=== PATIENT | female | born 1960 | race Caucasian/White ===

== ENCOUNTER → 2022-12-10 | Outpatient (CLI) | payer BC, SELFPAY ==
[2022-12-10 11:30] LABS: Absolute Lymphocyte Count 3.41 X10^3/uL (0.83-4.51); Absolute Neutrophil Count 4.8 X10^3/uL (2.0-7.7); Basophil# 0.13 X10^3/uL; Basophil% 1.4 % (0-1); Eosinophil# 0.08 X10^3/uL; Eosinophils% 0.9 % (0-5); Hematocrit 44.4 % (37-47); Hemoglobin 14.9 g/dL (12.0-15.0); Lymphocyte # 3.41 X10^3/ul (0.83-4.51); Lymphocyte % 37.4 % (19-41); Mean Corp Hgb Conc 33.6 g/dL (32-36); Mean Corpuscular Hgb 31.8 pg (27.0-32.0); Mean Corpuscular Volume 94.7 fL (81-99); Mean Platelet Vol. 8.7 fl (6.2-12.0); Monocyte# 0.71 X10^3/uL; Monocyte% 7.8 % (0-10); NRBC Flagged by Analyzer 0 % (0-5); Neutrophil # 4.76 X10^3/uL (2.7-7.7); Neutrophil % 52.2 % (47-70); Platelet Count 307 K/mm3 (150-450); RBC Distribution Width SD 44.9 fl (35.1-43.9); Red Blood Count 4.69 M/mm3 (4.2-5.4); White Blood Count 9.1 K/mm3 (4.4-11.0)
[2022-12-10 12:03] LABS: ALB/GLOB Ratio 0.9 RATIO (0.9-2.4); AST(SGOT) 14 U/L (15-37); Alanine Aminotransfer ALT/SGPT 24 U/L (13-56); Albumin, Serum 3.4 g/dL (3.2-5.0); Alkaline Phosphatase 86 U/L (45-117); Anion Gap 6 (5-15); BUN 16 mg/dL (7-18); BUN/Creat Ratio 21.5 RATIO (10-20); Calcium,Total 9.5 mg/dL (8.5-10.1); Chloride 110 mmol/L (98-107); Creatinine, Serum 0.74 mg/dL (0.55-1.02); EST Glomerular Filtration Rate 84 mL/min (>60); Est Glom Filt Rate - Afr Amer 102 mL/min (>60); Globulin 3.9 g/dL (2.2-4.2); Glucose 97 mg/dL (74-106); Protein, Total 7.3 g/dL (6.4-8.2); Sodium Level 140 mmol/L (136-145); Thyroid Stim Hormone (TSH) 1.82 uIU/mL (0.358-3.74)
== END | disposition home or self-care (01) ==
LOC: LAB 10:57
PROVIDERS: PCP Family Medicine Geriatric Medicine; Referring Provider Family Medicine Geriatric Medicine; Visit Provider Family Medicine Geriatric Medicine
DX: Z00.00 Encounter for general adult medical examination without abnormal findings (principal); E55.9 Vitamin D deficiency, unspecified; I10 Essential (primary) hypertension; M17.0 Bilateral primary osteoarthritis of knee
CPT/HCPCS: 36415; 80053; 82306; 84443; 85025; 86803

== ENCOUNTER → 2022-12-29 | Outpatient (CLI) | payer BC, SELFPAY | END | disposition home or self-care (01) | PROVIDERS: PCP Family Medicine Geriatric Medicine; Visit Provider Family Medicine Geriatric Medicine | DX: N39.0 Urinary tract infection, site not specified (principal) | CPT/HCPCS: 87086; 87088 ==

== ENCOUNTER → 2023-12-19 | Outpatient (CLI) | payer OTHER, SELFPAY ==
[2023-12-19 12:38] LABS: Absolute Lymphocyte Count 2.79 X10^3/uL (0.83-4.51); Absolute Neutrophil Count 4.7 X10^3/uL (2.0-7.7); Basophil# 0.16 X10^3/uL; Eosinophil# 0.07 X10^3/uL; Eosinophils% 0.9 % (0-5); Hematocrit 48.3 % (37-47); Hemoglobin 15.9 g/dL (12.0-15.0); Lymphocyte # 2.79 X10^3/ul (0.83-4.51); Lymphocyte % 34.1 % (19-41); Mean Corp Hgb Conc 32.9 g/dL (32-36); Mean Corpuscular Hgb 30.8 pg (27.0-32.0); Mean Corpuscular Volume 93.6 fL (81-99); Mean Platelet Vol. 9.1 fl (6.2-12.0); Monocyte# 0.41 X10^3/uL; NRBC Flagged by Analyzer 0 % (0-5); Neutrophil # 4.73 X10^3/uL (2.7-7.7); Neutrophil % 57.6 % (47-70); Platelet Count 376 K/mm3 (150-450); RBC Distribution Width CV 12.8 % (11.6-14.6); Red Blood Count 5.16 M/mm3 (4.2-5.4); White Blood Count 8.2 K/mm3 (4.4-11.0)
[2023-12-19 21:32] LABS: ALB/GLOB Ratio 0.9 RATIO (0.9-2.4); AST(SGOT) 14 U/L (15-37); Alanine Aminotransfer ALT/SGPT 21 U/L (13-56); Albumin, Serum 3.7 g/dL (3.2-5.0); Alkaline Phosphatase 115 U/L (45-117); Anion Gap 9 (5-15); BUN 16 mg/dL (7-18); BUN/Creat Ratio 20.6 RATIO (10-20); CPK Total, Creatine Kinase 71 U/L (26-192); Calcium,Total 9.9 mg/dL (8.5-10.1); Chloride 108 mmol/L (98-107); Cholesterol 269 mg/dL (200); Creatinine, Serum 0.78 mg/dL (0.55-1.02); EST Glomerular Filtration Rate 79 mL/min (>60); Est Glom Filt Rate - Afr Amer 96 mL/min (>60); Globulin 4.1 g/dL (2.2-4.2); Glucose 93 mg/dL (74-106); High Density Lipoprotein 48 mg/dL; Potassium 4.3 mmol/L (3.5-5.1); Protein, Total 7.8 g/dL (6.4-8.2); Sodium Level 139 mmol/L (136-145); Thyroid Stim Hormone (TSH) 1.47 uIU/mL (0.358-3.74); Triglycerides 299 mg/dL; Troponin-I HS 4 pg/mL (3.0-54.0); Very Low Density Lipoprotein 60 mg/dL (5-40)
[2023-12-20 04:07] LABS: Myoglobin, Serum 30 ng/mL (25-58)
== END | disposition home or self-care (01) ==
LOC: LAB 11:13
PROVIDERS: PCP Family Medicine Geriatric Medicine; Referring Provider Family Medicine Geriatric Medicine; Visit Provider Family Medicine Geriatric Medicine
DX: I10 Essential (primary) hypertension (principal); E78.5 Hyperlipidemia, unspecified; R07.9 Chest pain, unspecified
CPT/HCPCS: 36415; 80053; 80061; 82550; 83874; 84443; 84484; 85025

== ENCOUNTER → 2024-01-09 | Outpatient (CLI) | payer OTHER, SELFPAY ==
--- NOTE | 2024-01-09 07:46 | EKG12_ITS ---
Test Reason : COPD Blood Pressure : / mmHG Vent. Rate : 070 BPM Atrial Rate : 070 BPM P-R Int : 166 ms QRS Dur : 066 ms QT Int : 376 ms P-R-T Axes : 058 008 107 degrees QTc Int : 406 ms Normal sinus rhythm Nonspecific T wave abnormality Abnormal ECG Confirmed by Alin Phillips ([id number]), fashion editor PIOTR MARCH ([id number]) on 01/10/2024 7:18:19 AM Referred By: Flavio Andrade Confirmed By:Alin Phillips
== END | disposition home or self-care (01) ==
PROVIDERS: PCP Family Medicine Geriatric Medicine; Referring Provider Family Medicine Geriatric Medicine; Visit Provider Family Medicine Geriatric Medicine
DX: J44.9 Chronic obstructive pulmonary disease, unspecified (principal); R07.9 Chest pain, unspecified; Z12.39 Encounter for other screening for malignant neoplasm of breast; F17.210 Nicotine dependence, cigarettes, uncomplicated
CPT/HCPCS: 93005; 94060

== ENCOUNTER → 2024-01-13 | Outpatient (CLI) | payer OTHER, SELFPAY ==
--- NOTE | 2024-01-13 12:35 | CT_ITS ---
STUDY: LOW DOSE CT LUNG CANCER SCREENING REASON FOR EXAM: Female, 63 years old. NICOTINE DEPENDENCE RADIATION DOSAGE (If Supplied By Facility): CTDIvol = ( 3.02 ) mGy, DLP = ( 103.07 ) mGycm TECHNIQUE: No contrast was administered. Low dose technique was utilized (average mAS-38 and kVp 120). 1.25 mm axial source images with a slice interval of 1.25-mm were reconstructed in lung windows. 2.5 mm axial source images with a slice interval of 2.5-mm were reconstructed in lung windows. 5.0 mm axial source images with a slice interval of 5.0-mm were reconstructed in soft tissue windows. COMPARISON: None. Emphysema: Mild emphysema. No noncalcified nodule or mass. Endobronchial lesion: None Aorta: Some calcified plaque in the aortic arch but no aortic aneurysm. CORONARY ARTERIES: Coronary artery calcification is seen. Heart: No cardiomegaly. Pulmonary artery: Normal Mediastinal nodes: Normal Other chest and abdominal findings: 5 cm cyst of the left kidney. CT/Low Dose CT Lung Screening IMPRESSION: Lung-RADS category 1 - Continue annual screening with LDCT in 12 months. IMPORTANT NOTES FOR USE: ACR Lung-RADS Version 1.1 Assessment Categories Release Date: 2018 Category: Coded 0-4 bases on nodule(s) with highest degree of suspicion. Negative screen is defined as categories 1 and 2; a positive screen is defined as categories 3 and 4. Category 3 and 4A nodules that are unchanged on interval CT should be coded as category 2, and individuals returned to screening in 12 months. Category 4X: Category 3 or 4 nodules with additional imaging findings that increase the suspicion of lung cancer, such as spiculation, GGN that doubles in size in 1 year, enlarged lymph notes, etc. Category Modifiers: S (significant finding unrelated to lung cancer) Electronically Signed: Ramin Vang MD at 14:08 EDT ,
== END | disposition home or self-care (01) ==
LOC: CT 12:30
PROVIDERS: PCP Family Medicine Geriatric Medicine; Referring Provider Family Medicine Geriatric Medicine; Visit Provider Family Medicine Geriatric Medicine
DX: J44.9 Chronic obstructive pulmonary disease, unspecified (principal); R07.9 Chest pain, unspecified; Z12.39 Encounter for other screening for malignant neoplasm of breast; F17.210 Nicotine dependence, cigarettes, uncomplicated
CPT/HCPCS: 71271

== ENCOUNTER → 2024-03-26 | Outpatient (CLI) | payer OTHER, SELFPAY ==
--- NOTE | 2024-03-26 09:32 | ECHOCS_ITS ---
Reason For Study: CAD/ASHD Procedure This was a 2D Doppler, Color Flow transthoracic echocardiogram. Contrast injection was performed. Exam performed in department. Left Ventricle Normal LV size. Left ventricular systolic function is normal. The left ventricular ejection fraction is 65 %. No regional wall motion abnormalities noted. Right Ventricle Normal RV size. Normal systolic function. Atria Normal left atrium. Normal right atrium. Mitral Valve Normal mitral valve. Tricuspid Valve Normal tricuspid valve. Mild tricuspid valve insufficiency. Pulmonic Valve Normal pulmonic valve. Great Vessels Normal aortic root. The pulmonary artery is normal size. Normal inferior vena cava. Pericardium/Pleural No pericardial effusion. Medication 22 gauge I.V. with prn adaptor inserted into left arm. Diluted definity 2ml given slow IV push to enhance endocardial definition. MMode/2D Measurements & Calculations LVIDd: 4.4 cm IVSd: 1.5 cm Ao root diam: 3.4 cm LVIDs: 2.8 cm LVPWd: 1.1 cm RVDd: 3.6 cm FS: 35.9 % LAV(MOD-bp): 36.5 ml LVAd ap4: 31.3 cm2 SV(MOD-sp4): 69.7 ml LAV(MOD-bp) Indexed: 21.0 ml/m2 LVLd ap4: 8.2 cm LAV(MOD-sp2): 37.4 ml EDV(MOD-sp4): 100.9 ml LAV(MOD-sp4): 33.9 ml EDV(sp4-el): 101.4 ml LVAs ap4: 15.1 cm2 LVLs ap4: 6.1 cm ESV(MOD-sp4): 31.2 ml ESV(sp4-el): 31.7 ml EF(MOD-sp4): 69.1 % EF(sp4-el): 68.7 % SV(sp4-el): 69.7 ml Ao sinus diam: 2.[address] Junction: 2.7 cm LA dimension(2D): 3.5 cm LA A4 area: 14.4 cm2 RA A4 area: 13.6 cm2 TAPSE: 1.8 cm Time Measurements MV dec time: 0.24 sec Doppler Measurements & Calculations MV E max jonnathan: 73.3 cm/sec Lat Peak E' Jonnathan: 7.5 cm/sec Med Peak E' Jonnathan: 8.1 cm/sec MV A max jonnathan: 86.1 cm/sec E/E' lat: 9.8 E/E' med: 9.1 MV E/A: 0.85 MV V2 max: 95.6 cm/sec MV P1/2t max jonnathan: 74.6 cm/sec Ao V2 max: 171.2 cm/sec MV max P.7 mmHg MV P1/2t: 74.7 msec Ao max P.7 mmHg MV V2 mean: 49.0 cm/sec MV dec slope: 292.6 cm/sec2 Ao V2 mean: 118.7 cm/sec MV mean P.2 mmHg Ao mean P.4 mmHg MV V2 VTI: 29.7 cm MVA(P1/2t): 2.9 cm2 Ao V2 VTI: 35.7 cm AV (velocity ratio): 0.66 LV V1 max: 99.2 cm/sec PA V2 max: 83.1 cm/sec TR max jonnathan: 219.2 cm/sec LV V1 max P.0 mmHg TR max P.2 mmHg LV V1 mean P.2 mmHg LV V1 mean: 70.4 cm/sec LV V1 VTI: 23.4 cm ECHO/Echo Complete W/ Contrast Interpretation Summary Normal LV size. Left ventricular systolic function is normal. The left ventricular ejection fraction is 65 %. Normal left atrium. Normal right atrium. Contrast injection was performed. Ordering Physician: Arie Chakraborty Referring Physician: Arie Chakraborty Performed By: Viet Clay RCS
== END | disposition home or self-care (01) ==
LOC: CVS 09:31
PROVIDERS: PCP Family Medicine Geriatric Medicine; Referring Provider Internal Medicine Cardiovascular Disease; Visit Provider Internal Medicine Cardiovascular Disease
DX: I10 Essential (primary) hypertension (principal); I25.10 Atherosclerotic heart disease of native coronary artery without angina pectoris
CPT/HCPCS: 93306; Q9957; A4216; C8929

== ENCOUNTER → 2024-12-04 | Outpatient (CLI) | payer BC, SELFPAY ==
--- NOTE | 2024-12-04 14:22 | RAD_ITS ---
PROCEDURE: KNEE 3 VIEWS 12/04/2024 REASON FOR EXAM: KNEE PAIN TECHNIQUE: 3 view(s) of each knee COMPARISON: None FINDINGS: No displaced fracture or traumatic malalignment. There is severe joint space narrowing in the medial compartments bilaterally, with slight lateral subluxation of the tibia relative to the femur bilaterally. Trace bilateral knee joint effusions. Vascular calcifications in the soft tissues. RAD/Knee 3 Views IMPRESSION: Severe osteoarthritis of both knees. Reading Location: [facility]
--- NOTE | 2024-12-04 14:22 | RAD_ITS ---
PROCEDURE: KNEE 3 VIEWS 12/04/2024 REASON FOR EXAM: KNEE PAIN TECHNIQUE: 3 view(s) of each knee COMPARISON: None FINDINGS: No displaced fracture or traumatic malalignment. There is severe joint space narrowing in the medial compartments bilaterally, with slight lateral subluxation of the tibia relative to the femur bilaterally. Trace bilateral knee joint effusions. Vascular calcifications in the soft tissues. RAD/Knee 3 Views IMPRESSION: Severe osteoarthritis of both knees. Reading Location: [facility]
--- NOTE | 2024-12-04 14:22 | CT_ITS ---
PROCEDURE: CT abdomen and pelvis without IV contrast. 12/04/2024 REASON FOR EXAM: KIDNEY STONE TECHNIQUE: Abdomen and pelvis CT without intravenous contrast. Noncontrast technique limits evaluation of the abdominal and pelvic viscera. Coronal and Sagittal reconstruction series were provided. One or more dose reduction techniques were used (e.g., Automated exposure control, adjustment of the mA and/or kV according to patient size, use of iterative reconstruction technique). PATIENT PREPARATION: Per protocol ORAL CONTRAST TYPE: None. COMPARISON: None FINDINGS: Lung bases: There is a benign calcified granuloma in the middle lobe of the right lung. The lung bases are otherwise clear. There are no pleural effusions. The heart size is normal. There is no pericardial effusion. There is calcific vascular disease of the thoracic aorta and coronary arteries. Liver: There is a 1.2 cm in diameter cyst in the left hepatic lobe. Gallbladder: There is a 2.0 cm in diameter gallstone. Spleen: Normal unenhanced appearance. Pancreas: Normal unenhanced appearance. Adrenals: Normal unenhanced appearance. Kidneys: There is a 5.5 cm in diameter cortical cyst in the interpolar cortex of the left kidney. There is no nephrolithiasis, ureterolithiasis or hydronephrosis. Bladder: The urinary bladder has a normal unenhanced CT appearance. Reproductive Organs: The uterus and ovaries have a normal unenhanced CT appearance. There is no free fluid in the pelvis. There are few reactive inguinal lymph nodes bilaterally. There is no pelvic lymphadenopathy. Bowel: No significant abnormality. Appendix: Normal. Lymph nodes: There is no mesenteric or retroperitoneal lymphadenopathy. Vasculature: There is calcific vascular disease of the abdominal aorta. Peritoneum / Retroperitoneum: There are no abnormal intra or retroperitoneal masses or fluid collections. Bones: There is multilevel degenerative disc disease of the lumbar spine. Abdominal wall: There is subcutaneous air in both buttocks consistent with injection sites. CT/Abdomen/Pelvis without Cont IMPRESSION: 1. No evidence of nephrolithiasis, ureterolithiasis or hydronephrosis. 2. Cholelithiasis. 3. Hepatic and renal cysts. Reading Location: [id number]
== END | disposition home or self-care (01) ==
LOC: CT 14:20
PROVIDERS: PCP Family Medicine Geriatric Medicine; Referring Provider Family Medicine Geriatric Medicine; Visit Provider Family Medicine Geriatric Medicine
DX: N20.0 Calculus of kidney (principal); M25.561 Pain in right knee
CPT/HCPCS: 73562; 74176

== ENCOUNTER → 2024-12-19 | Outpatient (CLI) | payer BC, SELFPAY ==
[2024-12-19 15:26] LABS: Absolute Lymphocyte Count 3.79 X10^3/uL (0.83-4.51); Absolute Neutrophil Count 8.4 X10^3/uL (2.0-7.7); Basophil# 0.13 X10^3/uL; Eosinophils% 0.8 % (0-5); Lymphocyte # 3.79 X10^3/ul (0.83-4.51); Lymphocyte % 28.5 % (19-41); Mean Corp Hgb Conc 33.3 g/dL (32-36); Mean Corpuscular Hgb 31.4 pg (27.0-32.0); Mean Corpuscular Volume 94.1 fL (81-99); Mean Platelet Vol. 8.8 fl (6.2-12.0); Monocyte# 0.82 X10^3/uL; Monocyte% 6.2 % (0-10); NRBC Flagged by Analyzer 0 % (0-5); Neutrophil # 8.36 X10^3/uL (2.7-7.7); Neutrophil % 62.9 % (47-70); Platelet Count 349 K/mm3 (150-450); RBC Distribution Width CV 13.5 % (11.6-14.6); RBC Distribution Width SD 46.7 fl (35.1-43.9); Red Blood Count 4.78 M/mm3 (4.2-5.4); White Blood Count 13.3 K/mm3 (4.4-11.0)
== END | disposition home or self-care (01) ==
LOC: LAB 14:09
PROVIDERS: PCP Family Medicine Geriatric Medicine; Referring Provider Family Medicine Geriatric Medicine; Visit Provider Family Medicine Geriatric Medicine
DX: I10 Essential (primary) hypertension (principal); E78.5 Hyperlipidemia, unspecified
CPT/HCPCS: 36415; 80053; 80061; 84443; 85025

== ENCOUNTER → 2024-12-21 | Outpatient (CLI) | payer BC, SELFPAY ==
[2024-12-21 12:17] LABS: Cholesterol 202 mg/dL (<=200); High Density Lipoprotein 67 mg/dL; Low Density Lipoprotein Calc. 102 mg/dL; Triglycerides 165 mg/dL; Very Low Density Lipoprotein 33 mg/dL (5-40)
[2024-12-21 12:24] LABS: ALB/GLOB Ratio 1.3 RATIO (0.9-2.4); AST(SGOT) 24 U/L (<=31); Alanine Aminotransfer ALT/SGPT 16 U/L (<=34); Albumin, Serum 4.1 g/dL (3.4-4.8); Alkaline Phosphatase 105 U/L (35-104); Anion Gap 12 (5-15); BUN 17 mg/dL (4-19); BUN/Creat Ratio 21.5 RATIO (10-20); Calcium,Total 9.8 mg/dL (7.6-11.0); Carbon Dioxide 22.5 mmol/L (21.0-32.0); Chloride 105 mmol/L (98-108); Creatinine, Serum 0.78 mg/dL (0.70-1.20); EST Glomerular Filtration Rate 85 (>60); Globulin 3.1 g/dL (2.2-4.2); Glucose 101 mg/dL (70-99); Potassium 4.3 mmol/L (3.3-5.1); Protein, Total 7.2 g/dL (5.9-8.4); Sodium Level 139 mmol/L (133-145); Total Bilirubin 0.43 mg/dL (0.00-1.30)
--- OUTSIDE RECORDS SUMMARY | 2024-12-21 15:56 | XMS RPT_ITS | CCD ---
Author Organization [facility] Care Team Providers Care Casino Host Name Role Phone Lorri ROBERTS, Cristina Charles Primary Care Provider [phone] Unavailable Primary Care Provider Unavailbrianna Andrade MD, Dr. Flavio Jackson Primary Care Provider Raymond ROBERTS, Dr. Flavio Jackson Attending Provider Raymond ROBERTS, Dr. Flavio Jackson Referring Provider [phone] Raymond, Flavio Chi Primary Care Unavailable Mylene, Arie Attending Unavailable Raymond, Flavio Chi Referring Unavailable Jerman Hargrove Attending Unavailable Raymond, Flavio Chi Primary Care Unavailable Raymond, Flavio Chi Referring Unavailable Raymond, Flavio Chi Primary Care Unavailable Alin Phillips Attending Unavailable Raymond, Flavio Chi Referring Unavailable Raymond, Flavio Chi Primary Care Unavailable Mylene, Arie Attending Unavailable Raymond, Flavio Chi Primary Care Unavailable Mylene, Arie Referring Unavailable Mylene, Arie Attending Unavailable Raymond, Flavio Chi Primary Care Unavailable Raymond, Flavio Chi Referring Unavailable Raymond, Flavio Chi Attending Unavailable Raymond, Flavio Chi Referring Unavailable Raymond, Flavio Chi Attending Unavailable Raymond, Flavio Chi Primary Care Unavailable Raymnod, Flavio Chi Attending Unavailable Raymond, Flavio Chi Referring Unavailable Raymond, Flavio Chi Attending Unavailable Raymond, Flavio Chi Primary Care Unavailable Raymond, Flavio Chi Referring Unavailable Raymond, Flavio Chi Attending Unavailable Raymond, Flavio Chi Primary Care Unavailable Dr. Jorge Fairchild DO Attending Provider Allergies Allergy Classification Reported Allergen(s) Allergy Type Date of Onset Reaction(s) Facility (6 sources) Penicillins Propensity to adverse reactions to drug 2 Unknown [facility] (6 sources) shell fish [Other] Propensity to adverse reactions 2 GI Upset [facility] (2 sources) Penicillins Allergy to substance 4 PT UNSURE OF REACTION [facility] (3 sources) Shellfish; Translations: [shellfish derived] Allergy to substance 4 Nausea/Vom/Diar ant [facility] (1 source) Penicillins Drug allergy (disorder) 4 [facility] Repository Medications Current Medications Medication Drug Class(es) Dates Sig (Normalized) Sig (Original) atorvastatin 40 mg oral tablet (2 sources) HMG-CoA Reductase Inhibitor Start: 01-30-2024 take 1 tablet by mouth at bedtime Atorvastatin 40 mg tablet Active 40 mg PO AT BEDTIME January 30, 2024 12:00am smoking cessation 12 hr buPROPion hydrochloride 150 mg extended release oral tablet (1 source) Aminoketone Start: 12-21-2024 take 1 tablet by mouth twice daily, then take 1 tablet by mouth every twelve hours Bupropion Hcl (Smoking Deter) 150 mg tablet extended release 12 hr Active 150 mg PO TWICE A DAY December 21, 2024 12:00am losartan potassium 100 mg oral tablet (2 sources) Angiotensin 2 Receptor Rizwana Start: 03-07-2024 take 1 tablet by mouth once daily Losartan 100 mg tablet Active 100 mg PO daily March 07, 2024 12:00am meloxicam 15 mg oral tablet (1 source) Nonsteroidal Anti-inflammatory Drug Start: 04-07-2022 End: 05-07-2022 take 1 tablet by mouth once daily meloxicam (MOBIC) 15 mg tablet Indications: Primary osteoarthritis involving multiple joints TAKE 1 TABLET BY MOUTH ONCE DAILY. DUE FOR 6 MONTH FOLLOW UP IN DECEMBER. PLEASE CALL OFFICE TO MAKE APPOINTMENT. 90 tablet 0 04/07/2022 05/07/2022 Active Comment on above: TAKE 1 TABLET BY ELIZ ONCE DAILY. DUE FOR 6 MONTH FOLLOW UP IN DECEMBER. PLEASE CALL OFFICE TO MAKE APPOINTMENT. Completed/Discontinued Medications Medication Drug Class(es) Dates Sig (Normalized) Sig (Original) ascorbic acid 500 mg chewable tablet (6 sources) Vitamin C take 500 mg by mouth once daily Ascorbic Acid (VITAMIN C) 500 mg chew Take 500 mg by mouth once daily. 0 Active Comment on above: Take 500 mg by mouth once daily. Ca carb-Ca gluc-Mg ox-Mg gluco (CALCIUM MAGNESIUM) 500 mg calcium -250 mg tab (6 sources) Ca carb-Ca gluc- Mg ox-Mg gluco (CALCIUM MAGNESIUM) 500 mg calcium -250 mg tab Take by mouth. 0 Active Comment on above: Take by mouth. escitalopram 10 mg oral tablet (4 sources) Serotonin Reuptake Inhibitor Start: 1 take 1 tablet by mouth once daily escitalopram oxalate (LEXAPRO) 10 mg tablet Indications: Adjustment disorder with depressed mood Take 1 tablet by mouth once daily. 90 tablet 3 05/04/2021 Active Comment on above: Take 1 tablet by eliz th once daily. hydroCHLOROthiazide 25 mg oral tablet (6 sources) Thiazide Diuretic Start: 1 End: 2 take 1 tablet by mouth once daily hydroCHLOROthiazide (HYDRODIURIL, ESIDRIX) 25 mg tablet Indications: Essential hypertension TAKE 1 TABLET BY MOUTH EVERY DAY 90 tablet 1 01/05/2022 Active Comment on above: TAKE 1 TABLET BY ELIZ TH EVERY DAY Take 1 tablet by eliz th once daily. simvastatin 40 mg oral tablet (7 sources) HMG-CoA Reductase Inhibitor Start: 1 End: 2 take 1 tablet by mouth once daily simvastatin (ZOCOR) 40 mg tablet Indications: Pure hypercholesterolemia TAKE 1 TABLET BY MOUTH EVERY DAY 90 tablet 0 04/07/2022 Active Comment on above: Take 1 tablet by eliz th once daily. TAKE 1 TABLET BY ELIZ TH EVERY DAY vitamin b12 1 mg oral tablet (8 sources) Vitamin B12 Start: 4 End: 4 take 1 tablet by mouth once daily Cyanocobalamin (Vitamin B-12) 1,000 mcg tablet Discontinued 1000 ug PO DAILY January 30, 2024 12:00am March 07, 2024 11:34am take 1 tablet by mouth once sarah y cyanocobalamin (VITAMIN B-12) 1,000 mcg tab Take 1,000 mcg by mouth once daily. 0 Active Comment on above: Take 1,000 mcg by mo uth once daily. Problems Active Problems Problem Classification Problem Date Documented Da te Episodic/Chronic Adjustment disorders (7 sources) Adjustment disorder with depressed mood; Translations: [Adjustment disorder with depressed mood] Onset: 03-28-2013 03-28-2013 Chronic Calculus of urinary tract (3 sources) Kidney stone; Translations: [Calculus of kidney] Onset: 12-07-2024 01-30-2024 Episodic Chronic obstructive pulmonary disease and bronchiectasis (9 sources) Chronic obstructive lung disease; Translations: [Chronic obstructive pulmonary disease, unspecified] Onset: 09-29-2016 09-29-2016 Chronic Coronary atherosclerosis and other heart disease (2 sources) Calcification of coronary artery; Translations: [Atherosclerotic heart disease of [place] coronary artery without angina pectoris] 03-07-2024 Chronic Disorders of lipid metabolism (12 sources) Hyperlipidemia; Translations: [Hyperlipidemia, unspecified] Onset: 03-28-2013 03-28-2013 Chronic Essential hypertension (11 sources) Essential hypertension; Translations: [Essential (primary) hypertension] Onset: 12-22-2018 12-22-2018 Chronic Mood disorders (2 sources) Depressive disorder; Translations: [Depression] 01-30-2024 Chronic Nonspecific chest pain (3 sources) Chest pain; Translations: [Chest pain, unspecified] Onset: 03-07-2024 01-30-2024 Episodic Osteoarthritis (10 sources) Degenerative joint disease involving multiple joints; Translations: [Polyosteoarthritis, unspecified] Onset: 12-22-2018 12-22-2018 Chronic Other nutritional; endocrine; and metabolic disorders (6 sources) Body mass index 30+ - obesity; Translations: [Body mass index (BMI) 35.0-35.9, adult] Onset: 09-29-2016 12-22-2018 Chronic Peripheral and visceral atherosclerosis (3 sources) Disorder of aorta; Translations: [Atherosclerosis of aorta] Onset: 03-07-2024 01-30-2024 Chronic Past or Other Problems Problem Classification Problem Date Documented Da te Episodic/Chronic Genitourinary symptoms and ill-defined conditions (6 sources) Blood in urine; Translations: [Hematuria, unspecified] Onset: 07-24-2013 07-24-2013 Episodic Other screening for suspected conditions (not mental disorders or infectious disease) (2 sources) Patient encounter status; Translations: [Encounter for screening mammogram for malignant neoplasm of breast] Onset: 01-30-2024 Episodic Results Test Name Value Interpretation Reference Range Facility Absolute lymphocyte countOrd ered By: Flavio Andrade on 12-19-2024 Lymphocytes Auto (Unsp spec) [#/Vol] 3.79 10*3/uL 0.83-4.51 [facility] Absolute neutrophil countOrd ered By: Flavio Andrade on 12-19-2024 Neutrophils (Bld) [#/Vol] 8.4 10*3/uL High 2.0-7.7 [facility] Automated lymphocyte count a s percentage of total leukocytesOrdered By: Flavio Raymond on 12-19-2024 Lymphocytes/100 WBC Auto (Unsp spec) 28.5 % 19-41 [facility] Basophil percentageOrdered B y: Flavio Raymond on 12-19-2024 Basophils/100 WBC (Bld) 1.0 % 0-1 [facility] Eosinophil percentageOrdered By: Flavio Raymond on 12-19-2024 Eosinophils/100 WBC (Bld) 0.8 % 0-5 [facility] Erythrocyte distribution wid th ratioOrdered By: [facility] Raymond12-19-2024 Erythrocyte distribution width (RBC) [Ratio] 13.5 % 11.6-14.6 [facility] Erythrocyte distribution wid th standard deviationOrdered By: Flavio Raymond 12-19-2024 Erythrocyte distribution width (RBC) [Ratio] 46.7 fl High 35.1-43.9 [facility] Hematocrit Auto (Bld) [Volum e fraction]Ordered By: Flavio Andrade 12-19-2024 Hematocrit (Bld) [Volume fraction] 45.0 % 37-47 [facility] Hemoglobin measurementOrdere d By: Flavio Raymond 12-19-2024 Hemoglobin (Bld) [Mass/Vol] 15.0 g/dL 12.0-15.0 [facility] Immature granulocytes/100 WB C Auto (Bld)Ordered By: Flavio Andrade 12-19-2024 Immature granulocytes/100 WBC (Bld) 0.600 % 0.0-0.9 [facility] Comment on above: IG% - Immature Granu locytes (promyelocytes, myelocytes and metamyelocytes) > 1% indicates that a LEFT SHIFT is Present. MCV (mean corpuscular volume ) determinationOrdered By: Flavio Andrade 12-19-2024 MCV (RBC) [Entitic vol] 94.1 fL 81-99 [facility] Mean corpuscular hemoglobin (MCH) determinationOrdered By: Flavio Andrade 12-19-2024 MCH (RBC) [Entitic mass] 31.4 pg 27.0-32.0 [facility] Mean corpuscular hemoglobin concentration (MCHC) determinationOrdered By: Flavio Andrade on 12-19-2024 MCHC (RBC) [Mass/Vol] 33.3 g/dL 32-[address] [facility] Mean platelet volume determi nationOrdered By: Flavio Adnrade on 12-19-2024 Platelet mean volume (Bld) [Entitic vol] 8.8 fL 6.2-12.0 [facility] Monocyte percentageOrdered B y: Flavio Andrade on 12-19-2024 Monocytes/100 WBC (Bld) 6.2 % 0-10 [facility] Neutrophil percentageOrdered By: Flavio Andrade on 12-19-2024 Neutrophils/100 WBC (Bld) 62.9 % 47-70 [facility] Nucleated red blood cell per centageOrdered By: Flavio Andrade on 12-19-2024 Nucleated RBC/100 WBC (Bld) [Ratio] 0 % 0-5 [facility] Platelet countOrdered By: Lul Andrade on 12-19-2024 Platelets (Bld) [#/Vol] 349 10*3/uL 150-450 [facility] RBC Auto (Bld) [#/Vol]Ordere d By: Flavio Andrade on 12-19-2024 RBC (Bld) [#/Vol] 4.78 10*6/uL 4.2-5.4 [facility] White blood cell (WBC) count Ordered By: Flavio Andrade on 12-19-2024 WBC (Bld) [#/Vol] 13.3 10*3/uL High 4.4-11.0 [facility] Abdomen/Pelvis without Conto n 12-04-2024 Abdomen/Pelvis without Cont [facility] Imaging Services [address] [place], [place] [address] Abdomen/Pelvis without Cont MR#: [id number] Acct: [id number] Name: MYRANDA OLIVA Rep #: [id number] : 1960 F 64 From: Carlton Pleitez MD PCP: Dr. Flavio Andrade MD Status: REG CLI Study: Abdomen/Pelvis without Cont Date of Exam: 09/25 Exam# [id number] Ordering Dr: Flavio Andrade MD PROCEDURE: CT abdomen and pelvis without IV contrast. 12/04/2024 REASON FOR EXAM: KIDNEY STONE TECHNIQUE: Abdomen and pelvis CT without intravenous contrast. Noncontrast technique limits evaluation of the abdominal and pelvic viscera. Coronal and Sagittal reconstruction series were provided. One or more dose reduction techniques were used (e.g., Automated exposure control, adjustment of the mA and/or kV according to patient size, use of iterative reconstruction technique). PATIENT PREPARATION: Per protocol ORAL CONTRAST TYPE: None. COMPARISON: None FINDINGS: Lung bases: There is a benign calcified granuloma in the middle lobe of the right lung. The lung bases are otherwise clear. There are no pleural effusions. The heart size is normal. There is no pericardial effusion. There is calcific vascular disease of the thoracic aorta and coronary arteries. Liver: There is a 1.2 cm in diameter cyst in the left hepatic lobe. Gallbladder: There is a 2.0 cm in diameter gallstone. Spleen: Normal unenhanced appearance. Pancreas: Normal unenhanced appearance. Adrenals: Normal unenhanced appearance. Kidneys: There is a 5.5 cm in diameter cortical cyst in the interpolar cortex of the left kidney. There is no nephrolithiasis, ureterolithiasis or hydronephrosis. Bladder: The urinary bladder has a normal unenhanced CT appearance. Reproductive Organs: The uterus and ovaries have a normal unenhanced CT appearance. There is no free fluid in the pelvis. There are few reactive inguinal lymph nodes bilaterally. There is no pelvic lymphadenopathy. Bowel: No significant abnormality. Appendix: Normal. Lymph nodes: There is no mesenteric or retroperitoneal lymphadenopathy. Vasculature: There is calcific vascular disease of the abdominal aorta. Peritoneum / Retroperitoneum: There are no abnormal intra or retroperitoneal masses or fluid collections. Bones: There is multilevel degenerative disc disease of the lumbar spine. Abdominal wall: There is subcutaneous air in both buttocks consistent with injection sites. CT/Abdomen/Pelvis without Cont IMPRESSION: 1. No evidence of nephrolithiasis, ureterolithiasis or hydronephrosis. 2. Cholelithiasis. 3. Hepatic and renal cysts. Reading Location: [id number] CC: Dr. Flavio Andrade MD Urology Physician Assistant: Signed Normal [facility] Knee 3 Viewson 12-04-2024 Knee 3 Views [facility] Imaging Services [address] [place], [place] [address] Knee 3 Views MR#: [id number] Acct: [id number] Name: MYRANDA OLIVA Rep #: [id number] : 1960 F 64 From: Boo Escamilla MD PCP: Dr. Flavio Andrade MD Status: REG CLI Study: Knee 3 Views Date of Exam: 12/04/24 Exam# [id number] Ordering Dr: Flavio Andrade MD PROCEDURE: KNEE 3 VIEWS 12/04/2024 REASON FOR EXAM: KNEE PAIN TECHNIQUE: 3 view(s) of each knee COMPARISON: None FINDINGS: No displaced fracture or traumatic malalignment. There is severe joint space narrowing in the medial compartments bilaterally, with slight lateral subluxation of the tibia relative to the femur bilaterally. Trace bilateral knee joint effusions. Vascular calcifications in the soft tissues. RAD/Knee 3 Views IMPRESSION: Severe osteoarthritis of both knees. Reading Location: [facility] CC: Dr. Flavio Andrade MD Urology Physician Assistant: Signed Normal [facility] Knee 3 Views [facility] Imaging Services [address] [place], [place] [address] Knee 3 Views MR#: [id number] Acct: [id number] Name: MYRANDA OLIVA Rep #: [id number] : 1960 F 64 From: Boo Escamilla MD PCP: Dr. Flavio Andrade MD Status: REG CLI Study: Knee 3 Views Date of Exam: 12/04/24 Exam# [id number] Ordering Dr: Flavio Andrade MD PROCEDURE: KNEE 3 VIEWS 12/04/2024 REASON FOR EXAM: KNEE PAIN TECHNIQUE: 3 view(s) of each knee COMPARISON: None FINDINGS: No displaced fracture or traumatic malalignment. There is severe joint space narrowing in the medial compartments bilaterally, with slight lateral subluxation of the tibia relative to the femur bilaterally. Trace bilateral knee joint effusions. Vascular calcifications in the soft tissues. RAD/Knee 3 Views IMPRESSION: Severe osteoarthritis of both knees. Reading Location: [id number] CC: Dr. Flavio Andrade MD Urology Physician Assistant: Signed Normal [facility] Echo Complete W/ Contraston 03-26-2024 Echo Complete W/ Contrast [facility] Cardiovascular Services [address] [place] [address] Echo Complete W/ Contrast 03/26/24 0953 MR#: [id number] Acct: [id number] Name: MYRANDA OLIVA Rep #: [id number] : 1960 63 From: Arie Chakraborty MD Attending Dr: Dr. Arie Chakraborty MD Status: JOSÉ LUIS DALY Ordering Dr: Arie Chakraborty MD Date: 03/26/24 Location: [facility] Sex: F C Admitted: Reason For Study: CAD/ASHD Procedure This was a 2D Doppler, Color Flow transthoracic echocardiogram. Contrast injection was performed. Exam performed in department. Left Ventricle Normal LV size. Left ventricular systolic function is normal. The left ventricular ejection fraction is 65 %. No regional wall motion abnormalities noted. Right Ventricle Normal RV size. Normal systolic function. Atria Normal left atrium. Normal right atrium. Mitral Valve Normal mitral valve. Tricuspid Valve Normal tricuspid valve. Mild tricuspid valve insufficiency. Pulmonic Valve Normal pulmonic valve. Great Vessels Normal aortic root. The pulmonary artery is normal size. Normal inferior vena cava. Pericardium/Pleural No pericardial effusion. Medication 22 gauge I.V. with prn adaptor inserted into left arm. Diluted definity 2ml given slow IV push to enhance endocardial definition. MMode/2D Measurements Calculations LVIDd: 4.4 cm IVSd: 1.5 cm Ao root diam: 3.4 cm LVIDs: 2.8 cm LVPWd: 1.1 cm RVDd: 3.6 cm FS: 35.9 % LAV(MOD-bp): 36.5 ml LVAd ap4: 31.3 cm2 SV(MOD-sp4): 69.7 ml LAV(MOD-bp) Indexed: 21.0 ml/m2 LVLd ap4: 8.2 cm LAV(MOD-sp2): 37.4 ml EDV(MOD-sp4): 100.9 ml LAV(MOD-sp4): 33.9 ml EDV(sp4-el): 101.4 ml LVAs ap4: 15.1 cm2 LVLs ap4: 6.1 cm ESV(MOD-sp4): 31.2 ml ESV(sp4-el): 31.7 ml EF(MOD-sp4): 69.1 % EF(sp4-el): 68.7 % SV(sp4-el): 69.7 ml Ao sinus diam: 2.[address] Junction: 2.7 cm LA dimension(2D): 3.5 cm LA A4 area: 14.4 cm2 RA A4 area: 13.6 cm2 TAPSE: 1.8 cm Time Measurements MV dec time: 0.24 sec Doppler Measurements Calculations MV E max monie: 73.3 cm/sec Lat Peak E' Monie: 7.5 cm/sec Med Peak E' Monie: 8.1 cm/sec MV A max monie: 86.1 cm/sec E/E' lat: 9.8 E/E' med: 9.1 MV E/A: 0.85 MV V2 max: 95.6 cm/sec MV P1/2t max monie: 74.6 cm/sec Ao V2 max: 171.2 cm/sec MV max P.7 mmHg MV P1/2t: 74.7 msec Ao max P.7 mmHg MV V2 mean: 49.0 cm/sec MV dec slope: 292.6 cm/sec2 Ao V2 mean: 118.7 cm/sec MV mean P.2 mmHg Ao mean P.4 mmHg MV V2 VTI: 29.7 cm MVA(P1/2t): 2.9 cm2 Ao V2 VTI: 35.7 cm AV (velocity ratio): 0.66 LV V1 max: 99.2 cm/sec PA V2 max: 83.1 cm/sec TR max monie: 219.2 cm/sec LV V1 max P.0 mmHg TR max P.2 mmHg LV V1 mean P.2 mmHg LV V1 mean: 70.4 cm/sec LV V1 VTI: 23.4 cm ECHO/Echo Complete W/ Contrast Interpretation Summary Normal LV size. Left ventricular systolic function is normal. The left ventricular ejection fraction is 65 %. Normal left atrium. Normal right atrium. Contrast injection was performed. Ordering Physician: Arie Chakraborty Referring Physician: Arie Chakraborty Performed By: Viet Clay RCS 03/26/24 1425 Date Arie Chakraborty MD CC: Dr. Arie Chakraborty MD; Dr. Flavio Andrade MD Date Dictated: 03/26/24952 Date Transcribed: 03/26/24 142 Urology Physician Assistant: Signed Normal [facility] 12 Lead EKG performed by [facility] on 03-07-2024 12 Lead EKG performed by [address] [address] 12 Lead EKG performed by [facility] 03/07/24 1126 MR#: [id number] Acct: [id number] Name: MYRANDA OLIVA Rep #: [id number] : 1960 63 From: Arie Chakraborty MD Attending Dr: Dr. Arie Chakraborty MD Status: DEP A MB Ordering Dr: Arie Chakraborty MD Date: 03/07/24 Location: [facility] Sex: F C Admitted: [facility]/12 Lead EKG performed by [facility] ECG Report Interpretation ---Sinus Rhythm -Left atrial enlargement. - Nonspecific T-abnormality. ABNORMAL Electronically signed on 03/11/2024 at 19:23 by Arie Chakraborty [employer] Version 8610 03/11/241926 Date Arie Chakraborty MD CC: Dr. Flavio Andrade MD Date Dictated: 03/07/241125 Date Transcribed: 03/07/241125 Urology Physician Assistant: [place] Signed Normal [facility] Cardiology Visit Reporton Cardiology Visit Report [facility] [address] [place] [address] OFFICE VISIT Date of Service: 03/07/24 MR#: [id number] Acct: [id number] Name: MYRANDA OLIVA Rep #: [id number] : 1960 Provider: Dr. Arie Chakraborty MD Age/Sex: 63/F Location: [facility] Status: Signed with Addenda ADDENDUM by ZENIA Fung on 03/23/24 at 1345 Addendum Addendum Details:: Patient has severe osteoarthritis in bilateral knees, and ambulates with a cane. She is unable to walk on a treadmill due to this. Assessment and Plan Assessment and Plan (1) Essential (primary) hypertension: Status: Acute (2) Aortic calcification: Status: Acute (3) Hyperlipidemia: Status: Acute (4) Coronary artery calcification: Status: Acute Orders: Orders 12 Lead EKG performed by [facility] 03/07/24 E78.5 - Hyperlipidemia, unspecified, I70.0 - Atherosclerosis of aorta, R07.9 - Chest pain, unspecified Echo Complete 03/07/24 I10 - Essential (primary) hypertension Nuclear Stress Test - Chemical 03/07/24 I25.10 - Atherosclerotic heart disease of [place] coronary artery without angina pectoris Plan Details Follow Up: 1 Year (mmm) 03/23/24 1345 Date Alisha Fung NP [employer] cc: Dr. Flavio Andrade MD * Signed HPI HPI History of Present Illness Details: Pleasant 63-year-old lady with a history of hypertension previous tobacco abuse who has had shortness of breath on occasion and underwent a low-dose CT scan which demonstrated coronary calcification and hence she was sent here for further evaluation and management. She denies any chest pain per se she has had some palpitations and does have shortness of breath when climbing stairs. She does have a history of hyperlipidemia with a total cholesterol of 269 HDL of 48 LDL of 161. She is on statin medication. Her physical exam demonstrates clear lung go regular rate and rhythm with 2/6 systolic murmur noted left sternal border and no pedal edema. Electrocardiogram demonstrates sinus rhythm with a rate of 75 bpm and no acute changes. Intake Vital Signs 03/07/24 11:35 Height 5 ft 1 in Weight: 165 lb 5 oz BMI 31.2 BP 137/77 H Blood Pressure Location Lt brachial Position Sitting Respiration 16 Pulse 76 Pulse Source Monitor Intake Visit Reasons: CP/ Aortic Calcification (Raymond) Head Of Marketing Analytics Required: No Accompanied by: Self Is patient in pain?: No Allergies shellfish derived Allergy (Severe, Verified 03/07/24 11:34) Nausea/Vom/Diarrhea Penicillins Allergy (Intermediate, Verified 03/07/24 11:33) PT UNSURE OF REACTION Medications ???Medication ???Instructions ???Recorded ???Confirmed ???Type atorvastatin 40 mg tablet 40 mg PO QHS 01/30/24 01/30/24 History losartan 100 mg tablet 100 mg PO QDAY 03/07/24 03/07/24 History PFSH Medical History Kidney stone COPD (chronic obstructive pulmonary disease) Osteoarthritis Hyperlipidemia Essential (primary) hypertension Depression Aortic calcification Chest pain Surgical History Hx of lithotripsy Family History Father Depression Hypertension Mother Hypertension Cancer Sister Hypertension Social History Smoking Status: Current every day smoker substance use type: former substance user and marijuana ROS Const Const: Negative for fatigue, weakness, headache(s), daytime sleepiness or difficulty sleeping ENT ENT: Positive for dizziness (few months ago); Negative for headache(s) or Nosebleed/epistaxis Cardio Chest Pain: Yes (when stressed/anxiety) Frequency: other Character: tightness (feels like a pulled muscle) Onset: other (random) Location: mid sternal, left chest and other (shoulder blade) Duration: minutes Palpitations: Yes (fluttering) Edema: None Resp Respiratory: Positive for SOB with activity (climbing stairs); Negative for SOB at rest, SOB orthopnea SOB lying down or Cough GI GI: Positive for nausea (in the AMs ); Negative vomiting or heartburn Neuro Neuro: Positive for dizziness (few months ago); Negative for lightheadedness, near syncope, headache(s) or weakness Endo Endo: Negative for fatigue Cardiology Exam Const Appearance: cooperative, healthy appearing, no acute distress, well developed and well groomed Nutritional Appearance: average body habitus and well nourished Orientation: alert, awake and oriented x3 Head Head: normal to inspection, normocephalic and atraumatic Ears: hearing grossly normal bilaterally and external ears normal Nose: external nose normal, nares normal, nasal m (more content not included)... Normal [facility] Low Dose CT Lung Screeningon 01-13-[address] Lung Screening [facility] Imaging Services [address] [place] [id number] Lung Screening MR#: [id number] Acct: [id number] Name: MYRANDA OLIVA Rep #: [id number] : 1960 F 63 From: Ramin Vang MD PCP: Dr. Flavio Andrade MD Status: [facility] Study: Low Dose CT Lung Screening Date of Exam: 01/12 Exam# [id number] Ordering [place]: [place] [id number] STUDY: LOW DOSE CT LUNG CANCER SCREENING REASON FOR EXAM: Female, 63 years old. NICOTINE DEPENDENCE RADIATION DOSAGE (If Supplied By Facility): CTDIvol = ( 3.02 ) mGy, DLP = ( 103.07 ) mGycm TECHNIQUE: No contrast was administered. Low dose technique was utilized (average mAS-38 and kVp 120). 1.25 mm axial source images with a slice interval of 1.25-mm were reconstructed in lung windows. 2.5 mm axial source images with a slice interval of 2.5-mm were reconstructed in lung windows. 5.0 mm axial source images with a slice interval of 5.0-mm were reconstructed in soft tissue windows. COMPARISON: None. Emphysema: Mild emphysema. No noncalcified nodule or mass. Endobronchial lesion: None Aorta: Some calcified plaque in the aortic arch but no aortic aneurysm. CORONARY ARTERIES: Coronary artery calcification is seen. Heart: No cardiomegaly. Pulmonary artery: Normal Mediastinal nodes: Normal Other chest and abdominal findings: 5 cm cyst of the left kidney. CT/Low Dose CT Lung Screening IMPRESSION: Lung-RADS category 1 - Continue annual screening with LDCT in 12 months. IMPORTANT NOTES FOR USE: ACR Lung-RADS Version 1.1 Assessment Categories Release Date: 2018 Category: Coded 0-4 bases on nodule(s) with highest degree of suspicion. Negative screen is defined as categories 1 and 2; a positive screen is defined as categories 3 and 4. Category 3 and 4A nodules that are unchanged on interval CT should be coded as category 2, and individuals returned to screening in 12 months. Category 4X: Category 3 or 4 nodules with additional imaging findings that increase the suspicion of lung cancer, such as spiculation, GGN that doubles in size in 1 year, enlarged lymph notes, etc. Category Modifiers: S (significant finding unrelated to lung cancer) Electronically Signed: Ramin Vang MD at 14:08 EDT , CC: Dr. Flavio Andrade MD Urology Physician Assistant: Signed Normal [facility] 12 Lead EKGon 01-09-2024 12 Lead EKG [facility] Cardiovascular Services [address] [place] [address] 12 Lead EKG 01/09/24 0755 MR#: [id number] Acct: [id number] Name: MYRANDA OLIVA Rep #: [id number] : 1960 63 From: Alin Phillips MD Attending Dr: Dr. Flavio Andrade MD Status: REG CLI Ordering Dr: Flavio Andrade MD Date: 01/09/24 Location: [facility] Sex: F C Admitted: Test Reason : COPD Blood Pressure : / mmHG Vent. Rate : 070 BPM Atrial Rate : 070 BPM P-R Int : 166 ms QRS Dur : 066 ms QT Int : 376 ms P-R-T Axes : 058 008 107 degrees QTc Int : 406 ms Normal sinus rhythm Nonspecific T wave abnormality Abnormal ECG Confirmed by Alin Phillips ([id number]), continuity editor PIOTR MARCH ([id number]) on 01/10/2024 7:18:19 AM Referred By: Flavio Andrade Confirmed By:Alin Phillips 01/10/24717 Date Alin Phillips MD CC: Dr. Flavio Andrade MD Signed Normal [facility] Myoglobin, Serumon 4 Myoglobin, Ser 30 ng/mL Normal 25-58 [facility] Comment on above: Result Comment: Perf ormed at: CB - [facility] [place] [id number] Film Loader: Raymond Wilson PhD, Phone: [phone] Performed By: #### L 501.4020, L501.9520, L500.4100, L500.4050, L501.3620, L3600.5100, L100.0100 ####[facility] [address] [place], [address] CBC W/Diff, Automatedon 12-02 Absolute Lymph 2.79 X10 3/uL Normal 0.83-4.51 [facility] Comment on above: Performed By: #### L 501.4020, L501.9520, L500.4100, L500.4050, L501.3620, L3600.5100, L100.0100 #### [facility] [address] [place], [address] Absolute Neut 4.7 X10 3/uL Normal 2.0-7.7 [facility] Comment on above: Performed By: #### L 501.4020, L501.9520, L500.4100, L500.4050, L501.3620, L3600.5100, L100.0100 #### [facility] [address] [place], [address] Basophils/100 WBC (Bld) 2.0 % High 0-1 [facility] Comment on above: Performed By: #### L 501.4020, L501.9520, L500.4100, L500.4050, L501.3620, L3600.5100, L100.0100 #### [facility] [address] [place], [address] Eosinophils/100 WBC (Bld) 0.9 % Normal 0-5 [facility] Comment on above: Performed By: #### L 501.4020, L501.9520, L500.4100, L500.4050, L501.3620, L3600.5100, L100.0100 #### [facility] [address] [place], [address] Erythrocyte distribution width (RBC) [Ratio] 12.8 % Normal 11.6-14.6 [facility] Comment on above: Performed By: #### L 501.4020, L501.9520, L500.4100, L500.4050, L501.3620, L3600.5100, L100.0100 #### [facility] [address] [place], [address] Hematocrit (Bld) [Volume fraction] 48.3 % High 37-47 [facility] Comment on above: Performed By: #### L 501.4020, L501.9520, L500.4100, L500.4050, L501.3620, L3600.5100, L100.0100 #### [facility] [address] [place], [address] Hemoglobin (Bld) [Mass/Vol] 15.9 g/dL High 12.0-15.0 [facility] Comment on above: Performed By: #### L 501.4020, L501.9520, L500.4100, L500.4050, L501.3620, L3600.5100, L100.0100 #### [facility] [address] [place], [address] IG% 0.400 Normal 0.0-0.9 [facility] Comment on above: Result Comment: IG% - Immature Granulocytes (promyelocytes, myelocytes and metamyelocytes) > 1% indicates that a LEFT SHIFT is Present. Performed By: #### L 501.4020, L501.9520, L500.4100, L500.4050, L501.3620, L3600.5100, L100.0100 #### [facility] [address] [place], [address] Lymphocytes/100 WBC (Bld) 34.1 % Normal 19-41 [facility] Comment on above: Performed By: #### L 501.4020, L501.9520, L500.4100, L500.4050, L501.3620, L3600.5100, L100.0100 #### [facility] [address] [place], [address] MCH (RBC) [Entitic mass] 30.8 pg Normal 27.0-32.0 [facility] Comment on above: Performed By: #### L 501.4020, L501.9520, L500.4100, L500.4050, L501.3620, L3600.5100, L100.0100 #### [facility] [address] [place], [address] MCHC (RBC) [Mass/Vol] 32.9 g/dL Normal 32-[address] [facility] Comment on above: Performed By: #### L 501.4020, L501.9520, L500.4100, L500.4050, L501.3620, L3600.5100, L100.0100 #### [facility] [address] [place], [address] MCV (RBC) [Entitic vol] 93.6 fL Normal 81-99 [facility] Comment on above: Performed By: #### L 501.4020, L501.9520, L500.4100, L500.4050, L501.3620, L3600.5100, L100.0100 #### [facility] [address] [place], [address] Monocytes/100 WBC (Bld) 5.0 % Normal 0-10 [facility] Comment on above: Performed By: #### L 501.4020, L501.9520, L500.4100, L500.4050, L501.3620, L3600.5100, L100.0100 #### [facility] [address] [place], [address] Neutrophils/100 WBC (Bld) 57.6 % Normal 47-70 [facility] Comment on above: Performed By: #### L 501.4020, L501.9520, L500.4100, L500.4050, L501.3620, L3600.5100, L100.0100 #### [facility] [address] [place], [address] Nucleated RBC (Bld) [#/Vol] 0 10*3/uL Normal 0-5 [facility] Comment on above: Performed By: #### L 501.4020, L501.9520, L500.4100, L500.4050, L501.3620, L3600.5100, L100.0100 #### [facility] [address] [place], [address] Platelet mean volume (Bld) [Entitic vol] 9.1 fL Normal 6.2-12.0 [facility] Comment on above: Performed By: #### L 501.4020, L501.9520, L500.4100, L500.4050, L501.3620, L3600.5100, L100.0100 #### [facility] [address] [place], [address] Platelets (Bld) [#/Vol] 376 10*3/uL Normal 150-450 [facility] Comment on above: Performed By: #### L 501.4020, L501.9520, L500.4100, L500.4050, L501.3620, L3600.5100, L100.0100 #### [facility] [address] [place], [address] RBC (Bld) [#/Vol] 5.16 10*6/uL Normal 4.2-5.4 [facility] Comment on above: Performed By: #### L 501.4020, L501.9520, L500.4100, L500.4050, L501.3620, L3600.5100, L100.0100 #### [facility] [address] [place], [address] RDW SD 44.0 fl High 35.1-43.9 [facility] Comment on above: Performed By: #### L 501.4020, L501.9520, L500.4100, L500.4050, L501.3620, L3600.5100, L100.0100 #### [facility] [address] [place], [address] WBC (Bld) [#/Vol] 8.2 10*3/uL Normal 4.4-11.0 [facility] Comment on above: Performed By: #### L 501.4020, L501.9520, L500.4100, L500.4050, L501.3620, L3600.5100, L100.0100 #### [facility] [address] [place], [address] CPK Total, Creatine Kinaseon 12-19-2023 CPK TOTAL 71 U/L Normal 26-192 [facility] Comment on above: Order Comment: 1 Performed By: #### L 501.4020, L501.9520, L500.4100, L500.4050, L501.3620, L3600.5100, L100.0100 ####[facility] [address] [place], [address] Comprehensive Metabolic Prof ilon 12-19-2023 Albumin [Mass/Vol] 3.7 g/dL Normal 3.2-5.0 [facility] Comment on above: Order Comment: 1 Performed By: #### L 501.4020, L501.9520, L500.4100, L500.4050, L501.3620, L3600.5100, L100.0100 #### [facility] [address] [place], [address] Albumin/Globulin [Mass ratio] 0.9 {ratio} Normal 0.9-2.4 [facility] Comment on above: Order Comment: 1 Performed By: #### L 501.4020, L501.9520, L500.4100, L500.4050, L501.3620, L3600.5100, L100.0100 #### [facility] [address] [place], [address] ALK P 115 U/L Normal 45-117 [facility] Comment on above: Order Comment: 1 Performed By: #### L 501.4020, L501.9520, L500.4100, L500.4050, L501.3620, L3600.5100, L100.0100 #### [facility] [address] [place], [address] ALT [Catalytic activity/Vol] 21 U/L Normal 13-56 [facility] Comment on above: Order Comment: 1 Performed By: #### L 501.4020, L501.9520, L500.4100, L500.4050, L501.3620, L3600.5100, L100.0100 #### [facility] [address] [place], [address] AST [Catalytic activity/Vol] 14 U/L Low 15-37 [facility] Comment on above: Order Comment: 1 Performed By: #### L 501.4020, L501.9520, L500.4100, L500.4050, L501.3620, L3600.5100, L100.0100 #### [facility] [address] [place], [address] Bilirubin [Mass/Vol] 0.40 mg/dL Normal 0.20-1.00 [facility] Comment on above: Order Comment: 1 Result Comment: For patients on eltrombopag therapy, use of Dimension [place] TBIL is not recommended. Performed By: #### L 501.4020, L501.9520, L500.4100, L500.4050, L501.3620, L3600.5100, L100.0100 #### [facility] [address] [place], [address] BUN/CRE 20.6 RATIO High 10-20 [facility] Comment on above: Order Comment: 1 Performed By: #### L 501.4020, L501.9520, L500.4100, L500.4050, L501.3620, L3600.5100, L100.0100 #### [facility] [address] [place], [address] CA,Total 9.9 mg/dL Normal 8.5-10.1 [facility] Comment on above: Order Comment: 1 Performed By: #### L 501.4020, L501.9520, L500.4100, L500.4050, L501.3620, L3600.5100, L100.0100 #### [facility] [address] [place], [address] Chloride [Moles/Vol] 108 mmol/L High 98-107 [facility] Comment on above: Order Comment: 1 Performed By: #### L 501.4020, L501.9520, L500.4100, L500.4050, L501.3620, L3600.5100, L100.0100 #### [facility] [address] [place], [address] CO2 [Moles/Vol] 22.0 mmol/L Normal 21.0-32.0 [facility] Comment on above: Order Comment: 1 Performed By: #### L 501.4020, L501.9520, L500.4100, L500.4050, L501.3620, L3600.5100, L100.0100 #### [facility] [address] [place], [address] Creatinine [Mass/Vol] 0.78 mg/dL Normal 0.55-1.[address] [facility] Comment on above: Order Comment: 1 Result Comment: The validity of the calculated GFR GFRAA in patients over 70 years has not been determined. Clinical correlation is essential. Performed By: #### L 501.4020, L501.9520, L500.4100, L500.4050, L501.3620, L3600.5100, L100.0100 #### [facility] [address] [place], [address] EST GFR - AA 96 mL/min Normal >60 [facility] Comment on above: Order Comment: 1 Result Comment: Afri can [place] GFR Calc Performed By: #### L 501.4020, L501.9520, L500.4100, L500.4050, L501.3620, L3600.5100, L100.0100 #### [facility] [address] [place], [address] GAP 9 Normal 5-15 [facility] Comment on above: Order Comment: 1 Performed By: #### L 501.4020, L501.9520, L500.4100, L500.4050, L501.3620, L3600.5100, L100.0100 #### [facility] [address] [place], [address] GFR/1.73 sq M.predicted among non-blacks MDRD (S/P/Bld) [Vol rate/Area] 79 mL/min/{1.73_m2} Normal >60 [facility] Comment on above: Order Comment: 1 Result Comment: Non- GFR Calc Performed By: #### L 501.4020, L501.9520, L500.4100, L500.4050, L501.3620, L3600.5100, L100.0100 #### [facility] [address] [place], [address] Globulin (S) [Mass/Vol] 4.1 g/dL Normal 2.2-4.2 [facility] Comment on above: Order Comment: 1 Performed By: #### L 501.4020, L501.9520, L500.4100, L500.4050, L501.3620, L3600.5100, L100.0100 #### [facility] [address] [place], [address] Glucose [Mass/Vol] 93 mg/dL Normal 74-106 [facility] Comment on above: Order Comment: 1 Performed By: #### L 501.4020, L501.9520, L500.4100, L500.4050, L501.3620, L3600.5100, L100.0100 #### [facility] [address] [place], [address] Potassium [Moles/Vol] 4.3 mmol/L Normal 3.5-5.[address] [facility] Comment on above: Order Comment: 1 Performed By: #### L 501.4020, L501.9520, L500.4100, L500.4050, L501.3620, L3600.5100, L100.0100 #### [facility] [address] [place], [address] Sodium [Moles/Vol] 139 mmol/L Normal 136-145 [facility] Comment on above: Order Comment: 1 Performed By: #### L 501.4020, L501.9520, L500.4100, L500.4050, L501.3620, L3600.5100, L100.0100 #### [facility] [address] [place], [address] T PROT 7.8 g/dL Normal 6.4-8.2 [facility] Comment on above: Order Comment: 1 Performed By: #### L 501.4020, L501.9520, L500.4100, L500.4050, L501.3620, L3600.5100, L100.0100 #### [facility] [address] [place], [address] Urea nitrogen [Mass/Vol] 16 mg/dL Normal 7-18 [facility] Comment on above: Order Comment: 1 Performed By: #### L 501.4020, L501.9520, L500.4100, L500.4050, L501.3620, L3600.5100, L100.0100 #### [facility] [address] [place], [address] L501.4020on 12-19-2023 TROPONIN-I HS 4 pg/mL Normal 3.0-54.0 [facility] Comment on above: Order Comment: 1 Result Comment: Plea se Note: New Test Units and Gender Specific Reference Ranges. For more information see Policy Stat Procedure [place] High Sensitivity Troponin (TNIH) and attachments. Performed By: #### L 501.4020, L501.9520, L500.4100, L500.4050, L501.3620, L3600.5100, L100.0100 ####[facility] [address] [place], [address] Lipid Profileon 12-19-2023 Cholesterol [Mass/Vol] 269 mg/dL High 200 [facility] Comment on above: Order Comment: 1 Result Comment: <200 mg/dL Desirable 200-240 mg/dL Borderline >240 mg/dL High Risk Performed By: #### L 501.4020, L501.9520, L500.4100, L500.4050, L501.3620, L3600.5100, L100.0100 #### [facility] [address] [place], [address] Cholesterol in HDL [Mass/Vol] 48 mg/dL Normal [facility] Comment on above: Order Comment: 1 Result Comment: The drugs N-Acetylcysteine and Metamizole may falsely depress this assay. Reference Range HDL <40 mg/dL Low HDL Cholesterol HDL >or= 60 mg/dL High HDL Cholesterol Performed By: #### L 501.4020, L501.9520, L500.4100, L500.4050, L501.3620, L3600.5100, L100.0100 #### [facility] [address] [place], [address] Cholesterol in LDL [Mass/Vol] 161 mg/dL High 0-130 [facility] Comment on above: Order Comment: 1 Performed By: #### L 501.4020, L501.9520, L500.4100, L500.4050, L501.3620, L3600.5100, L100.0100 #### [facility] [address] [place], [place], [address] Cholesterol in VLDL [Mass/Vol] 60 mg/dL High 5-40 [facility] Comment on above: Order Comment: 1 Performed By: #### L 501.4020, L501.9520, L500.4100, L500.4050, L501.3620, L3600.5100, L100.0100 #### [facility] [address] [place], [place], [address] Triglyceride [Mass/Vol] 299 mg/dL High [facility] Comment on above: Order Comment: 1 Result Comment: The drugs N-Acetylcysteine and Metamizole may falsely depress this assay. Serum Triglycerides Reference Interval Normal <150 mg/dL Borderline high 150 - 199 mg/dL High 200 - 499 mg/dL Very High > or = 500 mg/dL Performed By: #### L 501.4020, L501.9520, L500.4100, L500.4050, L501.3620, L3600.5100, L100.0100 #### [facility] [address] [place], [place], [address] Thyroid Stim Hormone (TSH)on 12-19-2023 TSH 1.47 uIU/mL Normal 0.358-3.74 [facility] Comment on above: Order Comment: 1 Performed By: #### L 501.4020, L501.9520, L500.4100, L500.4050, L501.3620, L3600.5100, L100.0100 ####[facility] [address] [place], [place], [address] CNOVon 05-04-2021 CNOV Office Visit (FPWADS ) MYRANDA OLIVA ([id number]) 1960 F Date Time Provider Department 05/04/21 4:00 PM CRISTINA CALLAHAN During your visit today, we recorded the following information about you: Temperature Pulse Blood pressure Weight 96.9 degrees 75/minute 144/70 90.7 kg Height 1.524 m Cristina Callahan MD 05/04/2021 5:01 PM Signed CHIEF COMPLAINT Patient presents with: Follow Up: 6 month HISTORY OF PRESENT ILLNESS Myranda Oliva is a 60 year old female who presents here today for follow up management of multiple medical issues. I last saw this patient on 06/12/2020. Arthritis Continues to take meloxicam daily. Pain is primarily in the knees, hands and hips. Hypercholesterolemia Currently managed on simvastatin. adherent to current regimen without side effects from medication. No current symptoms. Mood Patient is managed on Lexapro. Patient recently retired in February. She has been feeling a lot less stress. Health Maintenance Due for spirometry. Due for TDAP. Due for routine colon cancer screening. Due for Shingrix series Due for routine pap testing. Due for HPV testing. Due for influenza Due for mammogram. Labs reviewed. Past medical history, appointments, medications, allergies reviewed. REVIEW OF SYSTEMS Pertinent positives/ negatives: General: Feels well, no fever, no chills, +obesity. HEENT: No sinus congestion, earache, sore throat. Cardiac: No chest pain, palpitations Resp: No cough, wheeze, shortness of breath GI: No reflux symptoms, food intolerance, bowel changes. : No urinary frequency, dysuria. MS: +arthritis Psych: +tobacco use PAST MEDICAL HISTORY PAST MEDICAL HISTORY Diagnosis Date - Anxiety - Chronic obstructive pulmonary disease (HCC) 09/29/2016 - COPD (chronic obstructive pulmonary disease) ([facility]) - Dyslipidemia - Kidney stone 01/21/2014 - Panic attack - Tattoo - Tobacco abuse PHYSICAL EXAMINATION BP 142/73 Pulse 75 Temp 36.1 ?C (96.9 ?F) (Temporal) Ht 152.4 cm (5') Wt 90.7 kg (200 lb) LMP 08/30/2007 BMI 39.06 kg/m? Repeat BP: 144/70 General: Alert, well developed, well nourished, no distress, pleasant and cooperative. Obese. Heart: Regular rate and rhythm. Normal S1 and S2. No murmurs, rubs, or gallops. Lungs: Clear to auscultation bilaterally. No respiratory distress. No wheezes, rales, or rhonchi. Abdomen: Soft, non-tender, no distention. Extremities: Feet/ankles without edema, posterior tibial pulses full and symmetrical. Data Reviewed 04/30/2021 BMP- glucose (109 high) Lipid- Cholesterol, Total <200 mg/dL 232High Triglyceride <150 mg/dL 219High HDL Cholesterol >39 mg/dL 50 LDL Cholesterol <100 mg/dL 138High Non HDL Cholesterol <130 mg/dL 182High Fasting Time hrs 10 VLDL Cholesterol <30 mg/dL 44High TC:HDL Ratio <5.10 4.64 LDL:HDL Ratio <2.54 2.76High A1C trends- Lab Results Component Value Date HBA1C 5.8 04/30/2021 HBA1C 5.9 06/12/2020 Assessment/Plan (I10) Essential hypertension (primary encounter diagnosis) Comment: BP elevated on arrival today at 142/73 , 144/70 on repeat. Plan: hydroCHLOROthiazide (HYDRODIURIL, ESIDRIX) 25 mg tablet (F43.21) Adjustment disorder with depressed mood Comment: Patient does not know if she should continue because she does not have the stress of work. Plan: escitalopram oxalate (LEXAPRO) 10 mg tablet (M89.49) Primary osteoarthritis involving multiple joints Comment: mainly in hands, knees and hips Plan: meloxicam (MOBIC) 15 mg tablet (E78.00) Pure hypercholesterolemia Comment: status quo Plan: simvastatin (ZOCOR) 40 mg tablet (R73.9) Hyperglycemia Comment: per labs Plan: Watch carb intake. (Z68.35) BMI 35.0-35.9,adult Comment: per physical exam Plan: discussed weight loss tips (Z72.0) Continuous tobacco abuse Comment: Patient is down to smoking 1/4 of a pack a day. She would like to quit by September Plan: continue smoking cessation efforts. Signed Prescriptions Disp Refills escitalopram oxalate (LEXAPRO) 10 mg tablet 90 tablet 3 Sig: Take 1 tablet by mouth once daily. ANUPAMA: No hydroCHLOROthiazide (HYDRODIURIL, ESIDRIX) 25 mg tablet 90 tablet 3 Sig: Take 1 tablet by mouth once daily. ANUPAMA: No meloxicam (MOBIC) 15 mg tablet 90 tablet 3 Sig: Take 1 tablet by mouth once daily. Due for 6 month follow up in December. Please call office to make appointment. ANUPAMA: No simvastatin (ZOCOR) 40 mg tablet 90 tablet 3 Sig: Take 1 tablet by mouth once daily. RTO: 6 months Scribe Attestation: By signing my name below, IKarla, attest that this documentation has been prepared under the direction and in the presence of Lazaro Callahan M.D. Electronically Signed: Yessenia Hobbs. May 04, 2021 2:34 PM Provider Attestation: ICristina MD, personally performed the services described in this documentat (more content not included)... Normal [facility] Basic Metabolic Panlon 04-30 Anion gap [Moles/Vol] 11 mmol/L Normal 9-18 [facility] Calcium [Mass/Vol] 9.8 mg/dL Normal 8.5-10.2 [facility] Chloride [Moles/Vol] 105 mmol/L Normal 97-105 [facility] CO2 [Moles/Vol] 22 mmol/L Normal 22-30 [facility] Creatinine [Mass/Vol] 0.79 mg/dL Normal 0.58-0.96 [facility] eGFR- Amer. >60 Normal [facility] eGFR-All Other Races >60 Normal [facility] Comment on above: Result Comment: eGFR (Estimated GFR) Units of measure: mL/min/1.73 meters squared eGFR is derived from the reexpressed MDRD Study equation using the following parameters: serum creatinine, age, gender and race. The creatinine assay has been calibrated to be traceable to IDMS. An eGFR <60 mL/min/1.73m2 for >3 months is consistent with chronic kidney disease. Refer to KDOQI guidelines for clinical interpretation. In patients with unstable renal function, e.g. those with acute kidney injury, the eGFR may not accurately reflect actual GFR. Glucose [Mass/Vol] 109 mg/dL High 74-99 [facility] Comment on above: Result Comment: The [place] Diabetes Association (ADA) provides guidance for cutoff values for fasting glucose and random glucose. The ADA defines fasting as no caloric intake for at least 8 hours. Fasting plasma glucose results between 100 to 125 mg/dL indicate increased risk for diabetes (prediabetes). Fasting plasma glucose results greater than or equal to 126 mg/dL meet the criteria for diagnosis of diabetes. In the absence of unequivocal hyperglycemia, results should be confirmed by repeat testing. In a patient with classic symptoms of hyperglycemia or hyperglycemic crisis, random plasma glucose results greater than or equal to 200 mg/dL meet the criteria for diagnosis of diabetes. Reference: Standards of Medical Care in Diabetes 2016, [place] Diabetes Association. Diabetes Care. 2016.39(Suppl 1). Potassium [Moles/Vol] 3.7 mmol/L Normal 3.7-5.1 [facility] Sodium [Moles/Vol] 138 mmol/L Normal 136-144 [facility] Urea nitrogen [Mass/Vol] 17 mg/dL Normal 7-21 [facility] Hemoglobin A1con 04-30-2021 Glucose [Mass/Vol] 120 mg/dL Normal [facility] Comment on above: Result Comment: eAG: (Estimated average glucose) is a calculated value from HgbA1c and is senior account representative of the average blood glucose level in the last 2-3 month period. Performed By: #### H BA1C, LIPB #### [facility] [place] [address] [place] [address] HbA1c (Bld) [Mass fraction] 5.8 % High 4.3-5.6 [facility] Comment on above: Result Comment: Amer [place] Diabetes Association guidelines indicate that patients with HgbA1c in the range 5.7-6.4% are at increased risk for development of diabetes, and intervention by lifestyle modification may be beneficial. HgbA1c greater or equal to 6.5% is considered diagnostic of diabetes. Performed By: #### H BA1C, LIPB #### [facility] [place] [address] [place], [place] [address] Lipid Panel, [place] 021 Cholesterol [Mass/Vol] 232 mg/dL High <200 [facility] Comment on above: Result Comment: <200 mg/dL, Desirable 200-239 mg/dL, Borderline high >239 mg/dL, High Performed By: #### H BA1C, LIPB #### [facility] [address] [place], [place] [address] Cholesterol in HDL [Mass/Vol] 50 mg/dL Normal >39 [facility] Comment on above: Result Comment: 40-5 9 mg/dL, Acceptable >59 mg/dL, High: Negative risk factor for coronary heart disease <40 mg/dL, Low: Positive risk factor for coronary heart disease Performed By: #### Amanda HENDERSON1C, LIPB #### [facility] [address] [place], [place] [address] Cholesterol in LDL [Mass/Vol] 138 mg/dL High <100 [facility] Comment on above: Result Comment: <100 mg/dL, Optimal 100-129 mg/dL, Near optimal/above optimal 130-159 mg/dL, Borderline high 160-189 mg/dL, High >189 mg/dL, Very high Secondary prevention optimal LDL Cholesterol levels are recommended to be < 70 mg/dL Performed By: #### Amanda BA1C, LIPB #### [facility] [address] [place], [place] [address] Fasting Time 10 hrs Normal [facility] Comment on above: Performed By: #### Amanda RILEY, LIPB #### [facility] [address] [place], [place] [address] LDL:HDL Ratio 2.76 High <2.54 [facility] Comment on above: Result Comment: Refe rence: 1. National Cholesterol Education Program ATP III Guideline At-A-Glance Quick Desk Reference: National Heart, Lung, and Blood [place]. National Institutes of Health. 2001: NIH Publication No. 01-3305. 2. An International Atherosclerosis Society position paper: global recommendations for the management of dyslipidemia: executive summary, Atherosclerosis. 2014: 232(2):410-413. Performed By: #### H BA1C, LIPB #### [facility] [address] [place], [place] [address] Non HDL Cholesterol 182 mg/dL High <130 [facility] Comment on above: Result Comment: <130 mg/dL, Optimal 130-159 mg/dL, Near optimal/above optimal 160-189 mg/dL, Borderline high 190-219 mg/dL, High >219 mg/dL, Very high Secondary prevention optimal non HDL Cholesterol levels are recommended to be < 100 mg/dL Performed By: #### H BA1C, LIPB #### [facility] [address] [place], [place] [address] TC:HDL Ratio 4.64 Normal <5.10 [facility] Comment on above: Performed By: #### H BA1C, LIPB #### [facility] [address] [place], [place] [address] Triglyceride [Mass/Vol] 219 mg/dL High <150 [facility] [place] Comment on above: Result Comment: <150 mg/dL, Normal 150-199 mg/dL, Borderline high 200-499 mg/dL, High >499 mg/dL, Very high Performed By: #### H BA1C, LIPB #### [place] [address] [place], [place] [address] VLDL Cholesterol 44 mg/dL High <30 [facility] Comment on above: Performed By: #### H BA1C, LIPB #### [facility] [address] [place], [place] [address] OBSOLETEon 04-22-2021 OBSOLETE Refill (FPWADS) MYRANDA OLIVA ([id number]) 1960 F Date Time Provider Department 04/22/21 BECKY HARRIS During your visit today, we recorded the following information about you: Cristina Callahan MD 04/24/2021 8:18 AM Signed The following approved medication requests have been transmitted electronically. Signed Prescriptions Disp Refills escitalopram oxalate (LEXAPRO) mg tablet 30 tablet 1 Sig: Take 1 tablet by mouth once daily. ANUPAMA: No Authorizing Provider: CRISTINA CALLAHAN hydroCHLOROthiazide (HYDRODIURIL, ESIDRIX) 25 mg tablet 30 tablet 1 Sig: Take 1 tablet by mouth once daily. ANUPAMA: No Authorizing Provider: CRISTINA CALLAHAN Appt by June. Cristina Callahan MD Allergies As of Date: 04/22/2021 Noted Allergy Reaction PENICILLINS 08/30/2011 16 - Unknown Comments: as child shell fish [Other] 08/30/2011 8 - GI Upset Date Reviewed: 06/12/2020 Reviewed by: Stephany Rodriguez Ma - Fully Assessed Reason for Visit: Refill Request [94] Visit Diagnoses:Essential hypertension [I10] Adjustment disorder with depressed mood [F43.21] Order(s):escitalopram oxalate (LEXAPRO) 10 mg tabletTake 1 tablet by mouth once daily.Disp: 30 tabletRfl: 1 hydroCHLOROthiazide (HYDRODIURIL, ESIDRIX) 25 mg tabletTake 1 tablet by mouth once daily.Disp: 30 tabletRfl: 1 Prescriptions as of 04/24/2021 - escitalopram oxalate (LEXAPRO) 10 mg tablet Take 1 tablet by mouth once daily. - hydroCHLOROthiazide (HYDRODIURIL, ESIDRIX) 25 mg tablet Take 1 tablet by mouth once daily. - meloxicam (MOBIC) 15 mg tablet Take 1 tablet by mouth once daily. Due for 6 month follow up in December. Please call office to make appointment. - simvastatin (ZOCOR) 20 mg tablet TAKE 1 TABLET BY MOUTH EVERYDAY AT BEDTIME - Ascorbic Acid (VITAMIN C) 500 mg chew Take 500 mg by mouth once daily. - Ca carb-Ca gluc-Mg ox-Mg gluco (CALCIUM MAGNESIUM) 500 mg calcium -250 mg tab Take by mouth. - cyanocobalamin (VITAMIN B-12) 1,000 mcg tab Take 1,000 mcg by mouth once daily. - diclofenac sodium (VOLTAREN) 1 % topical gel Apply to affected area four times daily. Problem List As Of Date 04/22/2021 Noted Resolved Viral Wart: R hand dorsal 5th finger PIP area [*07/12/2012 12/22/2018 Spider angioma [I78.1] 07/12/2012 12/22/2018 Telangiectasia [I78.1] 07/12/2012 12/22/2018 Actinic skin damage [L57.8] 07/12/2012 12/22/2018 Hyperlipidemia [E78.5] 03/28/2013 Adjustment disorder with depressed mood [F43.21]03/28/2013 UTI (lower urinary tract infection) [N39.0] 07/24/2013 12/22/2018 Hematuria [R31.9] 07/24/2013 Kidney stone [N20.0] 01/21/2014 12/22/2018 Chronic obstructive pulmonary disease (HCC) [J4*09/29/2016 BMI 35.0-35.9,adult [Z68.35] 09/29/2016 Essential hypertension [I10] 12/22/2018 Primary osteoarthritis involving multiple joint*12/22/2018 Prescriptions ordered this encounter Disp Refills Start End ESCITALOPRAM 10 MG TABLET 30 t* 1 04/24/2021 05/24/2021 Route: ORAL Sig: Take 1 tablet by mouth once daily. HYDROCHLOROTHIAZIDE 25 MG TABLET 30 t* 1 04/24/2021 05/24/2021 Route: ORAL Sig: Take 1 tablet by mouth once daily. Medications Discontinued During This Encounter Prescriptions - escitalopram oxalate (LEXAPRO) 10 mg tablet (Discontinued) Take 1 tablet by mouth once daily. - hydroCHLOROthiazide (HYDRODIURIL, ESIDRIX) 25 mg tablet (Discontinued) Take 1 tablet by mouth once daily. Encounter Status:Closed by SERGEI JURADO MA on 04/24/21 [facility] OBSOLETEon 04-21-2021 OBSOLETE Refill (RAMIREZ) DELLVALE ([id number]) 1960 F Date Time Provider Department 04/21/21 BECKY HARRIS During your visit today, we recorded the following information about you: Cristina Callahan MD 04/22/2021 8:01 AM Signed The following approved medication requests have been transmitted electronically. Signed Prescriptions Disp Refills meloxicam (MOBIC) 15 mg tablet 30 tablet 0 Sig: Take 1 tablet by mouth once daily. Due for 6 month follow up in December. Please call office to make appointment. ANUPAMA: No Authorizing Provider: CRISTINA CALLAHAN MD Allergies As of Date: 04/21/2021 Noted Allergy Reaction PENICILLINS 08/30/2011 16 - Unknown Comments: as child shell fish [Other] 08/30/2011 8 - GI Upset Date Reviewed: 06/12/2020 Reviewed by: Stephany Rodriguez Ma - Fully Assessed Reason for Visit: Refill Request [94] Visit Diagnosis:Primary osteoarthritis involving multiple joints [M89.49] Order(s):meloxicam (MOBIC) 15 mg tabletTake 1 tablet by mouth once daily. Due for 6 month follow up in December. Please call office to make appointment.Disp: 30 tabletRfl: 0 Prescriptions as of 04/23/2021 - meloxicam (MOBIC) 15 mg tablet Take 1 tablet by mouth once daily. Due for 6 month follow up in December. Please call office to make appointment. - escitalopram oxalate (LEXAPRO) 10 mg tablet Take 1 tablet by mouth once daily. - hydroCHLOROthiazide (HYDRODIURIL, ESIDRIX) 25 mg tablet Take 1 tablet by mouth once daily. - simvastatin (ZOCOR) 20 mg tablet TAKE 1 TABLET BY MOUTH EVERYDAY AT BEDTIME - Ascorbic Acid (VITAMIN C) 500 mg chew Take 500 mg by mouth once daily. - Ca carb-Ca gluc-Mg ox-Mg gluco (CALCIUM MAGNESIUM) 500 mg calcium -250 mg tab Take by mouth. - cyanocobalamin (VITAMIN B-12) 1,000 mcg tab Take 1,000 mcg by mouth once daily. - diclofenac sodium (VOLTAREN) 1 % topical gel Apply to affected area four times daily. Problem List As Of Date 04/21/2021 Noted Resolved Viral Wart: R hand dorsal 5th finger PIP area [*07/12/2012 12/22/2018 Spider angioma [I78.1] 07/12/2012 12/22/2018 Telangiectasia [I78.1] 07/12/2012 12/22/2018 Actinic skin damage [L57.8] 07/12/2012 12/22/2018 Hyperlipidemia [E78.5] 03/28/2013 Adjustment disorder with depressed mood [F43.21]03/28/2013 UTI (lower urinary tract infection) [N39.0] 07/24/2013 12/22/2018 Hematuria [R31.9] 07/24/2013 Kidney stone [N20.0] 01/21/2014 12/22/2018 Chronic obstructive pulmonary disease (HCC) [J4*09/29/2016 BMI 35.0-35.9,adult [Z68.35] 09/29/2016 Essential hypertension [I10] 12/22/2018 Primary osteoarthritis involving multiple joint*12/22/2018 Prescriptions ordered this encounter Disp Refills Start End MELOXICAM 15 MG TABLET 30 t* 0 04/22/2021 05/22/2021 Route: ORAL Sig: Take 1 tablet by mouth once daily. Due for 6 month follow up in December. Please call office to make appointment. Medications Discontinued During This Encounter Prescriptions - meloxicam (MOBIC) 15 mg tablet (Discontinued) Take 1 tablet by mouth once daily. Due for 6 month follow up in December. Please call office to make appointment. Encounter Status:Closed by STEPHANY RODRIGUEZ MA on 04/23/21 [facility] OBSOLETEon 03-24-2021 OBSOLETE Refill (FPWADS) DELLMYRANDAVALE ([id number]) 1960 F Date Time Provider Department 03/24/21 CRISTINA CALLAHAN During your visit today, we recorded the following information about you: Reina Bustamante MA 03/24/2021 7:24 AM Signed Pharmacy verified in [place]. Patient has been identified by name and date of : Yes Patient aware RX will be sent to pharmacy. No need to notify patient. Patient phones for refill(s): Pending Prescriptions Disp Refills ESCITALOPRAM 10 MG TABLET 90 tablet 1 Sig: TAKE 1 TABLET BY MOUTH EVERY DAY ANUPAMA: Yes HYDROCHLOROTHIAZIDE 25 MG TABLET 90 tablet 1 Sig: TAKE 1 TABLET BY MOUTH EVERY DAY ANUPAMA: Yes MELOXICAM 15 MG TABLET 90 tablet 1 Sig: TAKE 1 TABLET BY MOUTH EVERY DAY ANUPAMA: Yes Date of last office visit : 06/12/2020 Date of next office visit : Visit date not found Last 2 Encounter Wt Readings: Date: Wt: 06/12/2020 92.1 kg (203 lb) 07/09/2019 91.6 kg (202 lb) Blood Pressure: BUN (mg/dL) Date Value 06/10/2020 13 Creatinine (mg/dL) Date Value 06/10/2020 0.78 Sodium (mmol/L) Date Value 06/10/2020 140 Potassium (mmol/L) Date Value 06/10/2020 3.6 Last 1 Encounter BP Readings: Date: BP: 06/12/2020 135/74 Please advise. DANIEL Urban, BEHAVIORAL HEALTH AIDE.ELECTROPLATER APPRENTICE 03/24/2021 10:29 AM Signed Over due for appointment. Was to have 6 month follow up around December. Refill 30 days. Tahmina Oliva 03/24/2021 12:[address] attempt:MALI Gill Pss 03/27/2021 9:56 AM Signed Spoke to patient and scheduled appt with pcp on 05/04 Allergies As of Date: 03/24/2021 Noted Allergy Reaction PENICILLINS 08/30/2011 16 - Unknown Comments: as child shell fish [Other] 08/30/2011 8 - GI Upset Date Reviewed: 06/12/2020 Reviewed by: Stephany Rodriguez Ma - Fully Assessed Reason for Visit: Refill Request [94] Visit Diagnoses:Adjustment disorder with depressed mood [F43.21] Essential hypertension [I10] Primary osteoarthritis involving multiple joints [M89.49] Order(s):escitalopram oxalate (LEXAPRO) 10 mg tabletTake 1 tablet by mouth once daily.Disp: 30 tabletRfl: 0 hydroCHLOROthiazide (HYDRODIURIL, ESIDRIX) 25 mg tabletTake 1 tablet by mouth once daily.Disp: 30 tabletRfl: 0 meloxicam (MOBIC) 15 mg tabletTake 1 tablet by mouth once daily. Due for 6 month follow up in December. Please call office to make appointment.Disp: 30 tabletRfl: 0 Prescriptions as of 03/27/2021 - escitalopram oxalate (LEXAPRO) 10 mg tablet Take 1 tablet by mouth once daily. - hydroCHLOROthiazide (HYDRODIURIL, ESIDRIX) 25 mg tablet Take 1 tablet by mouth once daily. - meloxicam (MOBIC) 15 mg tablet Take 1 tablet by mouth once daily. Due for 6 month follow up in December. Please call office to make appointment. - simvastatin (ZOCOR) 20 mg tablet TAKE 1 TABLET BY MOUTH EVERYDAY AT BEDTIME - Ascorbic Acid (VITAMIN C) 500 mg chew Take 500 mg by mouth once daily. - Ca carb-Ca gluc-Mg ox-Mg gluco (CALCIUM MAGNESIUM) 500 mg calcium -250 mg tab Take by mouth. - cyanocobalamin (VITAMIN B-12) 1,000 mcg tab Take 1,000 mcg by mouth once daily. - diclofenac sodium (VOLTAREN) 1 % topical gel Apply to affected area four times daily. Problem List As Of Date 03/24/2021 Noted Resolved Viral Wart: R hand dorsal 5th finger PIP area [*07/12/2012 12/22/2018 Spider angioma [I78.1] 07/12/2012 12/22/2018 Telangiectasia [I78.1] 07/12/2012 12/22/2018 Actinic skin damage [L57.8] 07/12/2012 12/22/2018 Hyperlipidemia [E78.5] 03/28/2013 Adjustment disorder with depressed mood [F43.21]03/28/2013 UTI (lower urinary tract infection) [N39.0] 07/24/2013 12/22/2018 Hematuria [R31.9] 07/24/2013 Kidney stone [N20.0] 01/21/2014 12/22/2018 Chronic obstructive pulmonary disease (HCC) [J4*09/29/2016 BMI 35.0-35.9,adult [Z68.35] 09/29/2016 Essential hypertension [I10] 12/22/2018 Primary osteoarthritis involving multiple joint*12/22/2018 Prescriptions ordered this encounter Disp Refills Start End ESCITALOPRAM 10 MG TABLET 30 t* 0 03/24/2021 04/23/2021 Route: ORAL Sig: Take 1 tablet by mouth once daily. HYDROCHLOROTHIAZIDE 25 MG TABLET 30 t* 0 03/24/2021 04/23/2021 Route: ORAL Sig: Take 1 tablet by mouth once daily. MELOXICAM 15 MG TABLET 30 t* 0 03/24/2021 04/23/2021 Route: ORAL Sig: Take 1 tablet by mouth once daily. Due for 6 month follow up in December. Please call office to make appointment. Medications Discontinued During This Encounter Prescriptions - escitalopram oxalate (LEXAPRO) 10 mg tablet (Discontinued) Take 1 tablet by mouth once daily. - hydroCHLOROthiazide (HYDRODIURIL, ESIDRIX) 25 mg tablet (Discontinued) Take 1 tablet by mouth once daily. - meloxicam (MOBIC) 15 mg tablet (Discontinued) Take 1 tablet by mouth once daily. Encounter Status:Closed by DU JOHNSON on 03/27/21 [facility] PROGRESSon 03-27-2020 PROGRESS HNO ID: [id number] Author: Octavia Quintero) ARNEL Mendez Service: Radiology Author Type: Clinical Sanitation Lead Type: Progress Notes Filed: 03/27/2020 10:43 AM Note Text: Radiology Service Progress Note PATIENT NAME: Myranda Oliva DATE OF SERVICE: March 27, 2020 TIME: 10:43 AM PATIENT IDENTITY VERIFICATION COMPLETED USING TWO (2) IDENTIFIERS: Name and Date of confirmed by patient verbally. FALL SCREENING: Has the patient had 2 falls in the last year or 1 fall with injury or currently using an Ambulatory Assistive Device (Walker, Cane, Wheelchair, Crutches, etc.)? No PATIENT GENDER DATA: Female. status: : No status: NO. PATIENT RELEVANT IMPLANT DATA REVIEWED: Not Applicable RADIOLOGY DEPARTMENT: General X-ray: Exam(s) Completed: Lower Extremity X-Ray(s): Knee, AP / Lat / Merchant Right and Wt. Bearing: PERIPHERAL IV DATA: Not applicable SIGNED BY: ARNEL GANDHI March 27, 2020 10:43 AM [facility] XR KNEE 3V AP/LAT/MERCHANT R Ravinder 03-27-2020 XR KNEE 3V AP/LAT/MERCHANT RT * * *Final Report* * * DATE OF EXAM: Mar 27 2020 10:42AM MICAHEL [id number] - XR KNEE 3V AP/LAT/MERCHANT RT / PROCEDURE REASON: M17.0-Primary osteoarthritis of both knees * * * * Physician Interpretation * * * * PROCEDURE: Right knee INDICATION: Primary osteoarthritis of both knees .RIGHT KNEE PAIN TECHNIQUE: XR KNEE 3V AP/LAT/MERCHANT RT COMPARISON: 07/09/2019 FINDINGS: There is moderate to severe medial joint compartment narrowing with tricompartment spur formation, similar to the prior study. Small suprapatellar joint effusion. No fracture. Medial joint compartment narrowing in the left knee as well. IMPRESSION: Osteoarthrosis and small joint effusion Urology Physician Assistant: PSCB Transcribe Date/Time: Mar 27 2020 10:44A Dictated by : MYNOR CARBAJAL MD This examination was interpreted and the report reviewed and electronically signed by: MYNOR CARBAJAL MD on Mar 27 2020 10:51AM EST [id number] [facility] Vital Signs Date Time Vital Sign Value Performing Clinician Faci ivana 12-21-2024 10:15-0400 Body height 154.[address] Flavio Andrade MD Work Phone: [facility] 12-21-2024 10:15-0400 Body mass index (BMI) [Ratio] 31.8 kg/m2 Dr. Flavio Andrade MD Work Phone: [facility] 12-21-2024 10:15-0400 Body weight 76.[address] Flavio Andrade MD Work Phone: [facility] Encounters Encounter Date Encounter Type Care Provider Facility Start: 12-21-2024 End: 12-21-[address] Flavio Andrade MD Work Phone: [facility] Work Phone: Start: 12-21-2024 End: 12-21-[address] Jorge Fairchild DO -[facility] Work Phone: Start: 12-19-[address] Flavio Andrade MD -Laboratory Work Phone: Start: 12-04-2024 End: 12-04-[address] Flavio Andrade MD Work Phone: [facility] Work Phone: Start: 12-04-2024 End: 12-04-[address] Flavio Andrade MD -Cat Scan [facility] Work Phone: Start: 12-04-2024 End: 12-04-2024 ambulatory Flavio Chi Raymond Facility:[facility] Start: 03-26-2024 ambulatory Flavio Chi Raymond Facility:[facility] Start: 03-26-2024 End: 03-26-2024 ambulatory Flavio Chi Raymond Facility:[facility] Start: 03-07-2024 End: 03-07-2024 ambulatory Flavio Chi Raymond Facility:[facility] Start: 02-27-2024 ambulatory Flavio Chi Raymond Facility:[facility] Start: 01-13-2024 End: 01-13-2024 ambulatory Flavio Chi Raymond Facility:[facility] Start: 01-09-2024 End: 01-09-2024 ambulatory Flavio Chi Raymond Facility:[facility] Start: 01-09-2024 End: 01-09-2024 ambulatory Flavio Chi Raymond Facility:[facility] Start: 12-19-2023 End: 12-19-2023 ambulatory Flavio Chi Raymond Facility:[facility] Start: 11-08-2022 ambulatory Cristina lino MD Work Phone: [facility] Comment on above: Prescriptions Start: 07-12-2022 Refill Jessica Eisenberg APRN.CNP Work Phone: [facility] Comment on above: Refill Request Start: 05-17-2022 Refill Cristina lino MD Work Phone: [facility] Comment on above: Refill Request Start: 04-07-2022 Refill Cristina lino MD Work Phone: [facility] Comment on above: Refill Request Start: 01-05-2022 Refill Cristina lino MD Work Phone: [facility] Comment on above: Refill Request Start: 12-30-2021 ambulatory Cristina lino MD Work Phone: [facility] [place] Procedures Date Procedure Procedure Detail Performing Clinician Start: 12-04-2024 CT of abdomen and pe lvis without contrast Dr. Flavio Andrade MD Work Phone: Start: 12-04-2024 XR knee, [address] Lul Andrade MD Work Phone: Start: 06-12-2020 Adult depression scr eening assessment Cristina Callahan MD Work Phone: Start: 03-04-2017 Mammography Cristina nunes MD Work Phone: Plan of Treatment Date Care Activity Detail Author Start: 04-30-2026 LIPID SCREEN LIPID SCREEN [facility] Start: 04-30-2024 DIABETES SCREEN DIABETES SCREEN [facility] Start: 03-04-2023 [facility] Start: 07-04-2022 DEPRESSION ASSESSMENT DEPRESSION ASSESSMENT [facility] Start: 05-04-2022 ANNUAL PCP TEAM CHRONIC DISEASE VISIT ANNUAL PCP TEAM CHRONIC DISEASE VISIT [facility] Start: 03-04-2022 Influenza vaccination INFLUENZA (#1) [facility] Start: 01-05-2022 End: 03-07-2022 Comprehensive metabolic 2000 panel - Serum or Plasma COMP METABOLIC PANEL Lab Routine Essential hypertension Pure hypercholesterolemia Expected: 01/05/2022, Expires: 03/07/2022 [facility] Work Phone: Comment on above: Expected: 01/05/2022, Expires: 2 Start: 01-05-2022 End: 03-07-2022 Lipid 1996 panel - Serum or Plasma LIPID PANEL BASIC Lab Routine Pure hypercholesterolemia Expected: 01/05/2022, Expires: 03/07/2022 [facility] Work Phone: Comment on above: Expected: 01/05/2022, Expires: 2 Start: 07-04-2021 DEPRESSION ASSESSMENT DEPRESSION ASSESSMENT [facility] Start: 06-12-2021 Adult depression screening assessment DEPRESSION SCREENING [facility] Start: 03-09-2019 PNEUMOCOCCAL (2 - PCV) PNEUMOCOCCAL (2 - PCV) [facility] Start: 03-04-2018 Mammography MAMMOGRAM [facility] Start: 10-18-2016 HPV TESTING HPV TESTING [facility] Start: 10-18-2016 PAP TESTING PAP TESTING [facility] Start: 2010 SHINGRIX VACCINE (1 of 2) SHINGRIX VACCINE (1 of 2) [facility] Start: 2005 COLOGUARD (FIT-DNA) COLOGUARD (FIT-DNA) [facility] Start: 2005 Colonoscopy COLONOSCOPY [facility] Start: 2005 COLORECTAL CANCER SCREENING COLORECTAL CANCER SCREENING [facility] Start: [address] COLONOGRAPHY [facility] Start: 2005 FECAL OCCULT BLOOD FECAL OCCULT BLOOD [facility] Start: 2005 SIGMOIDOSCOPY SIGMOIDOSCOPY [facility] Start: 1990 Zoledronic acid therapy ALPHA-1 ANTITRYPSIN DEFICIENCY SCREENING [facility] Start: 09-04-1979 Urine microalbumin profile DTAP,TDAP,TD (1 - Tdap) [facility] Start: 1978 BP CONTROLLED (<130/80) BP CONTROLLED (<130/80) [facility] Start: 1978 SPIROMETRY SPIROMETRY [facility] Start: 03-06-1961 COVID-19 VACCINE (#1) COVID-19 VACCINE (#1) [facility] End: 01-29-2023 Screening mammography bi 2-view breast inc cad RIO SCREENING Radiology Routine Encounter for screening mammogram for breast cancer 1 Occurrences starting 12/30/2021 until 01/29/2023 [facility] Work Phone: Comment on above: 1 Occurrences starting 12/30/2021 until 01/29/[facility] Immunizations Immunization Date Immunization Notes Care Provider Fa nakia 03-23-2019 Influenza, injectabl e, Madin Renetta Canine Kidney, preservative free, quadrivalent Cristina Callahan MD Work Phone: [facility] 03-09-2018 influenza, injectabl e, quadrivalent, contains preservative Cristina Callahan MD Work Phone: [facility] 03-09-2018 pneumococcal polysaccharide vaccine, 23 valent Cristina Callahan MD Work Phone: [facility] Payers Date Payer Category Payer Unknown [id number] 2023 Self-pay 2023 Unknown [id number] Unknown [id number] 2.16.8 [id number] Unknown [id number] 2.16.8 [id number] Unknown [id number] 2.16.8 [id number] Unknown [id number] 2.16.8 [id number] Unknown [id number] 2.16.8 [id number] Unknown [id number] 2.16.8 [id number] Unknown [id number] 2.16.8 [id number] Unknown [id number] 2.16.8 [id number] Unknown [id number] 2.16.8 [id number] Unknown [id number] 2.16.8 [id number] Social History Date Type Detail Facility Start: 12-21-2018 End: 01-30-2024 Tobacco smoking status TXIS Smokes tobacco daily [facility] History of tobacco use Cigarette Smoker C [facility] Start: 12-21-2018 End: 05-04-2021 Cigarettes smoked current (pack per day) - Reported 0.5 [facility] Start: 12-21-2018 End: 05-04-2021 Tobacco use and exposure Smokeless tobacco non-user [facility] Start: 05-04-2021 Alcohol intake 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 (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) [facility] Start: 06-12-2020 End: 04-29-2021 History SDOH Alcohol Frequency 1 [facility] Start: 06-12-2020 History SDOH Alcohol Std Drinks 98 [facility] Start: 08-30-2011 History SDOH Alcohol Comment rare [facility] Start: 06-12-2020 End: 04-29-2021 History SDOH Social Connections Phone 2 [facility] Start: 06-12-2020 History SDOH Social Connections Meetings 3 [facility] Start: 06-12-2020 History SDOH Social Connections Living 4 [facility] Start: 06-12-2020 Education 21 [facility] Start: 05-04-2021 Tobacco Comment down to 1/4 pack. Cl [facility] Start: 1960 Sex Assigned At Female C [facility] Clinical Notes 01-21-2014 to 12-05-2024 Telephone Encounter - Reena Mendezna - 11/08/2022 3:31 PM EDTTelephone Encounter - Stephany Monson APRN.CNP - 11/08/2022 3:21 PM EDTTelephone Encounter - Daniellejohn Enriquezno - 07/14/2022 1:11 PM EST Note Date & Type Note Facility 12-05-2024 Radiology Diagnostic study note [facility] Imaging Services [address] [place], [place] [address] Knee 3 Views MR#: [id number] Acct: [id number] Name: MYRANDA OLIVA Rep #: [id number] : 1960 F 64 From: Tasha Escamilla MD PCP: Dr. Flavio Andrade MD Status: REG C ADYD Study:Knee 3 Views Date of Exam: 5 Exam# [id number] Ordering Dr: Flavio Andrade MD PROCEDURE: KNEE 3 VIEWS 12/04/2024 REASON FOR EXAM: KNEE PAIN TECHNIQUE: 3 view(s) of each knee COMPARISON: None FINDINGS: No displaced fracture or traumatic malalignment. There is severe joint space narrowing in the medial compartments bilaterally, with slight lateral subluxation of the tibia relative to the femur bilaterally. Trace bilateral knee joint effusions. Vascular calcifications in the soft tissues. RAD/Knee 3 Views IMPRESSION: Severe osteoarthritis of both knees. Reading Location: [id number] CC: Dr. Flavio Andrade MD ~ Urology Physician Assistant: Signed [facility] 12-05-2024 Radiology Diagnostic study note [facility] Imaging Services [address] [facility] [place] [id number] Knee 3 Views MR#: [id number] Acct: [id number] Name: MYRANDA OLIVA Rep #: [id number] : 1960 F 64 From: Tasha Escamilla MD PCP: Dr. Flavio Andrade MD Status: REG C Study:Knee 3 Views Date of Exam: 5 Exam# [id number] Ordering Dr: Flavio Andrade MD PROCEDURE: KNEE 3 VIEWS 12/04/2024 REASON FOR EXAM: KNEE PAIN TECHNIQUE: 3 view(s) of each knee COMPARISON: None FINDINGS: No displaced fracture or traumatic malalignment. There is severe joint space narrowing in the medial compartments bilaterally, with slight lateral subluxation of the tibia relative to the femur bilaterally. Trace bilateral knee joint effusions. Vascular calcifications in the soft tissues. RAD/Knee 3 Views IMPRESSION: Severe osteoarthritis of both knees. Reading Location: [facility] CC: Dr. Flavio Andrade MD ~ Urology Physician Assistant: Signed [facility] 12-04-2024 Radiology Diagnostic study note [facility] Imaging Services [address] [facility] [place], [place] [address] Abdomen/Pelvis without Cont MR#: [id number] Acct: [id number] Name: MYRANDA OLIVA Rep #: [id number] : 1960 F 64 From: Eladio Pleitez MD PCP: Dr. Flavio Andrade MD Status: REG C Study:Abdomen/Pelvis without Cont Date of Exa m: 12/04/24 Exam# [id number] Ordering Dr: Flavio Andrade MD PROCEDURE: CT abdomen and pelvis without IV contrast. 12/04/2024 REASON FOR EXAM: KIDNEY STONE TECHNIQUE: Abdomen and pelvis CT without intravenous contrast. Noncontrast technique limits evaluation of the abdominal and pelvic viscera. Coronal and Sagittal reconstruction series were provided. One or more dose reduction techniques were used (e.g., Automated exposure control, adjustment of the mA and/or kV according to patient size, use of iterative reconstruction technique). PATIENT PREPARATION: Per protocol ORAL CONTRAST TYPE: None. COMPARISON: None FINDINGS: Lung bases: There is a benign calcified granuloma in the middle lobe of the right lung. The lung bases are otherwise clear. There are no pleural effusions. The heart size is normal. There is no pericardial effusion. There is calcific vascular disease of the thoracic aorta and coronary arteries. Liver: There is a 1.2 cm in diameter cyst in the left hepatic lobe. Gallbladder: There is a 2.0 cm in diameter gallstone. Spleen: Normal unenhanced appearance. Pancreas: Normal unenhanced appearance. Adrenals: Normal unenhanced appearance. Kidneys: There is a 5.5 cm in diameter cortical cyst in the interpolar cortex ofthe left kidney. There is no nephrolithiasis, ureterolithiasis or hydronephrosis. Bladder: The urinary bladder has a normal unenhanced CT appearance. Reproductive Organs: The uterus and ovaries have a normal unenhanced CT appearance. There is no free fluid in the pelvis. There are few reactive inguinal lymph nodes bilaterally. There is no pelvic lymphadenopathy. Bowel: No significant abnormality. Appendix: Normal. Lymph nodes: There is no mesenteric or retroperitoneal lymphadenopathy. Vasculature: There is calcific vascular disease of the abdominal aorta. Peritoneum / Retroperitoneum: There are no abnormal intra or retroperitoneal masses or fluid collections. Bones: There is multilevel degenerative disc disease of the lumbar spine. Abdominal wall: There is subcutaneous air in both buttocks consistent with injection sites. CT/Abdomen/Pelvis without Cont IMPRESSION: 1. No evidence of nephrolithiasis, ureterolithiasis or hydronephrosis. 2. Cholelithiasis. 3. Hepatic and renal cysts. Reading Location: [id number] CC: Dr. Flavio Andrade MD ~ Urology Physician Assistant: Signed [facility] Work Phone: 11-08-2022 Miscellaneous Notes Patient did schedule an appt with our financial advocates for 11/22/22. 1st attempt, left voicemail. Please help patient speak with financial assistance to see if she qualifies, then schedule an appointment, soonest available with me or Dr. Callahan. Can prescribe short term supply of necessary medications to last until her appointment time, but I need an appointment scheduled first. Stephany Monson APRN.CNP documented in this encounter [facility] 07-14-2022 Miscellaneous Notes 1st attempt. Tried calling patient and phone just would ring and make clicking noises. Left [employer] message also. Needs visit, schedule REGINA. Stephany Monson APRN.CNP documented in this encounter [facility] 05-25-2022 Miscellaneous Notes 2nd attempt. Sent [employer] message. First attempt at contacting patient, left a VM. Please assist patient In scheduling when she calls back. Overdue for a visit and labs, please schedule REGINA with either provider. Stephany Monsno APRN.CNP Pharmacy verified in [facility] Patient has been identified by name and date of : Yes Patient aware RX will be sent to pharmacy. No need to notify patient. Patient phones for refill(s): Requested Prescriptions Pending Prescriptions Disp Refills escitalopram oxalate (LEXAPRO) 10 mg tablet [Pharmacy Med Name: ESCITALOPRAM 10 MG TABLET] 90 tablet 3 Sig: TAKE 1 TABLET BY MOUTH EVERY DAY hydroCHLOROthiazide (HYDRODIURIL, ESIDRIX) 25 mg tablet [Pharmacy Med Name: HYDROCHLOROTHIAZIDE 25 MG TAB] 90 tablet 1 Sig: TAKE 1 TABLET BY MOUTH EVERY DAY Date of last office visit : 05/04/2021 Date of next office visit : Visit date not found Last 2 Encounter Wt Readings: Date: Wt: 05/04/2021 90.7 kg (200 lb) 06/12/2020 92.1 kg (203 lb) Blood Pressure: BUN (mg/dL) Date Value 04/30/2021 17 Creatinine (mg/dL) Date Value 04/30/2021 0.79 Sodium (mmol/L) Date Value 04/30/2021 138 Potassium (mmol/L) Date Value 04/30/2021 3.7 Last 1 Encounter BP Readings: Date: BP: 05/04/2021 144/70 Please advise. Shanelle Kline LPN documented in this encounter [facility] 04-07-2022 Miscellaneous Notes 1st attempt. Left message on VM. Please inform patient that they are due for OV and assist in scheduling. Thanks. documented in this encounter [facility] 01-12-2022 Miscellaneous Notes 1st attempt, left voicemail OK refill throught May. Due for visit and lab by May. Refill on 01/05/22 COMP METABOLIC PANEL LIPID PANEL BASIC The following approved medication requests have been transmitted electronically. Signed Prescriptions Disp Refills hydroCHLOROthiazide (HYDRODIURIL, ESIDRIX) 25 mg tablet 90 tablet 1 Sig: TAKE 1 TABLET BY MOUTH EVERY DAY ANUPAMA: No Authorizing Provider: CRISTINA CALLAHAN MD Pharmacy verified in [facility]. Patient has been identified by name and date of : Yes Patient aware RX will be sent to pharmacy. No need to notify patient. Patient phones for refill(s): Pending Prescriptions Disp Refills HYDROCHLOROTHIAZIDE 25 MG TABLET 90 tablet 3 Sig: TAKE 1 TABLET BY MOUTH EVERY DAY ANUPAMA: Yes Date of last office visit : 05/04/2021 Date of next office visit : Visit date not found Last 2 Encounter Wt Readings: Date: Wt: 05/04/2021 90.7 kg (200 lb) 06/12/2020 92.1 kg (203 lb) Blood Pressure: BUN (mg/dL) Date Value 04/30/2021 17 Creatinine (mg/dL) Date Value 04/30/2021 0.79 Sodium (mmol/L) Date Value 04/30/2021 138 Potassium (mmol/L) Date Value 04/30/2021 3.7 Last 1 Encounter BP Readings: Date: BP: 05/04/2021 144/70 Please advise. Reina Bustamante MA documented in this encounter [facility] 12-30-2021 Note Patient Outreach (IN TMMN) MYRANDA OLIVA ([id number]) 1960 F Date Time Provider Department 12/30/21 CRISTINA CALLAHAN During your visit today, we recorded the following information about you: Allergies As of Date: 12/30/2021 Noted Allergy Reaction PENICILLINS 08/30/2011 16 - Unknown Comments: as child shell fish [Other] 08/30/2011 8 - GI Upset Date Reviewed: 05/04/2021 Reviewed by: Daksha Lr MA - Fully Assessed Visit Diagnosis:Encounter for screening mammogram for breast cancer [Z12.31] Order(s):RIO SCREENING [[id number]] Order #: [id number] FUTURE Prescriptions as of 01/04/2022 - escitalopram oxalate (LEXAPRO) 10 mg tablet Take 1 tablet by mouth once daily. - hydroCHLOROthiazide (HYDRODIURIL, ESIDRIX) 25 mg tablet Take 1 tablet by mouth once daily. - simvastatin (ZOCOR) 40 mg tablet Take 1 tablet by mouth once daily. - Ascorbic Acid (VITAMIN C) 500 mg chew Take 500 mg by mouth once daily. - Ca carb-Ca gluc-Mg ox-Mg gluco (CALCIUM MAGNESIUM) 500 mg calcium -250 mg tab Take by mouth. - cyanocobalamin (VITAMIN B-12) 1,000 mcg tab Take 1,000 mcg by mouth once daily. Problem List As Of Date 12/30/2021 Noted Resolved Viral Wart: R hand dorsal 5th finger PIP area [*07/12/2012 12/22/2018 Spider angioma [I78.1] 07/12/2012 12/22/2018 Telangiectasia [I78.1] 07/12/2012 12/22/2018 Actinic skin damage [L57.8] 07/12/2012 12/22/2018 Hyperlipidemia [E78.5] 03/28/2013 Adjustment disorder with depressed mood [F43.21]03/28/2013 UTI (lower urinary tract infection) [N39.0] 07/24/2013 12/22/2018 Hematuria [R31.9] 07/24/2013 Kidney stone [N20.0] 01/21/2014 12/22/2018 Chronic obstructive pulmonary disease (HCC) [J4*09/29/2016 BMI 35.0-35.9,adult [Z68.35] 09/29/2016 Essential hypertension [I10] 12/22/2018 Primary osteoarthritis involving multiple joint*12/22/2018 Encounter Status:Closed by [employer], PRODUSER on 01/04/22 [facility] 05-04-2021 Note HNO ID: [id number] Author: Cristina Callahan MD Service: ? Author Type: Physician Type: Progress Notes Filed: 05/04/2021 5:01 PM Note Text: CHIEF COMPLAINT Patient presents with: Follow Up: 6 month HISTORY OF PRESENT ILLNESS Myranda Oliva is a 60 year old female who presents here today for follow up management of multiple medical issues. I last saw this patient on 06/12/2020. Arthritis Continues to take meloxicam daily. Pain is primarily in the knees, hands and hips. Hypercholesterolemia Currently managed on simvastatin. adherent to current regimen without side effects from medication. No current symptoms. Mood Patient is managed on Lexapro. Patient recently retired in February. She has been feeling a lot less stress. Health Maintenance Due for spirometry. Due for TDAP. Due for routine colon cancer screening. Due for Shingrix series Due for routine pap testing. Due for HPV testing. Due for influenza Due for mammogram. Labs reviewed. Past medical history, appointments, medications, allergies reviewed. REVIEW OF SYSTEMS Pertinent positives/ negatives: General: Feels well, no fever, no chills, +obesity. HEENT: No sinus congestion, earache, sore throat. Cardiac: No chest pain, palpitations Resp: No cough, wheeze, shortness of breath GI: No reflux symptoms, food intolerance, bowel changes. : No urinary frequency, dysuria. MS: +arthritis Psych: +tobacco use PAST MEDICAL HISTORY PAST MEDICAL HISTORY Diagnosis Date - Anxiety - Chronic obstructive pulmonary disease (HCC) 09/29/2016 - COPD (chronic obstructive pulmonary disease) ([facility]) - Dyslipidemia - Kidney stone 01/21/2014 - Panic attack - Tattoo - Tobacco abuse PHYSICAL EXAMINATION BP 142/73 Pulse 75 Temp 36.1 ?C (96.9 ?F) (Temporal) Ht 152.4 cm (5') Wt 90.7 kg (200 lb) LMP 08/30/2007 BMI 39.06 kg/m? Repeat BP: 144/70 General: Alert, well developed, well nourished, no distress, pleasant and cooperative. Obese. Heart: Regular rate and rhythm. Normal S1 and S2. No murmurs, rubs, or gallops. Lungs: Clear to auscultation bilaterally. No respiratory distress. No wheezes, rales, or rhonchi. Abdomen: Soft, non-tender, no distention. Extremities: Feet/ankles without edema, posterior tibial pulses full and symmetrical. Data Reviewed 04/30/2021 BMP- glucose (109 high) Lipid- Cholesterol, Total <200 mg/dL 232High Triglyceride <150 mg/dL 219High HDL Cholesterol >39 mg/dL 50 LDL Cholesterol <100 mg/dL 138High Non HDL Cholesterol <130 mg/dL 182High Fasting Time hrs 10 VLDL Cholesterol <30 mg/dL 44High TC:HDL Ratio <5.10 4.64 LDL:HDL Ratio <2.54 2.76High A1C trends- Lab Results Component Value Date HBA1C 5.8 04/30/2021 HBA1C 5.9 06/12/2020 Assessment/Plan (I10) Essential hypertension (primary encounter diagnosis) Comment: BP elevated on arrival today at 142/73 , 144/70 on repeat. Plan: hydroCHLOROthiazide (HYDRODIURIL, ESIDRIX) 25 mg tablet (F43.21) Adjustment disorder with depressed mood Comment: Patient does not know if she should continue because she does not have the stress of work. Plan: escitalopram oxalate (LEXAPRO) 10 mg tablet (M89.49) Primary osteoarthritis involving multiple joints Comment: mainly in hands, knees and hips Plan: meloxicam (MOBIC) 15 mg tablet (E78.00) Pure hypercholesterolemia Comment: status quo Plan: simvastatin (ZOCOR) 40 mg tablet (R73.9) Hyperglycemia Comment: per labs Plan: Watch carb intake. (Z68.35) BMI 35.0-35.9,adult Comment: per physical exam Plan: discussed weight loss tips (Z72.0) Continuous tobacco abuse Comment: Patient is down to smoking 1/4 of a pack a day. She would like to quit by September Plan: continue smoking cessation efforts. Signed Prescriptions Disp Refills escitalopram oxalate (LEXAPRO) 10 mg tablet 90 tablet 3 Sig: Take 1 tablet by mouth once daily. ANUPAMA: No hydroCHLOROthiazide (HYDRODIURIL, ESIDRIX) 25 mg tablet 90 tablet 3 Sig: Take 1 tablet by mouth once daily. ANUPAMA: No meloxicam (MOBIC) 15 mg tablet 90 tablet 3 Sig: Take 1 tablet by mouth once daily. Due for 6 month follow up in December. Please call office to make appointment. ANUPAMA: No simvastatin (ZOCOR) 40 mg tablet 90 tablet 3 Sig: Take 1 tablet by mouth once daily. RTO: 6 months Scribe Attestation: By signing my name below, I, Karla Whaley, attest that this documentation has been prepared under the direction and in the presence of Lazaro Callahan M.D. Electronically Signed: Yessenia Hobbs. May 04, 2021 2:34 PM Provider Attestation: I, Cristina Callahan MD, personally performed the services described in this documentation. All medical record entries made by the yessenia were at my direction and in my presence. I have reviewed the chart and discharge instructions (if applicable) and agree that the record reflects my personal performance and is accurate and complete. Electronically Signed: [place] (more content not included)... [facility] 04-21-2021 Note Patient Outreach (IN TMMN) DELLMYRANDA ([id number]) 1960 F Date Time Provider Department 04/21/21 CRISTINA CALLAHAN During your visit today, we recorded the following information about you: Allergies As of Date: 04/21/2021 Noted Allergy Reaction PENICILLINS 08/30/2011 16 - Unknown Comments: as child shell fish [Other] 08/30/2011 8 - GI Upset Date Reviewed: 06/12/2020 Reviewed by: Stephany Rodriguez Ma - Fully Assessed Visit Diagnoses:Essential hypertension [I10] BMI 35.0-35.9,adult [Z68.35] Hyperlipidemia [E78.5] Order(s):BASIC METABOLIC PNL [SQBMP] Order #: [id number] FUTURE HGB A1C [YGWWI3Y] Order #: [id number] FUTURE LIPID PANEL BASIC [SQLIPB] Order #: [id number] FUTURE Prescriptions as of 04/24/2021 - meloxicam (MOBIC) 15 mg tablet Take 1 tablet by mouth once daily. Due for 6 month follow up in December. Please call office to make appointment. - escitalopram oxalate (LEXAPRO) 10 mg tablet Take 1 tablet by mouth once daily. - hydroCHLOROthiazide (HYDRODIURIL, ESIDRIX) 25 mg tablet Take 1 tablet by mouth once daily. - simvastatin (ZOCOR) 20 mg tablet TAKE 1 TABLET BY MOUTH EVERYDAY AT BEDTIME - Ascorbic Acid (VITAMIN C) 500 mg chew Take 500 mg by mouth once daily. - Ca carb-Ca gluc-Mg ox-Mg gluco (CALCIUM MAGNESIUM) 500 mg calcium -250 mg tab Take by mouth. - cyanocobalamin (VITAMIN B-12) 1,000 mcg tab Take 1,000 mcg by mouth once daily. - diclofenac sodium (VOLTAREN) 1 % topical gel Apply to affected area four times daily. Problem List As Of Date 04/21/2021 Noted Resolved Viral Wart: R hand dorsal 5th finger PIP area [*07/12/2012 12/22/2018 Spider angioma [I78.1] 07/12/2012 12/22/2018 Telangiectasia [I78.1] 07/12/2012 12/22/2018 Actinic skin damage [L57.8] 07/12/2012 12/22/2018 Hyperlipidemia [E78.5] 03/28/2013 Adjustment disorder with depressed mood [F43.21]03/28/2013 UTI (lower urinary tract infection) [N39.0] 07/24/2013 12/22/2018 Hematuria [R31.9] 07/24/2013 Kidney stone [N20.0] 01/21/2014 12/22/2018 Chronic obstructive pulmonary disease (HCC) [J4*09/29/2016 BMI 35.0-35.9,adult [Z68.35] 09/29/2016 Essential hypertension [I10] 12/22/2018 Primary osteoarthritis involving multiple joint*12/22/2018 Encounter Status:Closed by SRIDHAR COVINGTON on 04/24/21 [facility] 01-23-2021 Note Patient Outreach (IN TMMN) MYRANDA OLIVA ([id number]) 1960 F Date Time Provider Department 01/23/21 CRISTINA CALLAHAN During your visit today, we recorded the following information about you: Allergies As of Date: 01/23/2021 Noted Allergy Reaction PENICILLINS 08/30/2011 16 - Unknown Comments: as child shell fish [Other] 08/30/2011 8 - GI Upset Date Reviewed: 06/12/2020 Reviewed by: Stephany Rodriguez Ma - Fully Assessed Visit Diagnosis:Encounter for screening mammogram for breast cancer [Z12.31] Order(s):[facility] SCREENING [[id number]] Order #: [id number] FUTURE Prescriptions as of 01/26/2021 - simvastatin (ZOCOR) 20 mg tablet TAKE 1 TABLET BY MOUTH EVERYDAY AT BEDTIME - hydroCHLOROthiazide (HYDRODIURIL, ESIDRIX) 25 mg tablet Take 1 tablet by mouth once daily. - meloxicam (MOBIC) 15 mg tablet Take 1 tablet by mouth once daily. - escitalopram oxalate (LEXAPRO) 10 mg tablet Take 1 tablet by mouth once daily. - Ascorbic Acid (VITAMIN C) 500 mg chew Take 500 mg by mouth once daily. - Ca carb-Ca gluc-Mg ox-Mg gluco (CALCIUM MAGNESIUM) 500 mg calcium -250 mg tab Take by mouth. - cyanocobalamin (VITAMIN B-12) 1,000 mcg tab Take 1,000 mcg by mouth once daily. - diclofenac sodium (VOLTAREN) 1 % topical gel Apply to affected area four times daily. Problem List As Of Date 01/23/2021 Noted Resolved Viral Wart: R hand dorsal 5th finger PIP area [*07/12/2012 12/22/2018 Spider angioma [I78.1] 07/12/2012 12/22/2018 Telangiectasia [I78.1] 07/12/2012 12/22/2018 Actinic skin damage [L57.8] 07/12/2012 12/22/2018 Hyperlipidemia [E78.5] 03/28/2013 Adjustment disorder with depressed mood [F43.21]03/28/2013 UTI (lower urinary tract infection) [N39.0] 07/24/2013 12/22/2018 Hematuria [R31.9] 07/24/2013 Kidney stone [N20.0] 01/21/2014 12/22/2018 Chronic obstructive pulmonary disease (HCC) [J4*09/29/2016 BMI 35.0-35.9,adult [Z68.35] 09/29/2016 Essential hypertension [I10] 12/22/2018 Primary osteoarthritis involving multiple joint*12/22/2018 Encounter Status:Closed by EPIC, PRODUSER on 01/26/21 [facility] 01-21-2014 History of Past i llness Narrative Problem Noted Date Resolved Date Kidney stone 01/21/2014 12/22/2018 UTI (lower urinary tract infection) 07/24/2013 12/22/2018 Viral Wart: R hand dorsal 5th finger PIP area 12/22/2018 Spider angioma 07/12/2012 12/22/2018 Telangiectasia 07/12/2012 12/22/2018 Actinic skin damage 07/12/2012 12/22/2018 documented as of this encounter (statuses as of 01/04/2022) [facility] History of Past illness Narrative* Problem Noted Date Resolved Date Kidney stone 01/21/2014 12/22/2018 UTI (lower urinary tract infection) 07/24/2013 12/22/2018 Viral Wart: R hand dorsal 5th finger PIP area 12/22/2018 Spider angioma 07/12/2012 12/22/2018 Telangiectasia 07/12/2012 12/22/2018 Actinic skin damage 07/12/2012 12/22/2018 documented as of this encounter (statuses as of 01/12/2022) [facility] History of Past illness Narrative* Problem Noted Date Resolved Date Kidney stone 01/21/2014 12/22/2018 UTI (lower urinary tract infection) 07/24/2013 12/22/2018 Viral Wart: R hand dorsal 5th finger PIP area 12/22/2018 Spider angioma 07/12/2012 12/22/2018 Telangiectasia 07/12/2012 12/22/2018 Actinic skin damage 07/12/2012 12/22/2018 documented as of this encounter (statuses as of 04/07/2022) [facility]07-[facility]2014 History of Past illness Narrative* Problem Noted Date Resolved Date Kidney stone 01/21/2014 12/22/2018 UTI (lower urinary tract infection) 07/24/2013 12/22/2018 Viral Wart: R hand dorsal 5th finger PIP area 12/22/2018 Spider angioma 07/12/2012 12/22/2018 Telangiectasia 07/12/2012 12/22/2018 Actinic skin damage 07/12/2012 12/22/2018 documented as of this encounter (statuses as of 05/25/2022) [facility] History of Past illness Narrative* Problem Noted Date Resolved Date Kidney stone 01/21/2014 12/22/2018 UTI (lower urinary tract infection) 07/24/2013 12/22/2018 Viral Wart: R hand dorsal 5th finger PIP area 12/22/2018 Spider angioma 07/12/2012 12/22/2018 Telangiectasia 07/12/2012 12/22/2018 Actinic skin damage 07/12/2012 12/22/2018 documented as of this encounter (statuses as of 07/14/2022) [facility] History of Past illness Narrative* Problem Noted Date Resolved Date Kidney stone 01/21/2014 12/22/2018 UTI (lower urinary tract infection) 07/24/2013 12/22/2018 Viral Wart: R hand dorsal 5th finger PIP area 12/22/2018 Spider angioma 07/12/2012 12/22/2018 Telangiectasia 07/12/2012 12/22/2018 Actinic skin damage 07/12/2012 12/22/2018 documented as of this encounter (statuses as of 11/09/2022) [facility] note* Diagnosis Encounter for screening mammogram for breast cancer [facility] Diagnosis Pure hypercholesterolemia- Primary Essential hypertension Unspecified essential hypertension [facility] Diagnosis Primary osteoarthritis involving multiple joints Pure hypercholesterolemia [facility] Diagnosis Adjustment disorder with depressed mood Essential hypertension Unspecified essential hypertension [facility] Pure hypercholesterolemia [facility] noteNo assessment information availableWGerman Hospital Work Phone: Reason for referral (narrative)* Diagnostic Procedure Only (Routine) - Pending Review Specialty Diagnoses / Procedures Referred By Continocencio t Referred To Contact [facility] Diagnoses Encounter for screening mammogram for breast cancer Procedures RIO SCREENING SCREENING MAMMOGRAPHY BI 2-VIEW BREAST INC CAD Cristina Callahan MD [address] [place] [address] [place] [address] [facility] [address] [place] [address] Referral ID Status Reason Start Date Expiration Date Visits Requested Visits Authorized [id number] Pending Review Auto-Generat ed Referral 12/30/2021 01/29/2023 1 1 [facility]arrative)No reason for referral information availableWGerman Hospital Work Phone: Summary Purpose Family History Relationship Condition Age at Onset Recorded Date/T [place] father Depression Unknown Hypertension Unknown mother Hypertension Unknown Malignant neoplasm Unknown sister Hypertension Unknown Advance Directives Documents on File Type Date Recorded Patient 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 Expl anation Advance Directive(s) 08/29/2013 7:30 AM Documents on File Type Date Recorded Patient Hims Clerk Expl anation Advance Directive(s) 08/29/2013 7:30 AM Chief Complaint and Reason for Visit Chief Complaint Admit Date KIDNEY STONE PROTOCOL (STAT) December 04 2:18pm Chief Complaint Admit Date KIDNEY STONE PROTOCOL (STAT) December 04 2:18pm BL KNEES December 21, 2024 10:0 7am Additional Source Comments INFORMATION SOURCE (unrecogn ized section and content) DATE CREATED AUTHOR 03/27/2020 [facility] DATE CREATED AUTHOR AUTHOR'S ORGANIZ ATION 01/04/2022 [facility] DATE CREATED AUTHOR AUTHOR'S ORGANIZ ATION 12/08/2024 [facility] Source Comments (unrecognize d section and content) In the event this informatio n is protected by the Federal Confidentiality of Alcohol and Drug Abuse Patient Records regulations: The Federal rules restrict any use of the information to criminally investigate or prosecute any alcohol or drug abuse patient.[facility] the event this information is protected by the Federal Confidentiality of Alcohol and Drug Abuse Patient Records regulations: The Federal rules restrict any use of the information to criminally investigate or prosecute any alcohol or drug abuse patient.[facility] the event this information is protected by the Federal Confidentiality of Alcohol and Drug Abuse Patient Records regulations: The Federal rules restrict any use of the information to criminally investigate or prosecute any alcohol or drug abuse patient.[facility] the event this information is protected by the Federal Confidentiality of Alcohol and Drug Abuse Patient Records regulations: The Federal rules restrict any use of the information to criminally investigate or prosecute any alcohol or drug abuse patient.[facility] the event this information is protected by the Federal Confidentiality of Alcohol and Drug Abuse Patient Records regulations: The Federal rules restrict any use of the information to criminally investigate or prosecute any alcohol or drug abuse patient.[facility] the event this information is protected by the Federal Confidentiality of Alcohol and Drug Abuse Patient Records regulations: The Federal rules restrict any use of the information to criminally investigate or prosecute any alcohol or drug abuse patient.[facility] Care Teams (unrecognized sec tion and content) Casino Host Relationship Specialty Start Date End Date Cristina Callahan MD [address] [place], [place] [id number] PCP - General Family Practice 04/19/12 Casino Host Relationship Specialty Start Date End Date Cristina Callahan MD [address] [place] [address] PCP - General Family Practice 04/19/12 Casino Host Relationship Specialty Start Date End Date Cristina Callahan MD [address] [place] [address] PCP - General Family Medicine 04/19/12 Casino Host Relationship Specialty Start Date End Date Cristina Callahan MD [address] [place] [address] PCP - General Family Medicine 04/19/12 Casino Host Relationship Specialty Start Date End Date Cristina Callahan MD [address] [place] [address] PCP - General Family Medicine 04/19/12 Team Status: Active Member Role Status Dates Dr. Flavio Andrade MD Primary Care Provider Active Team Status: Inactive Member Role Status Dates Dr. Flavio Andrade MD Primary Care Provider Active Start: December 04, 2024 End: December 04, 2024 Dr. Flavio Andrade MD Attending Provider Active Start: December 04, 2024 End: December 04, 2024 Dr. Flavio Andrade MD Referring Provider Active Start: December 04, 2024 End: December 04, 2024 Team Status: Active Member Role Status Dates Dr. Flavio Andrade MD Primary Care Provider Active Start: December 19, 2024 Dr. Flavio Andrade MD Attending Provider Active Start: December 19, 2024 Dr. Flavio Andrade MD Referring Provider Active Start: December 19, 2024 Team Status: Inactive Member Role Status Dates Dr. Flavio Andrade MD Primary Care Provider Active Start: December 21, 2024 End: December 21, 2024 Dr. Flavio Andrade MD Referring Provider Active Start: December 21, 2024 End: December 21, 2024 Dr. Jorge Fairchild DO Attending Provider Active Start: December 21, 2024 End: December 21, 2024 Reason for Visit (unrecogniz ed section and content) Reason Comments Refill Request Goals (unrecognized section and content) Goals may be documented in a n alternate sectionGoals may be documented in an alternate section FOR RECORDS PERTAINING TO PATIENTS WHO ARE OR HAVE BEEN ENROLLED IN A CHEMICAL DEPENDENCY/SUBSTANCEABUSE PROGRAM, SOME INFORMATION MAY BE OMITTED. This clinical summary was aggregated from multiple sources. Caution should be exercised in using it in the provision of clinical care. This summary normalizes information from multiple sources, and as a consequence, information in this document may materially change the coding, format and clinical context of patient data. In addition, data may be omitted in some cases. CLINICAL DECISIONS SHOULD BE BASED ON THE PRIMARY CLINICAL RECORDS. [employer] provides no warranty or guarantee of the accuracy or completeness of information in this document.
== END | disposition home or self-care (01) ==
LOC: LAB 11:02
PROVIDERS: PCP Family Medicine Geriatric Medicine; Referring Provider Family Medicine Geriatric Medicine; Visit Provider Family Medicine Geriatric Medicine
DX: I10 Essential (primary) hypertension (principal); E78.5 Hyperlipidemia, unspecified
CPT/HCPCS: 80053; 80061; 84443

== ENCOUNTER → 2025-01-16 | Outpatient (CLI) | payer BC, SELFPAY ==
--- NOTE | 2025-01-16 09:49 | NM_ITS ---
PROCEDURE: HEPATOBILLIARY IMG W/PHARM INT 01/16/2025 REASON FOR EXAM: BILIARY COLIC TECHNIQUE: Intravenous Choletec with planar imaging of the abdomen. 1.6 mcg Kinevac intravenously approximately 60 minutes after the radiopharmaceutical with additional anterior imaging and a region of interest drawn around the gallbladder to calculate a time-activity curve. RADIOPHARMACEUTICAL: Technetium labeled mebrofenin DOSE 5.7mCi COMPARISON: None FINDINGS: There is good uptake of the radiopharmaceutical by the liver. Normal gallbladder visualization with the gallbladder identified by 30 minutes. Gallbladder Ejection Fraction: 10% % (Normal is >35%) NM/Hepatobilliary Img w/Pharm Int IMPRESSION: Abnormal gallbladder ejection fraction. Reading Location: [place] [address]
--- NOTE | 2025-01-16 09:49 | NM_ITS ---
PROCEDURE: HEPATOBILLIARY IMG W/PHARM INT 01/16/2025 REASON FOR EXAM: BILIARY COLIC TECHNIQUE: Intravenous Choletec with planar imaging of the abdomen. 1.6 mcg Kinevac intravenously approximately 60 minutes after the radiopharmaceutical with additional anterior imaging and a region of interest drawn around the gallbladder to calculate a time-activity curve. RADIOPHARMACEUTICAL: Technetium labeled mebrofenin DOSE 5.7mCi COMPARISON: None FINDINGS: There is good uptake of the radiopharmaceutical by the liver. Normal gallbladder visualization with the gallbladder identified by 30 minutes. Gallbladder Ejection Fraction: 10% % (Normal is >35%) NM/Hepatobilliary Img w/Pharm Int IMPRESSION: Abnormal gallbladder ejection fraction. Reading Location: [place] [address]
--- OUTSIDE RECORDS SUMMARY | 2025-01-16 20:15 | XMS RPT_ITS | CCD ---
Author Organization [facility] Care Team Providers [place] Attendant Name Role Phone Lorri ROBERTS, Cristina Charles Primary Care Provider [phone] Unavailable Primary Care Provider Gualberto Andrade MD, Dr. Flavio Jackson Primary Care Provider [phone] Raymond ROBERTS, Dr. Flavio Jackson Attending Provider Raymond ROBERTS, Dr. Flavio Jackson Referring Provider Dr. Jorge Fairchild DO Attending Provider Mylene [place] Attending Unavailable Raymond, Flavio Chi Primary Care Unavailable Raymond, Flavio Chi Referring Unavailable Mylene, Arie Attending Unavailable Raymond, Flavio Chi Primary Care Unavailable Jorge Fairchild Attending Unavailable Raymond, Flavio Chi Primary Care Unavailable Raymond, Flavio Chi Referring Unavailable Raymond, Flavio Chi Referring Unavailable Raymond, Flavio Chi Primary Care Unavailable Raymond, Flavio Chi Attending Unavailable Mylene, Arie Attending Unavailable Mylene, Arie Referring Unavailable Raymond, Flavio Chi Primary Care Unavailable Raymond, Flavio Chi Primary Care Unavailable Raymond, Flavio Chi Attending Unavailable Raymond, Flavio Chi Referring Unavailable Raymond, Flavio Chi Referring Unavailable Raymond, Flavio Chi Primary Care Unavailable Raymond, Flavio Chi Attending Unavailable Raymond, Flavio Chi Primary Care Unavailable Raymond, Flavio Chi Attending Unavailable Raymond, Flavio Chi Referring Unavailable Raymond, Flavio Chi Primary Care Unavailable Raymond, Flavio Chi Attending Unavailable Raymond, Flavio Chi Referring Unavailable Raymond, Flavio Chi Primary Care Unavailable Raymond, Flavio Chi Attending Unavailable Raymond, Flavio Chi Referring Unavailable Allergies Allergy Classification Reported Allergen(s) Allergy Type Date of Onset Reaction(s) Facility (6 sources) Penicillins Propensity to adverse reactions to drug 2 Unknown [facility] (6 sources) shell fish [Other] Propensity to adverse reactions 2 GI Upset [facility] (4 sources) Penicillins Allergy to substance 4 PT UNSURE OF REACTION [facility] (5 sources) Shellfish; Translations: [shellfish derived] Allergy to substance 4 Nausea/Vom/Diar ant [facility] (1 source) Penicillins Drug allergy (disorder) 5 [facility] Repository Medications Current Medications Medication Drug Class(es) Dates Sig (Normalized) Sig (Original) atorvastatin 40 mg oral tablet (4 sources) HMG-CoA Reductase Inhibitor Start: 01-30-2024 take 1 tablet by mouth at bedtime Atorvastatin 40 mg tablet Active 40 mg PO AT BEDTIME January 30, 2024 12:00am smoking cessation 12 hr buPROPion hydrochloride 150 mg extended release oral tablet (3 sources) Aminoketone Start: 12-21-2024 take 1 tablet by mouth twice daily, then take 1 tablet by mouth every twelve hours Bupropion Hcl (Smoking Deter) 150 mg tablet extended release 12 hr Active 150 mg PO TWICE A DAY December 21, 2024 12:00am losartan potassium 100 mg oral tablet (4 sources) Angiotensin 2 Receptor Rizwana Start: 03-07-2024 take 1 tablet by mouth once daily Losartan 100 mg tablet Active 100 mg PO daily March 07, 2024 12:00am meloxicam 15 mg oral tablet (3 sources) Nonsteroidal Anti-inflammatory Drug Start: 12-21-2024 take 1 tablet by mouth once daily Meloxicam 15 mg tablet Active 15 mg PO DAILY December 21, 2024 12:00am Do not take in conjunction with other NSAID. Tylenol is okay. Start: 04-07-2022 End: 05-07-2022 take 1 tablet by mouth once daily meloxicam (MOBIC) 15 mg tablet Indications: Primary osteoarthritis involving multiple joints TAKE 1 TABLET BY MOUTH ONCE DAILY. DUE FOR 6 MONTH FOLLOW UP IN DECEMBER. PLEASE CALL OFFICE TO MAKE APPOINTMENT. 90 tablet 0 04/07/2022 05/07/2022 Active Comment on above: TAKE 1 TABLET BY ELIZ TH ONCE DAILY. DUE FOR 6 MONTH FOLLOW [...] DAY vitamin b12 1 mg oral tablet (10 sources) Vitamin B12 Start: 4 End: 4 [...] on above: Take 1,000 mcg by mo ut once daily. Problems Active Problems Problem Classification Problem Date Documented Da te Episodic/Chronic Adjustment disorders (7 sources) Adjustment disorder with depressed mood; Translations: [Adjustment disorder with depressed mood] Onset: 03-28-2013 03-28-2013 Chronic Biliary tract disease (1 source) Calculus of bile duct without cholangitis or cholecystitis without obstruction; Translations: [Calculus of bile duct without cholangitis or cholecystitis without obstruction] Onset: 01-11-2025 Episodic Calculus of urinary tract (5 sources) Kidney stone; Translations: [Calculus of kidney] Onset: 12-07-2024 01-30-2024 Episodic Chronic obstructive pulmonary disease and bronchiectasis (11 sources) Chronic obstructive lung disease; Translations: [Chronic obstructive pulmonary disease, unspecified] Onset: 09-29-2016 09-29-2016 Chronic Coronary atherosclerosis and other heart disease (4 sources) Calcification of coronary artery; Translations: [Atherosclerotic heart disease of [place] coronary artery without angina pectoris] 03-07-2024 Chronic Disorders of lipid metabolism (14 sources) Hyperlipidemia; Translations: [Hyperlipidemia, unspecified] Onset: 03-28-2013 03-28-2013 Chronic Essential hypertension (13 sources) Essential hypertension; Translations: [Essential (primary) hypertension] Onset: 12-22-2018 12-22-2018 Chronic Mood disorders (4 sources) Depressive disorder; Translations: [Depression] 01-30-2024 Chronic Osteoarthritis (17 sources) Degenerative joint disease involving multiple joints; Translations: [Polyosteoarthritis, unspecified] Onset: 12-22-2018 12-22-2018 Chronic Other nutritional; endocrine; and metabolic disorders (6 sources) Body mass index 30+ - obesity; Translations: [Body mass index (BMI) 35.0-35.9, adult] Onset: 09-29-2016 12-22-2018 Chronic Peripheral and visceral atherosclerosis (5 sources) Disorder of aorta; Translations: [Atherosclerosis of aorta] Onset: 03-07-2024 01-30-2024 Chronic Residual codes; unclassified (4 sources) Tobacco user; Translations: [Tobacco use] 12-21-2024 Episodic Past or Other Problems Problem Classification Problem Date Documented Da te Episodic/Chronic Genitourinary symptoms and ill-defined conditions (6 sources) Blood in urine; Translations: [Hematuria, unspecified] Onset: 07-24-2013 07-24-2013 Episodic Nonspecific chest pain (5 sources) Chest pain; Translations: [Chest pain, unspecified] Onset: 03-07-2024 01-30-2024 Episodic Other screening for suspected conditions (not mental disorders or infectious disease) (2 sources) Patient encounter status; Translations: [Encounter for screening mammogram for malignant neoplasm of breast] Onset: 01-30-2024 Episodic Results Test Name Value Interpretation Reference Range Facility Anion gap in Serum or Plasma Ordered By: Flavio Andrade on 12-21-2024 Anion gap [Moles/Vol] 12 mmol/L 5-15 [facility] BUN/creatinine ratioOrdered By: Flavio Andrade on 12-21-2024 Urea nitrogen/Creatinine [Mass ratio] 21.5 mg/mg High 04-22 [facility] Bilirubin, totalOrdered By: Flavio Andrade on 12-21-2024 Bilirubin [Mass/Vol] 0.43 mg/dL 0.00-1.30 [facility] Calculated very low density lipoprotein (VLDL) cholesterol measurementOrdered By: Flavio Andrade on 12-21-2024 Calculated very low density lipoprotein (VLDL) cholesterol measurement 33 mg/dL 5-40 [facility] Carbon dioxide, total [Moles /volume] in Central venous bloodOrdered By: Flavio Andrade on 12-21-2024 CO2 [Moles/Vol] 22.5 mmol/L 21.0-32.0 [facility] Chloride assayOrdered By: Lul Andrade on 12-21-2024 Chloride [Moles/Vol] 105 mmol/L 98-108 [facility] Comprehensive Metabolic Prof ilon 12-21-2024 Albumin [Mass/Vol] 4.1 g/dL Normal 3.4-4.8 [facility] Comment on above: Performed By: #### L 500.4050, L501.9520, L500.4100 #### [facility] [address] [place], [address] Albumin/Globulin [Mass ratio] 1.3 {ratio} Normal 0.9-2.4 [facility] Comment on above: Performed By: #### L 500.4050, L501.9520, L500.4100 #### [facility] [address] [place], [address] ALK PHOS 105 U/L High 35-104 [facility] Comment on above: Performed By: #### L 500.4050, L501.9520, L500.4100 #### [facility] [address] [place], [address] ALT [Catalytic activity/Vol] 16 U/L Normal <=34 [facility] Comment on above: Performed By: #### L 500.4050, L501.9520, L500.4100 #### [facility] [address] [place], [address] AST [Catalytic activity/Vol] 24 U/L Normal <=31 [facility] Comment on above: Result Comment: Hemo lysis present, Results??could be affected. ?? Performed By: #### L 500.4050, L501.9520, L500.4100 #### [facility] [address] [place], [address] Bilirubin [Mass/Vol] 0.43 mg/dL Normal 0.00-1.30 [facility] Comment on above: Performed By: #### L 500.4050, L501.9520, L500.4100 #### [facility] [address] [place], [address] BUN/CRE 21.5 RATIO High 10-20 [facility] Comment on above: Performed By: #### L 500.4050, L501.9520, L500.4100 #### [facility] [address] [place], [address] Calcium [Mass/Vol] 9.8 mg/dL Normal 7.6-11.0 [facility] Comment on above: Performed By: #### L 500.4050, L501.9520, L500.4100 #### [facility] [address] [place], [address] Chloride [Moles/Vol] 105 mmol/L Normal 98-108 [facility] Comment on above: Performed By: #### L 500.4050, L501.9520, L500.4100 #### [facility] [address] [place], [address] CO2 [Moles/Vol] 22.5 mmol/L Normal 21.0-32.0 [facility] Comment on above: Performed By: #### L 500.4050, L501.9520, L500.4100 #### [facility] [address] [place], [address] Creatinine [Mass/Vol] 0.78 mg/dL Normal 0.70-1.20 [facility] Comment on above: Performed By: #### L 500.4050, L501.9520, L500.4100 #### [facility] [address] [place], [address] GAP 12 Normal 5-15 [facility] Comment on above: Performed By: #### L 500.4050, L501.9520, L500.4100 #### [facility] [address] [place], [address] GFR/1.73 sq M.predicted among non-blacks MDRD (S/P/Bld) [Vol rate/Area] 85 mL/min/{1.73_m2} Normal >60 [facility] Comment on above: Result Comment: mL/m in/1.73m2 CKD-EPI Creatinine Equation (2020) Performed By: #### L 500.4050, L501.9520, L500.4100 #### [facility] [address] [place], [address] Globulin (S) [Mass/Vol] 3.1 g/dL Normal 2.2-4.2 [facility] Comment on above: Performed By: #### L 500.4050, L501.9520, L500.4100 #### [facility] [address] [place], [address] Glucose [Mass/Vol] 101 mg/dL High 70-99 [facility] Comment on above: Performed By: #### L 500.4050, L501.9520, L500.4100 #### [facility] [address] [place], [address] Potassium [Moles/Vol] 4.3 mmol/L Normal 3.3-5.1 [facility] Comment on above: Result Comment: Hemo lysis present, Results??could be affected. ?? Performed By: #### L 500.4050, L501.9520, L500.4100 #### [facility] [address] [place], [address] Sodium [Moles/Vol] 139 mmol/L Normal 133-145 [facility] Comment on above: Performed By: #### L 500.4050, L501.9520, L500.4100 #### [facility] [address] [place], [address] T PROT 7.2 g/dL Normal 5.9-8.4 [facility] Comment on above: Performed By: #### L 500.4050, L501.9520, L500.4100 #### [facility] [address] [place], [address] Urea nitrogen [Mass/Vol] 17 mg/dL Normal 4-19 [facility] Comment on above: Performed By: #### L 500.4050, L501.9520, L500.4100 #### [facility] [address] [place], [address] Glomerular filtration rate ( GFR) estimation/1.73 sq m using serum, plasma, or whole bOrdered By: Flavio Andrade on 12-21-2024 GFR/1.73 sq M.predicted among non-blacks MDRD (S/P/Bld) [Vol rate/Area] 85 mL/min/{1.73_m2} >60 [facility] Comment on above: mL/min/1.73m2 CKD-EP I Creatinine Equation (2020) LDL calc ser/plasOrdered By: Flavio Andrade on 12-21-2024 Cholesterol in LDL [Mass/Vol] 102 mg/dL [facility] Comment on above: Qpexbfrabn=610-442 m g/dL & Higher Telc=919 mg/dL or greater Laboratory - Chemistry and C hemistry - challengeOrdered By: Flavio Andrade on 12-21-2024 AST [Catalytic activity/Vol] 24 U/L <32 [facility] Comment on above: Hemolysis present, R esults could be affected. Lipid Profileon 12-21-2024 CHOL:HDL 3.00 Normal [facility] Comment on above: Performed By: #### L 500.4050, L501.9520, L500.4100 #### [facility] [address] [place], [address] Cholesterol [Mass/Vol] 202 mg/dL High <=200 [facility] Comment on above: Result Comment: Chol esterol level, Desirable <200 mg/dL Borderline high cholesterol 200-239 mg/dL High cholesterol >=240 mg/dL Recommendations of the NCEP Adult Treatment Panel for the following risk-cutoff thresholds for the [place] population. Performed By: #### L 500.4050, L501.9520, L500.4100 #### [facility] [address] [place], [address] Cholesterol in HDL [Mass/Vol] 67 mg/dL Normal [facility] Comment on above: Result Comment: Janay onal Cholesterol Education Program (NCEP) guidelines: <40 mg/dL: Low HDL-cholesterol (major risk factor for CHD) >= 60 mg/dL: High HDL-cholesterol (negative risk factor for CHD) HDL-cholesterol is affected by a number of factors, e.g. smoking, exercise, hormones, sex and age. Performed By: #### L 500.4050, L501.9520, L500.4100 #### [facility] [address] [place], [address] Cholesterol in LDL [Mass/Vol] 102 mg/dL Normal [facility] Comment on above: Result Comment: Boryoseph behjgf=015-785 mg/dL Higher Fxik=355 mg/dL or greater Performed By: #### L 500.4050, L501.9520, L500.4100 #### [facility] [address] [place], [address] Cholesterol in VLDL [Mass/Vol] 33 mg/dL Normal 5-40 [facility] Comment on above: Performed By: #### L 500.4050, L501.9520, L500.4100 #### [facility] [address] [place], [address] Triglyceride [Mass/Vol] 165 mg/dL Normal [facility] Comment on above: Result Comment: The drugs N-Acetylcysteine and Metamizole may falsely depress this assay. Normal range: <150 mg/dL Borderline High: 150-199 mg/dL High: 200-499 mg/dL Very High: >500 mg/dL Performed By: #### L 500.4050, L501.9520, L500.4100 #### [facility] [address] [place], [address] Orthopedic Visit Reporton Orthopedic Visit Report [facility] [address] [place] [address] [address] [place], [place] [address] OFFICE VISIT Date of Service: 12/21/24 MR#: [id number] Acct: [id number] Name: MYRANDA OLIVA Rep #: [id number] : 1960 Provider: Dr. Jorge Torres so, DO Age/Sex: 64/F Location: [facility] [place] [facility] Status: Signed Intake Vital Signs 03/07/24 11:35 12/21/24 10:15 Height 5 ft 1 in 5 ft 1 in Weight: 168 lb 6 oz BMI 31.8 Intake Visit Reasons: BL KNEES Chief Complaint: Bilateral Knee Pain Accompanied by: Self Is patient in pain?: Yes Pain scale (1-10): 8 Allergies shellfish derived Allergy (Severe, Verified 12/21/24 10:17) Nausea/Vom/Diarrhea Penicillins Allergy (Intermediate, Verified 12/21/24 10:17) PT UNSURE OF REACTION Medications ???Medication ???Instructions ???Recorded ???Confirmed ???Type atorvastatin 40 mg tablet 40 mg PO QHS 01/30/24 12/21/24 His tory losartan 100 mg tablet 100 mg PO QDAY 03/07/24 12/21/24 H istory bupropion HCl (smoking deter) 150 150 mg PO BID 12/21/24 12/21/24 H istory mg tablet,12 hr sustained-release(smoki ng deterrent) meloxicam 15 mg tablet 15 mg PO DAILY #30 tabs 12/21/24 0 12/21/24 Rx PFSH Medical History Kidney stone COPD (chronic obstructive pulmonary disease) Osteoarthritis Hyperlipidemia Essential (primary) hypertension Depression Aortic calcification Chest pain Surgical History Hx of lithotripsy Family History Father Depression Hypertension Mother Hypertension Cancer Sister Hypertension Social History Smoking Status: Current every day smoker substance use type: former substance user and marijuana HPI BL KNEES Details: This documentation accurately reflects the service provided and the decisions made by me, Dr. Jorge Fairchild, DO 12/21/24 1011. Part of today???s visit was documented by Tracey Charles ATC, acting as scribe. MYRANDA OLIVA is a 64 year old F here today for bilateral knee pain. Patient states the knees have been bothering her since 2013 and states she slipped in the garage and did a split. She states she has had problems ever since. She states osteoarthritis runs in her family and her mother and grandmother were wheelchair bound. She describes the pain over the anterior aspect of the knee and states it feels like a hammer is hitting her in the knees. She notices inflammation in the knees. She states she has noticed her right leg is bowed and has noticed it for the last 4 years. She states she did have steroid and visco injections in the knees in the past. She states the visco injections gave her relief for about a year. She states it has been over 3 years since she had any injections. She denies any physical therapy or surgery. She does take Tylenol Arthritis and uses horse litamint on her knees. She states she wears good feet inserts in her shoes and she has noticed some relief. She states the right knee is worse than the left. During the injury in 2013 she had originally injured the right knee more than the left. She has tried bracing in the past but they did not fit her leg very well so she stopped using them. She denies any recreational drug use or broken teeth. She does currently smoke about 10 cigarettes a day but is starting Wellbutrin today to quit smoking. Ortho Exam General General: Yes no acute distress and Yes well groomed Neurologic: Yes alert and Yes oriented x3 Psychologic: Yes reasonable and appropriate Right Knee Skin/Wound: No erythema, No ecchymosis and Yes swelling Homans Sign: No Knee ROM: No ROM-Extension -20 to 0 (2) and No ROM-Flexion 0-140 (128) Examination: Yes Med jt line tenderness and No Lat jt line tenderness Stability: NML: Anterior Drawer, NML: Posterior Drawer, NML: Varus 0 and NML: Varus 30 and 1+: Valgus 0 (Due to medial joint space narrowing) and 1+: Valgus 30 Patella Translation: 1 KNEE: varus deformity 4 mm medial gapping with valgus stress - varus instability tattoo on lateral ankle Palpable pedal pulse Left Knee Skin/Wound: No ecchymosis, No erythema and No swelling Homans Sign: No Knee ROM: Yes ROM-Extension -20 to 0 (0) and No ROM-Flexion 0-140 (112) Stability: NML: Anterior Drawer, NML: Posterior Drawer, NML: Varus 0 and NML: Varus 30 and 1+: Valgus 0 (Due to medial joint space narrowing) and 1+: Valgus 30 Patella Translation: 1 KNEE: no joint effusion 2 mm medial gapping with valgus stress Office Procedures Ortho Injections Injections Yes Knee Bilateral Is this a patient provided medication?: No Details: Obtained consent for injection. Under sterile condit (more content not included)... Normal [facility] Potassium measurement (mass/ volume)Ordered By: Flavio Andrade on 12-21-2024 Potassium (Unsp spec) [Mass/Vol] 4.3 mmol/L 3.3-5.1 [facility] Comment on above: Hemolysis present, R esults could be affected. Screening total cholesterol/ high density lipoprotein (HDL) cholesterol ratioOrdered By: Flavio Andrade on 12-21-2024 Cholesterol.total/Savanah sterol in HDL [Mass ratio] 3.00 {ratio} [facility] Serum creatinine measurement (mass/volume)Ordered By: lFavio Andrade on 12-21-2024 Creatinine [Mass/Vol] 0.78 mg/dL 0.70-1.20 [facility] Serum globulin measurementOr dered By: Flavio Andrade on 12-21-2024 Globulin (S) [Mass/Vol] 3.1 g/dL 2.2-4.2 [facility] Serum glucose measurement (m ass/volume)Ordered By: Flavio Andrade on 12-21-2024 Glucose [Mass/Vol] 101 mg/dL High 70-99 [facility] Serum or plasma alanine gibbons otransferase (ALT) measurementOrdered By: Flavio Andrade 12-21-2024 ALT [Catalytic activity/Vol] 16 U/L <35 [facility] Serum or plasma albumin greyson urement (mass/volume)Ordered By: Flavio Andrade 12-21-2024 Albumin [Mass/Vol] 4.1 g/dL 3.4-4.8 [facility] Serum or plasma albumin/glob ulin mass ratioOrdered By: Flavio Andrade 12-21-2024 Albumin/Globulin [Mass ratio] 1.3 {ratio} 0.9-2.4 [facility] Serum or plasma alkaline juancarlos sphatase measurementOrdered By: Flavio Andrade 12-21-2024 ALP [Catalytic activity/Vol] 105 U/L High 35-104 [facility] Serum or plasma calcium greyson urement (mass/volume)Ordered By: Flavio Andrade 12-21-2024 Calcium [Mass/Vol] 9.8 mg/dL 7.6-11.0 [facility] Serum or plasma cholesterol in HDL measurement (mass/volume)Ordered By: Flavio Andrade on 12-21-2024 Cholesterol in HDL [Mass/Vol] 67 mg/dL >40 [facility] Comment on above: National Cholesterol Education Program (NCEP) guidelines:<40 mg/dL: Low HDL-cholesterol (major risk factor for CHD)>= 60 mg/dL: High HDL-cholesterol (negative risk factor for CHD)HDL-cholesterol is affected by a number of factors, e.g. smoking, exercise, hormones, sex and age. Serum or plasma cholesterol measurement (mass/volume)Ordered By: Flavio Andrade on 12-21-2024 Cholesterol [Mass/Vol] 202 mg/dL High <201 [facility] Comment on above: Cholesterol level, D esirable <200 mg/dLBorderline high cholesterol 200-239 mg/dLHigh cholesterol >=240 mg/dLRecommendations of the NCEP Adult Treatment Panel for the following risk-cutoff thresholds for the [place] population. Serum or plasma urea nitroge n measurement (mass/volume)Ordered By: Flavio Andrade on 12-21-2024 Urea nitrogen [Mass/Vol] 17 mg/dL 4-19 [facility] Sodium levelOrdered By: Flavio Andrade 12-21-2024 Sodium [Moles/Vol] 139 mmol/L 133-145 [facility] TSH DL <= 0.005 mIU/L QnOrde red By: Flavio Andrade on 12-21-2024 TSH Qn 1.600 uIU/mL 0.300-4.200 [facility] Thyroid Stim Hormone (TSH)on 12-21-2024 TSH 1.600 uIU/mL Normal 0.300-4.200 [facility] Comment on above: Performed By: #### L 500.4050, L501.9520, L500.4100 ####[facility] [id number] [place], [place], [id number] Total proteinOrdered By: Flavio Andrade on 12-21-2024 Protein [Mass/Vol] 7.2 g/dL 5.9-8.4 [facility] Triglycerides measurementOrd ered By: Flavio Andrade 12-21-2024 Triglyceride [Mass/Vol] 165 mg/dL <199 [facility] Comment on above: The drugs N-Acetylcy steine and Metamizole may falsely depress this assay. Normal range: <150 mg/dLBorderline High: 150-199 mg/dLHigh: 200-499 mg/dLVery High: >500 mg/dL Absolute lymphocyte countOrd ered By: Flavio Andrade on 12-19-2024 Lymphocytes Auto (Unsp spec) [#/Vol] 3.79 10*3/uL 0.83-4.51 [facility] Absolute neutrophil countOrd ered By: Flavio Andrade on 12-19-2024 Neutrophils (Bld) [#/Vol] 8.4 10*3/uL High 2.0-7.7 [facility] Automated lymphocyte count a s percentage of total leukocytesOrdered By: Flavio Andrade on 12-19-2024 Lymphocytes/100 WBC Auto (Unsp spec) 28.5 % 19-41 [facility] Basophil percentageOrdered B y: Flavio Andrade on 12-19-2024 Basophils/100 WBC (Bld) 1.0 % 0-1 [facility] CBC W/Diff, Automatedon 12-02 Absolute Lymph 3.79 X10 3/uL Normal 0.83-4.51 [facility] Comment on above: Performed By: #### L 501.9520, L100.0100, L500.4100, L500.4050 #### [facility] [address] [place], [address] Absolute Neut 8.4 X10 3/uL High 2.0-7.7 [facility] Comment on above: Performed By: #### L 501.9520, L100.0100, L500.4100, L500.4050 #### [facility] [address] [place], [address] Basophils/100 WBC (Bld) 1.0 % Normal 0-1 [facility] Comment on above: Performed By: #### L 501.9520, L100.0100, L500.4100, L500.4050 #### [facility] [address] [place], [address] Eosinophils/100 WBC (Bld) 0.8 % Normal 0-5 [facility] Comment on above: Performed By: #### L 501.9520, L100.0100, L500.4100, L500.4050 #### [facility] [address] [place], [address] Erythrocyte distribution width (RBC) [Ratio] 13.5 % Normal 11.6-14.6 [facility] Comment on above: Performed By: #### L 501.9520, L100.0100, L500.4100, L500.4050 #### [facility] [address] [place], [address] Hematocrit (Bld) [Volume fraction] 45.0 % Normal 37-47 [facility] Comment on above: Performed By: #### L 501.9520, L100.0100, L500.4100, L500.4050 #### [facility] [address] [place], [address] Hemoglobin (Bld) [Mass/Vol] 15.0 g/dL Normal 12.0-15.0 [facility] Comment on above: Performed By: #### L 501.9520, L100.0100, L500.4100, L500.4050 #### [facility] [address] [place], [address] IG% 0.600 Normal 0.0-0.9 [facility] Comment on above: Result Comment: IG% - Immature Granulocytes (promyelocytes, myelocytes and metamyelocytes) > 1% indicates that a LEFT SHIFT is Present. Performed By: #### L 501.9520, L100.0100, L500.4100, L500.4050 #### [facility] [address] [place], [address] Lymphocytes/100 WBC (Bld) 28.5 % Normal 19-41 [facility] Comment on above: Performed By: #### L 501.9520, L100.0100, L500.4100, L500.4050 #### [facility] [address] [place], [address] MCH (RBC) [Entitic mass] 31.4 pg Normal 27.0-32.0 [facility] Comment on above: Performed By: #### L 501.9520, L100.0100, L500.4100, L500.4050 #### [facility] [address] [place], [address] MCHC (RBC) [Mass/Vol] 33.3 g/dL Normal 32-36 [facility] Comment on above: Performed By: #### L 501.9520, L100.0100, L500.4100, L500.4050 #### [facility] [address] [place], [address] MCV (RBC) [Entitic vol] 94.1 fL Normal 81-99 [facility] Comment on above: Performed By: #### L 501.9520, L100.0100, L500.4100, L500.4050 #### [facility] [address] [place], [address] Monocytes/100 WBC (Bld) 6.2 % Normal 0-10 [facility] Comment on above: Performed By: #### L 501.9520, L100.0100, L500.4100, L500.4050 #### [facility] [address] [place], [address] Neutrophils/100 WBC (Bld) 62.9 % Normal 47-70 [facility] Comment on above: Performed By: #### L 501.9520, L100.0100, L500.4100, L500.4050 #### [facility] [address] [place], [address] Nucleated RBC (Bld) [#/Vol] 0 10*3/uL Normal 0-5 [facility] Comment on above: Performed By: #### L 501.9520, L100.0100, L500.4100, L500.4050 #### [facility] [address] [place], [address] Platelet mean volume (Bld) [Entitic vol] 8.8 fL Normal 6.2-12.0 [facility] Comment on above: Performed By: #### L 501.9520, L100.0100, L500.4100, L500.4050 #### [facility] [address] [place], [address] Platelets (Bld) [#/Vol] 349 10*3/uL Normal 150-450 [facility] Comment on above: Performed By: #### L 501.9520, L100.0100, L500.4100, L500.4050 #### [facility] [address] [place], [address] RBC (Bld) [#/Vol] 4.78 10*6/uL Normal 4.2-5.4 [facility] Comment on above: Performed By: #### L 501.9520, L100.0100, L500.4100, L500.4050 #### [facility] [address] [place], [address] RDW SD 46.7 fl High 35.1-43.9 [facility] Comment on above: Performed By: #### L 501.9520, L100.0100, L500.4100, L500.4050 #### [facility] [address] [place], [address] WBC (Bld) [#/Vol] 13.3 10*3/uL High 4.4-11.0 [facility] Comment on above: Performed By: #### L 501.9520, L100.0100, L500.4100, L500.4050 #### [facility] [address] [place], [address] Comprehensive Metabolic Prof ilnorman 12-19-2024 ALB Normal 3.4-4.8 [facility] Comment on above: Result Comment: HEMO LYZED Performed By: #### L 501.9520, L100.0100, L500.4100, L500.4050 #### [facility] [address] [place], [address] ALK PHOS Normal 35-104 [facility] Comment on above: Result Comment: HEMO LYZED Performed By: #### L 501.9520, L100.0100, L500.4100, L500.4050 #### [facility] [address] [place], [address] ALT Normal <=34 [facility] Comment on above: Result Comment: HEMO LYZED Performed By: #### L 501.9520, L100.0100, L500.4100, L500.4050 #### [facility] [address] [place], [address] AST Normal <=31 [facility] Comment on above: Result Comment: HEMO LYZED Performed By: #### L 501.9520, L100.0100, L500.4100, L500.4050 #### [facility] [address] [place], [address] BUN Normal 4-19 [facility] Comment on above: Result Comment: HEMO LYZED Performed By: #### L 501.9520, L100.0100, L500.4100, L500.4050 #### [facility] [address] [place], [address] BUN/CRE Normal 10-20 [facility] Comment on above: Result Comment: HEMO LYZED Performed By: #### L 501.9520, L100.0100, L500.4100, L500.4050 #### [facility] [address] [place], [address] Calcium Normal 7.6-11.0 [facility] Comment on above: Result Comment: HEMO LYZED Performed By: #### L 501.9520, L100.0100, L500.4100, L500.4050 #### [facility] [address] [place], [address] CL Normal 98-108 [facility] Comment on above: Result Comment: HEMO LYZED Performed By: #### L 501.9520, L100.0100, L500.4100, L500.4050 #### [facility] [address] [place], [address] CO2 Normal 21.0-32.0 [facility] Comment on above: Result Comment: HEMO LYZED Performed By: #### L 501.9520, L100.0100, L500.4100, L500.4050 #### [facility] [address] [place], [address] CREAT,SERUM Normal 0.70-1.20 [facility] Comment on above: Result Comment: HEMO LYZED Performed By: #### L 501.9520, L100.0100, L500.4100, L500.4050 #### [facility] [address] [place], [address] eGFR Normal >60 [facility] Comment on above: Result Comment: HEMO LYZED Performed By: #### L 501.9520, L100.0100, L500.4100, L500.4050 #### [facility] [address] [place], [address] GAP Normal 5-15 [facility] Comment on above: Result Comment: HEMO LYZED Performed By: #### L 501.9520, L100.0100, L500.4100, L500.4050 #### [facility] [address] [place], [address] GLU Normal 70-99 [facility] Comment on above: Result Comment: HEMO LYZED Performed By: #### L 501.9520, L100.0100, L500.4100, L500.4050 #### [facility] [address] [place], [address] Potassium Normal 3.3-5.1 [facility] Comment on above: Result Comment: HEMO LYZED Performed By: #### L 501.9520, L100.0100, L500.4100, L500.4050 #### [facility] [address] [place], [address] T BILI Normal 0.00-1.30 [facility] Comment on above: Result Comment: HEMO LYZED Performed By: #### L 501.9520, L100.0100, L500.4100, L500.4050 #### [facility] [address] [place], [address] T PROT Normal 5.9-8.4 [facility] Comment on above: Result Comment: HEMO LYZED Performed By: #### L 501.9520, L100.0100, L500.4100, L500.4050 #### [facility] [address] [place], [address] Comprehensive Metabolic Profil Normal 133-145 [facility] Comment on above: Result Comment: HEMO LYZED Performed By: #### L 501.9520, L100.0100, L500.4100, L500.4050 #### [facility] [address] [place], [address] Eosinophil percentageOrdered By: Flavio Andrade on 12-19-2024 Eosinophils/100 WBC (Bld) 0.8 % 0-5 [facility] Erythrocyte distribution wid th ratioOrdered By: [facility] on 12-19-2024 Erythrocyte distribution width (RBC) [Ratio] 13.5 % 11.6-14.6 [facility] Erythrocyte distribution wid th standard deviationOrdered By: [facility] on 12-19-2024 Erythrocyte distribution width (RBC) [Ratio] 46.7 fl High 35.1-43.9 [facility] Hematocrit Auto (Bld) [Volum e fraction]Ordered By: [facility] on 12-19-2024 Hematocrit (Bld) [Volume fraction] 45.0 % 37-47 [facility] Hemoglobin measurementOrdere d By: [facility] on 12-19-2024 Hemoglobin (Bld) [Mass/Vol] 15.0 g/dL 12.0-15.0 [facility] Immature granulocytes/100 WB C Auto (Bld)Ordered By: [facility] on 12-19-2024 Immature granulocytes/100 WBC (Bld) 0.600 % 0.0-0.9 [facility] Comment on above: IG% - Immature Granu locytes (promyelocytes, myelocytes and metamyelocytes) > 1% indicates that a LEFT SHIFT is Present. Lipid Profileon 12-19-2024 CHOL:HDL 2.93 Normal [facility] Comment on above: Result Comment: HEMO LYZED Performed By: #### L 501.9520, L100.0100, L500.4100, L500.4050 #### [facility] [address] [place], [place], [address] Cholesterol [Mass/Vol] 197 mg/dL Normal <=200 [facility] Comment on above: Result Comment: HEMO LYZED Cholesterol level, Desirable <200 mg/dL Borderline high cholesterol 200-239 mg/dL High cholesterol >=240 mg/dL Recommendations of the NCEP Adult Treatment Panel for the following risk-cutoff thresholds for the [place] population. Performed By: #### L 501.9520, L100.0100, L500.4100, L500.4050 #### [facility] [address] [place], [address] Cholesterol in HDL [Mass/Vol] 67 mg/dL Normal [facility] Comment on above: Result Comment: HEMO LYZED National Cholesterol Education Program (NCEP) guidelines: <40 mg/dL: Low HDL-cholesterol (major risk factor for CHD) >= 60 mg/dL: High HDL-cholesterol (negative risk factor for CHD) HDL-cholesterol is affected by a number of factors, e.g. smoking, exercise, hormones, sex and age. Performed By: #### L 501.9520, L100.0100, L500.4100, L500.4050 #### [facility] [address] [place], [address] Cholesterol in LDL [Mass/Vol] 76 mg/dL Normal [facility] Comment on above: Result Comment: HEMO LYZED Ltdjoymuyt=499-309 mg/dL Higher Lvbb=386 mg/dL or greater Performed By: #### L 501.9520, L100.0100, L500.4100, L500.4050 #### [facility] [address] [place], [address] Cholesterol in VLDL [Mass/Vol] 54 mg/dL High 5-40 [facility] Comment on above: Result Comment: HEMO LYZED Performed By: #### L 501.9520, L100.0100, L500.4100, L500.4050 #### [facility] [address] [place], [address] Triglyceride [Mass/Vol] 271 mg/dL High [facility] Comment on above: Result Comment: HEMO LYZED The drugs N-Acetylcysteine and Metamizole may falsely depress this assay. Normal range: <150 mg/dL Borderline High: 150-199 mg/dL High: 200-499 mg/dL Very High: >500 mg/dL Performed By: #### L 501.9520, L100.0100, L500.4100, L500.4050 #### [facility] [address] [place], [address] MCV (mean corpuscular volume ) determinationOrdered By: Flavio Andrade on 12-19-2024 MCV (RBC) [Entitic vol] 94.1 fL 81-99 [facility] Mean corpuscular hemoglobin (MCH) determinationOrdered By: Flavio Andrade on 12-19-2024 MCH (RBC) [Entitic mass] 31.4 pg 27.0-32.0 [facility] Mean corpuscular hemoglobin concentration (MCHC) determinationOrdered By: Flavio Andrade on 12-19-2024 MCHC (RBC) [Mass/Vol] 33.3 g/dL 32-36 [facility] Mean platelet volume determi nationOrdered By: Flavio Andrade on 12-19-2024 Platelet mean volume (Bld) [Entitic vol] 8.8 fL 6.2-12.0 [facility] Monocyte percentageOrdered B y: Flavio Andrade on 12-19-2024 Monocytes/100 WBC (Bld) 6.2 % 0-10 [facility] Neutrophil percentageOrdered By: Flavio Andrade on 12-19-2024 Neutrophils/100 WBC (Bld) 62.9 % 47-70 [facility] Nucleated red blood cell per centageOrdered By: Flavio Andrade on 12-19-2024 Nucleated RBC/100 WBC (Bld) [Ratio] 0 % 0-5 [facility] Platelet countOrdered By: Lul Andrade on 12-19-2024 Platelets (Bld) [#/Vol] 349 10*3/uL 150-450 [facility] RBC Auto (Bld) [#/Vol]Ordere d By: Flavio Andrade on 12-19-2024 RBC (Bld) [#/Vol] 4.78 10*6/uL 4.2-5.4 [facility] Thyroid Stim Hormone (TSH)on 12-19-2024 TSH 1.940 uIU/mL Normal 0.300-4.200 [facility] Comment on above: Order Comment: HEMOL YZED Result Comment: HEMO LYZED Performed By: #### L 501.9520, L100.0100, L500.4100, L500.4050 #### [facility] [address] [place], [place], [address] White blood cell (WBC) count Ordered By: Flavio Andrade on 12-19-2024 WBC (Bld) [#/Vol] 13.3 10*3/uL High 4.4-11.0 [facility] Abdomen/Pelvis without Conto n 12-04-2024 Abdomen/Pelvis without Cont [facility] [address] [place] [address] Abdomen/Pelvis without Cont MR#: [id number] Acct: [id number] Name: MYRANDA OLIVA Rep #: [id number] : 1960 F 64 From: Carlton Pleitez MD PCP: Dr. Flavio Andrade MD Status: REG CLI Study: Abdomen/Pelvis without Cont Date of Exam: 09/25 Exam# [id number] Ordering Dr: Flavio Andrade MD PROCEDURE: CT [...] 3. Hepatic and renal cysts. Reading Location: [id number] CC: Dr. Flavio Andrade MD [employer] Tender: Signed Normal [facility] Knee 3 Viewson 12-04-2024 Knee 3 Views [facility] [address] [place] [id number] Knee 3 Views MR#: [id number] Acct: [id number] Name: MYRANDA OLIVA Rep #: [id number] : 1960 F 64 From: Boo Escamilla MD PCP: Dr. Flavio Andrade MD Status: [facility] CL Study: Knee 3 Views Date of Exam: 12/04/24 Exam# [id number] Ordering Dr: Flavio Andrade MD PROCEDURE: KNEE [...] Severe osteoarthritis of both knees. Reading Location: [id number] CC: Dr. Flavio Andrade MD [employer]ender: Signed Normal [facility] Knee 3 Views [facility] [address] [place] [address] Knee 3 Views MR#: [id number] Acct: [id number] Name: MYRANDA OLIVA Rep #: [id number] : 1960 F 64 From: Boo Escamilla MD PCP: Dr. Flavio Andrade MD Status: REG CLI Study: Knee 3 Views Date of Exam: 12/04/24 Exam# [id number] Ordering Dr: Flavio Andrade MD PROCEDURE: KNEE [...] Severe osteoarthritis of both knees. Reading Location: [facility] CC: Dr. Flavio Andrade MD [employer]: Signed Normal [facility] Echo Complete W/ Contraston 03-26-2024 Echo Complete W/ Contrast [facility] [address] [place] [address] Echo Complete W/ Contrast 03/26/24 0953 MR#: [id number] Acct: [id number] Name: MYRANDA OLIVA Rep #: [id number] : 1960 63 From: Arie Chakraborty MD Attending Dr: Dr. Arie Chakraborty MD Status: REG C LI Ordering Dr: Arie Chakraborty MD Date: 03/26/24 Location: [facility] Sex: F C Admitted: Reason For Study: [...] Chakraborty Performed By: Viet Clay RCS 03/26/24 142 Date Arie Chakraborty MD CC: Dr. Arie Chakraborty MD; Dr. Flavio Andrade MD Date Dictated: 03/26/24952 Date Transcribed: 03/26/241424 [employer] Tender: Signed [facility] 12 Lead EKG performed by [facility] on 03-07-2024 12 Lead EKG performed by [facility] [address] [place] [address] 12 Lead EKG performed by [facility] 03/07/241125 MR#: [id number] Acct: [id number] Name: MYRANDA OLIVA Rep #: [id number] : 1960 63 From: Arie Chakraborty MD Attending Dr: Dr. Arie Chakraborty MD Status: DEP A MB Ordering Dr: Arie Chakraborty MD Date: 03/07/24 Location: [facility] Sex: F C Admitted: BMS/12 Lead EKG performed by [facility] ECG Report Interpretation ---Sinus Rhythm -Left atrial enlargement. - Nonspecific T-abnormality. ABNORMAL Electronically signed on 03/11/2024 at 19:23 by Arie Chakraborty [employer] Version 8610 03/11/241926 Date Arie Chakraborty MD CC: Dr. Flavio Andrade MD Date Dictated: 03/07/241125 Date Transcribed: 03/07/241125 Rubber Mill Tender: [place] Signed Normal [facility] Cardiology Visit Reporton Cardiology Visit Report [facility] [address] [place] [address] OFFICE VISIT Date of Service: 03/07/24 MR#: [id number] Acct: [id number] Name: MYRANDA OLIVA Rep #: [id number] : 1960 Provider: Dr. Arie Chakraborty MD Age/Sex: 63/F Location: [facility] Status: Signed with Addenda ADDENDUM by ZENIA [...] Orders: Orders 12 Lead EKG performed by [facility] 03/07/24 E78.5 - Hyperlipidemia, unspecified, I70.0 - Atherosclerosis of aorta, R07.9 - Chest pain, unspecified Echo Complete 03/07/24 I10 - Essential (primary) hypertension Nuclear Stress Test - Chemical 03/07/24 I25.10 - Atherosclerotic heart disease of [place] coronary artery without angina pectoris Plan Details Follow Up: 1 Year (mmm) 03/23/24 1345 Date Alisha Fung NP COMPTROLLER-C cc: Dr. Flavio Andrade MD * Signed [...] Intake Visit Reasons: CP/ Aortic Calcification (Raymond) Glass Sagger Required: No Accompanied by: Self Is patient [...] nasal m (more content not included)... Normal [facility] Low Dose CT Lung Screeningon 01-13-[address] Lung Screening [facility] [address] [place] [address] Lung Screening MR#: [id number] Acct: [id number] Name: MYRANDA OLIVA Rep #: [id number] : 1960 F 63 From: Ramin Vang MD PCP: Dr. Flavio Andrade MD Status: [facility] Study: Low Dose CT Lung Screening Date of Exam: 01/12 Exam# [id number] Ordering [place]: [place] [id number] STUDY: LOW DOSE CT LUNG CANCER SCREENING [...] EDT , CC: Dr. Flavio Andrade MD [employer] Tender: Signed [facility] CNOVon 05-04-2021 CNOV Office Visit (FPWADS ) MYRANDA OLIVA ([id number]) 1960 F Date Time Provider Department 05/04/21 [...] 09/29/2016 - COPD (chronic obstructive pulmonary disease) ([facility]) - Dyslipidemia - Kidney stone 01/21/2014 - [...] presence of Lazaro Callahan M.D. Electronically Signed: Phoenix Hobbs. May 04, 2021 2:34 PM Provider Attestation: Cristina Louis MD, personally performed the services described in this documentat (more content not included)... Normal [facility] Basic Metabolic Panlon 04-30 Anion gap [Moles/Vol] 11 mmol/L Normal 9-18 [facility] Calcium [Mass/Vol] 9.8 mg/dL Normal 8.5-10.[address] [facility] Chloride [Moles/Vol] 105 mmol/L Normal 97-105 [facility] CO2 [Moles/Vol] 22 mmol/L Normal 22-30 [facility] Creatinine [Mass/Vol] 0.79 mg/dL Normal 0.58-0.96 [facility] eGFR- Amer. >[address] [facility] eGFR-All Other Races >60 Normal [facility] Comment on above: Result Comment: eGFR (Estimated [...] GFR. Glucose [Mass/Vol] 109 mg/dL High 74-[address] [facility] Comment on above: Result Comment: The [place] Diabetes Association (ADA) provides guidance for cutoff [...] Standards of Medical Care in Diabetes 2016, [place] Diabetes Association. Diabetes Care. 2016.39(Suppl 1). Potassium [Moles/Vol] 3.7 mmol/L Normal 3.7-5.1 [facility] Sodium [Moles/Vol] 138 mmol/L Normal 136-[address] [facility] Urea nitrogen [Mass/Vol] 17 mg/dL Normal 7-21 [facility] Hemoglobin A1con 04-30-2021 Glucose [Mass/Vol] 120 mg/dL Normal [facility] Comment on above: Result Comment: eAG: (Estimated average glucose) is a calculated value from HgbA1c and is development representative of the average blood glucose level in the last 2-3 month period. Performed By: #### H BA1C, LIPB #### [facility] [place] [facility] [employer] [address] [place], [place] [address] HbA1c (Bld) [Mass fraction] 5.8 % High 4.3-5.6 [facility] Comment on above: Result Comment: Amer [place] Diabetes Association guidelines indicate that patients with HgbA1c in the range 5.7-6.4% are at increased risk for development of diabetes, and intervention by lifestyle modification may be beneficial. HgbA1c greater or equal to 6.5% is considered diagnostic of diabetes. Performed By: #### H BA1C, LIPB #### [facility] [place] [facility] [employer] [address] [place], [place] [address] Lipid Panel, Basic 04-30- 021 Cholesterol [Mass/Vol] 232 mg/dL High <200 [facility] Comment on above: Result Comment: <200 mg/dL, Desirable 200-239 mg/dL, Borderline high >239 mg/dL, High Performed By: #### H BA1C, LIPB #### [facility] [place] [facility] [employer] [address] [place], [place] [address] Cholesterol in HDL [Mass/Vol] 50 mg/dL Normal >39 [facility] Comment on above: Result Comment: 40-5 9 mg/dL, Acceptable >59 mg/dL, High: Negative risk factor for coronary heart disease <40 mg/dL, Low: Positive risk factor for coronary heart disease Performed By: #### H BA1C, LIPB #### [facility] [place] [facility] [employer] [address] [place], [place] [address] Cholesterol in LDL [Mass/Vol] 138 mg/dL High <100 [facility] Comment on above: Result Comment: <100 mg/dL, Optimal 100-129 mg/dL, Near optimal/above optimal 130-159 mg/dL, Borderline high 160-189 mg/dL, High >189 mg/dL, Very high Secondary prevention optimal LDL Cholesterol levels are recommended to be < 70 mg/dL Performed By: #### H BA1C, LIPB #### [place] [id number] [place] [address] Fasting Time 10 hrs Normal [facility] Comment on above: Performed By: #### Amanda BA1C, LIPB #### [place] [id number] [place] [address] LDL:HDL Ratio 2.76 High <2.54 [facility] Comment on above: Result Comment: [place] adriannece: 1. National Cholesterol Education Program ATP III Guideline At-A-Glance Quick Desk Reference: National Heart, Lung, and Blood [place]. National Institutes of Health. 2001: NIH Publication No. 01-3305. 2. An International Atherosclerosis Society position paper: global recommendations for the management of dyslipidemia: executive summary, Atherosclerosis. 2014: 232(2):410-413. Performed By: #### Amanda BA1C, LIPB #### [place] [phone] Non HDL Cholesterol 182 mg/dL High <130 [facility] Comment on above: Result Comment: <130 mg/dL, Optimal 130-159 mg/dL, Near optimal/above optimal 160-189 mg/dL, Borderline high 190-219 mg/dL, High >219 mg/dL, Very high Secondary prevention optimal non HDL Cholesterol levels are recommended to be < 100 mg/dL Performed By: #### Amanda BA1C, LIPB #### [place] [address] TC:HDL Ratio 4.64 Normal <5.10 [facility] Comment on above: Performed By: #### Amanda BA1C, LIPB #### [place] [id number] [place] [address] Triglyceride [Mass/Vol] 219 mg/dL High <150 [facility] Comment on above: Result Comment: <150 mg/dL, Normal 150-199 mg/dL, Borderline high 200-499 mg/dL, High >499 mg/dL, Very high Performed By: #### Amanda BA1C, LIPB #### [place] [address] VLDL Cholesterol 44 mg/dL High <30 Gabriela hameed [facility] Comment on above: Performed By: #### H BA1C, LIPB #### [facility] [place] [facility] [address] [place], [place] [address] OBSOLETEon 04-22-2021 OBSOLETE Refill (FPWADS) DELLMYRANDA Julian ([id number]) 1960 F Date Time Provider Department 04/22/21 BECKY HARRIS During your visit today, we recorded the following information about you: Cristina Callahan MD 04/24/2021 8:18 AM Signed The following approved medication requests have been transmitted electronically. Signed Prescriptions Disp Refills escitalopram oxalate (LEXAPRO) 10 mg tablet 30 tablet 1 Sig: Take [...] Status:Closed by SERGEI JURADO MA on 04/24/21 [facility] OBSOLETEon 04-21-2021 OBSOLETE Refill (FPWADS) MYRANDA OLIVA ([id number]) 1960 F Date Time Provider Department 04/21/21 [...] Status:Closed by STEPHANY RODRIGUEZ MA on 04/23/21 [facility] OBSOLETEon 03-24-2021 OBSOLETE Refill (FPWADS) MYRANDA OLIVA ([id number]) 1960 F Date Time Provider Department 03/24/21 CRISTINA CALLAHAN FPWADS During your visit today, we recorded the following information about you: Reina Bustamante MA 03/24/2021 7:24 AM Signed Pharmacy verified in [facility]. Patient has been identified by name and [...] Date: BP: 06/12/2020 135/74 Please advise. DANIEL Urban APRN.MODELING INSTRUCTOR 03/24/2021 10:29 AM Signed Over due for appointment. Was to have 6 month follow up around December. Refill 30 days. Tahmina Oliva 03/24/2021 12:[address] attempt:MALI Moraise Jairo Pss 03/27/2021 9:56 AM Signed Spoke to [...] Encounter Status:Closed by DU JOHNSON on 03/27/21 Normal [facility] PROGRESSon 03-27-2020 PROGRESS HNO ID: [id number] Author: ARNEL Cardoso (Ct) Service: Radiology Author Type: Clinical Shellac Polisher Type: Progress Notes Filed: 03/27/2020 10:43 AM [...] ARNEL GANDHI March 27, 2020 10:43 AM [facility] XR KNEE 3V AP/LAT/MERCHANT R Ton 03-27-2020 XR KNEE 3V AP/LAT/MERCHANT RT * * *Final Report* * * DATE OF EXAM: Mar 27 2020 10:42AM MICHAEL [id number] - XR KNEE 3V AP/LAT/MERCHANT RT [...] well. IMPRESSION: Osteoarthrosis and small joint effusion Rubber Mill Tender: AMBROSIO Transcribe Date/Time: Mar 27 2020 10:44A Dictated by : MYNOR CARBAJAL MD This examination was interpreted and the report reviewed and electronically signed by: MYNOR CARBAJAL MD on Mar 27 2020 10:51AM EST [id number] [facility] Vital Signs Date Time Vital Sign Value Performing Clinician Natan heath 12-21-2024 10:15-0400 Body height 154.[address] Flavio Andrade MD Work Phone: [facility] 12-21-2024 10:15-0400 Body mass index (BMI) [Ratio] 31.8 kg/m2 Dr. Flavio Andrade MD Work Phone: [facility] 12-21-2024 10:15-0400 Body weight 76.[address] Flavio Andrade MD Work Phone: [facility] Encounters Encounter Date Encounter Type Care Provider Facility Start: 01-16-2025 ambulatory [facility] Facility:[facility] Start: 12-21-2024 End: 12-21-[address] Jorge Fairchild DO -[facility] Work Phone: Start: 12-21-2024 End: 12-21-[address] Flavio Andrade MD Work Phone: [facility] Work Phone: Start: 12-21-2024 End: 12-21-2024 ambulatory Flavio Manuel Raymond Facility:[facility] Start: 12-19-2024 End: 12-19-[address] Flavio Andrade MD Work Phone: [facility] Work Phone: Start: 12-19-2024 End: 12-19-[address] Flavio Andrade MD -Laboratory Work Phone: Start: 12-19-2024 End: 12-19-2024 ambulatory Flavio Andrade Facility:[facility] Start: 12-04-2024 End: 12-04-[address] Flavio Andrade MD Work Phone: [facility] Work Phone: Start: 12-04-2024 End: 12-04-[address] Flavio Andrade MD -Cat Scan [facility] Work Phone: Start: 12-04-2024 End: 12-04-2024 ambulatory Flavio Andrade Facility:[facility] Start: 03-26-2024 ambulatory Arie Chakraborty Facility:[facility] Start: 03-26-2024 End: 03-26-2024 ambulatory Arie Mylene Facility:[facility] Start: 03-07-2024 End: 03-07-2024 ambulatory [place] Facility:[facility] Start: 02-27-2024 ambulatory Flavio Chi Raymond Facility:[facility] Start: 01-13-2024 End: 01-13-2024 ambulatory [facility] Raymond Facility:[facility] Start: 11-08-2022 ambulatory Cristina lino MD Work Phone: [facility] Comment on above: Prescriptions Start: 07-12-2022 Refill Jessica Eisenberg APRN.CNP Work Phone: [facility] Comment on above: Refill Request Start: 05-17-2022 Refill Cristina lino MD Work Phone: [facility] Comment on above: Refill Request Start: 04-07-2022 Refill Cristina lino MD Work Phone: [facility] Comment on above: Refill Request Start: 01-05-2022 Refill Cristina lino MD Work Phone: [facility] Comment on above: Refill Request Start: 12-30-2021 ambulatory Cristina lino MD Work Phone: [facility] [place] Procedures Date Procedure Procedure Detail Performing Clinician [...] Author Start: 04-30-2026 LIPID SCREEN LIPID SCREEN [facility] [place] [facility] Start: 04-30-2024 DIABETES SCREEN DIABETES SCREEN [facility] [place] [facility] Start: 03-04-2023 [facility] Start: 07-04-2022 DEPRESSION ASSESSMENT DEPRESSION ASSESSMENT [facility] [place] [facility] Start: 05-04-2022 ANNUAL PCP TEAM CHRONIC DISEASE VISIT ANNUAL PCP TEAM CHRONIC DISEASE VISIT [facility] [place] [facility] Start: 03-04-2022 Influenza vaccination INFLUENZA (#1) [facility] [place] [facility] Start: 01-05-2022 End: 03-07-2022 Comprehensive metabolic 2000 panel - Serum or Plasma COMP METABOLIC PANEL Lab Routine Essential hypertension Pure hypercholesterolemia Expected: 01/05/2022, Expires: 03/07/2022 [facility] Work Phone: Comment on above: Expected: 01/05/2022, Expires: 2 Start: 01-05-2022 End: 03-07-2022 Lipid 1996 panel - Serum or Plasma LIPID PANEL BASIC Lab Routine Pure hypercholesterolemia Expected: 01/05/2022, Expires: 03/07/2022 [facility] Work Phone: Comment on above: Expected: 01/05/2022, Expires: 2 Start: 07-04-2021 DEPRESSION ASSESSMENT DEPRESSION ASSESSMENT [facility] [place] [facility] Start: 06-12-2021 Adult depression screening assessment DEPRESSION SCREENING [facility] [place] [facility] Start: 03-09-2019 PNEUMOCOCCAL (2 - PCV) PNEUMOCOCCAL (2 - PCV) [facility] Start: 03-04-2018 Mammography MAMMOGRAM [facility] [place] [facility] Start: 10-18-2016 HPV TESTING HPV TESTING [facility] [place] [facility] Start: 10-18-2016 PAP TESTING PAP TESTING [facility] [place] [facility] Start: 2010 SHINGRIX VACCINE (1 of 2) SHINGRIX VACCINE (1 of 2) [facility] [place] [facility] Start: 2005 COLOGUARD (FIT-DNA) COLOGUARD (FIT-DNA) [facility] [place] [facility] Start: 2005 Colonoscopy COLONOSCOPY [facility] [place] [facility] Start: 2005 COLORECTAL CANCER SCREENING COLORECTAL CANCER SCREENING [facility] [place] [facility] Start: [address] COLONOGRAPHY [facility] [place] [facility] Start: 2005 FECAL OCCULT BLOOD FECAL OCCULT BLOOD [facility] [place] [facility] Start: 2005 SIGMOIDOSCOPY SIGMOIDOSCOPY [facility] [place] [facility] Start: 1990 Zoledronic acid therapy ALPHA-1 ANTITRYPSIN DEFICIENCY SCREENING [facility] [place] [facility] Start: 09-04-1979 Urine microalbumin profile DTAP,TDAP,TD (1 - Tdap) [facility] [place] [facility] Start: 1978 BP CONTROLLED (<130/80) BP CONTROLLED (<130/80) [facility] [place] [facility] Start: 1978 SPIROMETRY SPIROMETRY [facility] [place] [facility] Start: 03-06-1961 COVID-19 VACCINE (#1) COVID-19 VACCINE (#1) [facility] [place] [facility] End: 01-29-2023 Screening mammography bi 2-view breast inc cad RIO SCREENING Radiology Routine Encounter for screening mammogram for breast cancer 1 Occurrences starting 12/30/2021 until 01/29/2023 [facility] Work Phone: Comment on above: 1 Occurrences starting 12/30/2021 until 01/29/2023 [facility] Immunizations Immunization Date Immunization Notes Care Provider Fa [facility] 03-23-2019 Influenza, injectabl e, [place] Canine Kidney, preservative free, quadrivalent Cristina Callahan MD Work Phone: [facility] [place] [facility] 03-09-2018 influenza, injectabl e, quadrivalent, contains preservative Cristina Callahan MD Work Phone: [facility] [place] [facility] 03-09-2018 pneumococcal polysaccharide vaccine, 23 valent Cristina Callahan MD Work Phone: [facility] [place] [facility] Payers Date Payer Category Payer Unknown [id number] 2023 Self-pay 2023 Unknown [id number] Unknown [id number] 2.16.8 [id number] Unknown [id number] 2.16.8 [id number] Unknown [id number] 2.16.8 [id number] Unknown [id number] 2.16.8 [id number] Unknown [id number] 2.16.8 [id number] Unknown [id number] 2.16.8 [id number] Unknown [id number] 2.16.8 [id number] Unknown [id number] 2.16.8 [id number] Unknown [id number] 2.16.8 [id number] Unknown [id number] 2.16.8 [id number] Social History Date Type Detail Facility Start: 12-21-2018 End: 01-30-2024 Tobacco smoking status NHIS Smokes tobacco daily [facility] [place] [facility] History of tobacco use Cigarette Smoker [facility] Start: 12-21-2018 End: 05-04-2021 Cigarettes smoked current (pack per day) - Reported 0.5 [facility] [place] [facility] Start: 12-21-2018 End: 05-04-2021 Tobacco use and exposure Smokeless tobacco non-user [facility] [place] [facility] Start: 05-04-2021 Alcohol intake Current non-dr director learning services of alcohol (finding) [facility] [place] [facility] Start: 06-12-2020 End: 04-29-2021 History SDOH Alcohol Frequency 1 [facility] [place] [facility] Start: 06-12-2020 History SDOH Alcohol Std Drinks 98 [facility] [place] [facility] Start: 08-30-2011 History SDOH Alcohol Comment rare [facility] [place] [facility] Start: 06-12-2020 End: 04-29-2021 History SDOH Social Connections Phone 2 [facility] [place] [facility] Start: 06-12-2020 History SDOH Social Connections Meetings 3 [facility] [place] [facility] Start: 06-12-2020 History SDOH Social Connections Living 4 [facility] [place] [facility] Start: 06-12-2020 Education 21 [facility] [place] [facility] Start: 05-04-2021 Tobacco Comment down to 1/4 pack. Cl [facility] Start: 1960 Sex Assigned At Female C [facility] Clinical Notes 01-21-2014 to 12-21-2024 Note Date & Type Note Facility 12-21-2024 Evaluation note Diagnosis Onset Date Resolution Bilateral primary osteoarthritis of knee acute December 10:07am Tobacco abuse acute December 21, 2024 10:07am [facility] Work Phone: 1(771) 142-892806-04-2025 Radiology Diagnostic study note [facility] [address] [place], [place] [id number] Knee 3 Views MR#: [id number] Acct: [id number] Name: MYRANDA OLIVA Rep #: [id number] : 1960 F 64 From: Tasha Escamilla MD PCP: Dr. Flavio Andrade MD Status: REG C Study:Knee 3 Views Date of Exam: 5 Exam# [id number] Ordering Dr: Flavio Andrade MD PROCEDURE: KNEE [...] Severe osteoarthritis of both knees. Reading Location: [facility] CC: Dr. Flavio Andrade MD ~ Rubber Mill Tender: Signed [facility]06-04-2025 Radiology Diagnostic study note [facility] [address] [place], [place] [id number] Knee 3 Views MR#: [id number] Acct: [id number] Name: MYRANDA OLIVA Rep #: [id number] : 1960 F 64 From: Tasha Escamilla MD PCP: Dr. Flavio Andrade MD Status: REG C ADDY Study:Knee 3 Views Date of Exam: 5 Exam# [id number] Ordering Dr: Flavio Andrade MD PROCEDURE: KNEE [...] Severe osteoarthritis of both knees. Reading Location: [facility] CC: Dr. Flavio Andrade MD ~ Rubber Mill Tender: Signed [facility]06-03-2025 Radiology Diagnostic study note [facility] Services [address] [place], [place] [address] Abdomen/Pelvis without Cont MR#: [id number] Acct: [id number] Name: MYRANDA OLIVA Rep #: [id number] : 1960 F 64 From: Eladio Pleitez MD PCP: Dr. Flavio Andrade MD Status: JOSÉ LUIS DALY Study:Abdomen/Pelvis without Cont Date of Exa m: 12/04/24 Exam# [id number] Ordering Dr: Flavio Andrade MD PROCEDURE: CT [...] 3. Hepatic and renal cysts. Reading Location: [id number] CC: Dr. Flavio Andrade MD ~ Rubber Mill Tender: Signed [facility] Work Phone: [phone]) 628-141905-08-2023 Miscellaneous Notes* Telephone Encounter - Reena Crowley - 11/08/2022 3:31 PM EDT Patient did schedule an appt with our financial advocates for 11/22/22. 1st attempt, left voicemail. * Telephone Encounter - Stephany Monson APRN.CNP - 11/08/2022 3:21 PM EDT Please help patient speak with financial assistance to see if she qualifies, then schedule an appointment, soonest available with me or Dr. Callahan. Can prescribe short term supply of necessary medications to last until her appointment time, but I need an appointment scheduled first. Stephany Monson APRN.CNP [facility] [place] [facility] Miscellaneous Notes* Telephone Encounter - Danielle Brizuela - 07/14/2022 1:11 PM EST 1st attempt. Tried calling patient and phone just would ring and make clicking noises. Left mychartmessage also. * Telephone Encounter - Stephany Monson APRN.CNP - 07/12/2022 1:08 PM EST Needs visit, schedule REGINA. Stephany Monson APRN.CNP [facility] [place] [facility] Miscellaneous Notes* Telephone Encounter - Danielle Brizuela - 05/25/2022 10:45 AM EST 2nd attempt. Sent [employer] message. * Telephone Encounter - Esme Rosenberg - 05/18/2022 11:30 AM EST First attempt at contacting patient, left a VM. Please assist patient In scheduling when she calls back. * Telephone Encounter - Stephany Monson APRN.CNP - 05/18/2022 8:35 AM EST Overdue for a visit and labs, please schedule REGINA with either provider. Stephany Monson APRN.CNP * Telephone Encounter - Shanelle Kline LPN - 05/18/2022 8:31 AM EST Pharmacy verified in [facility] Patient has been identified by name and [...] advise. Shanelle Kline LPN [facility] [place] [facility] Miscellaneous Notes* Telephone Encounter - Danielle Brizuela - 04/07/2022 4:19 PM EDT 1st attempt. Left message on VM. * Telephone Encounter - Jessica Eisenberg APRN.MODELING INSTRUCTOR - 04/07/2022 4:04 PM EDT Please inform patient that they are due for OV and assist in scheduling. Thanks. documented [facility] [place] [facility]22 Miscellaneous Notes* Telephone Encounter - Reena Morris - 01/12/2022 9:38 AM EDT 1st attempt, left voicemail * Telephone Encounter - Cristina Callahan MD - 01/05/2022 11:42 AM EDT OK refill throught May. Due for visit and lab by May. Refill on 01/05/22 COMP METABOLIC PANEL LIPID PANEL BASIC The following approved medication requests have been transmitted electronically. Signed Prescriptions Disp Refills hydroCHLOROthiazide (HYDRODIURIL, ESIDRIX) 25 mg tablet 90 tablet 1 Sig: TAKE 1 TABLET BY MOUTH EVERY DAY ANUPAMA: No Authorizing Provider: CRISTINA CALLAHAN MD * Telephone Encounter - Reina Bustamante MA - 01/05/2022 11:39 AM EDT Pharmacy verified in [facility]. Patient has been identified by name and [...] advise. Reina Bustamante MA documented [facility] [place] [facility] NotePatient Outreach (INTMMN) MYRANDA OLIVA ([id number]) 1960 F Date Time Provider Department 12/30/21 [...] for screening mammogram for breast cancer [Z12.31] Order(s):[facility] [[id number]] Order #: [id number] FUTURE Prescriptions as of 01/04/2022 - escitalopram [...] joint*12/22/2018 Encounter Status:Closed by EPIC, PRODUSER on 01/04/22[facility] 05-04-2021 NoteHNO ID: [id number] Author: Cristina Callahan MD Service: ? Author [...] 09/29/2016 - COPD (chronic obstructive pulmonary disease) (HCC) - Dyslipidemia - Kidney stone 01/21/2014 - [...] presence of Lazaro Callahan M.D. Electronically Signed: Phoenix Hobbs. May 04, 2021 2:34 PM Provider Attestation: ICristina MD, personally performed the services described in this documentation. All medical record entries made by the scribe were at my direction and in my presence. I have reviewed the chart and discharge instructions (if applicable) and agree that the record reflects my personal performance and is accurate and complete. Electronically Signed: [place] (more content not included)...[facility]10-19-2021 Note Patient Outreach (INTMMN) MYRANDA OLIVA ([id number]) 1960 F Date Time Provider Department 04/21/21 CRISTINA CALLAHAN INTMMGene During your visit today, we recorded the following information about you: Allergies As of Date: 04/21/2021 Noted Allergy Reaction PENICILLINS 08/30/2011 16 - Unknown Comments: as child shell fish [Other] 08/30/2011 8 - GI Upset Date Reviewed: 06/12/2020 Reviewed by: Stephany Rodriguez Ma - Fully Assessed Visit Diagnoses:Essential hypertension [I10] BMI 35.0-35.9,adult [Z68.35] Hyperlipidemia [E78.5] Order(s):BASIC METABOLIC PNL [SQBMP] Order #: [id number] FUTURE HGB A1C [OEYZD9J] Order #: [id number] FUTURE LIPID PANEL BASIC [SQLIPB] Order #: [id number] FUTURE Prescriptions as of 04/24/2021 - meloxicam [...] joint*12/22/2018 Encounter Status:Closed by SRIDHAR COVINGTON on 04/24/21[facility] 01-23-2021 NotePatient Outreach (INTMMN) MYRANDA OLIVA ([id number]) 1960 F Date Time Provider Department 01/23/21 [...] for screening mammogram for breast cancer [Z12.31] Order(s):[facility] [[id number]] Order #: [id number] FUTURE Prescriptions as of 01/26/2021 - simvastatin [...] joint*12/22/2018 Encounter Status:Closed by EPIC, PRODUSER on 01/26/21[facility] 01-21-2014 History of Past illness Narrative* Problem Noted Date Resolved Date Kidney stone 01/21/2014 12/22/2018 UTI (lower urinary tract infection) 07/24/2013 12/22/2018 Viral Wart: R hand dorsal 5th finger PIP area 12/22/2018 Spider angioma 07/12/2012 12/22/2018 Telangiectasia 07/12/2012 12/22/2018 Actinic skin damage 07/12/2012 12/22/2018 documented as of this encounter (statuses as of 01/04/2022) [facility] History of Past illness Narrative* Problem Noted Date Resolved Date Kidney stone 01/21/2014 12/22/2018 UTI (lower urinary tract infection) 07/24/2013 12/22/2018 Viral Wart: R hand dorsal 5th finger PIP area 12/22/2018 Spider angioma 07/12/2012 12/22/2018 Telangiectasia 07/12/2012 12/22/2018 Actinic skin damage 07/12/2012 12/22/2018 documented as of this encounter (statuses as of 01/12/2022) [facility] [place] [facility] History of Past illness Narrative* Problem Noted Date Resolved Date Kidney stone 01/21/2014 12/22/2018 UTI (lower urinary tract infection) 07/24/2013 12/22/2018 Viral Wart: R hand dorsal 5th finger PIP area 12/22/2018 Spider angioma 07/12/2012 12/22/2018 Telangiectasia 07/12/2012 12/22/2018 Actinic skin damage 07/12/2012 12/22/2018 documented as of this encounter (statuses as of 04/07/2022) [facility] [place] [facility] History of Past illness Narrative* Problem Noted Date Resolved Date Kidney stone 01/21/2014 12/22/2018 UTI (lower urinary tract infection) 07/24/2013 12/22/2018 Viral Wart: R hand dorsal 5th finger PIP area 12/22/2018 Spider angioma 07/12/2012 12/22/2018 Telangiectasia 07/12/2012 12/22/2018 Actinic skin damage 07/12/2012 12/22/2018 documented as of this encounter (statuses as of 05/25/2022) [facility] History of Past illness Narrative* Problem Noted Date Resolved Date Kidney stone 01/21/2014 12/22/2018 UTI (lower urinary tract infection) 07/24/2013 12/22/2018 Viral Wart: R hand dorsal 5th finger PIP area 12/22/2018 Spider angioma 07/12/2012 12/22/2018 Telangiectasia 07/12/2012 12/22/2018 Actinic skin damage 07/12/2012 12/22/2018 documented as of this encounter (statuses as of 07/14/2022) [facility] [place] [facility] History of Past illness Narrative* Problem Noted Date Resolved Date Kidney stone 01/21/2014 12/22/2018 UTI (lower urinary tract infection) 07/24/2013 12/22/2018 Viral Wart: R hand dorsal 5th finger PIP area 12/22/2018 Spider angioma 07/12/2012 12/22/2018 Telangiectasia 07/12/2012 12/22/2018 Actinic skin damage 07/12/2012 12/22/2018 documented as of this encounter (statuses as of 11/09/2022) [facility] [place] [facility] Diagnosis Encounter for screening mammogram for breast cancer [facility] Diagnosis Pure hypercholesterolemia- Primary Essential hypertension Unspecified essential hypertension [facility] Diagnosis Primary osteoarthritis involving multiple joints Pure hypercholesterolemia [facility]* Diagnosis Adjustment disorder with depressed mood Essential hypertension Unspecified essential hypertension [facility] Pure hypercholesterolemia documented in this encounter [facility] noteNo assessment information availableWNationwide Children's Hospital Work Phone: Reason for referral (narrative)* Diagnostic Procedure Only (Routine) - Pending Review Specialty Diagnoses / Procedures Referred By Ekaterina t Referred To Contact [facility] Diagnoses Encounter for screening mammogram for breast cancer Procedures RIO SCREENING SCREENING MAMMOGRAPHY BI 2-VIEW BREAST INC CAD Cristina Callahan MD [address] [place] [address] [facility] [address] [place] [address] Referral ID Status Reason Start Date Expiration Date Visits Requested Visits Authorized [id number] Pending Review Auto-Generat ed Referral 12/30/2021 01/29/2023 1 1 [facility] for referral (narrative)No reason for referral information availableWNationwide Children's Hospital Work Phone: Summary Purpose Family History No Family History Records Found Relationship Condition Age at Onset Recorded Date/T [place] father Depression Unknown Hypertension Unknown mother Hypertension Unknown Malignant neoplasm Unknown sister Hypertension Unknown Advance Directives No Advanced Directives Records FoundDocuments on File Type Date Recorded Patient Shaft Sinker Expl anation Advance Directive(s) 08/29/2013 7:30 AM Documents on File Type Date Recorded Patient Shaft Sinker Expl anation Advance Directive(s) 08/29/2013 7:30 AM Chief Complaint and Reason for Visit Chief Complaint Admit Date KIDNEY STONE PROTOCOL (STAT) December 04 2:18pm Chief Complaint Admit Date KIDNEY STONE PROTOCOL (STAT) December 04 2:18pm BL KNEES December 21, 2024 10:0 7am Chief Complaint Admit Date KIDNEY STONE PROTOCOL (STAT) December 04 2:18pm BL KNEES December 21, 2024 10:0 7am REDRAW December 21, 2024 11:0 1am Reason for Visit Admit Date Bilateral primary osteoarthritis of knee December 21, 2024 10:07am Tobacco abuse December 21, 2024 10:0 7am Additional Source Comments INFORMATION SOURCE (unrecogn ized section and content) DATE CREATED AUTHOR 03/27/2020 [facility] DATE CREATED AUTHOR AUTHOR'S ORGANIZ ATION 01/04/2022 [facility] DATE CREATED AUTHOR AUTHOR'S ORGANIZ ATION 01/11/2025 [facility] Source Comments (unrecognize d section and content) In the event this informatio n is protected by the Federal Confidentiality of Alcohol and Drug Abuse Patient Records regulations: The Federal rules restrict any use of the information to criminally investigate or prosecute any alcohol or drug abuse patient.[facility] the event this information is protected by the Federal Confidentiality of Alcohol and Drug Abuse Patient Records regulations: The Federal rules restrict any use of the information to criminally investigate or prosecute any alcohol or drug abuse patient.[facility] the event this information is protected by the Federal Confidentiality of Alcohol and Drug Abuse Patient Records regulations: The Federal rules restrict any use of the information to criminally investigate or prosecute any alcohol or drug abuse patient.[facility] the event this information is protected by the Federal Confidentiality of Alcohol and Drug Abuse Patient Records regulations: The Federal rules restrict any use of the information to criminally investigate or prosecute any alcohol or drug abuse patient.[facility] Hospital[facility] the event this information is protected by the [facility] Confidentiality of Alcohol and Drug Abuse Patient Records regulations: The Federal rules restrict any use of the information to criminally investigate or prosecute any alcohol or drug abuse patient.[facility] the event this information is protected by the Federal Confidentiality of Alcohol and Drug Abuse Patient Records regulations: The Federal rules restrict any use of the information to criminally investigate or prosecute any alcohol or drug abuse patient.[facility] Care Teams (unrecognized sec tion and content) Beach Attendant Relationship Specialty Start Date End Date Cristina Callahan MD [address] [place] [address] PCP - General Family Practice 04/19/12 Beach Attendant Relationship Specialty Start Date End Date Cristina Callahan MD [address], [place] [id number] PCP - General Family Practice 04/19/12 Beach Attendant Relationship Specialty Start Date End Date Cristina Callahan MD [address], [place] [id number] PCP - General Family Medicine 04/19/12 Beach Attendant Relationship Specialty Start Date End Date Cristina Callahan MD [address], [place] [id number] PCP - General [facility] Medicine 04/19/12 Beach Attendant Relationship Specialty Start Date End Date Cristina Callahan MD [address], [place] [id number] PCP - General Family Medicine 04/19/12 Team [...] December 21, 2024 End: December 21, 2024 Team Status: Inactive Member Role Status Dates Dr. Flavio Andrade MD Primary Care Provider Active Start: December 19, 2024 End: December 19, 2024 Dr. Flavio Andrade MD Attending Provider Active Start: December 19, 2024 End: December 19, 2024 Dr. Flavio Andrade MD Referring Provider Active Start: December 19, 2024 End: December 19, 2024 Team Status: Active Member Role Status Dates Dr. Flavio Andrade MD Primary Care Provider Active Start: December 21, 2024 Dr. Flavio Andrade MD Attending Provider Active Start: December 21, 2024 Dr. Flavio Andrade MD Referring Provider Active Start: December 21, 2024 Team Status: Inactive Member Role Status Dates Dr. Flavio Andrade MD Primary Care Provider Active Start: December 21, 2024 End: December 21, 2024 Dr. Flavio Andrade MD Attending Provider Active Start: December 21, 2024 End: December 21, 2024 Dr. Flavio Andrade MD Referring Provider Active Start: December 21, 2024 End: December 21, 2024 Reason for Visit (unrecogniz ed section and content) Reason Comments Refill Request Goals (unrecognized section and content) Goals may be documented in a n alternate sectionGoals may be documented in an alternate sectionGoals may be documented in an alternate sectionGoals may be documented in an [...] BE BASED ON THE PRIMARY CLINICAL RECORDS. [employer] provides no warranty or guarantee of the accuracy or completeness of information in this document.
--- OUTSIDE RECORDS SUMMARY | 2025-01-16 20:15 | XMS RPT_ITS | CCD ---
Author Organization [facility] Care Team Providers Care Curing Oven Tender Name Role Phone Lorri ROBERTS, Cristina Charles Primary Care Provider [phone] Unavailable Primary Care Provider Gualberto Andrade MD, Dr. Flavio Jackson Primary Care Provider [phone] Raymond ROBERTS, Dr. Flavio Jackson Attending Provider Raymond ROBERTS, Dr. Flavio Jackson Referring Provider Dr. Jorge Fairchild DO Attending Provider Mylene Lorraine Attending Unavailable Raymond, Flavio Chi Primary Care Unavailable Raymond, Flavio Chi Referring Unavailable Mylene, Arie Attending Unavailable Raymond, Flavio Chi Primary Care Unavailable Jorge Fairchild Attending Unavailable Raymond, Flavoi Chi Primary Care Unavailable Raymond, Flavio Chi [...] to adverse reactions to drug 2 Unknown [facility] (6 sources) shell fish [Other] Propensity to adverse reactions 2 GI Upset [facility] (4 sources) Penicillins Allergy to substance 4 PT UNSURE OF REACTION [facility] (5 sources) Shellfish; Translations: [shellfish derived] Allergy to substance 4 Nausea/Vom/Diar ant [facility] (1 source) Penicillins Drug allergy (disorder) 5 [facility] Repository Medications Current Medications Medication [...] coronary artery; Translations: [Atherosclerotic heart disease of [place] coronary artery without angina pectoris] 03-07-2024 Chronic [...] 12-21-2024 Anion gap [Moles/Vol] 12 mmol/L 5-15 [facility] BUN/creatinine ratioOrdered By: Flavio Andrade on 12-21-2024 Urea nitrogen/Creatinine [Mass ratio] 21.5 mg/mg High 04-22 [facility] Bilirubin, totalOrdered By: Flavio Andrade on 12-21-2024 Bilirubin [Mass/Vol] 0.43 mg/dL 0.00-1.30 [facility] Calculated very low density lipoprotein (VLDL) cholesterol measurementOrdered By: Flavio Andrade on 12-21-2024 Calculated very low density lipoprotein (VLDL) cholesterol measurement 33 mg/dL 5-40 [facility] Carbon dioxide, total [Moles /volume] in Central venous bloodOrdered By: Flavio Andrade on 12-21-2024 CO2 [Moles/Vol] 22.5 mmol/L 21.0-32.0 [facility] Chloride assayOrdered By: uLl Andrade on 12-21-2024 Chloride [Moles/Vol] 105 mmol/L 98-108 [facility] Comprehensive Metabolic Prof ilon 12-21-2024 Albumin [Mass/Vol] 4.1 g/dL Normal 3.4-4.8 [facility] Comment on above: Performed By: #### L 500.4050, L501.9520, L500.4100 #### [facility] [address] [place], [address] Albumin/Globulin [Mass ratio] 1.3 {ratio} Normal 0.9-2.4 [facility] Comment on above: Performed By: #### L 500.4050, L501.9520, L500.4100 #### [facility] [address] [place], [address] ALK PHOS 105 U/L High 35-104 [facility] Comment on above: Performed By: #### L 500.4050, L501.9520, L500.4100 #### [facility] [address] [place], [address] ALT [Catalytic activity/Vol] 16 U/L Normal <=34 [facility] Comment on above: Performed By: #### L 500.4050, L501.9520, L500.4100 #### [facility] [address] [place], [address] AST [Catalytic activity/Vol] 24 U/L Normal <=31 [facility] Comment on above: Result Comment: Hemo lysis present, Results??could be affected. ?? Performed By: #### L 500.4050, L501.9520, L500.4100 #### [facility] [address] [place], [address] Bilirubin [Mass/Vol] 0.43 mg/dL Normal 0.00-1.30 [facility] Comment on above: Performed By: #### L 500.4050, L501.9520, L500.4100 #### [facility] [address] [place], [address] BUN/CRE 21.5 RATIO High 10-20 [facility] Comment on above: Performed By: #### L 500.4050, L501.9520, L500.4100 #### [facility] [address] [place], [address] Calcium [Mass/Vol] 9.8 mg/dL Normal 7.6-11.0 [facility] Comment on above: Performed By: #### L 500.4050, L501.9520, L500.4100 #### [facility] [address] [place], [address] Chloride [Moles/Vol] 105 mmol/L Normal 98-108 [facility] Comment on above: Performed By: #### L 500.4050, L501.9520, L500.4100 #### [facility] [address] [place], [address] CO2 [Moles/Vol] 22.5 mmol/L Normal 21.0-32.0 [facility] Comment on above: Performed By: #### L 500.4050, L501.9520, L500.4100 #### [facility] [address] [place], [address] Creatinine [Mass/Vol] 0.78 mg/dL Normal 0.70-1.20 [facility] Comment on above: Performed By: #### L 500.4050, L501.9520, L500.4100 #### [facility] [address] [place], [address] GAP 12 Normal 5-15 [facility] Comment on above: Performed By: #### L 500.4050, L501.9520, L500.4100 #### [facility] [address] [place], [address] GFR/1.73 sq M.predicted among non-blacks MDRD (S/P/Bld) [Vol rate/Area] 85 mL/min/{1.73_m2} Normal >60 [facility] Comment on above: Result Comment: mL/m in/1.73m2 CKD-EPI Creatinine Equation (2020) Performed By: #### L 500.4050, L501.9520, L500.4100 #### [facility] [address] [place], [address] Globulin (S) [Mass/Vol] 3.1 g/dL Normal 2.2-4.2 [facility] Comment on above: Performed By: #### L 500.4050, L501.9520, L500.4100 #### [facility] [address] [place], [address] Glucose [Mass/Vol] 101 mg/dL High 70-99 [facility] Comment on above: Performed By: #### L 500.4050, L501.9520, L500.4100 #### [facility] [address] [place], [address] Potassium [Moles/Vol] 4.3 mmol/L Normal 3.3-5.1 [facility] Comment on above: Result Comment: Hemo lysis present, Results??could be affected. ?? Performed By: #### L 500.4050, L501.9520, L500.4100 #### [facility] [address] [place], [address] Sodium [Moles/Vol] 139 mmol/L Normal 133-145 [facility] Comment on above: Performed By: #### L 500.4050, L501.9520, L500.4100 #### [facility] [address] [place], [address] T PROT 7.2 g/dL Normal 5.9-8.4 [facility] Comment on above: Performed By: #### L 500.4050, L501.9520, L500.4100 #### [facility] [address] [place], [address] Urea nitrogen [Mass/Vol] 17 mg/dL Normal 4-19 [facility] Comment on above: Performed By: #### L 500.4050, L501.9520, L500.4100 #### [facility] [address] [place], [address] Glomerular filtration rate ( GFR) estimation/1.73 sq m using serum, plasma, or whole bOrdered By: Flavio Andrade on 12-21-2024 GFR/1.73 sq M.predicted among non-blacks MDRD (S/P/Bld) [Vol rate/Area] 85 mL/min/{1.73_m2} >60 [facility] Comment on above: mL/min/1.73m2 CKD-EP I Creatinine Equation (2020) LDL calc ser/plasOrdered By: Flavio Andrade on 12-21-2024 Cholesterol in LDL [Mass/Vol] 102 mg/dL [facility] Comment on above: Kludrtaphc=507-555 m g/dL & Higher Veua=326 mg/dL or greater Laboratory - Chemistry and C hemistry - challengeOrdered By: Flavio Andrade on 12-21-2024 AST [Catalytic activity/Vol] 24 U/L <32 [facility] Comment on above: Hemolysis present, R esults could be affected. Lipid Profileon 12-21-2024 CHOL:HDL 3.00 Normal [facility] Comment on above: Performed By: #### L 500.4050, L501.9520, L500.4100 #### [facility] [address] [place], [address] Cholesterol [Mass/Vol] 202 mg/dL High <=200 [facility] Comment on above: Result Comment: Chol esterol level, Desirable <200 mg/dL Borderline high cholesterol 200-239 mg/dL High cholesterol >=240 mg/dL Recommendations of the NCEP Adult Treatment Panel for the following risk-cutoff thresholds for the [place] population. Performed By: #### L 500.4050, L501.9520, L500.4100 #### [facility] [address] [place], [address] Cholesterol in HDL [Mass/Vol] 67 mg/dL Normal [facility] Comment on above: Result Comment: Janay onal Cholesterol Education Program (NCEP) guidelines: <40 mg/dL: Low HDL-cholesterol (major risk factor for CHD) >= 60 mg/dL: High HDL-cholesterol (negative risk factor for CHD) HDL-cholesterol is affected by a number of factors, e.g. smoking, exercise, hormones, sex and age. Performed By: #### L 500.4050, L501.9520, L500.4100 #### [facility] [address] [place], [address] Cholesterol in LDL [Mass/Vol] 102 mg/dL Normal [facility] Comment on above: Result Comment: Boryoseph oiphhu=215-300 mg/dL Higher Rcmx=629 mg/dL or greater Performed By: #### L 500.4050, L501.9520, L500.4100 #### [facility] [address] [place], [address] Cholesterol in VLDL [Mass/Vol] 33 mg/dL Normal 5-40 [facility] Comment on above: Performed By: #### L 500.4050, L501.9520, L500.4100 #### [facility] [address] [place], [address] Triglyceride [Mass/Vol] 165 mg/dL Normal [facility] Comment on above: Result Comment: The drugs N-Acetylcysteine and Metamizole may falsely depress this assay. Normal range: <150 mg/dL Borderline High: 150-199 mg/dL High: 200-499 mg/dL Very High: >500 mg/dL Performed By: #### L 500.4050, L501.9520, L500.4100 #### [facility] [address] [place], [address] Orthopedic Visit Reporton Orthopedic Visit Report [facility] [address] [place] [address] [address] [place], [place] [address] OFFICE VISIT Date of Service: 12/21/24 MR#: [id number] Acct: [id number] Name: MYRANDA OLIVA Rep #: [id number] : 1960 Provider: Dr. Jorge Torres so, DO Age/Sex: 64/F Location: [facility] Status: Signed Intake Vital Signs 03/07/24 11:35 [...] the decisions made by me, Dr. Jorge Fairhcild, DO 12/21/24 1011. Part of today???s visit [...] sterile condit (more content not included)... Normal [facility] Potassium measurement (mass/ volume)Ordered By: Flavio Andrade on 12-21-2024 Potassium (Unsp spec) [Mass/Vol] 4.3 mmol/L 3.3-5.1 [facility] Comment on above: Hemolysis present, R esults could be affected. Screening total cholesterol/ high density lipoprotein (HDL) cholesterol ratioOrdered By: Flavio Andrade on 12-21-2024 Cholesterol.total/Savanah sterol in HDL [Mass ratio] 3.00 {ratio} [facility] Serum creatinine measurement (mass/volume)Ordered By: Flavio Andrade on 12-21-2024 Creatinine [Mass/Vol] 0.78 mg/dL 0.70-1.20 [facility] Serum globulin measurementOr dered By: Flavio Andrade on 12-21-2024 Globulin (S) [Mass/Vol] 3.1 g/dL 2.2-4.2 [facility] Serum glucose measurement (m ass/volume)Ordered By: Flavio Andrade on 12-21-2024 Glucose [Mass/Vol] 101 mg/dL High 70-99 [facility] Serum or plasma alanine gibbons otransferase (ALT) measurementOrdered By: Flavio Andrade 12-21-2024 ALT [Catalytic activity/Vol] 16 U/L <35 [facility] Serum or plasma albumin greyson urement (mass/volume)Ordered By: Flavio Andrade 12-21-2024 Albumin [Mass/Vol] 4.1 g/dL 3.4-4.8 [facility] Serum or plasma albumin/glob ulin mass ratioOrdered By: Flavio Andrade 12-21-2024 Albumin/Globulin [Mass ratio] 1.3 {ratio} 0.9-2.4 [facility] Serum or plasma alkaline juancarlos sphatase measurementOrdered By: Flavio Andrade 12-21-2024 ALP [Catalytic activity/Vol] 105 U/L High 35-104 [facility] Serum or plasma calcium greyson urement (mass/volume)Ordered By: Flavio Andrade 12-21-2024 Calcium [Mass/Vol] 9.8 mg/dL 7.6-11.0 [facility] Serum or plasma cholesterol in HDL measurement (mass/volume)Ordered By: Flavio Andrade on 12-21-2024 Cholesterol in HDL [Mass/Vol] 67 mg/dL >40 [facility] Comment on above: National Cholesterol Education Program (NCEP) guidelines:<40 mg/dL: Low HDL-cholesterol (major risk factor for CHD)>= 60 mg/dL: High HDL-cholesterol (negative risk factor for CHD)HDL-cholesterol is affected by a number of factors, e.g. smoking, exercise, hormones, sex and age. Serum or plasma cholesterol measurement (mass/volume)Ordered By: Flavio Andrade on 12-21-2024 Cholesterol [Mass/Vol] 202 mg/dL High <201 [facility] Comment on above: Cholesterol level, D esirable <200 mg/dLBorderline high cholesterol 200-239 mg/dLHigh cholesterol >=240 mg/dLRecommendations of the NCEP Adult Treatment Panel for the following risk-cutoff thresholds for the [place] population. Serum or plasma urea nitroge n measurement (mass/volume)Ordered By: Flavio Andrade on 12-21-2024 Urea nitrogen [Mass/Vol] 17 mg/dL 4-19 [facility] Sodium levelOrdered By: Flavio Andrade 12-21-2024 Sodium [Moles/Vol] 139 mmol/L 133-145 [facility] TSH DL <= 0.005 mIU/L QnOrde red By: Flavio Andrade on 12-21-2024 TSH Qn 1.600 uIU/mL 0.300-4.200 [facility] Thyroid Stim Hormone (TSH)on 12-21-2024 TSH 1.600 uIU/mL Normal 0.300-4.200 [facility] Comment on above: Performed By: #### L 500.4050, L501.9520, L500.4100 ####[facility] [address] [place], [place], [id number] Total proteinOrdered By: Flavio Andrade on 12-21-2024 Protein [Mass/Vol] 7.2 g/dL 5.9-8.4 [facility] Triglycerides measurementOrd ered By: Flavio Andrade 12-21-2024 Triglyceride [Mass/Vol] 165 mg/dL <199 [facility] Comment on above: The drugs N-Acetylcy steine and Metamizole may falsely depress this assay. Normal range: <150 mg/dLBorderline High: 150-199 mg/dLHigh: 200-499 mg/dLVery High: >500 mg/dL Absolute lymphocyte countOrd ered By: Flavio Andrade on 12-19-2024 Lymphocytes Auto (Unsp spec) [#/Vol] 3.79 10*3/uL 0.83-4.51 [facility] Absolute neutrophil countOrd ered By: Flavio Andrade on 12-19-2024 Neutrophils (Bld) [#/Vol] 8.4 10*3/uL High 2.0-7.7 [facility] Automated lymphocyte count a s percentage of total leukocytesOrdered By: Flavio Andrade on 12-19-2024 Lymphocytes/100 WBC Auto (Unsp spec) 28.5 % 19-41 [facility] Basophil percentageOrdered B y: Flavio Andrade on 12-19-2024 Basophils/100 WBC (Bld) 1.0 % 0-1 [facility] CBC W/Diff, Automatedon 12-02 Absolute Lymph 3.79 X10 3/uL Normal 0.83-4.51 [facility] Comment on above: Performed By: #### L 501.9520, L100.0100, L500.4100, L500.4050 #### [facility] [address] [place], [address] Absolute Neut 8.4 X10 3/uL High 2.0-7.7 [facility] Comment on above: Performed By: #### L 501.9520, L100.0100, L500.4100, L500.4050 #### [facility] [address] [place], [address] Basophils/100 WBC (Bld) 1.0 % Normal 0-1 [facility] Comment on above: Performed By: #### L 501.9520, L100.0100, L500.4100, L500.4050 #### [facility] [address] [place], [address] Eosinophils/100 WBC (Bld) 0.8 % Normal 0-5 [facility] Comment on above: Performed By: #### L 501.9520, L100.0100, L500.4100, L500.4050 #### [facility] [address] [place], [address] Erythrocyte distribution width (RBC) [Ratio] 13.5 % Normal 11.6-14.6 [facility] Comment on above: Performed By: #### L 501.9520, L100.0100, L500.4100, L500.4050 #### [facility] [address] [place], [address] Hematocrit (Bld) [Volume fraction] 45.0 % Normal 37-47 [facility] Comment on above: Performed By: #### L 501.9520, L100.0100, L500.4100, L500.4050 #### [facility] [address] [place], [address] Hemoglobin (Bld) [Mass/Vol] 15.0 g/dL Normal 12.0-15.0 [facility] Comment on above: Performed By: #### L 501.9520, L100.0100, L500.4100, L500.4050 #### [facility] [address] [place], [address] IG% 0.600 Normal 0.0-0.9 [facility] Comment on above: Result Comment: IG% - Immature Granulocytes (promyelocytes, myelocytes and metamyelocytes) > 1% indicates that a LEFT SHIFT is Present. Performed By: #### L 501.9520, L100.0100, L500.4100, L500.4050 #### [facility] [address] [place], [address] Lymphocytes/100 WBC (Bld) 28.5 % Normal 19-41 [facility] Comment on above: Performed By: #### L 501.9520, L100.0100, L500.4100, L500.4050 #### [facility] [address] [place], [address] MCH (RBC) [Entitic mass] 31.4 pg Normal 27.0-32.0 [facility] Comment on above: Performed By: #### L 501.9520, L100.0100, L500.4100, L500.4050 #### [facility] [address] [place], [address] MCHC (RBC) [Mass/Vol] 33.3 g/dL Normal 32-36 [facility] Comment on above: Performed By: #### L 501.9520, L100.0100, L500.4100, L500.4050 #### [facility] [address] [place], [address] MCV (RBC) [Entitic vol] 94.1 fL Normal 81-99 [facility] Comment on above: Performed By: #### L 501.9520, L100.0100, L500.4100, L500.4050 #### [facility] [address] [place], [address] Monocytes/100 WBC (Bld) 6.2 % Normal 0-10 [facility] Comment on above: Performed By: #### L 501.9520, L100.0100, L500.4100, L500.4050 #### [facility] [address] [place], [address] Neutrophils/100 WBC (Bld) 62.9 % Normal 47-70 [facility] Comment on above: Performed By: #### L 501.9520, L100.0100, L500.4100, L500.4050 #### [facility] [address] [place], [address] Nucleated RBC (Bld) [#/Vol] 0 10*3/uL Normal 0-5 [facility] Comment on above: Performed By: #### L 501.9520, L100.0100, L500.4100, L500.4050 #### [facility] [address] [place], [address] Platelet mean volume (Bld) [Entitic vol] 8.8 fL Normal 6.2-12.0 [facility] Comment on above: Performed By: #### L 501.9520, L100.0100, L500.4100, L500.4050 #### [facility] [address] [place], [address] Platelets (Bld) [#/Vol] 349 10*3/uL Normal 150-450 [facility] Comment on above: Performed By: #### L 501.9520, L100.0100, L500.4100, L500.4050 #### [facility] [address] [place], [address] RBC (Bld) [#/Vol] 4.78 10*6/uL Normal 4.2-5.4 [facility] Comment on above: Performed By: #### L 501.9520, L100.0100, L500.4100, L500.4050 #### [facility] [address] [place], [address] RDW SD 46.7 fl High 35.1-43.9 [facility] Comment on above: Performed By: #### L 501.9520, L100.0100, L500.4100, L500.4050 #### [facility] [address] [place], [address] WBC (Bld) [#/Vol] 13.3 10*3/uL High 4.4-11.0 [facility] Comment on above: Performed By: #### L 501.9520, L100.0100, L500.4100, L500.4050 #### [facility] [address] [place], [address] Comprehensive Metabolic Prof ilnorman 12-19-2024 ALB Normal 3.4-4.8 [facility] Comment on above: Result Comment: HEMO LYZED Performed By: #### L 501.9520, L100.0100, L500.4100, L500.4050 #### [facility] [address] [place], [address] ALK PHOS Normal 35-104 [facility] Comment on above: Result Comment: HEMO LYZED Performed By: #### L 501.9520, L100.0100, L500.4100, L500.4050 #### [facility] [address] [place], [address] ALT Normal <=34 [facility] Comment on above: Result Comment: HEMO LYZED Performed By: #### L 501.9520, L100.0100, L500.4100, L500.4050 #### [facility] [address] [place], [address] AST Normal <=31 [facility] Comment on above: Result Comment: HEMO LYZED Performed By: #### L 501.9520, L100.0100, L500.4100, L500.4050 #### [facility] [address] [place], [address] BUN Normal 4-19 [facility] Comment on above: Result Comment: HEMO LYZED Performed By: #### L 501.9520, L100.0100, L500.4100, L500.4050 #### [facility] [address] [place], [address] BUN/CRE Normal 10-20 [facility] Comment on above: Result Comment: HEMO LYZED Performed By: #### L 501.9520, L100.0100, L500.4100, L500.4050 #### [facility] [address] [place], [address] Calcium Normal 7.6-11.0 [facility] Comment on above: Result Comment: HEMO LYZED Performed By: #### L 501.9520, L100.0100, L500.4100, L500.4050 #### [facility] [address] [place], [address] CL Normal 98-108 [facility] Comment on above: Result Comment: HEMO LYZED Performed By: #### L 501.9520, L100.0100, L500.4100, L500.4050 #### [facility] [address] [place], [address] CO2 Normal 21.0-32.0 [facility] Comment on above: Result Comment: HEMO LYZED Performed By: #### L 501.9520, L100.0100, L500.4100, L500.4050 #### [facility] [address] [place], [address] CREAT,SERUM Normal 0.70-1.20 [facility] Comment on above: Result Comment: HEMO LYZED Performed By: #### L 501.9520, L100.0100, L500.4100, L500.4050 #### [facility] [address] [place], [address] eGFR Normal >60 [facility] Comment on above: Result Comment: HEMO LYZED Performed By: #### L 501.9520, L100.0100, L500.4100, L500.4050 #### [facility] [address] [place], [address] GAP Normal 5-15 [facility] Comment on above: Result Comment: HEMO LYZED Performed By: #### L 501.9520, L100.0100, L500.4100, L500.4050 #### [facility] [address] [place], [address] GLU Normal 70-99 [facility] Comment on above: Result Comment: HEMO LYZED Performed By: #### L 501.9520, L100.0100, L500.4100, L500.4050 #### [facility] [address] [place], [address] Potassium Normal 3.3-5.1 [facility] Comment on above: Result Comment: HEMO LYZED Performed By: #### L 501.9520, L100.0100, L500.4100, L500.4050 #### [facility] [address] [place], [address] T BILI Normal 0.00-1.30 [facility] Comment on above: Result Comment: HEMO LYZED Performed By: #### L 501.9520, L100.0100, L500.4100, L500.4050 #### [facility] [address] [place], [address] T PROT Normal 5.9-8.4 [facility] Comment on above: Result Comment: HEMO LYZED Performed By: #### L 501.9520, L100.0100, L500.4100, L500.4050 #### [facility] [address] [place], [address] Comprehensive Metabolic Profil Normal 133-145 [facility] Comment on above: Result Comment: HEMO LYZED Performed By: #### L 501.9520, L100.0100, L500.4100, L500.4050 #### [facility] [address] [place], [address] Eosinophil percentageOrdered By: Flavio Andrade on 12-19-2024 Eosinophils/100 WBC (Bld) 0.8 % 0-5 [facility] Erythrocyte distribution wid th ratioOrdered By: [facility] on 12-19-2024 Erythrocyte distribution width (RBC) [Ratio] 13.5 % 11.6-14.6 [facility] Erythrocyte distribution wid th standard deviationOrdered By: [facility]field [facility] Erythrocyte distribution width (RBC) [Ratio] 46.7 fl High 35.1-43.9 [facility] Hematocrit Auto (Bld) [Volum e fraction]Ordered By: [facility] on 12-19-2024 Hematocrit (Bld) [Volume fraction] 45.0 % 37-47 [facility] Hemoglobin measurementOrdere d By: [facility] on 12-19-2024 Hemoglobin (Bld) [Mass/Vol] 15.0 g/dL 12.0-15.0 [facility] Immature granulocytes/100 WB C Auto (Bld)Ordered By: [facility] on 12-19-2024 Immature granulocytes/100 WBC (Bld) 0.600 % 0.0-0.9 [facility] Comment on above: IG% - Immature Granu locytes (promyelocytes, myelocytes and metamyelocytes) > 1% indicates that a LEFT SHIFT is Present. Lipid Profileon 12-19-2024 CHOL:HDL 2.93 Normal [facility] Comment on above: Result Comment: HEMO LYZED Performed By: #### L 501.9520, L100.0100, L500.4100, L500.4050 #### [facility] [address] [place], [place], [id number] Cholesterol [Mass/Vol] 197 mg/dL Normal <=200 [facility] Comment on above: Result Comment: HEMO LYZED Cholesterol level, Desirable <200 mg/dL Borderline high cholesterol 200-239 mg/dL High cholesterol >=240 mg/dL Recommendations of the NCEP Adult Treatment Panel for the following risk-cutoff thresholds for the [place] population. Performed By: #### L 501.9520, L100.0100, L500.4100, L500.4050 #### [facility] [address] [place], [address] Cholesterol in HDL [Mass/Vol] 67 mg/dL Normal [facility] Comment on above: Result Comment: HEMO LYZED National Cholesterol Education Program (NCEP) guidelines: <40 mg/dL: Low HDL-cholesterol (major risk factor for CHD) >= 60 mg/dL: High HDL-cholesterol (negative risk factor for CHD) HDL-cholesterol is affected by a number of factors, e.g. smoking, exercise, hormones, sex and age. Performed By: #### L 501.9520, L100.0100, L500.4100, L500.4050 #### [facility] [address] [place], [address] Cholesterol in LDL [Mass/Vol] 76 mg/dL Normal [facility] Comment on above: Result Comment: HEMO LYZED Mqubbkuukr=020-698 mg/dL Higher Rrbo=091 mg/dL or greater Performed By: #### L 501.9520, L100.0100, L500.4100, L500.4050 #### [facility] [address] [place], [address] Cholesterol in VLDL [Mass/Vol] 54 mg/dL High 5-40 [facility] Comment on above: Result Comment: HEMO LYZED Performed By: #### L 501.9520, L100.0100, L500.4100, L500.4050 #### [facility] [address] [place], [address] Triglyceride [Mass/Vol] 271 mg/dL High [facility] Comment on above: Result Comment: HEMO LYZED The drugs N-Acetylcysteine and Metamizole may falsely depress this assay. Normal range: <150 mg/dL Borderline High: 150-199 mg/dL High: 200-499 mg/dL Very High: >500 mg/dL Performed By: #### L 501.9520, L100.0100, L500.4100, L500.4050 #### [facility] [address] [place], [address] MCV (mean corpuscular volume ) determinationOrdered By: Flavio Andrade on 12-19-2024 MCV (RBC) [Entitic vol] 94.1 fL 81-99 [facility] Mean corpuscular hemoglobin (MCH) determinationOrdered By: Flavio Andrade on 12-19-2024 MCH (RBC) [Entitic mass] 31.4 pg 27.0-32.0 [facility] Mean corpuscular hemoglobin concentration (MCHC) determinationOrdered By: Flavio Andrade on 12-19-2024 MCHC (RBC) [Mass/Vol] 33.3 g/dL 32-36 [facility] Mean platelet volume determi nationOrdered By: Flavio Andrade on 12-19-2024 Platelet mean volume (Bld) [Entitic vol] 8.8 fL 6.2-12.0 [facility] Monocyte percentageOrdered B y: Flavio Andrade on 12-19-2024 Monocytes/100 WBC (Bld) 6.2 % 0-10 [facility] Neutrophil percentageOrdered By: Flavio Andrade on 12-19-2024 Neutrophils/100 WBC (Bld) 62.9 % 47-70 [facility] Nucleated red blood cell per centageOrdered By: Flavio Andrade on 12-19-2024 Nucleated RBC/100 WBC (Bld) [Ratio] 0 % 0-5 [facility] Platelet countOrdered By: Lul Andrade on 12-19-2024 Platelets (Bld) [#/Vol] 349 10*3/uL 150-450 [facility] RBC Auto (Bld) [#/Vol]Ordere d By: Flavio Andrade on 12-19-2024 RBC (Bld) [#/Vol] 4.78 10*6/uL 4.2-5.4 [facility] Thyroid Stim Hormone (TSH)on 12-19-2024 TSH 1.940 uIU/mL Normal 0.300-4.200 [facility] Comment on above: Order Comment: HEMOL YZED Result Comment: HEMO LYZED Performed By: #### L 501.9520, L100.0100, L500.4100, L500.4050 #### [facility] [address] [place], [place], [address] White blood cell (WBC) count Ordered By: Flavio Andrade on 12-19-2024 WBC (Bld) [#/Vol] 13.3 10*3/uL High 4.4-11.0 [facility] Abdomen/Pelvis without Conto n 12-04-2024 Abdomen/Pelvis without Cont [facility] Imaging Services [address] [place] [address] Abdomen/Pelvis without Cont MR#: [id number] Acct: [id number] Name: MYRANDA OLIVA Rep #: [id number] : 1960 F 64 From: Carlton Pleitez MD PCP: Dr. Flavio Andrade MD Status: REG CLI Study: Abdomen/Pelvis without Cont Date of Exam: 09/25 Exam# [id number] Ordering Dr: Flavio Andrade MD PROCEDURE: CT [...] 3. Hepatic and renal cysts. Reading Location: [id number] CC: Dr. Flavio Andrade MD Gear Keeper: Signed Normal [facility] Knee 3 Viewson 12-04-2024 Knee 3 Views [facility] Imaging Services [address] [place] [id number] Knee 3 Views MR#: [id number] Acct: [id number] Name: MYRANDA OLIVA Rep #: [id number] : 1960 F 64 From: Boo Escamilla MD PCP: Dr. Flavio Andrade MD Status: [facility] CL Study: Knee 3 Views Date of Exam: 12/04/24 Exam# [id number] Ordering Dr: Flavio Andrade MD PROCEDURE: KNEE [...] Severe osteoarthritis of both knees. Reading Location: [id number] CC: Dr. Flavio Andrade MD Gear Keeper: Signed Normal [facility] Knee 3 Views [facility] Imaging Services [address] [place] [address] Knee 3 Views MR#: [id number] Acct: [id number] Name: MYRANDA OLIVA Rep #: [id number] : 1960 F 64 From: Boo Escamilla MD PCP: Dr. Flavio Andrade MD Status: REG CLI Study: Knee 3 Views Date of Exam: 12/04/24 Exam# [id number] Ordering Dr: Flavio Andrade MD PROCEDURE: KNEE [...] Severe osteoarthritis of both knees. Reading Location: [facility] CC: Dr. Flavio Andrade MD Gear Keeper: Signed Normal [facility] Echo Complete W/ Contraston 03-26-2024 Echo Complete W/ Contrast [facility] [address] [place] [address] Echo Complete W/ Contrast 03/26/24 0953 MR#: [id number] Acct: [id number] Name: MYRANDA OLIVA Rep #: [id number] : 1960 63 From: Arie Chakraborty MD Attending Dr: Dr. Arie Chakraborty MD Status: REG C LI Ordering Dr: Arie Chakraborty MD Date: 03/26/24 Location: [facility] Sex: F C Admitted: Reason For Study: [...] MD Date Dictated: 03/26/24952 Date Transcribed: 03/26/241424 Gear Keeper: Signed [facility] 12 Lead EKG performed by [facility] on 03-07-2024 12 Lead EKG performed by [facility] [address] [place] [address] 12 Lead EKG performed by [facility] 03/07/241125 MR#: [id number] Acct: [id number] Name: MYRANDA OLIVA Rep #: [id number] : 1960 63 From: Arie Chakraborty MD Attending Dr: Dr. Arie Chakraborty MD Status: DEP A MB Ordering Dr: Arie Chakraborty MD Date: 03/07/24 Location: [facility] Sex: F C Admitted: BMS/12 Lead EKG performed by [facility] ECG Report Interpretation ---Sinus Rhythm -Left atrial enlargement. - Nonspecific T-abnormality. ABNORMAL Electronically signed on 03/11/2024 at 19:23 by Arie Chakraborty [employer] Version 8610 03/11/241926 Date Arie Chakraborty MD CC: Dr. Flavio Andrade MD Date Dictated: 03/07/241125 Date Transcribed: 03/07/241125 Gear Keeper: [place] Signed Normal [facility] Cardiology Visit Reporton Cardiology Visit Report [facility] [address] [place] [address] OFFICE VISIT Date of Service: 03/07/24 MR#: [id number] Acct: [id number] Name: MYRANDA OLIVA Rep #: [id number] : 1960 Provider: Dr. Arie Chakraborty MD Age/Sex: 63/F Location: [facility] Status: Signed with Addenda ADDENDUM by ZENIA [...] 03/07/24 I25.10 - Atherosclerotic heart disease of [place] coronary artery without angina pectoris Plan Details Follow Up: 1 Year (mmm) 03/23/24 1345 Date Alisha Fung NP COMMERCIAL HORTICULTURE INSTRUCTOR-C cc: Dr. Flavio Andrade MD * Signed [...] Intake Visit Reasons: CP/ Aortic Calcification (Raymond) 4 H Youth Development Specialist Required: No Accompanied by: Self Is patient [...] nasal m (more content not included)... Normal [facility] Low Dose CT Lung Screeningon 01-13-[address] Lung Screening [facility] Imaging Services [address] [place] [address] Lung Screening MR#: [id number] Acct: [id number] Name: MYRANDA OLIVA Rep #: [id number] : 1960 F 63 From: Ramin Vang MD PCP: Dr. Flavio Andrade MD Status: [facility] Study: Low Dose CT Lung Screening Date of Exam: 01/12 Exam# [id number] Ordering [place]: [place] [id number] STUDY: LOW DOSE CT LUNG CANCER SCREENING [...] EDT , CC: Dr. Flavio Andrade MD Gear Keeper: Signed [facility] CNOVon 05-04-2021 CNOV Office Visit (FPWADS ) MYRANDA OLIVA ([id number]) 1960 F Date Time Provider Department 05/04/21 [...] 09/29/2016 - COPD (chronic obstructive pulmonary disease) ([facility]) - Dyslipidemia - Kidney stone [...] this documentat (more content not included)... Normal [facility] Basic Metabolic Panlon 04-30 Anion gap [Moles/Vol] 11 mmol/L Normal 9-18 [facility] Calcium [Mass/Vol] 9.8 mg/dL Normal 8.5-10.2 [facility] Chloride [Moles/Vol] 105 mmol/L Normal 97-105 [facility] CO2 [Moles/Vol] 22 mmol/L Normal 22-30 [facility] Creatinine [Mass/Vol] 0.79 mg/dL Normal 0.58-0.96 [facility] eGFR- Amer. >60 Normal [facility] eGFR-All Other Races >60 Normal [facility] Comment on above: Result Comment: eGFR [...] GFR. Glucose [Mass/Vol] 109 mg/dL High 74-99 [facility] Comment on above: Result Comment: The [place] Diabetes Association (ADA) provides guidance for [...] Standards of Medical Care in Diabetes 2016, [place] Diabetes Association. Diabetes Care. 2016.39(Suppl 1). Potassium [Moles/Vol] 3.7 mmol/L Normal 3.7-5.1 [facility] Sodium [Moles/Vol] 138 mmol/L Normal 136-144 [facility] Urea nitrogen [Mass/Vol] 17 mg/dL Normal 7-21 [facility] Hemoglobin A1con 04-30-2021 Glucose [Mass/Vol] 120 mg/dL Normal [facility] Comment on above: Result Comment: eAG: (Estimated average glucose) is a calculated value from HgbA1c and is freight representative of the average blood glucose level in the last 2-3 month period. Performed By: #### H BA1C, LIPB #### [facility] [address] [place], [place] [address] HbA1c (Bld) [Mass fraction] 5.8 % High 4.3-5.6 [facility] Comment on above: Result Comment: Amer ican Diabetes Association guidelines indicate that patients with HgbA1c in the range 5.7-6.4% are at increased risk for development of diabetes, and intervention by lifestyle modification may be beneficial. HgbA1c greater or equal to 6.5% is considered diagnostic of diabetes. Performed By: #### H BA1C, LIPB #### [facility] [address] [place], [place] [address] Lipid Panel, Basic 04-30- 021 Cholesterol [Mass/Vol] 232 mg/dL High <200 [facility] Comment on above: Result Comment: <200 mg/dL, Desirable 200-239 mg/dL, Borderline high >239 mg/dL, High Performed By: #### H BA1C, LIPB #### [facility] [address] [place], [place] [address] Cholesterol in HDL [Mass/Vol] 50 mg/dL Normal >39 [facility] Comment on above: Result Comment: 40-5 9 mg/dL, Acceptable >59 mg/dL, High: Negative risk factor for coronary heart disease <40 mg/dL, Low: Positive risk factor for coronary heart disease Performed By: #### H BA1C, LIPB #### [facility] [address] [place], [place] [address] Cholesterol in LDL [Mass/Vol] 138 mg/dL High <100 [facility] Comment on above: Result Comment: <100 mg/dL, Optimal 100-129 mg/dL, Near optimal/above optimal 130-159 mg/dL, Borderline high 160-189 mg/dL, High >189 mg/dL, Very high Secondary prevention optimal LDL Cholesterol levels are recommended to be < 70 mg/dL Performed By: #### H BA1C, LIPB #### [place] [id number] [place] [address] Fasting Time 10 hrs Normal [facility] Comment on above: Performed By: #### Amanda BA1C, LIPB #### [place] [address] [place] [address] LDL:HDL Ratio 2.76 High <2.54 [facility] Comment on above: Result Comment: [place] adriannece: 1. National Cholesterol Education Program ATP III Guideline At-A-Glance Quick Desk Reference: National Heart, Lung, and Blood [place]. National Institutes of Health. 2001: NIH Publication No. 01-3305. 2. An International Atherosclerosis Society position paper: global recommendations for the management of dyslipidemia: executive summary, Atherosclerosis. 2014: 232(2):410-413. Performed By: #### Amanda BA1C, LIPB #### [place] [phone] Non HDL Cholesterol 182 mg/dL High <130 [facility] Comment on above: Result Comment: <130 mg/dL, Optimal 130-159 mg/dL, Near optimal/above optimal 160-189 mg/dL, Borderline high 190-219 mg/dL, High >219 mg/dL, Very high Secondary prevention optimal non HDL Cholesterol levels are recommended to be < 100 mg/dL Performed By: #### Amanda BA1C, LIPB #### [place] [address] TC:HDL Ratio 4.64 Normal <5.10 [facility] Comment on above: Performed By: #### Amanda BA1C, LIPB #### [place] [id number] [place] [address] Triglyceride [Mass/Vol] 219 mg/dL High <150 [facility] Comment on above: Result Comment: <150 mg/dL, Normal 150-199 mg/dL, Borderline high 200-499 mg/dL, High >499 mg/dL, Very high Performed By: #### Amanda BA1C, LIPB #### [place] [address] VLDL Cholesterol 44 mg/dL High <30 [facility] Comment on above: Performed By: #### H BA1C, LIPB #### [facility] [address] [place], [place] [address] OBSOLETEon 04-22-2021 OBSOLETE Refill (FPWADS) DELLMYRANDA Julian ([id number]) 1960 F Date Time Provider Department 04/22/21 [...] Status:Closed by SERGEI JURADO MA on 04/24/21 [facility] OBSOLETEon 04-21-2021 OBSOLETE Refill (FPWADS) MYRANDA OLIVA ([id number]) 1960 F Date Time Provider Department 04/21/21 [...] Status:Closed by STEPHANY RODRIGUEZ MA on 04/23/21 [facility] OBSOLETEon 03-24-2021 OBSOLETE Refill (FPWADS) MYRANDA OLIVA ([id number]) 1960 F Date Time Provider Department 03/24/21 CRISTINA CALLAHAN FPWADS During your visit today, we recorded the following information about you: Reina Bustamanet MA 03/24/2021 7:24 AM Signed Pharmacy verified in [employer]. Patient has been identified by name and [...] BP: 06/12/2020 135/74 Please advise. DANIEL Urban APRN.AIRCRAFT ELECTRICIAN 03/24/2021 10:29 AM Signed Over due for [...] Status:Closed by DU JOHNSON on 03/27/21 Normal [facility] PROGRESSon 03-27-2020 PROGRESS HNO ID: [id number] Author: ARNEL Cardoso (Ct) Service: Radiology Author Type: Clinical Multimedia Designer Type: Progress Notes Filed: 03/27/2020 10:43 AM [...] ARNEL GANDHI March 27, 2020 10:43 AM [facility] XR KNEE 3V AP/LAT/MERCHANT R Ton 03-27-2020 [...] well. IMPRESSION: Osteoarthrosis and small joint effusion Gear Keeper: AMBROSIO Transcribe Date/Time: Mar 27 2020 10:44A Dictated by : MYNOR CARBAJAL MD This examination was interpreted and the report reviewed and electronically signed by: MYNOR CARBAJAL MD on Mar 27 2020 10:51AM EST [id number] [facility] Vital Signs Date Time Vital Sign Value Performing Clinician Natan heath 12-21-2024 10:15-0400 Body height 154.[address] Flavio Andrade MD Work Phone: [facility] 12-21-2024 10:15-0400 Body mass index (BMI) [Ratio] 31.8 kg/m2 Dr. Flavio Andrade MD Work Phone: [facility] 12-21-2024 10:15-0400 Body weight 76.[address] Flavio Andrade MD Work Phone: [facility] Encounters Encounter Date Encounter Type Care Provider Facility Start: 01-16-2025 ambulatory [facility] Facility:[facility] Start: 12-21-2024 End: 12-21-[address] Jorge Fairchild DO -[facility] Work Phone: Start: 12-21-2024 End: 12-21-[address] Flavio Andrade MD Work Phone: [facility] Work Phone: Start: 12-21-2024 End: 12-21-2024 ambulatory Flavio Manuel [place] Facility:[facility] Start: 12-19-2024 End: 12-19-[address] Flavio Andrade MD Work Phone: [facility] Work Phone: Start: 12-19-2024 End: 12-19-[address] Flavio Andrade MD -Laboratory Work Phone: Start: 12-19-2024 End: 12-19-2024 ambulatory Flavio Andrade Facility:[facility] Start: 12-04-2024 End: 12-04-[address] Flavio Andrade MD Work Phone: [facility] Work Phone: Start: 12-04-2024 End: 12-04-[address] Flavio Andrade MD -Cat Scan [facility] Work Phone: Start: 12-04-2024 End: 12-04-2024 ambulatory Flavio Andrade Facility:[facility] Start: 03-26-2024 ambulatory Arie Chakraborty Facility:[facility] Start: 03-26-2024 End: 03-26-2024 ambulatory Arie Mylene Facility:[facility] Start: 03-07-2024 End: 03-07-2024 ambulatory Lorraine Mylene Facility:[facility] Start: 02-27-2024 ambulatory Flavio Chi [place] Facility:[facility] Start: 01-13-2024 End: 01-13-2024 ambulatory [facility] Facility:[facility] Start: 11-08-2022 ambulatory Cristina lino MD Work Phone: [facility] Comment on above: Prescriptions Start: 07-12-2022 Refill Jessica Eisenberg APRN.CNP Work Phone: [facility] Comment on above: Refill Request Start: 05-17-2022 Refill Cristina lino MD Work Phone: [facility] Comment on above: Refill Request Start: 04-07-2022 Refill Cristina lino MD Work Phone: [facility] Comment on above: Refill Request Start: 01-05-2022 Refill Cristina lino MD Work Phone: [facility] Comment on above: Refill Request Start: 12-30-2021 ambulatory Cristina lino MD Work Phone: [facility] [place] Procedures Date Procedure Procedure Detail Performing Clinician [...] Author Start: 04-30-2026 LIPID SCREEN LIPID SCREEN [facility] Start: 04-30-2024 DIABETES SCREEN DIABETES SCREEN [facility] Start: 03-04-2023 Influenza [facility] Start: 07-04-2022 DEPRESSION ASSESSMENT DEPRESSION ASSESSMENT [facility] Start: 05-04-2022 ANNUAL PCP TEAM CHRONIC DISEASE VISIT ANNUAL PCP TEAM CHRONIC DISEASE VISIT [facility] Start: 03-04-2022 Influenza vaccination INFLUENZA (#1) [facility] Start: 01-05-2022 End: 03-07-2022 Comprehensive metabolic 2000 panel - Serum or Plasma COMP METABOLIC PANEL Lab Routine Essential hypertension Pure hypercholesterolemia Expected: 01/05/2022, Expires: 03/07/2022 [facility] Work Phone: Comment on above: Expected: 01/05/2022, Expires: 2 Start: 01-05-2022 End: 03-07-2022 Lipid 1996 panel - Serum or Plasma LIPID PANEL BASIC Lab Routine Pure hypercholesterolemia Expected: 01/05/2022, Expires: 03/07/2022 [facility] Work Phone: Comment on above: Expected: 01/05/2022, Expires: 2 Start: 07-04-2021 DEPRESSION ASSESSMENT DEPRESSION ASSESSMENT [facility] Start: 06-12-2021 Adult depression screening assessment DEPRESSION SCREENING [facility] Start: 03-09-2019 PNEUMOCOCCAL (2 - PCV) PNEUMOCOCCAL (2 - PCV) [facility] Start: 03-04-2018 Mammography MAMMOGRAM [facility] Start: 10-18-2016 HPV TESTING HPV TESTING [facility] Start: 10-18-2016 PAP TESTING PAP TESTING [facility] Start: 2010 SHINGRIX VACCINE (1 of 2) SHINGRIX VACCINE (1 of 2) [facility] Start: 2005 COLOGUARD (FIT-DNA) COLOGUARD (FIT-DNA) [facility] Start: 2005 Colonoscopy COLONOSCOPY [facility] Start: 2005 COLORECTAL CANCER SCREENING COLORECTAL CANCER SCREENING [facility] Start: [address] COLONOGRAPHY [facility] Start: 2005 FECAL OCCULT BLOOD FECAL OCCULT BLOOD [facility] Start: 2005 SIGMOIDOSCOPY SIGMOIDOSCOPY [facility] Start: 1990 Zoledronic acid therapy ALPHA-1 ANTITRYPSIN DEFICIENCY SCREENING [facility] Start: 09-04-1979 Urine microalbumin profile DTAP,TDAP,TD (1 - Tdap) [facility] Start: 1978 BP CONTROLLED (<130/80) BP CONTROLLED (<130/80) [facility] Start: 1978 SPIROMETRY SPIROMETRY [facility] Start: 03-06-1961 COVID-19 VACCINE (#1) COVID-19 VACCINE (#1) [facility] End: 01-29-2023 Screening mammography bi 2-view breast inc cad RIO SCREENING Radiology Routine Encounter for screening mammogram for breast cancer 1 Occurrences starting 12/30/2021 until 01/29/2023 [facility] Work Phone: Comment on above: 1 Occurrences starting 12/30/2021 until 01/29/2023 [facility] Immunizations Immunization Date Immunization Notes Care Provider Fa [facility] 03-23-2019 Influenza, injectabl e, Madin [place] Canine Kidney, preservative free, quadrivalent Cristina Callahan MD Work Phone: [facility] 03-09-2018 influenza, injectabl e, quadrivalent, contains preservative Cristina Callahan MD Work Phone: [facility] 03-09-2018 pneumococcal polysaccharide vaccine, 23 valent Cristina Callahan MD Work Phone: [facility] Payers Date Payer Category Payer Unknown [id number] 2023 Self-pay 2023 Unknown [id number] Unknown [id number] 2.16.8 [id number] Unknown [id number] 2.16.8 [id number] Unknown [id number] 2.16.8 [id number] Unknown [id number] 2.16.8 [id number] Unknown [id number] 2.16.8 [id number] Unknown [id number] 2.16.8 [id number] Unknown [id number] 2.16.8 [id number] Unknown [id number] 2.16.8 [id number] Unknown [id number] 2.16.8 [id number] Unknown [id number] 2.16.8 [id number] Social History Date Type Detail Facility Start: 12-21-2018 End: 01-30-2024 Tobacco smoking status NHIS Smokes tobacco daily [facility] History of tobacco use Cigarette Smoker C [facility] Start: 12-21-2018 End: 05-04-2021 Cigarettes smoked current (pack per day) - Reported 0.5 [facility] Start: 12-21-2018 End: 05-04-2021 Tobacco use and exposure Smokeless tobacco non-user [facility] Start: 05-04-2021 Alcohol intake 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 (finding) [facility] Start: 06-12-2020 End: 04-29-2021 History SDOH Alcohol Frequency 1 [facility] Start: 06-12-2020 History SDOH Alcohol Std Drinks 98 [facility] Start: 08-30-2011 History SDOH Alcohol Comment rare [facility] [facility] Start: 06-12-2020 End: 04-29-2021 History SDOH Social Connections Phone 2 [facility] Start: 06-12-2020 History SDOH Social Connections Meetings 3 [facility] Start: 06-12-2020 History SDOH Social Connections Living 4 [facility] Start: 06-12-2020 Education 21 [facility] Start: 05-04-2021 Tobacco Comment down to 1/4 pack. Cl [facility] Start: 1960 Sex Assigned At Female C [facility] Clinical Notes 01-21-2014 to 12-21-2024 Note Date & Type Note Facility 12-21-2024 Evaluation note Diagnosis Onset Date Resolution Bilateral primary osteoarthritis of knee acute December 10:07am Tobacco abuse acute December 21, 2024 10:07am [facility] Work Phone: [phone]) 720-388806-04-2025 Radiology Diagnostic study note [facility] Imaging Services [address], [place] [id number] Knee 3 Views MR#: [id number] Acct: [id number] Name: MYRANDA OLIVA Rep #: [id number] : 1960 F 64 From: Tasha Escamilla MD PCP: Dr. Flavio Andrade MD Status: REG C Study:Knee 3 Views Date of Exam: 5 Exam# [id number] Ordering Dr: Flavio Andrade MD PROCEDURE: KNEE [...] Severe osteoarthritis of both knees. Reading Location: [facility] CC: Dr. Flavio Andrade MD ~ Gear Keeper: Signed [facility]06-04-2025 Radiology Diagnostic study note [facility] Imaging Services [address], [place] [id number] Knee 3 Views MR#: [id number] Acct: [id number] Name: MYRANDA OLIVA Rep #: [id number] : 1960 F 64 From: Tasha Escamilla MD PCP: Dr. Flavio Andrade MD Status: REG C ADDY Study:Knee 3 Views Date of Exam: 5 Exam# [id number] Ordering Dr: Flavio Andrade MD PROCEDURE: KNEE [...] OUMAR CC: Dr. Flavio Andrade MD ~ Gear Keeper: Signed [facility]06-03-2025 Radiology Diagnostic study note [facility] Imaging Services [address] [place], [place] [address] Abdomen/Pelvis without Cont MR#: [id number] Acct: [id number] Name: MYRANDA OLIVA Rep #: [id number] : 1960 F 64 From: Eladio Pleitez MD PCP: Dr. Flavio Andrade MD Status: JOSÉ LUIS DALY Study:Abdomen/Pelvis without Cont Date of Exa m: 12/04/24 Exam# [id number] Ordering Dr: Flavio Andrade MD PROCEDURE: CT [...] 3. Hepatic and renal cysts. Reading Location: [id number] CC: Dr. Flavio Andrade MD ~ Gear Keeper: Signed [facility] Work Phone: [phone]) 493-789605-08-2023 Miscellaneous Notes* Telephone Encounter - Reena Crowley [...] first. Stephany Monson APRN.CNP [facility] Miscellaneous Notes* Telephone Encounter - Danielle Brizuela - 07/14/2022 1:11 PM EST 1st attempt. Tried calling patient and phone just would ring and make clicking noises. Left mychartmessage also. * Telephone Encounter - Stephany Monson APRN.CNP - 07/12/2022 1:08 PM EST Needs visit, schedule REGINA. Stephany Monson APRN.CNP documented in [facility] encounter[facility]11-22-2022 Miscellaneous Notes* Telephone Encounter - Danielle Brizuela - 05/25/2022 10:45 AM EST 2nd attempt. Sent [employer] message. * Telephone Encounter - Esme Rosenberg [...] 05/18/2022 8:31 AM EST Pharmacy verified in [facility] Patient has been identified by name [...] advise. Shanelle Kline LPN documented in [facility]10[facility]-2022 Miscellaneous Notes* Telephone Encounter - Danielle Brizuela - 04/07/2022 4:19 PM EDT 1st attempt. Left message on VM. * Telephone Encounter - Jessica Eisenberg APRN.AIRCRAFT ELECTRICIAN - 04/07/2022 4:04 PM EDT Please inform patient that they are due for OV and assist in scheduling. Thanks. documented in [facility] encounter[facility]07-12-2022 Miscellaneous Notes* Telephone Encounter - Reena Morris [...] 01/05/2022 11:39 AM EDT Pharmacy verified in [employer]. Patient has been identified by name and [...] advise. Reina Bustamante MA documented in this encounterWay[facility]06-29-2022 NotePatient Outreach (INTMMN) MYRANDA OLIVA ([id number]) 1960 F Date Time Provider Department 12/30/21 [...] for screening mammogram for breast cancer [Z12.31] Order(s):[facility] SCREENING [[id number]] Order #: [id number] FUTURE Prescriptions as of 01/04/2022 - escitalopram [...] joint*12/22/2018 Encounter Status:Closed by EPIC, PRODUSER on 01/04/22[facility] 05-04-2021 NoteHNO ID: [id number] Author: Cristina Callahan MD Service: ? Author [...] complete. Electronically Signed: [place] (more content not included)...[facility]10-19-2021 Note Patient Outreach (INTMMN) MYRANDA OLIVA ([id number]) 1960 F Date Time Provider Department 04/21/21 [...] [E78.5] Order(s):BASIC METABOLIC PNL [SQBMP] Order #: [id number] FUTURE HGB A1C [KTFQN8Q] Order #: [id number] FUTURE LIPID PANEL BASIC [SQLIPB] Order #: [id number] FUTURE Prescriptions as of 04/24/2021 - meloxicam [...] joint*12/22/2018 Encounter Status:Closed by SRIDHAR COVINGTON on 04/24/21[facility] 01-23-2021 NotePatient Outreach (INTMMN) MYRANDA OLIVA ([id number]) 1960 F Date Time Provider Department 01/23/21 [...] for screening mammogram for breast cancer [Z12.31] Order(s):[facility] SCREENING [[id number]] Order #: [id number] FUTURE Prescriptions as of 01/26/2021 - simvastatin [...] joint*12/22/2018 Encounter Status:Closed by EPIC, PRODUSER on 01/26/21[facility] 01-21-2014 History of Past illness Narrative* Problem Noted Date Resolved Date Kidney stone 01/21/2014 12/22/2018 UTI (lower urinary tract infection) 07/24/2013 12/22/2018 Viral Wart: R hand dorsal 5th finger PIP area 12/22/2018 Spider angioma 07/12/2012 12/22/2018 Telangiectasia 07/12/2012 12/22/2018 Actinic skin damage 07/12/2012 12/22/2018 documented as of this encounter (statuses as of 01/04/2022) [facility] History of Past illness Narrative* Problem Noted Date Resolved Date Kidney stone 01/21/2014 12/22/2018 UTI (lower urinary tract infection) 07/24/2013 12/22/2018 Viral Wart: R hand dorsal 5th finger PIP area 12/22/2018 Spider angioma 07/12/2012 12/22/2018 Telangiectasia 07/12/2012 12/22/2018 Actinic skin damage 07/12/2012 12/22/2018 documented as of this encounter (statuses as of 01/12/2022) [facility] History of Past illness Narrative* Problem Noted Date Resolved Date Kidney stone 01/21/2014 12/22/2018 UTI (lower urinary tract infection) 07/24/2013 12/22/2018 Viral Wart: R hand dorsal 5th finger PIP area 12/22/2018 Spider angioma 07/12/2012 12/22/2018 Telangiectasia 07/12/2012 12/22/2018 Actinic skin damage 07/12/2012 12/22/2018 documented as of this encounter (statuses as of 04/07/2022) [facility] History of Past illness Narrative* Problem Noted Date Resolved Date Kidney stone 01/21/2014 12/22/2018 UTI (lower urinary tract infection) 07/24/2013 12/22/2018 Viral Wart: R hand dorsal 5th finger PIP area 12/22/2018 Spider angioma 07/12/2012 12/22/2018 Telangiectasia 07/12/2012 12/22/2018 Actinic skin damage 07/12/2012 12/22/2018 documented as of this encounter (statuses as of 05/25/2022) [facility] History of Past illness Narrative* Problem Noted Date Resolved Date Kidney stone 01/21/2014 12/22/2018 UTI (lower urinary tract infection) 07/24/2013 12/22/2018 Viral Wart: R hand dorsal 5th finger PIP area 12/22/2018 Spider angioma 07/12/2012 12/22/2018 Telangiectasia 07/12/2012 12/22/2018 Actinic skin damage 07/12/2012 12/22/2018 documented as of this encounter (statuses as of 07/14/2022) [facility] History of Past illness Narrative* Problem Noted Date Resolved Date Kidney stone 01/21/2014 12/22/2018 UTI (lower urinary tract infection) 07/24/2013 12/22/2018 Viral Wart: R hand dorsal 5th finger PIP area 12/22/2018 Spider angioma 07/12/2012 12/22/2018 Telangiectasia 07/12/2012 12/22/2018 Actinic skin damage 07/12/2012 12/22/2018 documented as of this encounter (statuses as of 11/09/2022) [facility]* Diagnosis Encounter for screening mammogram for breast cancer [facility]* Diagnosis Pure hypercholesterolemia- Primary Essential hypertension Unspecified essential hypertension [facility]* Diagnosis Primary osteoarthritis involving multiple joints Pure hypercholesterolemia [facility]* Diagnosis Adjustment disorder with depressed mood Essential hypertension Unspecified essential hypertension [facility] Pure hypercholesterolemia documented in [facility] noteNo assessment information availableWWooster Community Hospital Work Phone: Reason for referral (narrative)* Diagnostic Procedure Only (Routine) - Pending Review Specialty Diagnoses / Procedures Referred By Ekaterina t Referred To Contact [facility] Diagnoses Encounter for screening mammogram for breast cancer Procedures RIO SCREENING SCREENING MAMMOGRAPHY BI 2-VIEW BREAST INC CAD Cristina Callahan MD [address] [facility] [place] [address] [facility] [address] [place] [address] Referral ID Status Reason Start Date Expiration Date Visits Requested Visits Authorized [id number] Pending Review Auto-Generat ed Referral 12/30/2021 01/29/2023 1 1 [facility] for referral (narrative)No reason for referral information availableWWooster Community Hospital Work Phone: Summary Purpose Family History No Family History Records Found Relationship Condition Age at Onset Recorded Date/T [place] father Depression Unknown Hypertension Unknown mother Hypertension Unknown Malignant neoplasm Unknown sister Hypertension Unknown Advance Directives No Advanced Directives Records FoundDocuments on File Type Date Recorded 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 Advance Directive(s) 08/29/2013 7:30 AM Documents on File Type Date Recorded 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 Advance Directive(s) 08/29/2013 7:30 AM [...] section and content) DATE CREATED AUTHOR 03/27/2020 [facility] DATE CREATED AUTHOR AUTHOR'S ORGANIZ ATION 01/04/2022 [facility] DATE CREATED AUTHOR AUTHOR'S ORGANIZ ATION 01/11/2025 [facility] Source Comments (unrecognize d section and content) In the event this informatio n is protected by the Federal Confidentiality of Alcohol and Drug Abuse Patient Records regulations: The Federal rules restrict any use of the information to criminally investigate or prosecute any alcohol or drug abuse patient.[facility] the event this information is protected by the Federal Confidentiality of Alcohol and Drug Abuse Patient Records regulations: The Federal rules restrict any use of the information to criminally investigate or prosecute any alcohol or drug abuse patient.[facility] the event this information is protected by the Federal Confidentiality of Alcohol and Drug Abuse Patient Records regulations: The Federal rules restrict any use of the information to criminally investigate or prosecute any alcohol or drug abuse patient.[facility] CampusIn the event this information is protected by the Federal Confidentiality of Alcohol and Drug Abuse Patient Records regulations: The Federal rules restrict any use of the information to criminally investigate or prosecute any alcohol or drug abuse patient.[facility] CampusIn the event this information is protected by the [facility] Confidentiality of Alcohol and Drug Abuse Patient Records regulations: The Federal rules restrict any use of the information to criminally investigate or prosecute any alcohol or drug abuse patient.[facility] CampusIn the event this information is protected by the Federal Confidentiality of Alcohol and Drug Abuse Patient Records regulations: The Federal rules restrict any use of the information to criminally investigate or prosecute any alcohol or drug abuse patient.[facility] Care Teams (unrecognized sec tion and content) Curing Oven Tender Relationship Specialty Start Date End Date Cristina Callahan MD [address] [place] [address] PCP - General Family Practice 04/19/12 Curing Oven Tender Relationship Specialty Start Date End Date Cristina Callahan MD [address] [place], [place] [id number] PCP - General Family Practice 04/19/12 Curing Oven Tender Relationship Specialty Start Date End Date Cristina Callahan MD [address] [place], [place] [id number] PCP - General Family Medicine 04/19/12 Curing Oven Tender Relationship Specialty Start Date End Date Cristina Callahan MD [address] [place], [place] [id number] PCP - General [facility] Medicine 04/19/12 Curing Oven Tender Relationship Specialty Start Date End Date Cristina Callahan MD [address] [place], [place] [id number] PCP - General Family Medicine 04/19/12 Team [...] BE BASED ON THE PRIMARY CLINICAL RECORDS. [employer] provides no warranty or guarantee of the accuracy or completeness of information in this document.
== END | disposition home or self-care (01) ==
LOC: NM 09:48
PROVIDERS: PCP Family Medicine Geriatric Medicine; Referring Provider Family Medicine Geriatric Medicine; Visit Provider Family Medicine Geriatric Medicine
DX: K80.50 Calculus of bile duct without cholangitis or cholecystitis without obstruction (principal)
CPT/HCPCS: 78227; A9537; J2805

== ENCOUNTER → 2025-03-05 | Outpatient (CLI) | payer BC, SELFPAY ==
--- OUTSIDE RECORDS SUMMARY | 2025-03-05 06:23 | XMS RPT_ITS | CCD ---
Author Organization [facility] Care Team Providers Care Records Management Coordinator Name Role Phone Lorri ROBERTS, Cristina Charles Primary Care Provider [phone] Unavailable Primary Care Provider Gualberto Andrade MD, Dr. Flavio Jackson Primary Care Provider Raymond ROBERTS, Dr. Flavio Jackson Attending Provider Raymond ROBERTS, Dr. Flavio Jackson Referring Provider Dr. Jorge Fairchild DO Attending Provider Shree ROBERTS, Dr. Ogden Attending Provider [phone] Raymond, Flavio Chi Primary Care Unavailable Mylene, Arie Attending Unavailable Jorge Fairchild Attending Unavailable Raymond, Flavio Chi Primary Care Unavailable Raymond, Flavio Chi Referring Unavailable Raymond, Flavio Chi Primary Care Unavailable Madhuri Craft Attending Unavail able Madhuri Craft Referring Unavail able Mylene, Arie Referring Unavailable Raymond, Flavio Chi Primary Care Unavailable Mylene, Redby Attending Unavailable Raymond, Flavio Chi Primary Care [...] Raymond, Flavio Chi Primary Care Unavailable Alin Swann Attending Unavailable Raymond, Flavio Chi Primary Care Unavailable Alin Swann Attending Unavailable Raymond, Flavio Chi Referring Unavailable Raymond, Flavio Chi Referring Unavailable Mylene, Arie Attending Unavailable Raymond, Flavio Chi Primary Care Unavailable Allergies Allergy Classification Reported Allergen(s) Allergy Type Date of Onset Reaction(s) Facility (6 sources) Penicillins Propensity to adverse reactions to drug 2 Unknown [facility] (6 sources) shell fish [Other] Propensity to adverse reactions 2 GI Upset [facility] (6 sources) Penicillins Allergy to substance 4 PT UNSURE OF REACTION [facility] (7 sources) Shellfish; Translations: [shellfish derived] Allergy to substance 4 Nausea/Vom/Diar ant [facility] (1 source) Penicillins Drug allergy (disorder) 5 [facility] Repository Medications Current Medications Medication Drug Class(es) Dates Sig (Normalized) Sig (Original) acetaminophen 500 mg oral tablet (1 source) Start: 01-25-2025 take 1 tablet by mouth every six hours as needed Acetaminophen 500 mg tablet Active 500 mg PO EVERY 6 HOURS as needed January 25, 2025 12:00am atorvastatin 40 mg oral tablet (6 sources) HMG-CoA Reductase Inhibitor Start: 01-30-2024 take 1 tablet by mouth at bedtime Atorvastatin 40 mg tablet Active 40 mg PO AT BEDTIME January 30, 2024 12:00am smoking cessation 12 hr buPROPion hydrochloride 150 mg extended release oral tablet (5 sources) Aminoketone Start: 12-21-2024 take 1 tablet by mouth twice daily, then take 1 tablet by mouth every twelve hours Bupropion Hcl (Smoking Deter) 150 mg tablet extended release 12 hr Active 150 mg PO TWICE A DAY December 21, 2024 12:00am losartan potassium 100 mg oral tablet (6 sources) Angiotensin 2 Receptor Rizwana Start: 03-07-2024 take 1 tablet by mouth once daily Losartan 100 mg tablet Active 100 mg PO daily March 07, 2024 12:00am meloxicam 15 mg oral tablet (5 sources) Nonsteroidal Anti-inflammatory Drug Start: 12-21-2024 take 1 tablet by mouth once daily Meloxicam 15 mg tablet Active 15 mg PO DAILY 30 0 December 21, 2024 12:00am Do not take [...] DAY vitamin b12 1 mg oral tablet (12 sources) Vitamin B12 Start: 4 End: 4 [...] Onset: 03-28-2013 03-28-2013 Chronic Biliary tract disease (4 sources) Biliary dyskinesia; Translations: [Other specified diseases of gallbladder] Onset: 01-21-2025 01-25-2025 Episodic Comment on above: 64-year-old female w ith a history of functional gallbladder disorder presenting with symptoms suggesting biliary colic due to confirmed cholelithiasis. The ejection fraction was notably lower than normal at 10%, consistent with gallbladder dysfunction. Cholecystectomy is indicated to alleviate symptoms and resolve potential biliary complications. Procedural risks (highlighting risk of bile duct injury) and benefits were discussed in detail with hand drawings used to illustrate relevant anatomy. Calculus of urinary tract (7 sources) Kidney stone; Translations: [Calculus of kidney] Onset: 12-07-2024 01-30-2024 Episodic Chronic obstructive pulmonary disease and bronchiectasis (12 sources) Chronic obstructive lung disease; Translations: [Chronic obstructive pulmonary disease, unspecified] Onset: 09-29-2016 09-29-2016 Chronic Coronary atherosclerosis and other heart disease (7 sources) Calcification of coronary artery; Translations: [Atherosclerotic heart disease of [place] coronary artery without angina pectoris] Onset: 03-01-2025 03-07-2024 Chronic Disorders of lipid metabolism (16 sources) Hyperlipidemia; Translations: [Hyperlipidemia, unspecified] Onset: 03-28-2013 03-28-2013 Chronic Essential hypertension (15 sources) Essential hypertension; Translations: [Essential (primary) hypertension] Onset: 12-22-2018 12-22-2018 Chronic Mood disorders (6 sources) Depressive disorder; Translations: [Depression] 01-30-2024 Chronic Osteoarthritis (20 sources) Degenerative joint disease involving multiple joints; Translations: [Polyosteoarthritis, unspecified] Onset: 12-22-2018 12-22-2018 Chronic Other gastrointestinal disorders (2 sources) Constipation; Translations: [Constipation, unspecified] 01-25-2025 Episodic Comment on above: Patient with new con stipation (as of past one month). Attributed to new meloxicam use. No bleeding noted. No OTC agents tried. No history of prior colonoscopic evaluation or Cologuard testing (this is pending). Discussed periop implications with anesthetic meds and postop analgesics. Additionally recommended reconsideration of position against colonoscopy. Other gastrointestinal disorders (1 source) Constipation, unspecified; Translations: [Constipation, unspecified] Onset: 01-26-2025 Episodic Other nutritional; endocrine; and metabolic disorders (6 sources) Body mass index 30+ - obesity; Translations: [Body mass index (BMI) 35.0-35.9, adult] Onset: 09-29-2016 12-22-2018 Chronic Other screening for suspected conditions (not mental disorders or infectious disease) (1 source) Patient encounter status; Translations: [Encounter for screening mammogram for malignant neoplasm of breast] Episodic Peripheral and visceral atherosclerosis (7 sources) Disorder of aorta; Translations: [Atherosclerosis of aorta] Onset: 03-07-2024 01-30-2024 Chronic Residual codes; unclassified (8 sources) Tobacco user; Translations: [Tobacco use] 12-21-2024 Episodic Past or Other Problems Problem Classification Problem Date Documented Da te Episodic/Chronic Genitourinary symptoms and ill-defined conditions (6 sources) Blood in urine; Translations: [Hematuria, unspecified] Onset: 07-24-2013 07-24-2013 Episodic Nonspecific chest pain (7 sources) Chest pain; Translations: [Chest pain, unspecified] Onset: 03-07-2024 01-30-2024 Episodic Results Test Name Value Interpretation Reference Range Facility MR/PATANKITon 02-26-2025 MR/PAT.[facility] Medical Records Department [address] [place] [address] PAT - Anesthesia 02/26/25 1616 MR#: [id number] Acct: [id number] Name: MYRANDA OLIVA Rep #: [id number] : 1960 64 From: Reilly Allen MD PCP: Dr. 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 When Was Last Pacemaker Check QUESTION #4 FULL TEXT: You/Your Family Experience fever (hyperthermia) with Anesthesia Last Oral Intake Last Oral intake: Last Oral Intake NPO since Meds taken in AM with sips of water? Meds patient instructed to take am of surgery PONV PONV - freight flow sales leader: PONV - freight flow sales leader Female Yes 02/25/25 08:51 HX of Motion Sickness No 02/25/25 08:51 HX of N/V After Surgery No 02/25/25 08:51 Non-Smoker No 02/25/25 08:51 Duration of Surgery greater Yes 02/25/25 08:51 than 60 minutes Number of Risk Factors 2 02/25/25 08:51 PONV Score Moderate Risk 02/25/25 08:51 Height Weight Height Weight: Anesthesia: Height Weight Height 5 ft 01/25/25 14:41 Respiratory Assessment Respiratory Assessment - freight flow sales leader: Respiratory Tract Infection Hx - freight flow sales leader Hx Respiratory Tract Infection No 02/25/25 08:51 STOP Sleep Apnea STOP Sleep Apnea - freight flow sales leader: STOP Sleep Apnea - freight flow sales leader Hx Hypertension Yes: CONTROLLED ON MED 02/25/25 08:51 Hx Sleep Apnea No 02/25/25 08:51 CPAP BIPAP Do you snore loudly (louder Yes 02/25/25 08:51 than talking or can be heard Do you often feel tired/ No 02/25/25 08:51 fatigued/ sleepy during daytime? Has anyone observed you stop No 02/25/25 08:51 breathing during sleep? STOP Results Positive 02/25/25 08:51 QUESTION #5 FULL TEXT : Do you snore loudly (louder than talking or can be heard through closed doors)? 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 History - freight flow sales leader: Tobacco Use History - freight flow sales leader Tobacco Use Smoking Status Current every day smoker 02/25/25 08:51 Hx Tobacco Use Yes 02/25/25 08:51 Years Smoking Packs Smoked per Day Smoking Cessation Date was within the last 15 years Hx Smoking Cessation Date Hx Smoking Cessation Counseling Hematologic Medial History Hematologic Hx - freight flow sales leader: Hematologic Medical Hx - gun number Hx of Blood Transfusion Yes 02/25/25 08:51 Hx of Transfusion in last 3 No 02/25/25 08:51 Months Date of Last Transfusion (if within last 3 months) Ever experience any problems No 02/25/25 08:51 with transfusion(s)? Specify any problems Hx of Preganancy in last 3 No 02/25/25 08:51 Months Nurse Filling Out Transfusion VCHRISTIN 02/25/25 08:51 Questions: Date: 02/25/25 02/25/25 08:51 Time: 08:53 02/25/25 08:51 Patient unable to answer at this time (ie. 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 History - freight flow sales leader: /Reproductive Hx- freight flow sales leader Hx Now No 02/25/25 08:51 Gestational Age (in weeks): EDC: Hx Hx Para Hx Section SAB No 02/25/25 08:51 PFS Medical History (Updated 02/25/25 @ 08:51 by Ashleigh Matrinez) Wears glasses Post-menopausal History of steroid therapy Arthritis High cholesterol Back pain Smoker Emphysema, unspecified Chronic cough History of pain when walking History of echocardiogram Hypertension Cardiology follow-up encounter Biliary dyskinesia Kidney stone COPD (chronic obstructive pulmonary disease) Osteoarthritis Hyperlipidemia Essential (primary) hypertension Depression Aortic calcification Chest pain Home Medications ???Medication ???Instructions ???Recorded ???Last Taken ???Type atorvastatin 40 mg tablet 40 mg PO QHS 01/30/24 Unknown Hist ory losartan 100 mg tablet 100 mg PO QDAY 03/07/24 Unknown Hi story bupropion HCl (smoking deter) 150 150 mg PO BID 12/21/24 Unknown Hi story mg tablet,12 hr sustained-release(smoki ng deterrent) Held on 02/25/25. Instructions: pt never started taking (more content not included)... Normal [facility] MR/PAT.[facility] Medical Records Department [address] [place] [address] PAT - Anesthesia 02/26/25 0937 MR#: [id number] Acct: [id number] Name: MYRANDA OLIVA Rep #: [id number] : 1960 64 From: Reilly Allen MD PCP: Dr. 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 When Was Last Pacemaker Check QUESTION #4 FULL TEXT: You/Your Family Experience fever (hyperthermia) with Anesthesia Last Oral Intake Last Oral intake: Last Oral Intake NPO since Meds taken in AM with sips of water? Meds patient instructed to take am of surgery PONV PONV - freight flow sales leader: PONV - freight flow sales leader Female Yes 02/25/25 08:51 HX of Motion Sickness No 02/25/25 08:51 HX of N/V After Surgery No 02/25/25 08:51 Non-Smoker No 02/25/25 08:51 Duration of Surgery greater Yes 02/25/25 08:51 than 60 minutes Number of Risk Factors 2 02/25/25 08:51 PONV Score Moderate Risk 02/25/25 08:51 Height Weight Height Weight: Anesthesia: Height Weight Height 5 ft 01/25/25 14:41 Respiratory Assessment Respiratory Assessment - freight flow sales leader: Respiratory Tract Infection Hx - freight flow sales leader Hx Respiratory Tract Infection No 02/25/25 08:51 STOP Sleep Apnea STOP Sleep Apnea - freight flow sales leader: STOP Sleep Apnea - freight flow sales leader Hx Hypertension Yes: CONTROLLED ON MED 02/25/25 08:51 Hx Sleep Apnea No 02/25/25 08:51 CPAP BIPAP Do you snore loudly (louder Yes 02/25/25 08:51 than talking or can be heard Do you often feel tired/ No 02/25/25 08:51 fatigued/ sleepy during daytime? Has anyone observed you stop No 02/25/25 08:51 breathing during sleep? STOP Results Positive 02/25/25 08:51 QUESTION #5 FULL TEXT : Do you snore loudly (louder than talking or can be heard through closed doors)? 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 History - freight flow sales leader: Tobacco Use History - freight flow sales leader Tobacco Use Smoking Status Current every day smoker 02/25/25 08:51 Hx Tobacco Use Yes 02/25/25 08:51 Years Smoking Packs Smoked per Day Smoking Cessation Date was within the last 15 years Hx Smoking Cessation Date Hx Smoking Cessation Counseling Hematologic Medial History Hematologic Hx - freight flow sales leader: Hematologic Medical Hx - gun number Hx of Blood Transfusion Yes 02/25/25 08:51 Hx of Transfusion in last 3 No 02/25/25 08:51 Months Date of Last Transfusion (if within last 3 months) Ever experience any problems No 02/25/25 08:51 with transfusion(s)? Specify any problems Hx of Preganancy in last 3 No 02/25/25 08:51 Months Nurse Filling Out Transfusion VCHRISTIN 02/25/25 08:51 Questions: Date: 02/25/25 02/25/25 08:51 Time: 08:53 02/25/25 08:51 Patient unable to answer at this time (ie. 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 History - freight flow sales leader: /Reproductive Hx- freight flow sales leader Hx Now No 02/25/25 08:51 Gestational Age (in weeks): EDC: Hx Hx Para Hx Section SAB No 02/25/25 08:51 PFSH Medical History (Updated 02/25/25 @ 08:51 by Ashleigh Martinez) Wears glasses Post-menopausal History of steroid therapy Arthritis High cholesterol Back pain Smoker Emphysema, unspecified Chronic cough History of pain when walking History of echocardiogram Hypertension Cardiology follow-up encounter Biliary dyskinesia Kidney stone COPD (chronic obstructive pulmonary disease) Osteoarthritis Hyperlipidemia Essential (primary) hypertension Depression Aortic calcification Chest pain Home Medications ???Medication ???Instructions ???Recorded ???Last Taken ???Type atorvastatin 40 mg tablet 40 mg PO QHS 01/30/24 Unknown Hist ory losartan 100 mg tablet 100 mg PO QDAY 03/07/24 Unknown Hi story bupropion HCl (smoking deter) 150 150 mg PO BID 12/21/24 Unknown Hi story mg tablet,12 hr sustained-release(smoki ng deterrent) Held on 02/25/25. Instructions: pt never started taking (more content not included)... Normal [facility] Surgery Visit Reporton 01-25 Surgery Visit Report [facility] [address] [place] [address] OFFICE VISIT Date of Service: 01/25/25 MR#: [id number] Acct: [id number] Name: MYRANDA OLIVA Rep #: [id number] : 1960 Provider: Dr. Alin peña MD Age/Sex: 64/F Location: [facility] Status: Signed Intake Vital Signs 12/21/24 10:15 01/25/25 14:41 Height 5 ft 1 in 5 ft Weight: 168 lb 6 oz 167 lb BMI 31.8 32.5 BP 104/71 Blood Pressure Location Rt brachial Position Sitting Respiration 16 Intake Visit Reasons: GALLBLADDER Chief Complaint: gallbladder Stone Carriage Operator Required: No Is patient in pain?: No Allergies shellfish derived Allergy (Severe, Verified 01/25/25 14:41) Nausea/Vom/Diarrhea Penicillins Allergy (Intermediate, Verified 01/25/25 14:41) PT UNSURE OF REACTION Medications ???Medication ???Instructions ???Recorded ???Confirmed ???Type atorvastatin 40 mg tablet 40 mg PO QHS 01/30/24 01/25/25 His tory losartan 100 mg tablet 100 mg PO QDAY 03/07/24 12/21/24 H istory bupropion HCl (smoking deter) 150 150 mg PO BID 12/21/24 01/25/25 H istory mg tablet,12 hr sustained-release(smoki ng deterrent) meloxicam 15 mg tablet 15 mg PO DAILY #30 tabs 12/21/24 0 12/21/24 Rx acetaminophen 500 mg tablet 500 mg PO Q6H PRN 01/25/25 5 History Have you fallen in the past year?: No PFS Medical History (Updated 01/25/25 @ 16:[address] Alin Swann MD) Biliary dyskinesia Kidney stone COPD (chronic obstructive pulmonary disease) Osteoarthritis Hyperlipidemia Essential (primary) hypertension Depression Aortic calcification Chest pain Surgical History (Updated 01/25/25 @ 14:43 by Lily Maradiaga) S/P tubal ligation Hx of lithotripsy Family History Father Depression Hypertension Mother Hypertension Cancer Sister Hypertension Social History (Updated 01/25/25 @ 14:44 by Lily Maradiaga) Smoking Status: Current every day smoker alcohol intake: never substance use type: former substance user and marijuana HPI HPI HPI: The patient is a 64-year-old female presenting with evaluation and management of gallbladder issues. She is referred from Dr. Andrade. Approximately three to four months ago, the patient began experiencing left flank pain she attributed to kidney stones. Patient CT imaging confirmed cholelithiasis with a significant gallstone but no kidney stones. Upon further evaluation, a HIDA scan showed a low gallbladder ejection fraction. Pain episodes have disrupted the patient's sleep, with a notable incident three weeks prior. Additionally, the patient experienced intentional weight loss due to an interest in decreasing pain from arthritis by adjusting her diet, losing 36 pounds over a year. She also reports constipation attributed to meloxicam use. She lacks prior colon screenings but is now considering colonoscopy. ROS General General: Yes weight change and fatigue; No appetite, colon cancer, breast cancer or weakness HEENT HEENT: No difficulty swallowing, eye injury, eye surgery, swollen glands or hoarseness Endo Endocrine: No thyroid disease, diabetes mellitus, thyroid cancer, Hair loss, heat intolerance or cold intolerance Skin Skin: No rash or changing moles Breast Breast: No left breast lump, right breast lump, nipple discharge, breast pain, abnormal mammogram, abnormal US or breast enlargement Musc Musculoskeletal: Yes back problems and arthritis; No rheumatoid arthritis, gout or joint pain Cardio Cardiovascular: No murmur, pacemaker, heart disease, atrial fibrillation, high blood pressure, heart attack, heart stent, palpitations, shortness of breath with exertion or chest pain Psych Psychiatric: No depression, anxiety or hearing voices Resp Respiratory: No shortness of breath, No sleep apnea, Yes cough, No COPD, No asthma, Yes emphysema and No wheezing Gastro Gastrointestinal: Yes abdominal pain, No nausea or vomiting, No diarrhea, Yes constipation, No blood in stool, No acid reflux, No hemorrhoids, No ulcers, Yes gallbladder problem and No black,tarry stools Jorge Hematologic: No blood thinners, No blood disorders, No bleeding, No anemia and No blood clots Neuro Neurologic: No system reviewed and no additional complaints, except as documented, No as per HPI, No abnormal gait, No abnormal hearing, No abnormal movements, No abnormal speech, No behavioral changes, No burning sensations, No confusion, No convulsions, No disequilibrium, No dizziness, No localized weakness, No frequent falls, No headache(s), No lack of coordination, No loss of vision, No memory loss, Yes numbness, No other visual disturbances, No radicular pain, No restless legs, No sensory deficit, No syncope, Yes tingling, No trem (more content not included)... Normal [facility] Hepatobilliary Img w/Pharm I nton 01-16-2025 Hepatobilliary Img w/Pharm Int [facility] Imaging Services [address] [place] [id number] Hepatobilliary Img w/Pharm Int MR#: [id number] Acct: [id number] Name: MYRANDA OLIVA Rep #: [id number] : 1960 F 64 From: Saleem del valle MD PCP: Dr. Flavio Andrade MD Status: [facility] CL Study: Hepatobilliary Img w/Pharm Int Date of Exam: 0 01/16/25 Exam# [id number] Ordering Dr: Flavio Andrade MD PROCEDURE: HEPATOBILLIARY IMG W/PHARM INT 01/16/2025 REASON FOR EXAM: BILIARY COLIC TECHNIQUE: Intravenous Choletec with planar imaging of the abdomen. 1.6 mcg Kinevac intravenously approximately 60 minutes after the radiopharmaceutical with additional anterior imaging and a region of interest drawn around the gallbladder to calculate a time-activity curve. RADIOPHARMACEUTICAL: Technetium labeled mebrofenin DOSE 5.7mCi COMPARISON: None FINDINGS: There is good uptake of the radiopharmaceutical by the liver. Normal gallbladder visualization with the gallbladder identified by 30 minutes. Gallbladder Ejection Fraction: 10% % (Normal is >35%) NM/Hepatobilliary Img w/Pharm Int IMPRESSION: Abnormal gallbladder ejection fraction. Reading Location: [place] [address] CC: Dr. Flavio Andrade MD Packaging Sales: Signed Normal [facility] Anion gap in Serum or Plasma Ordered By: Flavio Andrade on 12-21-2024 Anion gap [Moles/Vol] 12 mmol/L 5-15 [facility] BUN/creatinine ratioOrdered By: Flavio Andrade on 12-21-2024 Urea nitrogen/Creatinine [Mass ratio] 21.5 mg/mg High 10- [facility] Bilirubin, totalOrdered By: Flavio Andrade on 12-21-2024 Bilirubin [Mass/Vol] 0.43 mg/dL 0.00-1.30 [facility] Calculated very low density lipoprotein (VLDL) cholesterol measurementOrdered By: Flavio Andrade on 12-21-2024 Calculated very low density lipoprotein (VLDL) cholesterol measurement 33 mg/dL 5-40 [facility] Carbon dioxide, total [Moles /volume] in Central venous bloodOrdered By: Flavio Andrade on 12-21-2024 CO2 [Moles/Vol] 22.5 mmol/L 21.0-32.0 [facility] Chloride assayOrdered By: Lul Andrade on 12-21-2024 Chloride [Moles/Vol] 105 mmol/L 98-108 [facility] Comprehensive Metabolic Prof ilon 12-21-2024 Albumin [Mass/Vol] 4.1 g/dL Normal 3.4-4.8 [facility] Comment on above: Performed By: #### L 500.4050, L501.9520, L500.4100 #### [facility] [address] [place], [address] Albumin/Globulin [Mass ratio] 1.3 {ratio} Normal 0.9-2.4 [facility] Comment on above: Performed By: #### L 500.4050, L501.9520, L500.4100 #### [facility] [address] [place], [address] ALK PHOS 105 U/L High 35-104 [facility] Comment on above: Performed By: #### L 500.4050, L501.9520, L500.4100 #### [facility] [address] [place], [address] ALT [Catalytic activity/Vol] 16 U/L Normal <=34 [facility] Comment on above: Performed By: #### L 500.4050, L501.9520, L500.4100 #### [facility] [address] [place], [address] AST [Catalytic activity/Vol] 24 U/L Normal <=31 [facility] Comment on above: Result Comment: Hemo lysis present, Results??could be affected. ?? Performed By: #### L 500.4050, L501.9520, L500.4100 #### [facility] [address] [place], [address] Bilirubin [Mass/Vol] 0.43 mg/dL Normal 0.00-1.30 [facility] Comment on above: Performed By: #### L 500.4050, L501.9520, L500.4100 #### [facility] [address] [place], [address] BUN/CRE 21.5 RATIO High 10-20 [facility] Comment on above: Performed By: #### L 500.4050, L501.9520, L500.4100 #### [facility] [address] [place], [address] Calcium [Mass/Vol] 9.8 mg/dL Normal 7.6-11.0 [facility] Comment on above: Performed By: #### L 500.4050, L501.9520, L500.4100 #### [facility] [address] [place], [address] Chloride [Moles/Vol] 105 mmol/L Normal 98-108 [facility] Comment on above: Performed By: #### L 500.4050, L501.9520, L500.4100 #### [facility] [address] [place], [address] CO2 [Moles/Vol] 22.5 mmol/L Normal 21.0-32.0 [facility] Comment on above: Performed By: #### L 500.4050, L501.9520, L500.4100 #### [facility] [address] [place], [address] Creatinine [Mass/Vol] 0.78 mg/dL Normal 0.70-1.20 [facility] Comment on above: Performed By: #### L 500.4050, L501.9520, L500.4100 #### [facility] [address] [place], [address] GAP 12 Normal 5-15 [facility] Comment on above: Performed By: #### L 500.4050, L501.9520, L500.4100 #### [facility] [address] [place], [address] GFR/1.73 sq M.predicted among non-blacks MDRD (S/P/Bld) [Vol rate/Area] 85 mL/min/{1.73_m2} Normal >60 [facility] Comment on above: Result Comment: mL/m in/1.73m2 CKD-EPI Creatinine Equation (2020) Performed By: #### L 500.4050, L501.9520, L500.4100 #### [facility] [address] [place], [address] Globulin (S) [Mass/Vol] 3.1 g/dL Normal 2.2-4.2 [facility] Comment on above: Performed By: #### L 500.4050, L501.9520, L500.4100 #### [facility] [address] [place], [address] Glucose [Mass/Vol] 101 mg/dL High 70-99 [facility] Comment on above: Performed By: #### L 500.4050, L501.9520, L500.4100 #### [facility] [address] [place], [address] Potassium [Moles/Vol] 4.3 mmol/L Normal 3.3-5.1 [facility] Comment on above: Result Comment: Hemo lysis present, Results??could be affected. ?? Performed By: #### L 500.4050, L501.9520, L500.4100 #### [facility] [address] [place], [address] Sodium [Moles/Vol] 139 mmol/L Normal 133-145 [facility] Comment on above: Performed By: #### L 500.4050, L501.9520, L500.4100 #### [facility] [address] [place], [address] T PROT 7.2 g/dL Normal 5.9-8.4 [facility] Comment on above: Performed By: #### L 500.4050, L501.9520, L500.4100 #### [facility] [address] [place], [address] Urea nitrogen [Mass/Vol] 17 mg/dL Normal 4-19 [facility] Comment on above: Performed By: #### L 500.4050, L501.9520, L500.4100 #### [facility] [address] [place], [address] Glomerular filtration rate ( GFR) estimation/1.73 sq m using serum, plasma, or whole bOrdered By: Flavio Andrade on 12-21-2024 GFR/1.73 sq M.predicted among non-blacks MDRD (S/P/Bld) [Vol rate/Area] 85 mL/min/{1.73_m2} >60 [facility] Comment on above: mL/min/1.73m2 CKD-EP I Creatinine Equation (2020) LDL calc ser/plasOrdered By: Flavio nAdrade on 12-21-2024 Cholesterol in LDL [Mass/Vol] 102 mg/dL [facility] Comment on above: Sdnlcdtcov=822-270 m g/dL & Higher Bqnj=867 mg/dL or greater Laboratory - Chemistry and C hemistry - challengeOrdered By: Flavio Andrade on 12-21-2024 AST [Catalytic activity/Vol] 24 U/L <32 [facility] Comment on above: Hemolysis present, R esults could be affected. Lipid Profileon 12-21-2024 CHOL:HDL 3.00 Normal [facility] Comment on above: Performed By: #### L 500.4050, L501.9520, L500.4100 ####[facility] [address] [place], [address] Cholesterol [Mass/Vol] 202 mg/dL High <=200 [facility] Comment on above: Result Comment: Chol esterol level, Desirable <200 mg/dL Borderline high cholesterol 200-239 mg/dL High cholesterol >=240 mg/dL Recommendations of the NCEP Adult Treatment Panel for the following risk-cutoff thresholds for the [place] population. Performed By: #### L 500.4050, L501.9520, L500.4100 ####[facility] [address] [place], [address] Cholesterol in HDL [Mass/Vol] 67 mg/dL Normal [facility] Comment on above: Result Comment: Janay onal Cholesterol Education Program (NCEP) guidelines: <40 mg/dL: Low HDL-cholesterol (major risk factor for CHD) >= 60 mg/dL: High HDL-cholesterol (negative risk factor for CHD) HDL-cholesterol is affected by a number of factors, e.g. smoking, exercise, hormones, sex and age. Performed By: #### L 500.4050, L501.9520, L500.4100 ####[facility] [address] [place], [address] Cholesterol in LDL [Mass/Vol] 102 mg/dL Normal [facility] Comment on above: Result Comment: Bord plstlh=251-955 mg/dL Higher Jfsn=886 mg/dL or greater Performed By: #### L 500.4050, L501.9520, L500.4100 ####[facility] [address] [place], [address] Cholesterol in VLDL [Mass/Vol] 33 mg/dL Normal 5-40 [facility] Comment on above: Performed By: #### L 500.4050, L501.9520, L500.4100 ####[facility] [address] [place], [address] Triglyceride [Mass/Vol] 165 mg/dL Normal [facility] Comment on above: Result Comment: The drugs N-Acetylcysteine and Metamizole may falsely depress this assay. Normal range: <150 mg/dL Borderline High: 150-199 mg/dL High: 200-499 mg/dL Very High: >500 mg/dL Performed By: #### L 500.4050, L501.9520, L500.4100 ####[facility] [address] [place], [address] Orthopedic Visit Reporton Orthopedic Visit Report [facility] [address] [place] [address] [address] [place], [place] [address] OFFICE VISIT Date of Service: 12/21/24 MR#: [id number] Acct: [id number] Name: MYRANDA OLIVA Rep #: [id number] : 1960 Provider: Dr. Jorge Torres so, DO Age/Sex: 64/F Location: [facility] Status: Signed Intake Vital Signs 03/07/24 11:35 [...] sterile condit (more content not included)... Normal [facility] Potassium measurement (mass/ volume)Ordered By: Flavio Andrade on 12-21-2024 Potassium (Unsp spec) [Mass/Vol] 4.3 mmol/L 3.3-5.1 [facility] Comment on above: Hemolysis present, R esults could be affected. Screening total cholesterol/ high density lipoprotein (HDL) cholesterol ratioOrdered By: Flavio Andrade on 12-21-2024 Cholesterol.total/Savanah sterol in HDL [Mass ratio] 3.00 {ratio} [facility] Serum creatinine measurement (mass/volume)Ordered By: Flavio Andrade on 12-21-2024 Creatinine [Mass/Vol] 0.78 mg/dL 0.70-1.20 [facility] Serum globulin measurementOr dered By: Flavio Andrade on 12-21-2024 Globulin (S) [Mass/Vol] 3.1 g/dL 2.2-4.2 [facility] Serum glucose measurement (m ass/volume)Ordered By: Flavio Andrade on 12-21-2024 Glucose [Mass/Vol] 101 mg/dL High 70-99 [facility] Serum or plasma alanine gibbons otransferase (ALT) measurementOrdered By: Flavio Andrade 12-21-2024 ALT [Catalytic activity/Vol] 16 U/L <35 [facility] Serum or plasma albumin greyson urement (mass/volume)Ordered By: Flavio Andrade 12-21-2024 Albumin [Mass/Vol] 4.1 g/dL 3.4-4.8 [facility] Serum or plasma albumin/glob ulin mass ratioOrdered By: Flavio Andrade 12-21-2024 Albumin/Globulin [Mass ratio] 1.3 {ratio} 0.9-2.4 [facility] Serum or plasma alkaline juancarlos sphatase measurementOrdered By: Flavio Andrade 12-21-2024 ALP [Catalytic activity/Vol] 105 U/L High 35-104 [facility] Serum or plasma calcium greyson urement (mass/volume)Ordered By: Flavio Andrade 12-21-2024 Calcium [Mass/Vol] 9.8 mg/dL 7.6-11.0 [facility] Serum or plasma cholesterol in HDL measurement (mass/volume)Ordered By: Flavio Andrade on 12-21-2024 Cholesterol in HDL [Mass/Vol] 67 mg/dL >40 [facility] Comment on above: National Cholesterol Education Program (NCEP) guidelines:<40 mg/dL: Low HDL-cholesterol (major risk factor for CHD)>= 60 mg/dL: High HDL-cholesterol (negative risk factor for CHD)HDL-cholesterol is affected by a number of factors, e.g. smoking, exercise, hormones, sex and age. Serum or plasma cholesterol measurement (mass/volume)Ordered By: Flavio Andrade on 12-21-2024 Cholesterol [Mass/Vol] 202 mg/dL High <201 [facility] Comment on above: Cholesterol level, D esirable <200 mg/dLBorderline high cholesterol 200-239 mg/dLHigh cholesterol >=240 mg/dLRecommendations of the NCEP Adult Treatment Panel for the following risk-cutoff thresholds for the [place] population. Serum or plasma urea nitroge n measurement (mass/volume)Ordered By: Flavio Andrade on 12-21-2024 Urea nitrogen [Mass/Vol] 17 mg/dL 4-19 [facility] Sodium levelOrdered By: Flavio Andrade 12-21-2024 Sodium [Moles/Vol] 139 mmol/L 133-145 [facility] TSH DL <= 0.005 mIU/L QnOrde red By: Flavio Andrade on 12-21-2024 TSH Qn 1.600 uIU/mL 0.300-4.200 [facility] Thyroid Stim Hormone (TSH)on 12-21-2024 TSH 1.600 uIU/mL Normal 0.300-4.200 [facility] Comment on above: Performed By: #### L 500.4050, L501.9520, L500.4100 ####[facility] [address] [place], [place], [id number] Total proteinOrdered By: Flavio Andrade on 12-21-2024 Protein [Mass/Vol] 7.2 g/dL 5.9-8.4 [facility] Triglycerides measurementOrd ered By: Flavio Andrade 12-21-2024 Triglyceride [Mass/Vol] 165 mg/dL <199 [facility] Comment on above: The drugs N-Acetylcy steine and Metamizole may falsely depress this assay. Normal range: <150 mg/dLBorderline High: 150-199 mg/dLHigh: 200-499 mg/dLVery High: >500 mg/dL Absolute lymphocyte countOrd ered By: Flavio Andrade on 12-19-2024 Lymphocytes Auto (Unsp spec) [#/Vol] 3.79 10*3/uL 0.83-4.51 [facility] Absolute neutrophil countOrd ered By: Flavio Andrade on 12-19-2024 Neutrophils (Bld) [#/Vol] 8.4 10*3/uL High 2.0-7.7 [facility] Automated lymphocyte count a s percentage of total leukocytesOrdered By: Flavio Andrade on 12-19-2024 Lymphocytes/100 WBC Auto (Unsp spec) 28.5 % 19-41 [facility] Basophil percentageOrdered B y: Flavio Andrade on 12-19-2024 Basophils/100 WBC (Bld) 1.0 % 0-1 [facility] CBC W/Diff, Automatedon 12-02 Absolute Lymph 3.79 X10 3/uL Normal 0.83-4.51 [facility] Comment on above: Performed By: #### L 501.9520, L100.0100, L500.4100, L500.4050 #### [facility] [address] [place], [address] Absolute Neut 8.4 X10 3/uL High 2.0-7.7 [facility] Comment on above: Performed By: #### L 501.9520, L100.0100, L500.4100, L500.4050 #### [facility] [address] [place], [address] Basophils/100 WBC (Bld) 1.0 % Normal 0-1 [facility] Comment on above: Performed By: #### L 501.9520, L100.0100, L500.4100, L500.4050 #### [facility] [address] [place], [address] Eosinophils/100 WBC (Bld) 0.8 % Normal 0-5 [facility] Comment on above: Performed By: #### L 501.9520, L100.0100, L500.4100, L500.4050 #### [facility] [address] [place], [address] Erythrocyte distribution width (RBC) [Ratio] 13.5 % Normal 11.6-14.6 [facility] Comment on above: Performed By: #### L 501.9520, L100.0100, L500.4100, L500.4050 #### [facility] [address] [place], [address] Hematocrit (Bld) [Volume fraction] 45.0 % Normal 37-47 [facility] Comment on above: Performed By: #### L 501.9520, L100.0100, L500.4100, L500.4050 #### [facility] [address] [place], [address] Hemoglobin (Bld) [Mass/Vol] 15.0 g/dL Normal 12.0-15.0 [facility] Comment on above: Performed By: #### L 501.9520, L100.0100, L500.4100, L500.4050 #### [facility] [address] [place], [address] IG% 0.600 Normal 0.0-0.9 [facility] Comment on above: Result Comment: IG% - Immature Granulocytes (promyelocytes, myelocytes and metamyelocytes) > 1% indicates that a LEFT SHIFT is Present. Performed By: #### L 501.9520, L100.0100, L500.4100, L500.4050 #### [facility] [address] [place], [address] Lymphocytes/100 WBC (Bld) 28.5 % Normal 19-41 [facility] Comment on above: Performed By: #### L 501.9520, L100.0100, L500.4100, L500.4050 #### [facility] [address] [place], [address] MCH (RBC) [Entitic mass] 31.4 pg Normal 27.0-32.0 [facility] Comment on above: Performed By: #### L 501.9520, L100.0100, L500.4100, L500.4050 #### [facility] [address] [place], [address] MCHC (RBC) [Mass/Vol] 33.3 g/dL Normal 32-36 [facility] Comment on above: Performed By: #### L 501.9520, L100.0100, L500.4100, L500.4050 #### [facility] [address] [place], [address] MCV (RBC) [Entitic vol] 94.1 fL Normal 81-99 [facility] Comment on above: Performed By: #### L 501.9520, L100.0100, L500.4100, L500.4050 #### [facility] [address] [place], [address] Monocytes/100 WBC (Bld) 6.2 % Normal 0-10 [facility] Comment on above: Performed By: #### L 501.9520, L100.0100, L500.4100, L500.4050 #### [facility] [address] [place], [address] Neutrophils/100 WBC (Bld) 62.9 % Normal 47-70 [facility] Comment on above: Performed By: #### L 501.9520, L100.0100, L500.4100, L500.4050 #### [facility] [address] [place], [address] Nucleated RBC (Bld) [#/Vol] 0 10*3/uL Normal 0-5 [facility] Comment on above: Performed By: #### L 501.9520, L100.0100, L500.4100, L500.4050 #### [facility] [address] [place], [address] Platelet mean volume (Bld) [Entitic vol] 8.8 fL Normal 6.2-12.0 [facility] Comment on above: Performed By: #### L 501.9520, L100.0100, L500.4100, L500.4050 #### [facility] [address] [place], [address] Platelets (Bld) [#/Vol] 349 10*3/uL Normal 150-450 [facility] Comment on above: Performed By: #### L 501.9520, L100.0100, L500.4100, L500.4050 #### [facility] [address] [place], [address] RBC (Bld) [#/Vol] 4.78 10*6/uL Normal 4.2-5.4 [facility] Comment on above: Performed By: #### L 501.9520, L100.0100, L500.4100, L500.4050 #### [facility] [address] [place], [address] RDW SD 46.7 fl High 35.1-43.9 [facility] Comment on above: Performed By: #### L 501.9520, L100.0100, L500.4100, L500.4050 #### [facility] [address] [place], [address] WBC (Bld) [#/Vol] 13.3 10*3/uL High 4.4-11.0 [facility] Comment on above: Performed By: #### L 501.9520, L100.0100, L500.4100, L500.4050 #### [facility] [address] [place], [address] Comprehensive Metabolic Prof ilnorman 12-19-2024 ALB Normal 3.4-4.8 [facility] Comment on above: Result Comment: HEMO LYZED Performed By: #### L 501.9520, L100.0100, L500.4100, L500.4050 #### [facility] [address] [place], [address] ALK PHOS Normal 35-104 [facility] Comment on above: Result Comment: HEMO LYZED Performed By: #### L 501.9520, L100.0100, L500.4100, L500.4050 #### [facility] [address] [place], [address] ALT Normal <=34 [facility] Comment on above: Result Comment: HEMO LYZED Performed By: #### L 501.9520, L100.0100, L500.4100, L500.4050 #### [facility] [address] [place], [address] AST Normal <=31 [facility] Comment on above: Result Comment: HEMO LYZED Performed By: #### L 501.9520, L100.0100, L500.4100, L500.4050 #### [facility] [address] [place], [address] BUN Normal 4-19 [facility] Comment on above: Result Comment: HEMO LYZED Performed By: #### L 501.9520, L100.0100, L500.4100, L500.4050 #### [facility] [address] [place], [address] BUN/CRE Normal 10-20 [facility] Comment on above: Result Comment: HEMO LYZED Performed By: #### L 501.9520, L100.0100, L500.4100, L500.4050 #### [facility] [address] [place], [address] Calcium Normal 7.6-11.0 [facility] Comment on above: Result Comment: HEMO LYZED Performed By: #### L 501.9520, L100.0100, L500.4100, L500.4050 #### [facility] [address] [place], [address] CL Normal 98-108 [facility] Comment on above: Result Comment: HEMO LYZED Performed By: #### L 501.9520, L100.0100, L500.4100, L500.4050 #### [facility] [address] [place], [address] CO2 Normal 21.0-32.0 [facility] Comment on above: Result Comment: HEMO LYZED Performed By: #### L 501.9520, L100.0100, L500.4100, L500.4050 #### [facility] [address] [place], [address] CREAT,SERUM Normal 0.70-1.20 [facility] Comment on above: Result Comment: HEMO LYZED Performed By: #### L 501.9520, L100.0100, L500.4100, L500.4050 #### [facility] [address] [place], [address] eGFR Normal >60 [facility] Comment on above: Result Comment: HEMO LYZED Performed By: #### L 501.9520, L100.0100, L500.4100, L500.4050 #### [facility] [address] [place], [address] GAP Normal 5-15 [facility] Comment on above: Result Comment: HEMO LYZED Performed By: #### L 501.9520, L100.0100, L500.4100, L500.4050 #### [facility] [address] [place], [address] GLU Normal 70-99 [facility] Comment on above: Result Comment: HEMO LYZED Performed By: #### L 501.9520, L100.0100, L500.4100, L500.4050 #### [facility] [address] [place], [address] Potassium Normal 3.3-5.1 [facility] Comment on above: Result Comment: HEMO LYZED Performed By: #### L 501.9520, L100.0100, L500.4100, L500.4050 #### [facility] [address] [place], [address] T BILI Normal 0.00-1.30 [facility] Comment on above: Result Comment: HEMO LYZED Performed By: #### L 501.9520, L100.0100, L500.4100, L500.4050 #### [facility] [address] [place], [address] T PROT Normal 5.9-8.4 [facility] Comment on above: Result Comment: HEMO LYZED Performed By: #### L 501.9520, L100.0100, L500.4100, L500.4050 #### [facility] [address] [place], [address] Comprehensive Metabolic Profil Normal 133-145 [facility] Comment on above: Result Comment: HEMO LYZED Performed By: #### L 501.9520, L100.0100, L500.4100, L500.4050 #### [facility] [address] [place], [address] Eosinophil percentageOrdered By: Flavio Andrade on 12-19-2024 Eosinophils/100 WBC (Bld) 0.8 % 0-5 [facility] Erythrocyte distribution wid th ratioOrdered By: [facility] on 12-19-2024 Erythrocyte distribution width (RBC) [Ratio] 13.5 % 11.6-14.6 [facility] Erythrocyte distribution wid th standard deviationOrdered By: [facility] on 12-19-2024 Erythrocyte distribution width (RBC) [Ratio] 46.7 fl High 35.1-43.9 [facility] Hematocrit Auto (Bld) [Volum e fraction]Ordered By: [facility] on 12-19-2024 Hematocrit (Bld) [Volume fraction] 45.0 % 37-47 [facility] Hemoglobin measurementOrdere d By: [facility] on 12-19-2024 Hemoglobin (Bld) [Mass/Vol] 15.0 g/dL 12.0-15.0 [facility] Immature granulocytes/100 WB C Auto (Bld)Ordered By: [facility] on 12-19-2024 Immature granulocytes/100 WBC (Bld) 0.600 % 0.0-0.9 [facility] Comment on above: IG% - Immature Granu locytes (promyelocytes, myelocytes and metamyelocytes) > 1% indicates that a LEFT SHIFT is Present. Lipid Profileon 12-19-2024 CHOL:HDL 2.93 Normal [facility] Comment on above: Result Comment: HEMO LYZED Performed By: #### L 501.9520, L100.0100, L500.4100, L500.4050 #### [facility] [address] [place], [place], [address] Cholesterol [Mass/Vol] 197 mg/dL Normal <=200 [facility] Comment on above: Result Comment: HEMO LYZED Cholesterol level, Desirable <200 mg/dL Borderline high cholesterol 200-239 mg/dL High cholesterol >=240 mg/dL Recommendations of the NCEP Adult Treatment Panel for the following risk-cutoff thresholds for the [place] population. Performed By: #### L 501.9520, L100.0100, L500.4100, L500.4050 #### [facility] [address] [place], [address] Cholesterol in HDL [Mass/Vol] 67 mg/dL Normal [facility] Comment on above: Result Comment: HEMO LYZED National Cholesterol Education Program (NCEP) guidelines: <40 mg/dL: Low HDL-cholesterol (major risk factor for CHD) >= 60 mg/dL: High HDL-cholesterol (negative risk factor for CHD) HDL-cholesterol is affected by a number of factors, e.g. smoking, exercise, hormones, sex and age. Performed By: #### L 501.9520, L100.0100, L500.4100, L500.4050 #### [facility] [address] [place], [address] Cholesterol in LDL [Mass/Vol] 76 mg/dL Normal [facility] Comment on above: Result Comment: HEMO LYZED Xznkhsenbr=595-990 mg/dL Higher Kqty=915 mg/dL or greater Performed By: #### L 501.9520, L100.0100, L500.4100, L500.4050 #### [facility] [address] [place], [address] Cholesterol in VLDL [Mass/Vol] 54 mg/dL High 5-40 [facility] Comment on above: Result Comment: HEMO LYZED Performed By: #### L 501.9520, L100.0100, L500.4100, L500.4050 #### [facility] [address] [place], [address] Triglyceride [Mass/Vol] 271 mg/dL High [facility] Comment on above: Result Comment: HEMO LYZED The drugs N-Acetylcysteine and Metamizole may falsely depress this assay. Normal range: <150 mg/dL Borderline High: 150-199 mg/dL High: 200-499 mg/dL Very High: >500 mg/dL Performed By: #### L 501.9520, L100.0100, L500.4100, L500.4050 #### [facility] [address] [place], [address] MCV (mean corpuscular volume ) determinationOrdered By: Flavio Andrade on 12-19-2024 MCV (RBC) [Entitic vol] 94.1 fL 81-99 [facility] Mean corpuscular hemoglobin (MCH) determinationOrdered By: Flavoi Andrade on 12-19-2024 MCH (RBC) [Entitic mass] 31.4 pg 27.0-32.0 [facility] Mean corpuscular hemoglobin concentration (MCHC) determinationOrdered By: Flavio Andrade on 12-19-2024 MCHC (RBC) [Mass/Vol] 33.3 g/dL 32-36 [facility] Mean platelet volume determi nationOrdered By: Flavio Andrade on 12-19-2024 Platelet mean volume (Bld) [Entitic vol] 8.8 fL 6.2-12.0 [facility] Monocyte percentageOrdered B y: Flavio Andrade on 12-19-2024 Monocytes/100 WBC (Bld) 6.2 % 0-10 [facility] Neutrophil percentageOrdered By: Flavio Andrade on 12-19-2024 Neutrophils/100 WBC (Bld) 62.9 % 47-70 [facility] Nucleated red blood cell per centageOrdered By: Flavio Andrade on 12-19-2024 Nucleated RBC/100 WBC (Bld) [Ratio] 0 % 0-5 [facility] Platelet countOrdered By: Lul Andrade on 12-19-2024 Platelets (Bld) [#/Vol] 349 10*3/uL 150-450 [facility] RBC Auto (Bld) [#/Vol]Ordere d By: Flavio Andrade on 12-19-2024 RBC (Bld) [#/Vol] 4.78 10*6/uL 4.2-5.4 [facility] Thyroid Stim Hormone (TSH)on 12-19-2024 TSH 1.940 uIU/mL Normal 0.300-4.200 [facility] Comment on above: Order Comment: HEMOL YZED Result Comment: HEMO LYZED Performed By: #### L 501.9520, L100.0100, L500.4100, L500.4050 #### [facility] Laboratory [address] [place], [place], [address] White blood cell (WBC) count Ordered By: Flavio Andrade on 12-19-2024 WBC (Bld) [#/Vol] 13.3 10*3/uL High 4.4-11.0 [facility] Abdomen/Pelvis without Conto n 12-04-2024 Abdomen/Pelvis without Cont [facility] Imaging Services [address] [place] [address] Abdomen/Pelvis without Cont MR#: [id number] Acct: [id number] Name: MYRANDA OLIVA Rep #: [id number] : 1960 F 64 From: Carlton Pleitez MD PCP: Dr. Flavio Andrade MD Status: REG CLI Study: Abdomen/Pelvis without Cont Date of Exam: 09/25 Exam# [id number] Ordering Dr: Flavio Andrade MD PROCEDURE: CT [...] 3. Hepatic and renal cysts. Reading Location: [id number] CC: Dr. Flavio Andrade MD Packaging Sales: Signed Normal [facility] Knee 3 Viewson 12-04-2024 Knee 3 Views [facility] Imaging Services [address] [place] [id number] Knee 3 Views MR#: [id number] Acct: [id number] Name: MYRANDA OLIVA Rep #: [id number] : 1960 F 64 From: Boo Escamilla MD PCP: Dr. Flavio Andrade MD Status: [facility] CL Study: Knee 3 Views Date of Exam: 12/04/24 Exam# [id number] Ordering Dr: Flavio Andrade MD PROCEDURE: KNEE [...] Severe osteoarthritis of both knees. Reading Location: [id number] CC: Dr. Flavio Andrade MD Packaging Sales: Signed Normal [facility] Knee 3 Views [facility] Imaging Services [address] [place] [address] Knee 3 Views MR#: [id number] Acct: [id number] Name: MYRANDA OLIVA Rep #: [id number] : 1960 F 64 From: Boo Escamilla MD PCP: Dr. Flavio Andrade MD Status: REG CLI Study: Knee 3 Views Date of Exam: 12/04/24 Exam# [id number] Ordering Dr: Flavio Andrade MD PROCEDURE: KNEE [...] [facility] CC: Dr. Flavio Andrade MD Packaging Sales: Signed Normal [facility] Echo Complete W/ Contraston 03-26-2024 Echo Complete W/ Contrast [facility] Cardiovascular Services [address] [place] [address] Echo Complete W/ Contrast 03/26/24 0953 MR#: [id number] Acct: [id number] Name: MYRANDA OLIVA Rep #: [id number] : 1960 63 From: Arie Chakraborty MD Attending Dr: Dr. Arie Chakraborty MD Status: REG C LI Ordering Dr: Arie Chakraborty MD Date: 03/26/24 Location: [facility] Sex: F C Admitted: Reason For Study: [...] MD Date Dictated: 03/26/24952 Date Transcribed: 03/26/241424 Packaging Sales: Signed [place] 12 Lead EKG performed by [facility] on 03-07-2024 12 Lead EKG performed by [facility] [address] [place] [address] 12 Lead EKG performed by [facility] 03/07/241125 MR#: [id number] Acct: [id number] Name: MYRANDA OLIVA Rep #: [id number] : 1960 63 From: Arie Chakraborty MD Attending Dr: Dr. Arie Chakraborty MD Status: DEP A MB Ordering Dr: Arie Chakraborty MD Date: 03/07/24 Location: [facility] Sex: F C Admitted: BMS/12 Lead EKG performed by [facility] ECG Report Interpretation ---Sinus Rhythm -Left atrial enlargement. - Nonspecific T-abnormality. ABNORMAL Electronically signed on 03/11/2024 at 19:23 by Arie Chakraborty [employer] Version 8610 03/11/241926 Date Arie Chakraborty MD CC: Dr. Flavio Andrade MD Date Dictated: 03/07/241125 Date Transcribed: 03/07/241125 Packaging Sales: [place] Signed Normal [facility] Cardiology Visit Reporton Cardiology Visit Report [facility] [address] [place] [address] OFFICE VISIT Date of Service: 03/07/24 MR#: [id number] Acct: [id number] Name: MYRANDA OLIVA Rep #: [id number] : 1960 Provider: Dr. Arie Chakraborty MD Age/Sex: 63/F Location: [facility] Status: Signed with Addenda ADDENDUM by [...] 03/07/24 I25.10 - Atherosclerotic heart disease of [place] coronary artery without angina pectoris Plan Details Follow Up: 1 Year (mmm) 03/23/24 1345 Date Alisha Fung NP LINUX ADMIN ENGINEER-C cc: Dr. 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 [facility] Office Visit (FPWADS ) MYRANDA OLIVA ([id number]) 1960 F Date Time Provider Department 05/04/21 [...] this documentat (more content not included)... Normal [facility] Basic Metabolic Panlon 04-30 Anion gap [Moles/Vol] 11 mmol/L Normal 9-18 [facility] Calcium [Mass/Vol] 9.8 mg/dL Normal 8.5-10.2 [facility] Chloride [Moles/Vol] 105 mmol/L Normal 97-105 [facility] CO2 [Moles/Vol] 22 mmol/L Normal 22-30 [facility] Creatinine [Mass/Vol] 0.79 mg/dL Normal 0.58-0.96 [facility] eGFR- Amer. >60 Normal [facility] eGFR-All Other Races >60 Normal [facility] Comment on above: Result Comment: eGFR [...] GFR. Glucose [Mass/Vol] 109 mg/dL High 74-99 [facility] Comment on above: Result Comment: The [place] Diabetes Association (ADA) provides guidance for cutoff [...] Standards of Medical Care in Diabetes 2016, [place] Diabetes Association. Diabetes Care. 2016.39(Suppl 1). Potassium [Moles/Vol] 3.7 mmol/L Normal 3.7-5.1 [facility] Sodium [Moles/Vol] 138 mmol/L Normal 136-144 [facility] Urea nitrogen [Mass/Vol] 17 mg/dL Normal 7-21 [facility] Hemoglobin A1con 04-30-2021 Glucose [Mass/Vol] 120 mg/dL Normal [facility] Comment on above: Result Comment: eAG: (Estimated average glucose) is a calculated value from HgbA1c and is factory representative of the average blood glucose level in the last 2-3 month period. Performed By: #### H BA1C, LIPB #### [facility] [address] [place], [place] [address] HbA1c (Bld) [Mass fraction] 5.8 % High 4.3-5.6 [facility] Comment on above: Result Comment: Amer ican Diabetes Association guidelines indicate that patients with HgbA1c in the range 5.7-6.4% are at increased risk for development of diabetes, and intervention by lifestyle modification may be beneficial. HgbA1c greater or equal to 6.5% is considered diagnostic of diabetes. Performed By: #### H BA1C, LIPB #### [facility] [address] [place], [place] [address] [facility]21 Cholesterol [Mass/Vol] 232 mg/dL High <200 [facility] Comment on above: Result Comment: <200 mg/dL, Desirable 200-239 mg/dL, Borderline high >239 mg/dL, High Performed By: #### H BA1C, LIPB #### [facility] [address] [place], [place] [address] Cholesterol in HDL [Mass/Vol] 50 mg/dL Normal >39 [facility] Comment on above: Result Comment: 40-5 9 mg/dL, Acceptable >59 mg/dL, High: Negative risk factor for coronary heart disease <40 mg/dL, Low: Positive risk factor for coronary heart disease Performed By: #### H BA1C, LIPB #### [place] [address] [place], [place] [address] Cholesterol in LDL [Mass/Vol] 138 mg/dL High <100 [facility] Comment on above: Result Comment: <100 mg/dL, Optimal 100-129 mg/dL, Near optimal/above optimal 130-159 mg/dL, Borderline high 160-189 mg/dL, High >189 mg/dL, Very high Secondary prevention optimal LDL Cholesterol levels are recommended to be < 70 mg/dL Performed By: #### Amanda BA1C, LIPB #### [facility] [address] [place], [place] [id number] Fasting Time 10 hrs Normal [facility] Comment on above: Performed By: #### Amanda BA1C, LIPB #### [facility] [address] [place], [place] [address] LDL:HDL Ratio 2.76 High <2.54 [facility] Comment on above: Result Comment: Elisabeth guardado: 1. National Cholesterol Education Program ATP III Guideline At-A-Glance Quick Desk Reference: National Heart, Lung, and Blood [place]. National Institutes of Health. 2001: NIH Publication No. 01-3305. 2. An International Atherosclerosis Society position paper: global recommendations for the management of dyslipidemia: executive summary, Atherosclerosis. 2014: 232(2):410-413. Performed By: #### Amanda RILEY, LIPB #### [place] [address] [place] [address] Non HDL Cholesterol 182 mg/dL High <130 [facility] Comment on above: Result Comment: <130 mg/dL, Optimal 130-159 mg/dL, Near optimal/above optimal 160-189 mg/dL, Borderline high 190-219 mg/dL, High >219 mg/dL, Very high Secondary prevention optimal non HDL Cholesterol levels are recommended to be < 100 mg/dL Performed By: #### Amanda RILEY, LIPB #### [place] [address] [place] [address] TC:HDL Ratio 4.64 Normal <5.10 [facility] Comment on above: Performed By: #### Amanda RILEY, LIPB #### [place] [address] [place] [address] Triglyceride [Mass/Vol] 219 mg/dL High <150 [facility] Comment on above: Result Comment: <150 mg/dL, Normal 150-199 mg/dL, Borderline high 200-499 mg/dL, High >499 mg/dL, Very high Performed By: #### Amanda RILEY, LIPB #### [place] [address] [place] [address] VLDL Cholesterol 44 mg/dL High <30 [facility] Comment on above: Performed By: #### Amanda RILEY, LIPB #### [place] [address] [place] [address] OBSOLETEon 04-22-2021 OBSOLETE Refill (FPWADS) MYRANDA OLIVA ([id number]) 1960 F Date Time Provider Department 04/22/21 [...] Status:Closed by SERGEI JURADO MA on 04/24/21 [facility] OBSOLETEon 04-21-2021 OBSOLETE Refill (FPWADS) MYRANDA OLIVA ([id number]) 1960 F Date Time Provider Department 04/21/21 [...] GI Upset Date Reviewed: 06/12/2020 Reviewed by: Stehpany Rodriguez Ma - Fully Assessed Reason for [...] Status:Closed by STEPHANY RODRIGUEZ MA on 04/23/21 [facility] OBSOLETEon 03-24-2021 OBSOLETE Refill (FPWADS) MYRANDA OLIVA ([id number]) 1960 F Date Time Provider Department 03/24/21 CRISTINA CALLAHAN RAMIREZ During your visit today, we recorded the following information about you: Reina Bustamante MA 03/24/2021 7:24 AM Signed Pharmacy verified in [place]. Patient has been identified by name and [...] BP: 06/12/2020 135/74 Please advise. DANIEL Urban, GREASER HELPER.LAPPING MACHINE SET UP OPERATOR 03/24/2021 10:29 AM Signed Over due for appointment. Was to have 6 month follow up around December. Refill 30 days. Tahmina Oliva 03/24/2021 12:[address] attempt:MALI Luong 03/27/2021 9:56 AM Signed Spoke to patient [...] Encounter Status:Closed by DU JOHNSON on 03/27/21 [facility] PROGRESSon 03-27-2020 PROGRESS HNO ID: [id number] Author: Octavia Quintero) ARNEL Mendez Service: Radiology Author Type: Clinical Financial Institution President Type: Progress Notes Filed: 03/27/2020 10:43 AM [...] ARNEL GANDHI March 27, 2020 10:43 AM [facility] XR KNEE 3V AP/LAT/MERCHANT R Ton [...] well. IMPRESSION: Osteoarthrosis and small joint effusion Packaging Sales: AMBROSIO Transcribe Date/Time: Mar 27 2020 10:44A Dictated by : MYNOR CARBAJAL MD This examination was interpreted and the report reviewed and electronically signed by: MYNOR CARBAJAL MD on Mar 27 2020 10:51AM EST [id number] [facility] Vital Signs Date Time Vital Sign Value Performing Clinician Natan heath 01-25-2025 14:41-0400 Body height 152.[address] Flavio Andrade MD Work Phone: [facility] 01-25-2025 14:41-0400 Body mass index (BMI) [Ratio] 32.5 kg/m2 Dr. Flavio Andrade MD Work Phone: [facility] 01-25-2025 14:41-0400 Body weight 75.[address] Flavio Andrade MD Work Phone: [facility] 01-25-2025 14:41-0400 Diastolic blood pressure 71 mm[Hg] Dr. Flavio Andrade MD Work Phone: [facility] 01-25-2025 14:41-0400 Respiratory rate 16 /min Dr. Flavio Andrade MD Work Phone: [facility] 01-25-2025 14:41-0400 Systolic blood pressure 104 mm[Hg] Dr. Flavio Andrade MD Work Phone: [facility] 12-21-2024 10:15-0400 Body height 154.[address] Flavio Andrade MD Work Phone: [facility] 12-21-2024 10:15-0400 Body mass index (BMI) [Ratio] 31.8 kg/m2 Dr. Flavio Andrade MD Work Phone: [facility] 12-21-2024 10:15-0400 Body weight 76.[address] Flavio Andrade MD Work Phone: [facility] Encounters Encounter Date Encounter Type Care Provider Facility Start: 03-11-2025 ambulatory [facility] Facility:[facility] Start: 03-05-2025 ambulatory [facility] Facility:[facility] Start: 01-25-2025 End: 01-25-[address] Alin Swann MD -[facility] Work Phone: Start: 01-25-2025 End: 01-25-[address] Flavio Andrade MD Work Phone: [facility] Start: 01-16-2025 End: 01-16-[address] Flavio Andrade MD Work Phone: -[facility] Start: 01-16-2025 End: 01-16-[address] Flavio Andrade MD -Nuclear Medicine [facility] Work Phone: Start: 01-16-2025 End: 01-16-2025 [facility] Start: 12-21-2024 End: 12-21-[address] Jorge Fiarchild DO -[facility] Work Phone: Start: 12-21-2024 End: 12-21-[address] Flavio Andrade MD Work Phone: [facility] Work Phone: Start: 12-21-2024 End: 12-21-2024 ambulatory Flavio Chi Raymond Facility:[facility] Start: 12-19-2024 End: 12-19-[address] Flavio Andrade MD Work Phone: [facility] Work Phone: Start: 12-19-2024 End: 12-19-[address] Flavio Andrade MD -Laboratory Work Phone: Start: 12-19-2024 End: 12-19-2024 ambulatory Flavio [facility] Raymond Facility:[facility] Start: 12-04-2024 End: 12-04-[address] Flavio Andrade MD Work Phone: [facility] Work Phone: Start: 12-04-2024 End: 12-04-[address] Flavio Andrade MD -Cat Scan [facility] Work Phone: Start: 12-04-2024 End: 12-04-2024 ambulatory Flavio Chi Raymond Facility:[facility] Start: 03-26-2024 ambulatory Flavio Chi Raymond Facility:[facility] Start: 03-26-2024 End: 03-26-2024 ambulatory Redby Mylene Facility:[facility] Start: 03-07-2024 End: 03-07-2024 ambulatory Flavio [facility] Raymond Facility:[facility] Start: 11-08-2022 ambulatory Cristina lino MD Work Phone: [facility] Comment on above: Prescriptions Start: 07-12-2022 Refill Jessica Esienberg APRN.CNP Work Phone: [facility] Comment on above: Refill Request Start: 05-17-2022 Refill Crisitna lino MD Work Phone: [facility] Comment on above: Refill Request Start: 04-07-2022 Refill Cristina lino MD Work Phone: [facility] Comment on above: Refill Request Start: 01-05-2022 Refill Cristina lino MD Work Phone: [facility] Comment on above: Refill Request Start: 12-30-2021 ambulatory Cristina lino MD Work Phone: [facility] [place] Procedures Date Procedure Procedure Detail Performing Clinician Start: 01-16-2025 Radionuclide study o f abdomen Dr. Flavio Andrade MD Work Phone: Start: 12-04-2024 CT of abdomen and pe lvis without contrast Dr. Flavio Andrade MD Work Phone: Start: 12-04-2024 XR knee, [address] Lul Andrade MD Work Phone: Start: 06-12-2020 Adult depression screening assessment Cristina Callahan MD Work Phone: Start: 03-04-2017 Mammography Cristina nunes MD Work Phone: H/O: tubal ligation S/P tubal ligation Dr Shiloh Andrade MD Work Phone: Plan of Treatment Date Care Activity Detail Author Start: 04-30-2026 LIPID SCREEN LIPID SCREEN [facility] Start: 04-30-2024 DIABETES SCREEN DIABETES SCREEN [facility] Start: 03-04-2023 [facility] Start: 07-04-2022 DEPRESSION ASSESSMENT DEPRESSION ASSESSMENT [facility] Start: 05-04-2022 ANNUAL PCP TEAM CHRONIC DISEASE VISIT ANNUAL PCP TEAM CHRONIC DISEASE VISIT [facility] Start: 03-04-2022 Influenza vaccination INFLUENZA (#1) [facility] Start: 01-05-2022 End: 03-07-2022 Comprehensive metabolic 2000 panel - Serum or Plasma COMP METABOLIC PANEL Lab Routine Essential hypertension Pure hypercholesterolemia Expected: 01/05/2022, Expires: 03/07/2022 [facility] Work Phone: Comment on above: Expected: 01/05/2022, Expires: 2 Start: 01-05-2022 End: 03-07-2022 Lipid 1996 panel - Serum or Plasma LIPID PANEL BASIC Lab Routine Pure hypercholesterolemia Expected: 01/05/2022, Expires: 03/07/2022 [facility] Work Phone: Comment on above: Expected: 01/05/2022, Expires: 2 Start: 07-04-2021 DEPRESSION ASSESSMENT DEPRESSION ASSESSMENT [facility] Start: 06-12-2021 Adult depression screening assessment DEPRESSION SCREENING [facility] Start: 03-09-2019 PNEUMOCOCCAL (2 - PCV) PNEUMOCOCCAL (2 - PCV) [facility] Start: 03-04-2018 Mammography MAMMOGRAM [facility] Start: 10-18-2016 HPV TESTING HPV TESTING [facility] Start: 10-18-2016 PAP TESTING PAP TESTING [facility] Start: 2010 SHINGRIX VACCINE (1 of 2) SHINGRIX VACCINE (1 of 2) [facility] Start: 2005 COLOGUARD (FIT-DNA) COLOGUARD (FIT-DNA) [facility] Start: 2005 Colonoscopy COLONOSCOPY [facility] Start: 2005 COLORECTAL CANCER SCREENING COLORECTAL CANCER SCREENING [facility] Start: [address] COLONOGRAPHY [facility] Start: 2005 FECAL OCCULT BLOOD FECAL OCCULT BLOOD [facility] Start: 2005 SIGMOIDOSCOPY SIGMOIDOSCOPY [facility] Start: 1990 Zoledronic acid therapy ALPHA-1 ANTITRYPSIN DEFICIENCY SCREENING [facility] Start: 09-04-1979 Urine microalbumin profile DTAP,TDAP,TD (1 - Tdap) [facility] Start: 1978 BP CONTROLLED (<130/80) BP CONTROLLED (<130/80) [facility] Start: 1978 SPIROMETRY SPIROMETRY [facility] Start: 03-06-1961 COVID-19 VACCINE (#1) COVID-19 VACCINE (#1) [facility] End: 01-29-2023 Screening mammography bi 2-view breast inc cad RIO SCREENING Radiology Routine Encounter for screening mammogram for breast cancer 1 Occurrences starting 12/30/2021 until 01/29/2023 [facility] Work Phone: Comment on above: 1 Occurrences starting 12/30/2021 until [facility] Immun[facility] Immunization Date Immunization Notes Care Provider Connie srivastava 03-23-2019 Influenza, injectabl e, Madin Meno Canine Kidney, preservative free, quadrivalent Cristina Callahan MD Work Phone: [facility] 03-09-2018 influenza, injectabl e, quadrivalent, contains preservative Cristina Callahan MD Work Phone: [facility] 03-09-2018 pneumococcal polysaccharide vaccine, 23 valent Cristina Callahan MD Work Phone: [facility] Payers Date Payer Category Payer Unknown [id number] 2024 Self-pay 2024 Unknown [id number] Unknown [id number] 2.16.8 [id number] Unknown [id number] 2.16.8 [id number] Unknown [id number] 2.16.8 [id number] Unknown [id number] 2.16.8 [id number] Unknown [id number] 2.16.8 [id number] Unknown [id number] 2.16.8 [id number] Unknown [id number] 2.16.8 [id number] Unknown [id number] 2.16.8 [id number] Unknown [id number] 2.16.8 [id number] Unknown [id number] 2.16.8 [id number] Unknown [id number] 2.16.8 [id number] Social History Date Type Detail Facility Start: 12-21-2018 End: 01-25-2025 Tobacco smoking status COIS Smokes tobacco daily [facility] History of tobacco use Cigarette Smoker [facility] Start: 12-21-2018 End: 05-04-2021 Cigarettes smoked current (pack per day) - Reported 0.5 [facility] Start: 12-21-2018 End: 05-04-2021 Tobacco use and exposure Smokeless tobacco non-user [facility] Start: 05-04-2021 Alcohol intake Current non-dr label pinker of alcohol (finding) [facility] Start: 06-12-2020 End: 04-29-2021 History SDOH Alcohol Frequency 1 [facility] Start: 06-12-2020 History SDOH Alcohol Std Drinks 98 [facility] Start: 08-30-2011 History SDOH Alcohol Comment rare [facility] Start: 06-12-2020 End: 04-29-2021 History SDOH Social Connections Phone 2 [facility] Start: 06-12-2020 History SDOH Social Connections Meetings 3 [facility] Start: 06-12-2020 History SDOH Social Connections Living 4 [facility] Start: 06-12-2020 Education 21 [facility] Start: 05-04-2021 Tobacco Comment down to 1/4 pack. Cl [facility] Start: 1960 Sex Assigned At Female C [facility] Clinical Notes 01-21-2014 to 01-25-2025 Note Date & Type Note Facility 01-25-2025 Progress note Note Date/Time January 25, 2025 4:35pm [facility] [address] [place] [address] [address] [place] [address] OFFICE VISIT Date of Service: 01/25/25 MR#: [id number] Acct: [id number] Name: MYRANDA OLIVA Rep #: [id number] : 1960 Provider: Dr. Catrachito Swann MD Age/Sex: 64/F Location: [facility] Status: Signed Intake Vital Signs 12/21/24 10:15 01/25/25 14:41 Height 5 ft 1 in 5 ft Weight: 168 lb 6 oz 167 lb BMI 31.8 32.5 BP 104/71 Blood Pressure Location Rt brachial Position Sitting Respiration 16 Intake Visit Reasons: GALLBLADDER Chief Complaint: gallbladder Stone Carriage Operator Required: No Is patient in pain?: No Allergies shellfish derived Allergy (Severe, Verified 01/25/25 14:41) Nausea/Vom/Diarrhea Penicillins Allergy (Intermediate, Verified 01/25/25 14:41) PT UNSURE OF REACTION Medications ?Medication ?Instructions ?Recorded ?Confirmed ?Type atorvastatin 40 mg tablet 40 mg PO QHS 01/30/24 History losartan 100 mg tablet 100 mg PO QDAY 03/07/2412/03 History bupropion HCl (smoking deter) 150 150 mg PO BID 01/25/25 History mg tablet,12 hr sustained-release(smoking deterrent) meloxicam 15 mg tablet 15 mg PO DAILY #30 tabs 12/0312/21/24 Rx acetaminophen 500 mg tablet 500 mg PO Q6H PRN 01/25/25 01/25/25 History Have you fallen in the past year?: No PFSH Medical History (Updated 01/25/25 @ 16:[address] Alin Swann MD) Biliary dyskinesia Kidney stone COPD (chronic obstructive pulmonary disease) Osteoarthritis Hyperlipidemia Essential (primary) hypertension Depression Aortic calcification Chest pain Surgical History (Updated 01/25/25 @ 14:43 by Lily Maradiaga) S/P tubal ligation Hx of lithotripsy Family History Father Depression Hypertension Mother Hypertension Cancer Sister Hypertension Social History (Updated 01/25/25 @ 14:44 by Lily Maradiaga) Smoking Status: Current every day smoker alcohol intake: never substance use type: former substance user and marijuana HPI HPI HPI: The patient is a 64-year-old female presenting with evaluation and management ofgallbladder issues. She is referred from Dr. Andrade. Approximately three to four months ago, the patient began experiencing left flank pain she attributed to kidney stones. Patient CT imaging confirmed cholelithiasis with a significant gallstone but no kidney stones. Upon further evaluation, a HIDA scan showed a low gallbladder ejection fraction. Pain episodes have disrupted the patient's sleep, with a notable incident three weeks prior. Additionally, the patient experienced intentional weight loss due to an interestin decreasing pain from arthritis by adjusting her diet, losing 36 pounds over a year. She also reports constipation attributed to meloxicam use. She lacks prior colon screenings but is now considering colonoscopy. ROS General General: Yes weight change and fatigue; No appetite, colon cancer, breast cancer or weakness HEENT HEENT: No difficulty swallowing, eye injury, eye surgery, swollen glands or hoarseness Endo Endocrine: No thyroid disease, diabetes mellitus, thyroid cancer, Hair loss, heat intolerance or cold intolerance Skin Skin: No rash or changing moles Breast Breast: No left breast lump, right breast lump, nipple discharge, breast pain, abnormal mammogram, abnormal US or breast enlargement Musc Musculoskeletal: Yes back problems and arthritis; No rheumatoid arthritis, gout or joint pain Cardio Cardiovascular: No murmur, pacemaker, heart disease, atrial fibrillation, high blood pressure, heart attack, heart stent, palpitations, shortness of breath with exertion or chest pain Psych Psychiatric: No depression, anxiety or hearing voices Resp Respiratory: No shortness of breath, No sleep apnea, Yes cough, No COPD, No asthma, Yes emphysema and No wheezing Gastro Gastrointestinal: Yes abdominal pain, No nausea or vomiting, No diarrhea, Yes constipation, No blood in stool, No acid reflux, No hemorrhoids, No ulcers, Yes gallbladder problem and No black,tarry stools Jorge Hematologic: No blood thinners, No blood disorders, No bleeding, No anemia and No blood clots Neuro Neurologic: No system reviewed and no additional complaints, except as documented, No as per HPI, No abnormal gait, No abnormal hearing, No abnormal movements, No abnormal speech, No behavioral changes, No burning sensations, No confusion, No convulsions, No disequilibrium, No dizziness, No localized weakness, No frequent falls, No headache(s), No lack of coordination, No loss ofvision, No memory loss, Yes numbness, No other visual disturbances, No radicularpain, No restless legs, No sensory deficit, No syncope, Yes tingling, No tremor(s), No weakness and No other Exam Const General: cooperative, comfortable and no acute distress Resp Effort & Inspection: normal respiratory effort GI Other: - no scars, no hernias visible, no distention - Left flank does not elicit significant pain upon palpation. - Mild discomfort in the right upper quadrant during deep inspiratory effort. Assessment and Plan Assessment and Plan (1) Biliary dyskinesia: Status: Acute Comment: 64-year-old female with a history of functional gallbladder disorder presenting with symptoms suggesting biliary colic due to confirmed cholelithiasis. The ejection fraction was notably lower than normal at 10%, consistent with gallbladder dysfunction. Cholecystectomy is indicated to alleviate symptoms and resolve potential biliary complications. Procedural risks (highlighting risk of bile duct injury) and benefits were discussed in detail with hand drawings used to illustrate relevant anatomy. Plan: Robot-assisted cholecystectomy with cholangiography. Outpatient disposition planned. Documentation on this patient encounter was supported using ambient scribe technology/ voice AI technology. The patient consented to recording for the purpose of documenting the encounter. Provider reviewed content of the generatednote prior to signature. (2) Constipation: Status: Acute Comment: Patient with new constipation (as of past one month). Attributed to new meloxicam use. No bleeding noted. No OTC agents tried. No history of prior colonoscopic evaluation or Cologuard testing (this is pending). Discussed periop implications with anesthetic meds and postop analgesics. Additionally recommended reconsideration of position against colonoscopy. Plan: - Initiate laxative therapy to address constipation arising from meloxicam usage, with additional measures discussed to continue post-surgery as required. - Patient encouraged to complete colorectal cancer screening through either Cologuard or preferred colonoscopy for thorough evaluation. She states she willlikely be interested in proceeding with colonoscopy following our surgery Coding Level of Care Code Off vis,new,level 4 Diagnoses Biliary dyskinesia K82.8 Constipation K59.00 Clinical Quality Measures Falls Risk Screening/Assistive Devices Have you fallen in the past year?: No 01/25/25 0290 <Electronically signed by Alin Swann MD> Date _ Alin Swann MD [facility] Signature: Date (if applicable) CC: ~ [facility] Work Phone: 1(529) 565-287507-25-2025 [facility] [address] [place] [address] OFFICE VISIT Date of Service: 01/25/25 MR#: [id number] Acct: [id number] Name: MYRANDA OLIVA Rep #: [id number] : 1960 Provider: Dr. Catrachito Swann MD Age/Sex: 64/F Location: [facility] Status: Signed Intake Vital Signs 12/21/24 10:15 01/25/25 14:41 Height 5 ft 1 in 5 ft Weight: 168 lb 6 oz 167 lb BMI 31.8 32.5 BP 104/71 Blood Pressure Location Rt brachial Position Sitting Respiration 16 Intake Visit Reasons: GALLBLADDER Chief Complaint: gallbladder Stone Carriage Operator Required: No Is patient in pain?: No Allergies shellfish derived Allergy (Severe, Verified 01/25/25 14:41) Nausea/Vom/Diarrhea Penicillins Allergy (Intermediate, Verified 01/25/25 14:41) PT UNSURE OF REACTION Medications ?Medication ?Instructions ?Recorded ?Confirmed ?Type atorvastatin 40 mg tablet 40 mg PO QHS 01/30/24 History losartan 100 mg tablet 100 mg PO QDAY 03/07/2412/03 History bupropion HCl (smoking deter) 150 150 mg PO BID 01/25/25 History mg tablet,12 hr sustained-release(smoking deterrent) meloxicam 15 mg tablet 15 mg PO DAILY #30 tabs 12/0312/21/24 Rx acetaminophen 500 mg tablet 500 mg PO Q6H PRN 01/25/25 01/25/25 History Have you fallen in the past year?: No PFSH Medical History (Updated 01/25/25 @ 16:[address] Alin Swann MD) Biliary dyskinesia Kidney stone COPD (chronic obstructive pulmonary disease) Osteoarthritis Hyperlipidemia Essential (primary) hypertension Depression Aortic calcification Chest pain Surgical History (Updated 01/25/25 @ 14:43 by Lily Maradiaga) S/P tubal ligation Hx of lithotripsy Family History Father Depression Hypertension Mother Hypertension Cancer Sister Hypertension Social History (Updated 01/25/25 @ 14:44 by Lily Maradiaga) Smoking Status: Current every day smoker alcohol intake: never substance use type: former substance user and marijuana HPI HPI HPI: The patient is a 64-year-old female presenting with evaluation and management ofgallbladder issues.She is referred from Dr. Andrade. Approximately three to four months ago, the patient began experiencing left flank pain she attributed to kidney stones. Patient CT imaging confirmed cholelithiasis witha significant gallstone but no kidney stones. Upon further evaluation, a HIDA scan showed a low gallbladder ejection fraction. Pain episodes have disrupted the patient's sleep, with a notable incident three weeks prior. Additionally, the patient experienced intentional weight loss due to an interestin decreasing pain from arthritis by adjusting her diet, losing 36 pounds over a year. She also reports constipation attributed to meloxicam use. She lacks prior colon screenings but is now considering colonoscopy. ROS General General: Yes weight change and fatigue; No appetite, colon cancer, breast cancer or weakness HEENT HEENT: No difficulty swallowing, eye injury, eye surgery, swollen glands or hoarseness Endo Endocrine: No thyroid disease, diabetes mellitus, thyroid cancer, Hair loss, heat intolerance or cold intolerance Skin Skin: No rash or changing moles Breast Breast: No left breast lump, right breast lump, nipple discharge, breast pain, abnormal mammogram, abnormal US or breast enlargement Musc Musculoskeletal: Yes back problems and arthritis; No rheumatoid arthritis, gout or joint pain Cardio Cardiovascular: No murmur, pacemaker, heart disease, atrial fibrillation, high blood pressure, heart attack, heart stent, palpitations, shortness of breath with exertion or chest pain Psych Psychiatric: No depression, anxiety or hearing voices Resp Respiratory: No shortness of breath, No sleep apnea, Yes cough, No COPD, No asthma, Yes emphysema and No wheezing Gastro Gastrointestinal: Yes abdominal pain, No nausea or vomiting, No diarrhea, Yes constipation, No blood in stool, No acid reflux, No hemorrhoids, No ulcers, Yes gallbladder problem and No black,tarry stools Jorge Hematologic: No blood thinners, No blood disorders, No bleeding, No anemia and No blood clots Neuro Neurologic: No system reviewed and no additional complaints, except as documented, No as per HPI, No abnormal gait, No abnormal hearing, No abnormal movements, No abnormal speech, No behavioral changes, No burning sensations, No confusion, No convulsions, No disequilibrium, No dizziness, No localized weakness, No frequent falls, No headache(s), No lack of coordination, No loss ofvision, No memoryloss, Yes numbness, No other visual disturbances, No radicularpain, No restless legs, No sensory deficit, No syncope, Yes tingling, No tremor(s), No weakness and No other Exam Const General: cooperative, comfortable and no acute distress Resp Effort & Inspection: normal respiratory effort GI Other: - no scars, no hernias visible, no distention - Left flank does not elicit significant pain upon palpation. - Mild discomfort in the right upper quadrant during deep inspiratory effort. Assessment and Plan Assessment and Plan (1) Biliary dyskinesia: Status: Acute Comment: 64-year-old female with a history of functional gallbladder disorder presenting with symptoms suggesting biliary colic due to confirmed cholelithiasis. The ejection fraction was notably lower than normal at 10%, consistent with gallbladder dysfunction. Cholecystectomy is indicated to alleviate symptoms and resolve potential biliary complications. Procedural risks (highlighting risk of bile duct injury) and benefits were discussed in detail with hand drawings used to illustrate relevant anatomy. Plan: Robot-assisted cholecystectomy with cholangiography. Outpatient disposition planned. Documentation on this patient encounter was supported using ambient scribe technology/ voice AI technology. The patient consented to recording for the purpose of documenting the encounter. Provider reviewed content of the generatednote prior to signature. (2) Constipation: Status: Acute Comment: Patient with new constipation (as of past one month). Attributed to new meloxicam use. No bleeding noted. No OTC agents tried. No history of prior colonoscopic evaluation or Cologuard testing (this is pending). Discussed periop implications with anesthetic meds and postop analgesics. Additionally re commended reconsideration of position against colonoscopy. Plan: - Initiate laxative therapy to address constipation arising from meloxicam usage, with additional measures discussed to continue post-surgery as required. - Patient encouraged to complete colorectal cancer screening through either Cologuard or preferred colonoscopy for thorough evaluation. She states she willlikely be interested in proceeding with colonoscopy following our surgery Coding Level of Care Code Off vis,new,level 4 Diagnoses Biliary dyskinesia K82.8 Constipation K59.00 Clinical Quality Measures Falls Risk Screening/Assistive Devices Have you fallen in the past year?: No 01/25/25 2255 > Date _ Alin Swann MD Cosigner Signature: Date (if applicable) CC: ~ [facility]07-16-2025 Nuclear medicine Diagnostic study note [facility] Services [address] [place] [address] Hepatobilliary Img w/Pharm Int MR#: [id number] Acct: [id number] Name: MYRANDA OLIVA Rep #: [id number] : 1960 F 64 From: Calixto Porras MD PCP: Dr. Flavio Andrade MD Status: JOSÉ LUIS DALY Study:Hepatobilliary Img w/Pharm Int Date of Exam: 01/16/25 Exam# [id number] Ordering Dr: Flavio Andrade MD PROCEDURE: HEPATOBILLIARY IMG W/PHARM INT 01/16/2025 REASON FOR EXAM: BILIARY COLIC TECHNIQUE: Intravenous Choletec with planar imaging of the abdomen. 1.6 mcg Kinevac intravenously approximately 60 minutes after the radiopharmaceutical with additional anterior imaging and a region of interest drawn around the gallbladder to calculate a time-activity curve. RADIOPHARMACEUTICAL: Technetium labeled mebrofenin DOSE 5.7mCi COMPARISON: None FINDINGS: There is good uptake of the radiopharmaceutical by the liver. Normal gallbladder visualization with the gallbladder identified by 30 minutes. Gallbladder Ejection Fraction: 10% % (Normal is >35%) NM/Hepatobilliary Img w/Pharm Int IMPRESSION: Abnormal gallbladder ejection fraction. Reading Location: [place] [address] CC: Dr. Flavio Andrade MD ~ Packaging Sales: Signed [facility]06-20-2025 Evaluation note* Diagnosis Onset Date Resolution Status Admit Date Bilateral primary osteoarthr itis of knee acute December 21, 2024 10:07am Tobacco abuse acute December 21, 2024 10:07am [facility] Work Phone: 1(852) 358-370006-20-2025 Evaluation note* Diagnosis Onset Date Resolution Status Admit Date Bilateral primary osteoarthr itis of knee acute December 21, 2024 10:07am Tobacco abuse acute December 21, 2024 10:07am Biliary dyskinesia acute January 022024 2:24pm Constipation acute January 25 2:24pm [facility] Work Phone: 1(127) 359-712506-04-2025 Radiology Diagnostic study note [facility] Imaging Services [address] [place] [id number] Knee 3 Views MR#: [id number] Acct: [id number] Name: MYRANDA OLIVA Rep #: [id number] : 1960 F 64 From: Tasha Escamilla MD PCP: Dr. Flavio Andrade MD Status: REG C ADDY Study:Knee 3 Views Date of Exam: 5 Exam# [id number] Ordering Dr: Flavio Andrade MD PROCEDURE: KNEE [...] HOSPITAL CC: Dr. Flavio Andrade MD ~ Packaging Sales: Signed [facility]06-04-2025 Radiology Diagnostic study note [facility] Imaging Services [address] [place] [address] Knee 3 Views MR#: [id number] Acct: [id number] Name: MYRANDA OLIVA Rep #: [id number] : 1960 F 64 From: Tasha Escamilla MD PCP: Dr. Flavio Andrade MD Status: REG C ADDY Study:Knee 3 Views Date of Exam: 5 Exam# [id number] Ordering Dr: Flavio Andrade MD PROCEDURE: KNEE [...] OUMAR CC: Dr. Flavio Andrade MD ~ Packaging Sales: Signed [facility]06-03-2025 Radiology Diagnostic study note [facility] Imaging Services [address] [place] [address] Abdomen/Pelvis without Cont MR#: [id number] Acct: [id number] Name: MYRANDA OLIVA Rep #: [id number] : 1960 F 64 From: Eladio Pleitez MD PCP: Dr. Flavio Andrade MD Status: REG C ADDY Study:Abdomen/Pelvis without Cont Date of Exa m: 12/04/24 Exam# [id number] Ordering Dr: Flavio Andrade MD PROCEDURE: CT [...] 3. Hepatic and renal cysts. Reading Location: [id number] CC: Dr. Flavio Andrade MD ~ Packaging Sales: Signed [facility] Work Phone: 1(740) 466-316705-08-2023 Miscellaneous Notes* Telephone Encounter - Reena Crowley [...] first. Stephany Monson APRN.CNP [facility] Miscellaneous Notes* Telephone Encounter - Danielle Brizuela - 07/14/2022 1:11 PM EST 1st attempt. Tried calling patient and phone just would ring and make clicking noises. Left mychartmessage also. * Telephone Encounter - Stephany Monson APRN.CNP - 07/12/2022 1:08 PM EST Needs visit, schedule REGINA. Stephany Monson APRN.CNP documented [facility] encounterU[facility] Center11-22-2022 Miscellaneous Notes* Telephone Encounter - Danielle Brizuela - 05/25/2022 10:45 AM EST 2nd attempt. Sent Zivixt message. * Telephone Encounter - Esme Rosenberg - 05/18/2022 11:30 AM EST First attempt at contacting patient, left guy SALDANA. Please assist patient In scheduling when she calls back. * Telephone Encounter - Stephany Monson APRN.CNP - 05/18/2022 8:35 AM EST Overdue for a visit and labs, please schedule REGINA with either provider. Stephany Monson APRN.CNP * Telephone Encounter - Shanelle Kline LPN - 05/18/2022 8:31 AM EST Pharmacy verified in [facility] Patient has been identified by name and [...] advise. Shanelle Kline LPN documented in [facility] encounterU[facility] Center10-05-2022 Miscellaneous Notes* Telephone Encounter - Danielle Brizuela - 04/07/2022 4:19 PM EDT 1st attempt. Left message on VM. * Telephone Encounter - Jessica Eisenberg APRN.CNP - 04/07/2022 4:04 PM EDT Please inform patient that they are due for OV and assist in scheduling. Thanks. documented in this encounter[facility] Center07-12-2022 Miscellaneous Notes* Telephone Encounter - Reena Morris [...] 01/05/2022 11:39 AM EDT Pharmacy verified in [place]. Patient has been identified by name and [...] advise. Reina Bustamante MA documented in this encounterU[facility] Center06-29-2022 NotePatient Outreach (INTMMN) MYRANDA OLIVA ([id number]) 1960 F Date Time Provider Department 12/30/21 [...] for screening mammogram for breast cancer [Z12.31] Order(s):[facility] SCREENING [[id number]] Order #: [id number] FUTURE Prescriptions as of 01/04/2022 - escitalopram [...] osteoarthritis involving multiple joint*12/22/2018 Encounter Status:Closed by ADRIA, PRODUSER on 01/04/22[facility] 05-04-2021 NoteHNO ID: [id number] Author: Cristina Callahan MD Service: ? Author [...] complete. Electronically Signed: [place] (more content not included)...[facility]10-19-2021 Note Patient Outreach (INTMMN) DELLMYRANDA MORRIS ([id number]) 1960 F Date Time Provider Department 04/21/21 CRISTINA CALLAHAN INTMMN During your visit today, we recorded the following information about you: Allergies As of Date: 04/21/2021 Noted Allergy Reaction PENICILLINS 08/30/2011 16 - Unknown Comments: as child shell fish [Other] 08/30/2011 8 - GI Upset Date Reviewed: 06/12/2020 Reviewed by: Stephany Rodriguez Ma - Fully Assessed Visit Diagnoses:Essential hypertension [I10] BMI 35.0-35.9,adult [Z68.35] Hyperlipidemia [E78.5] Order(s):BASIC METABOLIC PNL [SQBMP] Order #: [id number] FUTURE HGB A1C [NJIJD3I] Order #: [id number] FUTURE LIPID PANEL BASIC [SQLIPB] Order #: [id number] FUTURE Prescriptions as of 04/24/2021 - meloxicam [...] joint*12/22/2018 Encounter Status:Closed by SRIDHAR COVINGTON on 04/24/21[facility] 01-23-2021 NotePatient Outreach (INTMMN) MYRANDA OLIVA ([id number]) 1960 F Date Time Provider Department 01/23/21 CRISTINA CALLAHAN INTMMGene During your visit today, we recorded the following information about you: Allergies As of Date: 01/23/2021 Noted Allergy Reaction PENICILLINS 08/30/2011 16 - Unknown Comments: as child shell fish [Other] 08/30/2011 8 - GI Upset Date Reviewed: 06/12/2020 Reviewed by: Stephany Rodriguez Ma - Fully Assessed Visit Diagnosis:Encounter for screening mammogram for breast cancer [Z12.31] Order(s):[facility] SCREENING [[id number]] Order #: [id number] FUTURE Prescriptions as of 01/26/2021 - simvastatin [...] joint*12/22/2018 Encounter Status:Closed by EPIC, PRODUSER on 01/26/21[facility] 01-21-2014 History of Past illness Narrative* Problem Noted Date Resolved Date Kidney stone 01/21/2014 12/22/2018 UTI (lower urinary tract infection) 07/24/2013 12/22/2018 Viral Wart: R hand dorsal 5th finger PIP area 12/22/2018 Spider angioma 07/12/2012 12/22/2018 Telangiectasia 07/12/2012 12/22/2018 Actinic skin damage 07/12/2012 12/22/2018 documented as of this encounter (statuses as of 01/04/2022) [facility] of [facility] illness Narrative* Problem Noted Date Resolved Date Kidney stone 01/21/2014 12/22/2018 UTI (lower urinary tract infection) 07/24/2013 12/22/2018 Viral Wart: R hand dorsal 5th finger PIP area 12/22/2018 Spider angioma 07/12/2012 12/22/2018 Telangiectasia 07/12/2012 12/22/2018 Actinic skin damage 07/12/2012 12/22/2018 documented as of this encounter (statuses as of 01/12/2022) [facility] Narrative* Problem Noted Date Resolved Date Kidney stone 01/21/2014 12/22/2018 UTI (lower urinary tract infection) 07/24/2013 12/22/2018 Viral Wart: R hand dorsal 5th finger PIP area 12/22/2018 Spider angioma 07/12/2012 12/22/2018 Telangiectasia 07/12/2012 12/22/2018 Actinic skin damage 07/12/2012 12/22/2018 documented as of this encounter (statuses as of 04/07/2022) [facility] Narrative* Problem Noted Date Resolved Date Kidney stone 01/21/2014 12/22/2018 UTI (lower urinary tract infection) 07/24/2013 12/22/2018 Viral Wart: R hand dorsal 5th finger PIP area 12/22/2018 Spider angioma 07/12/2012 12/22/2018 Telangiectasia 07/12/2012 12/22/2018 Actinic skin damage 07/12/2012 12/22/2018 documented as of this encounter (statuses as of 05/25/2022) [facility] Narrative* Problem Noted Date Resolved Date Kidney stone 01/21/2014 12/22/2018 UTI (lower urinary tract infection) 07/24/2013 12/22/2018 Viral Wart: R hand dorsal 5th finger PIP area 12/22/2018 Spider angioma 07/12/2012 12/22/2018 Telangiectasia 07/12/2012 12/22/2018 Actinic skin damage 07/12/2012 12/22/2018 documented as of this encounter (statuses as of 07/14/2022) [facility] Narrative* Problem Noted Date Resolved Date Kidney stone 01/21/2014 12/22/2018 UTI (lower urinary tract infection) 07/24/2013 12/22/2018 Viral Wart: R hand dorsal 5th finger PIP area 12/22/2018 Spider angioma 07/12/2012 12/22/2018 Telangiectasia 07/12/2012 12/22/2018 Actinic skin damage 07/12/2012 12/22/2018 documented as of this encounter (statuses as of 11/09/2022) [facility] Diagnosis Encounter for screening mammogram for breast cancer documented [facility] encounter [facility]* Diagnosis Pure hypercholesterolemia- Primary Essential hypertension Unspecified essential hypertension [facility]* Diagnosis Primary osteoarthritis involving multiple joints Pure hypercholesterolemia documented in this encounter [facility] note* Diagnosis Adjustment disorder with depressed mood Essential hypertension Unspecified essential hypertension documented in this encounter [facility] note* Diagnosis Pure hypercholesterolemia documented in this encounter [facility] noteNo assessment information availableWMercy [facility] Work Phone: Reason for referral (narrative)* Diagnostic Procedure Only (Routine) - Pending Review Specialty Diagnoses / Procedures Referred By Contac t Referred To Contact [facility] Diagnoses Encounter for screening mammogram for breast cancer Procedures RIO SCREENING SCREENING MAMMOGRAPHY BI 2-VIEW BREAST INC CAD Lorri, Cristina Charles MD [address] [place] [address] [place] [address] [facility] [address] [place] [address] Referral ID Status Reason Start Date Expiration Date Visits Requested Visits Authorized [id number] Pending Review Auto-Generat ed Referral 12/30/2021 01/29/2023 1 1 [facility] for referral (narrative)No reason for referral information availableWMercy [facility] Work Phone: Summary Purpose Family History No Family History Records Found Relationship Condition Age at Onset Recorded Date/T [place] father Depression Unknown Hypertension Unknown mother Hypertension Unknown Malignant neoplasm Unknown sister Hypertension Unknown Advance Directives No Advanced Directives Records FoundDocuments on File Type Date Recorded Patient Hub Bander Expl anation Advance Directive(s) 08/29/2013 7:30 AM Documents on File Type Date Recorded Patient Hub Bander Expl anation Advance Directive(s) 08/29/2013 7:30 AM [...] Tobacco abuse December 21, 2024 10:0 7am Chief Complaint Admit Date KIDNEY STONE PROTOCOL (STAT) December 04 2:18pm BL KNEES December 21, 2024 10:0 7am REDRAW December 21, 2024 11:0 1am BILIARY COLIC January 16, 2025 9:47 am Chief Complaint Admit Date KIDNEY STONE PROTOCOL (STAT) December 04 2:18pm BL KNEES December 21, 2024 10:0 7am REDRAW December 21, 2024 11:0 1am BILIARY COLIC January 16, 2025 9:47 am GALLBLADDER January 25, 2025 2:24 pm Reason for Visit Admit Date Bilateral primary osteoarthritis of knee December 21, 2024 10:07am Tobacco abuse December 21, 2024 10:0 7am Biliary dyskinesia January 25, 2025 2:24 pm Constipation January 25, 2025 2:24 pm Additional Source Comments INFORMATION SOURCE (unrecogn ized section and content) DATE CREATED AUTHOR 03/27/2020 [facility] DATE CREATED AUTHOR AUTHOR'S ORGANIZ ATION 01/04/2022 [facility] DATE CREATED AUTHOR AUTHOR'S ORGANIZ ATION 03/04/2025 [facility] Source Comments (unrecognize d section and content) In the event this informatio n is protected by the Federal Confidentiality of Alcohol and Drug Abuse Patient Records regulations: The Federal rules restrict any use of the information to criminally investigate or prosecute any alcohol or drug abuse patient.[facility] the event this information is protected by the Federal Confidentiality of Alcohol and Drug Abuse Patient Records regulations: The Federal rules restrict any use of the information to criminally investigate or prosecute any alcohol or drug abuse patient.[facility] the event this information is protected by the Federal Confidentiality of Alcohol and Drug Abuse Patient Records regulations: The Federal rules restrict any use of the information to criminally investigate or prosecute any alcohol or drug abuse patient.[facility] the event this information is protected by the Federal Confidentiality of Alcohol and Drug Abuse Patient Records regulations: The Federal rules restrict any use of the information to criminally investigate or prosecute any alcohol or drug abuse patient.[facility] the event this information is protected by the Federal Confidentiality of Alcohol and Drug Abuse Patient Records regulations: The Federal rules restrict any use of the information to criminally investigate or prosecute any alcohol or drug abuse patient.[facility] the event this information is protected by the Federal Confidentiality of Alcohol and Drug Abuse Patient Records regulations: The Federal rules restrict any use of the information to criminally investigate or prosecute any alcohol or drug abuse patient.[facility] Care Teams (unrecognized sec tion and content) Records Management Coordinator Relationship Specialty Start Date End Date Cristina Callahan MD [address] [place], [place] [id number] PCP - General Family Practice 04/19/12 Records Management Coordinator Relationship Specialty Start Date End Date Cristina Callahan MD [address] [place], [place] [id number] PCP - General Family Practice 04/19/12 Records Management Coordinator Relationship Specialty Start Date End Date Cristina Callahan MD [address] [place], [place] [id number] PCP - General Family Medicine 04/19/12 Records Management Coordinator Relationship Specialty Start Date End Date Cristina Callahan MD [address] [place], [place] [id number] PCP - General Family Medicine 04/19/12 Records Management Coordinator Relationship Specialty Start Date End Date Cristina Callahan MD [address] [place], [place] [id number] PCP - General Family Medicine 04/19/12 Team [...] 2024 End: December 21, 2024 Team Status: Active Member Role/Relationship Status Dates Dr. Flavio Andrade MD Primary Care Provider Active Team Status: Inactive Member Role/Relationship Status Dates Dr. Flavio Andrade MD Primary Care Provider Active Start: December 04, 2024 End: December 04, 2024 Dr. Flavio Andrade MD Attending Provider Active Start: December 04, 2024 End: December 04, 2024 Dr. Flavio Andrade MD Referring Provider Active Start: December 04, 2024 End: December 04, 2024 Team Status: Inactive Member Role/Relationship Status Dates Dr. Flavio Andrade MD Primary Care Provider Active Start: December 19, 2024 End: December 19, 2024 Dr. Flavio Andrade MD Attending Provider Active Start: December 19, 2024 End: December 19, 2024 Dr. Flavio Andrade MD Referring Provider Active Start: December 19, 2024 End: December 19, 2024 Team Status: Inactive Member Role/Relationship Status Dates Dr. Flavio Andrade MD Primary Care Provider Active Start: December 21, 2024 End: December 21, 2024 Dr. Flavio Andrade MD Referring Provider Active Start: December 21, 2024 End: December 21, 2024 Dr. Jorge Fairchild DO Attending Provider Active Start: December 21, 2024 End: December 21, 2024 Team Status: Inactive Member Role/Relationship Status Dates Dr. Flavio Andrade MD Primary Care Provider Active Start: December 21, 2024 End: December 21, 2024 Dr. Flavio Andrade MD Attending Provider Active Start: December 21, 2024 End: December 21, 2024 Dr. Flavio Andrade MD Referring Provider Active Start: December 21, 2024 End: December 21, 2024 Team Status: Inactive Member Role/Relationship Status Dates Dr. Flavio Andrade MD Primary Care Provider Active Start: January 16, 2025 End: January 16, 2025 Dr. Flavio Andrade MD Attending Provider Active Start: January 16, 2025 End: January 16, 2025 Dr. Flavio Andrade MD Referring Provider Active Start: January 16, 2025 End: January 16, 2025 Team Status: Inactive Member Role/Relationship Status Dates Dr. Flavio Andrade MD Primary Care Provider Active Start: January 25, 2025 End: January 25, 2025 Dr. Flavio Andrade MD Referring Provider Active Start: January 25, 2025 End: January 25, 2025 Dr. Alin Swann MD Attending Provider Active Start: January 25, 2025 End: January 25, 2025 Reason for Visit (unrecogniz ed section and [...] BE BASED ON THE PRIMARY CLINICAL RECORDS. [facility], [facility]. provides no warranty or guarantee of the accuracy or completeness of information in this document.
--- NOTE | 2025-03-05 16:06 | STRESSREP_ITS ---
Stress Test Report Date: 03/05/2025 Procedure: Pharmacologic stress nuclear imaging study Indications: Preop evaluation Consent: Per the patient Procedure: The patient underwent pharmacologic (Regadenoson 0.4mg ) evaluation with a peak heart rate of 94 beats per minute (60%predicted maximal heart rate) and a peak blood pressure of 130/80 mmHg. The baseline ECG demonstrated sinus rhythm with nonspecific ST changes. The peak pharmacologic ECG was nondiagnostic secondary to baseline abnormalities. There were no cardiac dysrhythmias pretest, during pharmacologic infusion, or recovery. There was no complaint of chest discomfort during pharmacologic infusion or recovery. The patient was injected with 11.9 millicuries of technetium 99m Cardiolite and subsequently rest SPECT Cardiolite nuclear imaging was obtained in the horizontal long, vertical long, and short axis views. The patient underwent pharmacologic (Regadenoson) evaluation. The patient was injected with 36.0 millicuries of technetium 99m Cardiolite and subsequently stress SPECT Cardiolite nuclear imaging was obtained in the horizontal long, vertical long, and short axis views. A gated Cardiolite study at peak stress was obtained. The examination was stopped secondary to completion of protocol. Rest and stress SPECT Cardiolite nuclear imaging status post realignment, normalization, and attenuation correction demonstrate no fixed or reversible perfusion defects. There is end systolic thickening and brightening. The gated Cardiolite study demonstrates myocardial thickening and inward wall motion. The reported LVEF is 78%. Impression: 1. Pharmacologic (Regadenoson) evaluation 2. Peak pharmacologic ECG with no diagnostic changes. 3. There were no cardiac dysrhythmias pretest, during pharmacologic infusion, or recovery. 5. Rest and stress SPECT Cardiolite nuclear imaging demonstrate relative uniform tracer uptake and myocardial perfusion appearing within normal limits. 6. The gated Cardiolite study reports an LVEF of 78%. This note was generated with Collarityation software. It may contain incorrect words, spelling, and punctuation that were not noted in checking the note before signing.
== END | disposition home or self-care (01) ==
LOC: CVS 06:10
PROVIDERS: PCP Family Medicine Geriatric Medicine; Referring Provider Physician Assistant Medical; Visit Provider Physician Assistant Medical
DX: Z01.818 Encounter for other preprocedural examination (principal); I25.10 Atherosclerotic heart disease of native coronary artery without angina pectoris; I10 Essential (primary) hypertension; I70.0 Atherosclerosis of aorta; R07.9 Chest pain, unspecified
CPT/HCPCS: 78452; 93017; A9500; A4216; J2785

== ENCOUNTER 2025-03-11 09:55 | Day surgery (SDC) | payer BC, SELFPAY ==
--- NOTE | 2025-02-25 09:13 | PAT.ANE_ITS ---
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 When Was Last Pacemaker Check QUESTION #4 FULL TEXT: You/Your Family Experience fever (hyperthermia) with Anesthesia Last Oral Intake Last Oral intake: Last Oral Intake NPO since Meds taken in AM with sips of water? Meds patient instructed to take am of surgery PONV PONV - train operations supervisor: PONV - train operations supervisor Female Yes 02/25/25 08:51 HX of Motion Sickness No 02/25/25 08:51 HX of N/V After Surgery No 02/25/25 08:51 Non-Smoker No 02/25/25 08:51 Duration of Surgery greater Yes 02/25/25 08:51 than 60 minutes Number of Risk Factors 2 02/25/25 08:51 PONV Score Moderate Risk 02/25/25 08:51 Height & Weight Height & Weight: Anesthesia: Height & Weight Height 5 ft 01/25/25 14:41 Respiratory Assessment Respiratory Assessment - train operations supervisor: Respiratory Tract Infection Hx - train operations supervisor Hx Respiratory Tract Infection No 02/25/25 08:51 STOP Sleep Apnea STOP Sleep Apnea - train operations supervisor: STOP Sleep Apnea - train operations supervisor Hx Hypertension Yes: CONTROLLED ON MED 02/25/25 08:51 Hx Sleep Apnea No 02/25/25 08:51 CPAP BIPAP Do you snore loudly (louder Yes 02/25/25 08:51 than talking or can be heard Do you often feel tired/ No 02/25/25 08:51 fatigued/ sleepy during daytime? Has anyone observed you stop No 02/25/25 08:51 breathing during sleep? STOP Results Positive 02/25/25 08:51 QUESTION #5 FULL TEXT : Do you snore loudly (louder than talking or can be heard through closed doors)? 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 Specify any problems Hx of Preganancy in last 3 No 02/25/25 08:51 Months Nurse Filling Out Transfusion VCHRISTIN 02/25/25 08:51 & Questions: Date: 02/25/25 02/25/25 08:51 Time: 08:53 02/25/25 08:51 Patient unable to answer at this time (ie. 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 History - train operations supervisor: /Reproductive Hx- train operations supervisor Hx Now No 02/25/25 08:51 Gestational Age (in weeks): EDC: Hx Hx Para Hx Section SAB No 02/25/25 08:51 [facility] Medical History (Updated 02/25/25 @ 08:51 by Ashleigh Martinez) Wears glasses Post-menopausal History of steroid therapy Arthritis High cholesterol Back pain Smoker Emphysema, unspecified Chronic cough History of pain when walking History of echocardiogram Hypertension Cardiology follow-up encounter Biliary dyskinesia Kidney stone COPD (chronic obstructive pulmonary disease) Osteoarthritis Hyperlipidemia Essential (primary) hypertension Depression Aortic calcification Chest pain Home Medications ?Medication ?Instructions ?Recorded ?Last Taken ?Type atorvastatin 40 mg tablet 40 mg PO QHS 01/30/24 Unknow n History losartan 100 mg tablet 100 mg PO QDAY 03/07/24 Unkn own History bupropion HCl (smoking deter) 150 150 mg PO BID Unknown History mg tablet,12 hr sustained-release(smoking deterrent) Held on 02/25/25. Instructions: pt never started taking meloxicam 15 mg tablet 15 mg PO DAILY #30 tabs 12/03 Unknown Rx acetaminophen 500 mg tablet 500 mg PO Q6H PRN pain Unknown History Allergy/AdvReac Type Severity Reaction Status Date / Time shellfish derived Allergy Severe Nausea/Vom/ Verified 02/25/25 08:38 Diarrhea Penicillins Allergy Intermediate PT UNSURE Verified 02/25/25 08:38 OF REACTION Family History Father Depression Hypertension Mother Hypertension Cancer Sister Hypertension Surgical History (Updated 02/25/25 @ 08:51 by Ashleigh Martinez) S/P tubal ligation Hx of lithotripsy Social History (Updated 01/25/25 @ 14:44 by Lily Maradiaga) Smoking Status: Current every day smoker tobacco type: cigarettes alcohol intake: never substance use type: former substance user and marijuana Audit: Pertinent Findings Pertinent Findings EKG Perinent findings: EKG 03/11/2024: Sinus rhythm, left atrial enlargement, no nspecific T wave abnormality. Echo (EF%) pertinent findings: Echocardiogram 03/26/2024 Interpretation Summary Normal LV size. Left ventricular systolic function is normal. The left ventricular ejection fraction is 65 %. Normal left atrium. Normal right atrium. Contrast injection was performed.
--- NOTE | 2025-02-26 09:37 | PAT.ANESEVAL ---
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 When Was Last Pacemaker Check QUESTION #4 FULL TEXT: You/Your Family Experience fever (hyperthermia) with Anesthesia Last Oral Intake Last Oral intake: Last Oral Intake NPO since Meds taken in AM with sips of water? Meds patient instructed to take am of surgery PONV PONV - assembling machine operator: PONV - assembling machine operator Female Yes 02/25/25 08:51 HX of Motion Sickness No 02/25/25 08:51 HX of N/V After Surgery No 02/25/25 08:51 Non-Smoker No 02/25/25 08:51 Duration of Surgery greater Yes 02/25/25 08:51 than 60 minutes Number of Risk Factors 2 02/25/25 08:51 PONV Score Moderate Risk 02/25/25 08:51 Height & Weight Height & Weight: Anesthesia: Height & Weight Height 5 ft 01/25/25 14:41 Respiratory Assessment Respiratory Assessment - assembling machine operator: Respiratory Tract Infection Hx - assembling machine operator Hx Respiratory Tract Infection No 02/25/25 08:51 STOP Sleep Apnea STOP Sleep Apnea - assembling machine operator: STOP Sleep Apnea - assembling machine operator Hx Hypertension Yes: CONTROLLED ON MED 02/25/25 08:51 Hx Sleep Apnea No 02/25/25 08:51 CPAP BIPAP Do you snore loudly (louder Yes 02/25/25 08:51 than talking or can be heard Do you often feel tired/ No 02/25/25 08:51 fatigued/ sleepy during daytime? Has anyone observed you stop No 02/25/25 08:51 breathing during sleep? STOP Results Positive 02/25/25 08:51 QUESTION #5 FULL TEXT : Do you snore loudly (louder than talking or can be heard through closed doors)? 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 Specify any problems Hx of Preganancy in last 3 No 02/25/25 08:51 Months Nurse Filling Out Transfusion VCHRISTIN 02/25/25 08:51 & Questions: Date: 02/25/25 02/25/25 08:51 Time: 08:53 02/25/25 08:51 Patient unable to answer at this time (ie. 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: /Reproductive Hx- assembling machine operator Hx Now No 02/25/25 08:51 Gestational Age (in weeks): EDC: Hx Hx Para Hx Section SAB No 02/25/25 08:51 [facility] Medical History (Updated 02/25/25 @ 08:51 by Ashleigh Martinez) Wears glasses Post-menopausal History of steroid therapy Arthritis High cholesterol Back pain Smoker Emphysema, unspecified Chronic cough History of pain when walking History of echocardiogram Hypertension Cardiology follow-up encounter Biliary dyskinesia Kidney stone COPD (chronic obstructive pulmonary disease) Osteoarthritis Hyperlipidemia Essential (primary) hypertension Depression Aortic calcification Chest pain Home Medications ?Medication ?Instructions ?Recorded ?Last Taken ?Type atorvastatin 40 mg tablet 40 mg PO QHS 01/30/24 Unknown History losartan 100 mg tablet 100 mg PO QDAY 03/07/24 Unknown History bupropion HCl (smoking deter) 150 150 mg PO BID 12/21/24 Unknown History mg tablet,12 hr sustained-release(smoking deterrent) Held on 02/25/25. Instructions: pt never started taking meloxicam 15 mg tablet 15 mg PO DAILY #30 tabs 12/21/24 Unknown Rx acetaminophen 500 mg tablet 500 mg PO Q6H PRN pain 01/25/25 Unknown History Allergy/AdvReac Type Severity Reaction Status Date / Time shellfish derived Allergy Severe Nausea/Vom/ Verified 02/25/25 08:38 Diarrhea Penicillins Allergy Intermediate PT UNSURE Verified 02/25/25 08:38 OF REACTION Family History Father Depression Hypertension Mother Hypertension Cancer Sister Hypertension Surgical History (Updated 02/25/25 @ 08:51 by Ashleigh Martinez) S/P tubal ligation Hx of lithotripsy Social History (Updated 01/25/25 @ 14:44 by Lily Maradiaga) Smoking Status: Current every day smoker tobacco type: cigarettes alcohol intake: never substance use type: former substance user and marijuana Audit: Pertinent Findings Pertinent Findings EKG Perinent findings: March 07, 2024. Sinus rhythm. Left atrial enlargement. Nonspecific T wave abnormality. Echo (EF%) pertinent findings: March 26, 2024. EF is 65%. No aortic stenosis is noted. Consult pertinent findings: March 07, 2024. Dr. Chakraborty. 1. Hypertension?good control. No changes at this time. 2. Aortic calcification. Positive aortic sclerosis. Get echo to assess ventricular function. (See above) 3. Coronary artery calcification. Will get a stress and echocardiogram. Recommendation Anesthesia Recommendation Anesthesia recommendation: F/U recommended (Cardiology consult March 27 recommended echocardiogram and stress test. I see the echo. Is there a stress test completed and can we get please.)
--- NOTE | 2025-02-26 16:16 | PAT.ANE_ITS ---
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 When Was Last Pacemaker Check QUESTION #4 FULL TEXT: You/Your Family Experience fever (hyperthermia) with Anesthesia Last Oral Intake Last Oral intake: Last Oral Intake NPO since Meds taken in AM with sips of water? Meds patient instructed to take am of surgery PONV PONV - blanket cutter hand: PONV - blanket cutter hand Female Yes 02/25/25 08:51 HX of Motion Sickness No 02/25/25 08:51 HX of N/V After Surgery No 02/25/25 08:51 Non-Smoker No 02/25/25 08:51 Duration of Surgery greater Yes 02/25/25 08:51 than 60 minutes Number of Risk Factors 2 02/25/25 08:51 PONV Score Moderate Risk 02/25/25 08:51 Height & Weight Height & Weight: Anesthesia: Height & Weight Height 5 ft 01/25/25 14:41 Respiratory Assessment Respiratory Assessment - blanket cutter hand: Respiratory Tract Infection Hx - blanket cutter hand Hx Respiratory Tract Infection No 02/25/25 08:51 STOP Sleep Apnea STOP Sleep Apnea - blanket cutter hand: STOP Sleep Apnea - blanket cutter hand Hx Hypertension Yes: CONTROLLED ON MED 02/25/25 08:51 Hx Sleep Apnea No 02/25/25 08:51 CPAP BIPAP Do you snore loudly (louder Yes 02/25/25 08:51 than talking or can be heard Do you often feel tired/ No 02/25/25 08:51 fatigued/ sleepy during daytime? Has anyone observed you stop No 02/25/25 08:51 breathing during sleep? STOP Results Positive 02/25/25 08:51 QUESTION #5 FULL TEXT : Do you snore loudly (louder than talking or can be heard through closed doors)? 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 Specify any problems Hx of Preganancy in last 3 No 02/25/25 08:51 Months Nurse Filling Out Transfusion VCHRISTIN 02/25/25 08:51 & Questions: Date: 02/25/25 02/25/25 08:51 Time: 08:53 02/25/25 08:51 Patient unable to answer at this time (ie. 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 History - blanket cutter hand: /Reproductive Hx- blanket cutter hand Hx Now No 02/25/25 08:51 Gestational Age (in weeks): EDC: Hx Hx Para Hx Section SAB No 02/25/25 08:51 [facility] Medical History (Updated 02/25/25 @ 08:51 by Ashleigh Martinez) Wears glasses Post-menopausal History of steroid therapy Arthritis High cholesterol Back pain Smoker Emphysema, unspecified Chronic cough History of pain when walking History of echocardiogram Hypertension Cardiology follow-up encounter Biliary dyskinesia Kidney stone COPD (chronic obstructive pulmonary disease) Osteoarthritis Hyperlipidemia Essential (primary) hypertension Depression Aortic calcification Chest pain Home Medications ?Medication ?Instructions ?Recorded ?Last Taken ?Type atorvastatin 40 mg tablet 40 mg PO QHS 01/30/24 Unknow n History losartan 100 mg tablet 100 mg PO QDAY 03/07/24 Unkn own History bupropion HCl (smoking deter) 150 150 mg PO BID Unknown History mg tablet,12 hr sustained-release(smoking deterrent) Held on 02/25/25. Instructions: pt never started taking meloxicam 15 mg tablet 15 mg PO DAILY #30 tabs 12/03 Unknown Rx acetaminophen 500 mg tablet 500 mg PO Q6H PRN pain Unknown History Allergy/AdvReac Type Severity Reaction Status Date / Time shellfish derived Allergy Severe Nausea/Vom/ Verified 02/25/25 08:38 Diarrhea Penicillins Allergy Intermediate PT UNSURE Verified 02/25/25 08:38 OF REACTION Family History Father Depression Hypertension Mother Hypertension Cancer Sister Hypertension Surgical History (Updated 02/25/25 @ 08:51 by Ashleigh Martinez) S/P tubal ligation Hx of lithotripsy Social History (Updated 01/25/25 @ 14:44 by Lily Maradiaga) Smoking Status: Current every day smoker tobacco type: cigarettes alcohol intake: never substance use type: former substance user and marijuana Audit: Pertinent Findings HISTORY of Pertinent Findings History of Pertinent Findings: EKG Pertinent Findings EKG Perinent findings March 07, 2024. Sinus 02/26/25 09:41 rhythm. Left atrial enlargement. Nonspecific T wave abnormality. Echo Pertinent Findings Echo (EF%) pertinent findings March 26, 2024. EF is 02/26/25 09:41 65%. No aortic stenosis is noted. Consult Pertinent Findings Consult pertinent findings March 07, 2024. 02/26/25 09:49 Mylene. 1. Hypertension?good control. No changes at this time. 2. Aortic calcification. Positive aortic sclerosis. Get echo to assess ventricular function. (See above) 3. Coronary artery calcification. Will get a stress and echocardiogram. Recommendation Anesthesia Recommendation Anesthesia recommendation: F/U recommended (Last cardiac assessment 03/07/24 recommended a chemical stress test. Patient did not get the stress test due to insurance. She has different insurance now. At this time the patient needs to complete her stress test or cardiology needs to waive the stress test prior to this procedure.)
--- NOTE | 2025-03-05 17:38 | PAT.ANESEVAL ---
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 When Was Last Pacemaker Check QUESTION #4 FULL TEXT: You/Your Family Experience fever (hyperthermia) with Anesthesia Last Oral Intake Last Oral intake: Last Oral Intake NPO since Meds taken in AM with sips of water? 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 Female Yes 02/25/25 08:51 HX of Motion Sickness No 02/25/25 08:51 HX of N/V After Surgery No 02/25/25 08:51 Non-Smoker No 02/25/25 08:51 Duration of Surgery greater Yes 02/25/25 08:51 than 60 minutes Number of Risk Factors 2 02/25/25 08:51 PONV Score Moderate Risk 02/25/25 08:51 Height & Weight Height & Weight: Anesthesia: Height & Weight Height 5 ft 01/25/25 14:41 Respiratory Assessment Respiratory Assessment - glass bead maker: Respiratory Tract Infection Hx - glass bead maker Hx Respiratory Tract Infection No 02/25/25 08:51 STOP Sleep Apnea STOP Sleep Apnea - glass bead maker: STOP Sleep Apnea - glass bead maker Hx Hypertension Yes: CONTROLLED ON MED 02/25/25 08:51 Hx Sleep Apnea No 02/25/25 08:51 CPAP BIPAP Do you snore loudly (louder Yes 02/25/25 08:51 than talking or can be heard Do you often feel tired/ No 02/25/25 08:51 fatigued/ sleepy during daytime? Has anyone observed you stop No 02/25/25 08:51 breathing during sleep? STOP Results Positive 02/25/25 08:51 QUESTION #5 FULL TEXT : Do you snore loudly (louder than talking or can be heard through closed doors)? 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 Specify any problems Hx of Preganancy in last 3 No 02/25/25 08:51 Months Nurse Filling Out Transfusion VCHRISTIN 02/25/25 08:51 & Questions: Date: 02/25/25 02/25/25 08:51 Time: 08:53 02/25/25 08:51 Patient unable to answer at this time (ie. 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 History - glass bead maker: /Reproductive Hx- glass bead maker Hx Now No 02/25/25 08:51 Gestational Age (in weeks): EDC: Hx Hx Para Hx Section SAB No 02/25/25 08:51 [facility] Medical History (Updated 02/28/25 @ 09:22 by Madhuri SPICER, PA) Wears glasses Post-menopausal History of steroid therapy Arthritis High cholesterol Back pain Smoker Emphysema, unspecified Chronic cough History of pain when walking History of echocardiogram Hypertension Cardiology follow-up encounter Biliary dyskinesia Kidney stone COPD (chronic obstructive pulmonary disease) Osteoarthritis Hyperlipidemia Essential (primary) hypertension Depression Aortic calcification Chest pain Home Medications ?Medication ?Instructions ?Recorded ?Last Taken ?Type atorvastatin 40 mg tablet 40 mg PO QHS 01/30/24 Unknown History losartan 100 mg tablet 100 mg PO QDAY 03/07/24 Unknown History bupropion HCl (smoking deter) 150 150 mg PO BID 12/21/24 Unknown History mg tablet,12 hr sustained-release(smoking deterrent) Held on 02/25/25. Instructions: pt never started taking meloxicam 15 mg tablet 15 mg PO DAILY #30 tabs 12/21/24 Unknown Rx acetaminophen 500 mg tablet 500 mg PO Q6H PRN pain 01/25/25 Unknown History Allergy/AdvReac Type Severity Reaction Status Date / Time shellfish derived Allergy Severe Nausea/Vom/ Verified 02/25/25 08:38 Diarrhea Penicillins Allergy Intermediate PT UNSURE Verified 02/25/25 08:38 OF REACTION Family History Father Depression Hypertension Mother Hypertension Cancer Sister Hypertension Surgical History (Updated 02/25/25 @ 08:51 by Ashleigh Martinez) S/P tubal ligation Hx of lithotripsy Social History (Updated 01/25/25 @ 14:44 by Lily Maradiaga) Smoking Status: Current every day smoker tobacco type: cigarettes alcohol intake: never substance use type: former substance user and marijuana Audit: Pertinent Findings HISTORY of Pertinent Findings History of Pertinent Findings: EKG Pertinent Findings EKG Perinent findings March 07, 2024. Sinus 02/26/25 09:41 rhythm. Left atrial enlargement. Nonspecific T wave abnormality. Echo Pertinent Findings Echo (EF%) pertinent findings March 26, 2024. EF is 02/26/25 09:41 65%. No aortic stenosis is noted. Consult Pertinent Findings Consult pertinent findings March 07, 2024. 02/26/25 09:49 Mylene. 1. Hypertension?good control. No changes at this time. 2. Aortic calcification. Positive aortic sclerosis. Get echo to assess ventricular function. (See above) 3. Coronary artery calcification. Will get a stress and echocardiogram. Pertinent Findings Stress test pertinent findings: March 05, 2025. EF is 78%. Rest and stress SPECT Cardiolite nuclear imaging demonstrate uniform tracer uptake and myocardial perfusion appearing within normal limits. Recommendation Anesthesia Recommendation Anesthesia recommendation: OPTIMIZED for anesthesia
[2025-03-11] VITALS (8 sets, daily range): BP systolic 149–180; BP diastolic 71–92; PULSE 66–81; RESP 16; TEMP 36.1–36.6; O2SAT 95–100; BMI 32.7
[2025-03-11] MEDS: Lactated Ringers 1,000 ML 15 ML IV (10:51)
[2025-03-11] MEDS: INDOCYANINE GREEN 3.75 MG in Syringe 1.5 ML 999 MG IV (10:52)
--- NOTE | 2025-03-11 11:14 | PRE.ANES_ITS ---
ASA Classification* ASA Classification ASA Classification: 3 Assessment & Plan Anesthesia* Anesthesia Assessment Anesthesia Assessment: Discussed sedation and/or anesthesia options, risks, benefits, and alternatives with patient/parents/legal guardian/POA. Questions invited. The patient/parents/legal guardian/POA seems to understand and agrees to proceed with anesthesia plan. Reviewed the physical assessment, medical history, allergy history and patient home medications list prior to surgery/procedure/anesthetic and documented any changes. Performed airway and anesthesia risk assessments. Anesthesia Type Anesthesia Type: General History Source History Obtained from:: Patient and Chart Anesthesia Focused Assessment* Temperature: 97.7 F Pulse Rate: 67 Blood Pressure: 165/72 Respiratory Rate: 16 Pulse Ox: 99 Oxygen Delivery Method: Room Air Airway Assessment Mouth opens: >3 cm Mallampati Score: II Teeth Condition: Intact Neck Range of motion (ROM): Full ROM Labs Anesthesia Preop lab: CBC WBC 13.3 K/mm3 (4.4-11.0) H 12/19/24 14:18 5 RBC 4.78 M/mm3 (4.2-5.4) 12/19/24 14:18 12/19/24 Hgb 15.0 g/dL (12.0-15.0) 12/19/24 14:18 12/19/24 Hct 45.0 % (37-47) 12/19/24 14:18 12/19/24 Plt Count 349 K/mm3 (150-450) 12/19/24 14:18 12/19/24 CHEMISTRY Potassium 4.3 mmol/L (3.3-5.1) 12/21/24 11:04 12/21/24 Sodium 139 mmol/L (133-145) 12/21/24 11:04 12/21/24 BUN 17 mg/dL (4-19) 12/21/24 11:04 12/21/24 Creatinine 0.78 mg/dL (0.70-1.20) 12/21/24 11:04 12/21/24 Glucose 101 mg/dL (70-99) H 12/21/24 11:04 12/21/24 TSH 1.600 uIU/mL (0.300-4.200) 12/21/24 11:12/03 COAG Pre-Assessment Diagnosis/Proposed Procedure Planned Operative Procedure(s): Robotic Cholecystectomy w/grams Anesthesia History 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 When Was Last Pacemaker Check QUESTION #4 FULL TEXT: You/Your Family Experience fever (hyperthermia) with Anesthesia Last Oral Intake Last Oral intake: Last Oral Intake NPO since 19:00 03/11/25 11:00 Meds taken in AM with sips of No 03/11/25 11:00 water? 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 Female Yes 02/25/25 08:51 HX of Motion Sickness No 02/25/25 08:51 HX of N/V After Surgery No 02/25/25 08:51 Non-Smoker No 02/25/25 08:51 Duration of Surgery greater Yes 02/25/25 08:51 than 60 minutes Number of Risk Factors 2 02/25/25 08:51 PONV Score Moderate Risk 02/25/25 08:51 Height & Weight Height & Weight: Anesthesia: Height & Weight Height 5 ft 03/11/25 11:00 Weight: 76 kg 03/11/25 11:00 Body Mass Index (BMI) 32.7 03/11/25 11:00 Respiratory Assessment Respiratory Assessment - canvas shop laborer: Respiratory Tract Infection Hx - 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 Has anyone observed you stop No 02/25/25 08:51 breathing during sleep? STOP Results Positive 02/25/25 08:51 QUESTION #5 FULL TEXT : Do you snore loudly (louder than talking or can be heard through closed doors)? 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 Specify any problems Hx of Preganancy in last 3 No 02/25/25 08:51 Months Nurse Filling Out Transfusion VCHRISTIN 02/25/25 08:51 & Questions: Date: 02/25/25 02/25/25 08:51 Time: 08:53 02/25/25 08:51 Patient unable to answer at this time (ie. 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: /Reproductive Hx- canvas shop laborer Hx Now No 02/25/25 08:51 Gestational Age (in weeks): EDC: Hx Hx Para Hx Section SAB No 02/25/25 08:51 Active Medications Active Medications: Current Medications Generic Name Dose Route Start Last Admin Trade Name Freq PRN Reason Stop Dose Admin Clindamycin Phosphate 900 mg in 50 mls @ 75 mls/hr 03/11/25 11:45 Cleocin IV 03/11/25 12:24 INTRAOP ONE Lactated Ringer's 1,000 mls @ 15 mls/hr 03/11/25 10:15 03/11/25 10:51 IV 15 mls/hr .Q48H [id number] Administration PFSH Medical History Wears glasses Post-menopausal History of steroid therapy Arthritis High cholesterol Back pain Smoker Emphysema, unspecified Chronic cough History of pain when walking History of echocardiogram Hypertension Cardiology follow-up encounter Biliary dyskinesia Kidney stone COPD (chronic obstructive pulmonary disease) Osteoarthritis Hyperlipidemia Essential (primary) hypertension Depression Aortic calcification Chest pain Home Medications ?Medication ?Instructions ?Recorded ?Last Taken ?Type atorvastatin 40 mg tablet 40 mg PO QHS 01/30/24 Unknow n History losartan 100 mg tablet 100 mg PO QDAY 03/07/24 Unkn own History bupropion HCl (smoking deter) 150 150 mg PO BID Unknown History mg tablet,12 hr sustained-release(smoking deterrent) Held on 02/25/25. Instructions: pt never started taking meloxicam 15 mg tablet 15 mg PO DAILY #30 tabs 12/03 Unknown Rx acetaminophen 500 mg tablet 500 mg PO Q6H PRN pain Unknown History Allergy/AdvReac Type Severity Reaction Status Date / Time shellfish derived Allergy Severe Nausea/Vom/ Verified 03/11/25 10:59 Diarrhea Penicillins Allergy Intermediate PT UNSURE Verified 03/11/25 10:59 OF REACTION Family History Father Depression Hypertension Mother Hypertension Cancer Sister Hypertension Surgical History S/P tubal ligation Hx of lithotripsy Social History Smoking Status: Current every day smoker tobacco type: cigarettes alcohol intake: never substance use type: former substance user and marijuana Review of Systems (Anesthesia) ROS Narrative System reviewed and no additional complaints, except as documented.
--- NOTE | 2025-03-11 11:16 | PCM.HP.BLA ---
History and Physical Date of Admission: 03/11/25 Date of Service: 01/25/25 MR#: [id number] Acct: [id number] Name: KIMI SHARPE Rep #: [id number] : 1960 Provider: Dr. Alin Swann MD Age/Sex: 64/F Location: [facility] Status: Signed Intake Vital Signs 12/21/2509:15 01/25/2514:41 Height 5 ft 1 in 5 ft Weight: 168 lb 6 oz 167 lb BMI 31.8 32.5 BP 104/71 Blood Pressure Location Rt brachial Position Sitting Respiration 16 Intake Visit Reasons: GALLBLADDER Chief Complaint: gallbladder Manufacturing Technician Required: No Is patient in pain?: No Allergies shellfish derived Allergy (Severe, Verified 01/25/25 14:41) Nausea/Vom/DiarrheaPenicillins Allergy (Intermediate, Verified 01/25/25 14:41) PT UNSURE OF REACTION Medications ?Medication ?Instructions ?Recorded ?Confirmed ?Type atorvastatin 40 mg tablet 40 mg PO QHS 01/30/24 01/25/25 History losartan 100 mg tablet 100 mg PO QDAY 03/07/24 12/21/24 History bupropion HCl (smoking deter) 150 150 mg PO BID 12/21/24 01/25/25 History mg tablet,12 hr sustained-release(smoking deterrent) meloxicam 15 mg tablet 15 mg PO DAILY #30 tabs 12/21/24 12/21/24 Rx acetaminophen 500 mg tablet 500 mg PO Q6H PRN 01/25/25 01/25/25 History Have you fallen in the past year?: No PFSH Medical History (Updated 01/25/25 @ 16:[address] Alin Swann MD) Biliary dyskinesia Kidney stone COPD (chronic obstructive pulmonary disease) Osteoarthritis Hyperlipidemia Essential (primary) hypertension Depression Aortic calcification Chest pain Surgical History (Updated 01/25/25 @ 14:43 by Lily Maradiaga) S/P tubal ligation Hx of lithotripsy Family History Father Depression HypertensionMother Hypertension CancerSister Hypertension Social History (Updated 01/25/25 @ 14:44 by Lily Maradiaga) Smoking Status: Current every day smoker alcohol intake: never substance use type: former substance user and marijuana HPI HPI HPI: The patient is a 64-year-old female presenting with evaluation and management of gallbladder issues. She is referred from Dr. Andrade. Approximately three to four months ago, the patient began experiencing left flank pain she attributed to kidney stones. Patient CT imaging confirmed cholelithiasis with a significant gallstone but no kidney stones. Upon further evaluation, a HIDA scan showed a low gallbladder ejection fraction. Pain episodes have disrupted the patient's sleep, with a notable incident three weeks prior. Additionally, the patient experienced intentional weight loss due to an interest in decreasing pain from arthritis by adjusting her diet, losing 36 pounds over a year. She also reports constipation attributed to meloxicam use. She lacks prior colon screenings but is now considering colonoscopy. ROS General General: Yes weight change and fatigue; No appetite, colon cancer, breast cancer or weakness HEENT HEENT: No difficulty swallowing, eye injury, eye surgery, swollen glands or hoarseness Endo Endocrine: No thyroid disease, diabetes mellitus, thyroid cancer, Hair loss, heat intolerance or cold intolerance Skin Skin: No rash or changing moles Breast Breast: No left breast lump, right breast lump, nipple discharge, breast pain, abnormal mammogram, abnormal US or breast enlargement Musc Musculoskeletal: Yes back problems and arthritis; No rheumatoid arthritis, gout or joint pain Cardio Cardiovascular: No murmur, pacemaker, heart disease, atrial fibrillation, high blood pressure, heart attack, heart stent, palpitations, shortness of breath with exertion or chest pain Psych Psychiatric: No depression, anxiety or hearing voices Resp Respiratory: No shortness of breath, No sleep apnea, Yes cough, No COPD, No asthma, Yes emphysema and No wheezing Gastro Gastrointestinal: Yes abdominal pain, No nausea or vomiting, No diarrhea, Yes constipation, No blood in stool, No acid reflux, No hemorrhoids, No ulcers, Yes gallbladder problem and No black,tarry stools Jorge Hematologic: No blood thinners, No blood disorders, No bleeding, No anemia and No blood clots Neuro Neurologic: No system reviewed and no additional complaints, except as documented, No as per HPI, No abnormal gait, No abnormal hearing, No abnormal movements, No abnormal speech, No behavioral changes, No burning sensations, No confusion, No convulsions, No disequilibrium, No dizziness, No localized weakness, No frequent falls, No headache(s), No lack of coordination, No loss of vision, No memory loss, Yes numbness, No other visual disturbances, No radicular pain, No restless legs, No sensory deficit, No syncope, Yes tingling, No tremor(s), No weakness and No other Exam Const General: cooperative, comfortable and no acute distress Resp Effort & Inspection: normal respiratory effort GI Other: - no scars, no hernias visible, no distention - Left flank does not elicit significant pain upon palpation. - Mild discomfort in the right upper quadrant during deep inspiratory effort. Assessment and Plan Assessment and Plan (1) Biliary dyskinesia: Status: Acute Comment: 64-year-old female with a history of functional gallbladder disorder presenting with symptoms suggesting biliary colic due to confirmed cholelithiasis. The ejection fraction was notably lower than normal at 10%, consistent with gallbladder dysfunction. Cholecystectomy is indicated to alleviate symptoms and resolve potential biliary complications. Procedural risks (highlighting risk of bile duct injury) and benefits were discussed in detail with hand drawings used to illustrate relevant anatomy. Plan: Robot-assisted cholecystectomy with cholangiography. Outpatient disposition planned. Documentation on this patient encounter was supported using ambient scribe technology/ voice AI technology. The patient consented to recording for the purpose of documenting the encounter. Provider reviewed content of the generated note prior to signature. (2) Constipation: Status: Acute Comment: Patient with new constipation (as of past one month). Attributed to new meloxicam use. No bleeding noted. No OTC agents tried. No history of prior colonoscopic evaluation or Cologuard testing (this is pending). Discussed periop implications with anesthetic meds and postop analgesics. Additionally recommended reconsideration of position against colonoscopy. Plan: - Initiate laxative therapy to address constipation arising from meloxicam usage, with additional measures discussed to continue post-surgery as required. - Patient encouraged to complete colorectal cancer screening through either Cologuard or preferred colonoscopy for thorough evaluation. She states she will likely be interested in proceeding with colonoscopy following our surgery I have examined the patient the following changes are noted: Patient required cardiac stress testing prior to sign off by anesthesia. Pharmacologic stress test was completed by cardiology last week and showed no perfusion abnormalities nor arrhythmias. Patient otherwise reports no new health updates. Abdominal exam is benign. Refill review of the procedure and postprocedure expectations was discussed. Patient and her significant other deny any further questions. Proceed to the operating room for robot-assisted cholecystectomy with possible cholangiography as discussed in greater detail above.
[2025-03-11] MEDS: Midazolam 2 MG/2 ML Syringe IV (11:26)
[2025-03-11] MEDS: Lidocaine 1% (5 ml sdv) 5 ML Vial IV (11:31)
--- NOTE | 2025-03-11 11:45 | GALL_PTH ---
PATIENT: KIMI SHARPE LOC: [facility] U#:[id number] AGE/SX: 64/F ROOM: RE03/11/[address]: Dr. Alin Swann MD : 1960 BED: DIS: 03/11/2025 SPEC #: [id number] RECD: 03/11/25 14:06 STATUS: DANYA REHeriberto #: [id number] JOEY: 03/11/25 11:[address]: Alin Swann DEPT: SURGICAL PATHOLOGY RECD BY: James Turner ENTERED: 03/11/25 15:26 SP TYPE: ANGEL CUEVAS DR: Dr. Flavio Andrade MD Tissues: A - Gallbladder, NOS Procedures: Surgery Specimen Level III HEADER OPERATION: Robotic cholecystectomy PRE-OP DIAGNOSIS: Biliary dyskinesia, constipation TISSUE SUBMITTED: A- Gallbladder MICROSCOPIC DIAGNOSIS A. Gallbladder, robotic cholecystectomy: Acute on chronic cholecystitis with choledocholithiasis. MICROSCOPIC DESCRIPTION Slides are reviewed. GROSS DESCRIPTION A. Received in formalin labeled with the patient's name and date of . Designated as gallbladder is a 11.4 x 2.5 x 1.7 cm focally disrupted but predominantly intact crespo-pink gallbladder with attached cystic duct that is grossly obstructed by an underlying palpable cholelith; the cystic duct margin is inked black and shaved. A lymph node is not present. Opening reveals yellow-green, tenacious bile and a 2.7 cm bile-stained, bosselated cholelith within the cystic duct. The mucosa is crespo-pink to red, nodular, granular and ulcerated with a maximum wall thickness of 0.4 cm. Cholesterolosis is not present. Tray Setter sections are submitted in 2 cassettes. MA 03/11/2025 CPT:14264
[2025-03-11] MEDS: fentaNYL 100 MCG/2 ML Ampul IV (11:59)
[2025-03-11] MEDS: Bupiv/Epi 0.25% 30 ML Vial (13:14)
--- NOTE | 2025-03-11 13:16 | OP.PCM_ITS ---
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 Post-Operative Diagnosis: Chronic cholecystitis Surgery/Procedure Performed: Robot-assisted cholecystectomy oral surgery technician: Yes Lost Charge Card Clerk: Mayuri Lundberg Tasks completed by academic affairs assistant: Opening & closing Type of Anesthesia: General/Supplemental RN Documented Start/Stop Times: Operation Date: 03/11/25 11:45 Case Time Into Pre-Op 03/11/25 10:10 Out of Pre-Op 03/11/25 11:22 Anesthesia Start 03/11/25 11:26 Into Room 03/11/25 11:26 Procedure Start 03/11/25 11:53 Procedure End 03/11/25 13:23 Anesthesia End 03/11/25 13:26 Out of Room 03/11/25 13:26 Into Recovery 03/11/25 13:30 Into Phase II Recovery 03/11/25 14:05 Out of Recovery 03/11/25 14:05 Out of Phase II 03/11/25 14:48 Procedure Start Time: 11:53 Procedure Stop Time: 13:23 Select all DRAINS/GRAFTS/IMPLANTS that apply: None Estimated Blood Loss: 5 Specimen collected: Yes Description of specimen(s) removed: gallbladder Description of surgery: After proper identification in the preoperative holding area the patient was brought to the operating room where she was positioned supine on the operating room table. Preoperatively SCDs were placed and antibiotics were administered. General anesthesia was then induced. Patient's abdomen was prepped and draped in usual sterile fashion. A formal timeout was conducted to confirm both patient and the procedure. Procedure was begun with a supraumbilical incision which was extended deeply down to the level of the fascia. The fascia was candido vated and incised, as well as the peritoneum. A finger sweep was performed to ensure there were no underlying adhesions and a 12 mm balloon trocar was inserted. Pneumoperitoneum was established at 15 mmHg. Three additional trocars (all 8 mm) were placed in the left upper quadrant and in the right upper quadrant under laparoscopic visualization. Inspection of the peritoneum revealed no inadvertent injury to the viscera below. The gallbladder was visualized with mild inflammation as I inspected the infundibular portion. The gallbladder fundus was then grasped and elevated cephalad. Then, using careful dissection the peritoneum was opened and the structures of the hepatocystic triangle were delineated. Firefly was employed and showed a tapering cystic duct of about standard length approaching the common bile duct confluence. Once the critical view of safety was obtained, the cystic duct was doubly clipped with Hem-o-shahid clips while the cystic artery was singly clipped with Hem-o-shahid clips. Each structure was divided with monopolar hook cautery. Unfortunately as I divided the cystic duct the distal clip was displaced and this resulted in some local spillage of bile. A clip was replaced to occlude the opening. The gallbladder was then removed from the gallbladder fossa with the use of electrocautery. There appeared to be a vessel (potentially branch of the right hepatic artery) coursing superficially but parallel to the gallbladder. I worked carefully to preserve the integrity of this vessel but as I approached the final attachments of the gallbladder to the gallbladder fossa and inadvertent rent was made in the gallbladder wall as I tried to avoid vascular injury. This resulted in some additional inadvertent spillage of bile. The gallbladder was then completely removed from the liver and was placed in an Endo Catch bag. The area of the cystic plate and Morison's pouch was irrigated and the effluent was suctioned free of the peritoneum. Hemostasis was again confirmed in the gallbladder fossa. Then the gallbladder specimen in the Endo Catch bag was removed from the peritoneal cavity via the supraumbilical port site. Pneumoperitoneum was evacuated and the fascia of the 12 mm port sites was closed with #1Vicryl in a [id number] fashion. A total of 30 mL of anesthetic was injected at the port sites for postoperative pain control. The skin of each port site was then closed in subcuticular fashion using 4-0 Monocryl. Steri-Strips and bandages were applied as dressings. Patient tolerated the procedure well without any apparent complications. On emergence from their anesthetic the patient was taken to PACU for ongoing recovery. Surgical Findings: ? Elongated gallbladder with inflammatory changes about the infundibulum ? Inadvertent spillage of the gallbladder Complications Complications: No Admit VTE Documentation VTE Mechan Device Prophylaxis: SCD's
--- NOTE | 2025-03-11 13:19 | EX.PCM.DISCH ---
Discharge Instructions Diet Discharge Diet: No restrictions Activity Discharge Activity: May Not Drive (No driving while using narcotic pain medication) and May Shower (Postoperative day 1) May shower in (days): 2 Ice area for (Minutes): 20 Lifting Restrictions: No lifting greater than 15 pounds for 2 weeks after surgery Dressing / Incision Call your doctor if your incision/area has: Continuous Slow Oozing, Increased Pain/ Swelling, Increased Redness, Foul Smelling Discharge and Swelling at the incision site Call your doctor if you observe: Fever of 101 or Higher Remove Dressing in: 2 days (Please leave Steri-Strips intact until they fall off spontaneously or are taken off at your follow-up visit) Cleanse incision/area with: Soap & Water Follow Up Care Please Follow Up With: Alin Sawnn MD When: 7-10days postop Test Results: Test results from this visit will be discussed in further detail at your follow-up appointment, if applicable. Discharge Plan Admission Primary Reason for Your Visit: Gallbladder surgery Attending Provider: Alin Swann Primary Care Provider: Flavio Andrade Chi Instructions Print Language: Greenlandic Discharge Orders/Prescriptions Prescriptions: New oxycodone 5 mg tablet 5 mg PO Q6H PRN (Reason: pain) 3 Days Qty: 10 0RF Continued atorvastatin 40 mg tablet 40 mg PO QHS losartan 100 mg tablet 100 mg PO QDAY bupropion HCl (smoking deter) 150 mg tablet extended release 12 hr 150 mg PO BID meloxicam 15 mg tablet 15 mg PO DAILY Qty: 30 0RF Rx Instructions: Do not take in conjunction with other NSAID. Tylenol is okay. acetaminophen 500 mg tablet 500 mg PO Q6H PRN (Reason: pain) Referrals / Follow Up: Flavio Andrade Chi, MD [Primary Care Provider] - Disposition Disposition (needs filled in before D/C Order can be placed): Home, Self Care
--- NOTE | 2025-03-11 13:34 | PCM.POST.ANE ---
Anesthesia: Postop Eval I Current Vital Signs Temperature: 97 F Pulse Rate: 81 Blood Pressure: 180/74 Respiratory Rate: 16 Pulse Ox: 98 Oxygen Delivery Method: Room Air Assessment Airway patent: Yes Spontaneous unlabored respirations: Yes Mental status: Awake nausea: No Vomiting: No Anesthesia Complication: No Fluid Hydration Crystalloid volume administer (ml): 1,500 Total IV fluid infused: 1,500 Progress Note Anesthesia document: Postop Eval 1 completed: Yes
--- NOTE | 2025-03-11 14:32 | POSTOPAN2_ITS ---
Anesthesia Postop Eval I Sum Postop Eval Completion status Anesthesia document: Postop Eval 1 completed: Yes Anesthesia Postop Eval I Summary Anesthesia Postop Eval I Summary: Anesthesia Postop Eval I: Assessment Summary Airway patent Yes 03/11/25 13:35 PAROLE AGENT.HBARR Spontaneous unlabored Yes 03/11/25 13:35 PAROLE AGENT.HBARR respirations Mental status Awake 03/11/25 13:35 PAROLE AGENT.HBARR nausea No 03/11/25 13:35 PAROLE AGENT.HBARR Vomiting No 03/11/25 13:35 PAROLE AGENT.HBARR Anesthesia Postop Eval I: Fluid Summary Crystalloid volume administer 1,500 03/11/25 13:35 PAROLE AGENT.HBARR (ml) Colloids volume administered ( ml) Blood Product volume administered (ml) Total IV fluid infused 1,500 03/11/25 13:35 PAROLE AGENT.HBARR Anesthesia Postop Eval I: Summary Notes Anesthesia Complication No 03/11/25 13:35 PAROLE AGENT.HBARR Anesthesia Complication Comment: Post-operative progress note Anesthesia: Postop Eval II Evaluation Mental status: Awake and Calm Pain Level: 1 nausea: No Vomiting: No Complications Anesthesia Complication: No
--- NOTE | 2025-03-11 14:32 | PCM.POSTANE2 ---
Anesthesia Postop Eval I Sum Postop Eval Completion status Anesthesia document: Postop Eval 1 completed: Yes Anesthesia Postop Eval I Summary Anesthesia Postop Eval I Summary: Anesthesia Postop Eval I: Assessment Summary Airway patent Yes 03/11/25 13:35 COOLING MACHINE OPERATOR.HBARR Spontaneous unlabored Yes 03/11/25 13:35 COOLING MACHINE OPERATOR.HBARR respirations Mental status Awake 03/11/25 13:35 COOLING MACHINE OPERATOR.HBARR nausea No 03/11/25 13:35 COOLING MACHINE OPERATOR.HBARR Vomiting No 03/11/25 13:35 COOLING MACHINE OPERATOR.HBARR Anesthesia Postop Eval I: Fluid Summary Crystalloid volume administer 1,500 03/11/25 13:35 COOLING MACHINE OPERATOR.HBARR (ml) Colloids volume administered ( ml) Blood Product volume administered (ml) Total IV fluid infused 1,500 03/11/25 13:35 COOLING MACHINE OPERATOR.HBARR Anesthesia Postop Eval I: Summary Notes Anesthesia Complication No 03/11/25 13:35 COOLING MACHINE OPERATOR.HBARR Anesthesia Complication Comment: Post-operative progress note Anesthesia: Postop Eval II Evaluation Mental status: Awake and Calm Pain Level: 1 nausea: No Vomiting: No Complications Anesthesia Complication: No
== END 2025-03-11 14:47 | disposition home or self-care (01) ==
LOC: SDC 09:58 → AC 10:00
PROVIDERS: PCP Family Medicine Geriatric Medicine; Referring Provider Surgery; Visit Provider Surgery
PROC: 0FT44ZZ Resection of Gallbladder, Percutaneous Endoscopic Approach (ICD-10-PCS; CPT 47562; principal; 2025-03-11 11:25)
DX: K80.12 Calculus of gallbladder with acute and chronic cholecystitis without obstruction (principal); J44.9 Chronic obstructive pulmonary disease, unspecified; M19.90 Unspecified osteoarthritis, unspecified site; I10 Essential (primary) hypertension; E78.5 Hyperlipidemia, unspecified; F17.200 Nicotine dependence, unspecified, uncomplicated; Z79.899 Other long term (current) drug therapy
CPT/HCPCS: 47562; S2900; 00790; 88304; A4216; J2405

== ENCOUNTER → 2025-04-11 | Outpatient (CLI) | payer BC, SELFPAY ==
--- NOTE | 2025-04-11 10:01 | BI_ITS ---
EXAM: SCRN MAMM (CAD)W/KRISTI BILAT DATE: 04/11/2025 CLINICAL HISTORY: F, Age 64 y/o , SCREENING TECHNIQUE: Procedure Code: [id number] Modality: MG Procedure: SCRN MAMM (CAD)W/KRISTI BILAT COMPARISON: Prior exam(s) were compared FINDINGS: TISSUE DENSITY: There are scattered areas of fibroglandular density. Bilateral Breast Mammographic Findings: No suspicious masses, calcifications or other abnormalities are identified. BI/SCRN MAMM (CAD)W/KRISTI BILAT IMPRESSION: No mammographic evidence of malignancy in either breast. OVERALL FINAL ASSESSMENT BI-RADS 1: NEGATIVE. RECOMMENDATION: Routine annual follow-up in 1 Year Additional Recommendation none A letter with findings and recommendations will be mailed to the patient. Reading Location: [id number]
== END | disposition home or self-care (01) ==
LOC: OPBI 10:00
PROVIDERS: PCP Family Medicine Geriatric Medicine; Referring Provider Family Medicine Geriatric Medicine; Visit Provider Family Medicine Geriatric Medicine
DX: Z12.31 Encounter for screening mammogram for malignant neoplasm of breast (principal)
CPT/HCPCS: 77063; 77067